=== PATIENT | male | born 1995 | race Caucasian/White ===

== ENCOUNTER 2016-09-15 13:41 | Inpatient (IN) | payer MEDICAID, OTHER, SELFPAY ==
[~2016-09-15] VITALS: Ht 180.3 cm; Wt 66.8 kg
[2016-09-15] VITALS (8 sets, daily range): BP systolic 124–136; BP diastolic 64–82
[~2016-09-15 13:41] MED LIST: DRIS50002 PO; INSUDET SC; INSUH10VL SC; LEVA750T PO; NAPR500T2 PO; PERCOCET PO
[2016-09-15 14:10] LABS: BASO % 0.2 % (0.0-1.0); EOS # 0.1 K/mm3 (0.0-0.50); EOS % 0.3 % (0.0-3.0); LARGE UNSTAINED CELL # 0.2 K/mm3 (0.0-0.4); LARGE UNSTAINED CELL % 0.8 % (0.0-4.0); LYMPH # 1.3 K/mm3 (1.5-6.5); LYMPH % 5.3 % (24.0-44.0); MEAN CORPUSCULAR HEMOGLOBIN 27.7 pg (27.0-33.0); MEAN CORPUSCULAR HGB CONC 32.1 g/dl (32.0-36.5); MEAN CORPUSCULAR VOLUME 86.2 fl (80.0-96.0); MONO # 0.7 K/mm3 (0.0-0.8); MONO % 2.7 % (0.0-5.0); NEUTROPHILS # 21.5 K/mm3 (1.8-7.7); NEUTROPHILS % 90.6 % (36.0-66.0); PLATELET COUNT, AUTOMATED 272 k/mm3 (150-450); RED CELL DISTRIBUTION WIDTH 14.1 % (11.5-14.5); WHITE BLOOD COUNT 23.7 K/mm3 (4.0-10.0)
[2016-09-15 14:21] LABS: VENOUS BASE EXCESS -15.4 (-2.0-2.0); VENOUS O2 SATURATION 92.4 % (60.0-80.0); VENOUS PARTIAL PRESSURE CO2 25.7 mmHg (38.0-50.0); VENOUS PARTIAL PRESSURE O2 74.5 mmHg (30.0-50.0); VENOUS STANDARD HCO3 12.9 MEQ/L; VENOUS TOTAL CO2 11.2 MEQ/L (24.0-28.0)
[2016-09-15 14:34] LABS: CALCIUM LEVEL 8.3 MG/DL (8.5-10.1); CREATININE FOR GFR 2.3 MG/DL (0.70-1.30); MAGNESIUM LEVEL 3.2 MG/DL (1.8-2.4); PHOSPHORUS LEVEL 6.9 MG/DL (2.5-4.9); POTASSIUM SERUM 3.4 MEQ/L (3.5-5.1)
[2016-09-15] MEDS ORDERED: METOCLOPRAMIDE INJ 10MG/2ML VIAL (J2765) As Ordered ONE (14:36)
[2016-09-15] MEDS ORDERED: KCL 20MEQ IN 0.9 NS 1000 ML BAG As Ordered ONE (14:54)
--- NOTE | 2016-09-15 14:57 | REP ---
Clinical: Acute cough . Comparison: 03/20/2016 . Findings: The mediastinum and cardiac silhouette are stable and within normal limits for portable technique. The lung galloway are clear without acute consolidation, effusion, or pneumothorax. Skeletal structures are intact. Impression: Normal portable chest x-ray Signed by Thomas Lua MD 09/15/2016 02:49 P
[2016-09-15] MEDS ORDERED: NOVOINJ3 SC (15:07)
[2016-09-15] MEDS ORDERED: TOUJ1.2I SC (15:07)
[2016-09-15] MEDS ORDERED: HumuLIN R (REGULAR) INSULIN (NovoLIN R) **100U/ML** PER UNIT As Ordered ONE (15:20)
[2016-09-15] MEDS ORDERED: INSULIN HUMAN REGULAR 100 UNITS in NS 99 ML IV SCH (15:30)
--- NOTE | 2016-09-15 15:55 | EDDOCDS ---
Nurse's Notes [facility] Name: Ray Noble Age: 21 yrs Sex: Male : 1995 Arrival Date: 09/15/2016 Time: 13:41 Bed 6 Private MD: Diagnosis: Type 1 diabetes mellitus with ketoacidosis without coma;Hypokalemia;Dehydration Presentation: 09/15 13:58 Presenting complaint: EMS states: that the pt has had flu like symptoms for the past 2 ms18 days and is lethargic. EMS states that they checked the blood glucose and their machine read "HIGH". Pt was given 600mL NS. 18 g L AC. Adult Sepsis Screening: Patient has new or worsening altered mentation (1 point). Patient's respiratory rate is less than 22. Systolic blood pressure is greater than 100. Patient has a qSOFA score of 0- Negative Sepsis Screen. Suicide/Homicide risk assessment- the patient denies having any suicidal and/or homicidal ideations and does not present with any other emotional, behavioral or mental health complaints. 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 Transition of care: patient was not received from another setting of care. 13:58 Acuity: CARLY Level 3 ms18 13:58 Method Of Arrival: Ambulance ms18 Triage Assessment: 14:29 General: Appears in no apparent distress, ill, emaciated, Behavior is cooperative, ms18 drowsy, flat. HIV screening NA for this visit Offered previously. Neurological: Level of Consciousness is awake, lethargic, listless, obeys commands, Moves all extremities. Gait is steady. Respiratory: Airway is patent Respiratory effort is even, unlabored. GI: Abdomen is flat, non- distended Pt is actively vomiting. Derm: Skin is pink, warm & dry. 14:29 Pain: Pain currently is 5 out of 10 on a pain scale. ms18 Historical: - Allergies: PENICILLINS (Hives); Tramadol HCl (Vomit); Zofran; - Home Meds: 1. Insulin Levamir 36 units in am daily 2. Regular Insulin Sliding Scale before meals 7 units at 1600 - PMHx: Diabetes - IDDM: uncontrolled; Self Cath's; - PSHx: Appendectomy; L middle finger surgery; - The history from nurses notes was reviewed: but there are no nursing notes, or only partial notes available at the time of my charting. - Social history: Smoking status: Patient uses tobacco products, current every day smoker. No barriers to communication noted, The patient speaks fluent Korean. - : The pt / caregiver states he / she is not on anticoagulants. Home medication list is obtained from the patient. - Immunization history:: All immunizations up-to-date. - Exposure Risk Screening:: None identified. - Family history: Not pertinent. - Social history:: the patient is a non-smoker, the patient drinks alcohol. Screenin:32 Screening information is obtained from the patient. Fall risk: At risk due to apparent ms18 cognitive impairment. Assistance ADL's: requires no assistance with activities of daily living. Abuse/DV Screen: The patient / caregiver reports he/she is: not in a situation that causes fear, pain or injury. Nutritional screening: On diabetic diet. Advance Directives: Currently, there is no health care proxy. home support is adequate. Assessment: 14:32 General: Pt's left to go to work and left her cell number, . Her name walter is Roseanne. 14:45 General: Appears in no apparent distress, comfortable, emaciated, slender, Behavior is ms18 cooperative, flat, listless, quiet. Pain: Pain currently is 4 out of 10 on a pain scale. Neurological: Level of Consciousness is awake, lethargic, listless, obeys commands, Oriented to person, place, time. Respiratory: Airway is patent Respiratory effort is even, unlabored. GI: Abdomen is flat, non- distended Reports nausea, vomiting. Derm: Skin is pink, warm & dry. normal. 15:47 General: Appears in no apparent distress, comfortable, Behavior is cooperative, flat, ms18 listless. General: ICU called, report given to Ayala Houston. PT can go to his room 3209 in approx 10 mins. Neurological: Level of Consciousness is awake, lethargic, listless, obeys commands, Oriented to person, place, time, Speech pt states that his throat is dry and can't speak well at this time. Facial symmetry appears normal. Cardiovascular: Rhythm is sinus rhythm. Respiratory: Airway is patent Respiratory effort is even, unlabored, Respiratory pattern is regular, symmetrical. GI: Abdomen is flat, non- distended. Derm: Skin is pink, warm & dry. normal. Vital Signs: 13:53 BP 140 / 65; Pulse 125; Resp 20; Temp 96.4(O); Pulse Ox 96% on R/A; Weight 73.48 kg nb2 (R); Height 5 ft. 11 in. (180.34 cm) (R); Pain 9/10; 14:29 Weight 62.6 kg (M); ms18 14:38 Pulse 120 MON; Pulse Ox 98% ; ms18 14:39 BP 122 / 65 (auto/); Resp 18; ms18 15:24 BP 144 / 73 (auto/); ms18 15:24 Pulse 100 MON; Pulse Ox 98% ; ms18 15:39 BP 130 / 63 (auto/); ms18 15:48 Pulse 108 MON; Resp 18; Temp 97; Pulse Ox 98% on R/A; Pain 5/10; ms18 14:29 Body Mass Index 19.25 (62.60 kg, 180.34 cm) ms18 Vitals: 13:53 Log In Time N/A - ambulance arrival. nb2 ED Course: 13:42 Patient visited by Roxanne Underwood, Vice President Business & Corporate Development. deg 13:42 Sherrell August,RN is Primary Nurse. deg 13:42 Patient moved to Waiting deg 13:42 Patient moved to 6 deg 13:46 Karl Sue MD is Attending Physician. pc 13:53 Placed in gown. Bed in low position. Call light in reach. Side rails up X2. Cardiac nb2 monitor on. Pulse ox on. NIBP on. 13:54 Patient visited by Mame Ortez. nb2 13:55 Patient visited by Karl Sue MD. pc 13:58 Patient visited by Sherrell August,RN. ms18 14:03 Triage Initiated ms18 14:21 EKG done. (by ED staff). Reviewed by Karl Sue MD. nb2 14:22 -Influenza A&B Rapid Antigen - Nose Sent. ms18 14:25 Patient visited by Mame Ortez. nb2 14:32 The patient / caregiver is instructed regarding the plan of care and ED course. ms18 Property :Personal belongings accompany Pt. 14:32 Maintain field IV. Dressing intact. Good blood return noted. Site clean & dry. Gauge & ms18 site: 18g L AC. Blanchard cath inserted 16 Fr. Balloon inflated. To gravity drainage. Urine specimen collected. other Pt self caths and requested a blanchard catheter. Dr. Sue aware of this and stated that it was ok to insert the cath. 14:41 Patient visited by Sherrell August RN. ms18 14:49 Urine Culture Sent. ms18 14:49 Urinalysis Sent. ms18 14:58 Erica Jaimes precipitator supervisor. ys2 15:08 Inserted peripheral IV: 20gauge IV in right hand. dwg 15:09 Patient visited by Sherrell August RN. ms18 15:15 Erica Jaimes is Hospitalizing Provider. pc 15:41 Chest, 1 View Returned. EDMS 15:45 [facility] Payment Agreement was scanned into [employer] and attached to record. zo 15:47 Patient visited by Sherrell August RN. ms18 15:48 No procedures done that require assistance. ms18 Administered Medications: 14:23 CANCELLED (Other Intervention Used): Ondansetron 4 mg IVP once pc 14:24 Drug: NS 0.9% 1000 ml [sodium chloride 0.9 % intravenous solution] Route: IV; Rate: ms18 bolus; Site: left antecubital; 15:17 Follow up: IV Status: Completed infusion; IV Intake: 1000ml ms18 14:41 Drug: Metoclopramide 10 mg [metoclopramide 5 mg/mL injection solution] Route: IV; Rate: ms18 40 mg/hr; Infused Over: 15 mins; Site: left antecubital; 15:07 Follow up: IV Status: Completed infusion; IV Intake: 102ml ms18 15:16 Drug: NS 0.9 % with KCl 1000 ml [potassium chloride 20 mEq/L in 0.9 % sodium chloride ms18 intravenous] {Co-Signature: ld5 (Maddy Sepulveda RN).} Route: IV; Rate: 200 mL/hr; Site: left antecubital; 15:32 Drug: Insulin Regular Human 6 units [insulin regular human 100 unit/mL injection ms18 solution (0.06 mL)] {Co-Signature: mcp (Rupinder Do RN).} Route: IVP; Site: right hand; 15:33 Drug: Insulin Regular Human Infusion (0.1units/kg/hr) 6 units/hr [insulin regular human ms18 100 unit/mL injection solution] {Co-Signature: mcp (Rupinder Do RN).} Route: IV; Rate: calculated rate; Site: right hand; Intake: 14:46 IV: 600.00ml (NS); Total: 600.00ml. ms18 15:07 IV: 102.00ml; Total: 702.00ml. ms18 15:17 IV: 1000.00ml; Total: 1702.00ml. ms18 14:46 given by EMS ms18 Output: 14:46 Urine: 1200.00ml (Blanchard); Total: 1200.00ml. ms18 14:46 given by EMS ms18 Order Results: Lab Order: CBC with Diff; SPEC'M 09/15/16 14:01 Test: WHITE BLOOD COUNT; Value: 23.7; Range: 4.0-10.0; Abnormal: Above high normal; Units: K/mm3; Status: F Test: RED BLOOD COUNT; Value: 4.73; Range: 4.30-6.10; Units: M/mm3; Status: F Test: HEMOGLOBIN; Value: 13.1; Range: 14.0-18.0; Abnormal: Below low normal; Units: g/dl; Status: F Test: HEMATOCRIT; Value: 40.7; Range: 42.0-52.0; Abnormal: Below low normal; Units: %; Status: F Test: MEAN CORPUSCULAR VOLUME; Value: 86.2; Range: 80.0-96.0; Units: fl; Status: F Test: MEAN CORPUSCULAR HEMOGLOBIN; Value: 27.7; Range: 27.0-33.0; Units: pg; Status: F Test: MEAN CORPUSCULAR HGB CONC; Value: 32.1; Range: 32.0-36.5; Units: g/dl; Status: F Test: RED CELL DISTRIBUTION WIDTH; Value: 14.1; Range: 11.5-14.5; Units: %; Status: F Test: PLATELET COUNT, AUTOMATED; Value: 272; Range: 150-450; Units: k/mm3; Status: F Test: NEUTROPHILS %; Value: 90.6; Range: 36.0-66.0; Abnormal: Above high normal; Units: %; Status: F Test: LYMPH %; Value: 5.3; Range: 24.0-44.0; Abnormal: Below low normal; Units: %; Status: F Test: MONO %; Value: 2.7; Range: 0.0-5.0; Units: %; Status: F Test: EOS %; Value: 0.3; Range: 0.0-3.0; Units: %; Status: F Test: BASO %; Value: 0.2; Range: 0.0-1.0; Units: %; Status: F Test: LARGE UNSTAINED CELL %; Value: 0.8; Range: 0.0-4.0; Units: %; Status: F Test: NEUTROPHILS #; Value: 21.5; Range: 1.8-7.7; Abnormal: Above high normal; Units: K/mm3; Status: F Test: LYMPH #; Value: 1.3; Range: 1.5-6.5; Abnormal: Below low normal; Units: K/mm3; Status: F Test: MONO #; Value: 0.7; Range: 0.0-0.8; Units: K/mm3; Status: F Test: EOS #; Value: 0.1; Range: 0.0-0.50; Units: K/mm3; Status: F Test: BASO #; Value: 0.0; Range: 0.0-0.2; Units: K/mm3; Status: F Test: LARGE UNSTAINED CELL #; Value: 0.2; Range: 0.0-0.4; Units: K/mm3; Status: F Lab Order: MED Profile; SPEC'M 09/15/16 14:01 Test: GLUCOSE, FASTING; Value: 786; Range: 70-105; Abnormal: Above upper panic limits; Units: MG/DL; Status: F Test: BLOOD UREA NITROGEN; Value: 54; Range: 7-18; Abnormal: Above high normal; Units: MG/DL; Status: F Test: CREATININE FOR GFR; Value: 2.30; Range: 0.70-1.30; Abnormal: Above high normal; Units: MG/DL; Status: F Test: GLOMERULAR FILTRATION RATE; Value: 38.0; Range: >60; Abnormal: Below low normal; Status: F Test: SODIUM LEVEL; Value: 121; Range: 136-145; Abnormal: Below low normal; Units: MEQ/L; Status: F Test: POTASSIUM SERUM; Value: 3.4; Range: 3.5-5.1; Abnormal: Below low normal; Units: MEQ/L; Status: F Test: CHLORIDE LEVEL; Value: 74; Range: 98-107; Abnormal: Below low normal; Units: MEQ/L; Status: F Test: CARBON DIOXIDE LEVEL; Value: 12; Range: 21-32; Abnormal: Below low normal; Units: MEQ/L; Status: F Test: ANION GAP; Value: 35; Range: 8-16; Abnormal: Above high normal; Units: MEQ/L; Status: F Test: CALCIUM LEVEL; Value: 8.3; Range: 8.5-10.1; Abnormal: Below low normal; Units: MG/DL; Status: F Test Note: ; Units are mL/min/1.73 m2 Chronic Kidney Disease Staging per NKF: Stage I & II GFR >=60 Normal to Mildly Decreased Stage III GFR 30-59 Moderately Decreased Stage IV GFR 15-29 Severely Decreased Stage V GFR <15 Very Little GFR Left ESRD GFR <15 on RESEARCH AND DEVELOPMENT RESEARCHER Lab Order: Venous Blood Gas (large pea green tube on ice); SPEC'M 09/15/16 14:01 Test: VENOUS PH; Value: 7.226; Range: 7.330-7.430; Abnormal: Below low normal; Units: UNITS; Status: F Test: VENOUS PARTIAL PRESSURE CO2; Value: 25.7; Range: 38.0-50.0; Abnormal: Below low normal; Units: mmHg; Status: F Test: VENOUS PARTIAL PRESSURE O2; Value: 74.5; Range: 30.0-50.0; Abnormal: Above high normal; Units: mmHg; Status: F Test: VENOUS TOTAL CO2; Value: 11.2; Range: 24.0-28.0; Abnormal: Below low normal; Units: MEQ/L; Status: F Test: VENOUS HCO3; Value: 10.4; Range: 23.0-27.0; Abnormal: Below low normal; Units: MEQ/L; Status: F Test: VENOUS BASE EXCESS; Value: -15.4; Range: -2.0-2.0; Abnormal: Below low normal; Status: F Test: VENOUS STANDARD HCO3; Value: 12.9; Units: MEQ/L; Status: F Test: VENOUS O2 SATURATION; Value: 92.4; Range: 60.0-80.0; Abnormal: Above high normal; Units: %; Status: F Lab Order: Phosphorous Level; [facility] 14:01 Test: PHOSPHORUS LEVEL; Value: 6.9; Range: 2.5-4.9; Abnormal: Above high normal; Units: MG/DL; Status: F Lab Order: Magnesium Level; [facility] 09/15/16 14:01 Test: MAGNESIUM LEVEL; Value: 3.2; Range: 1.8-2.4; Abnormal: Above high normal; Units: MG/DL; Status: F Lab Order: -Influenza A&B Rapid Antigen - Nose; 09/15/16 14:19 Test: INFLUENZA A RAPID SCR by ICA; Value: INFLUENZA A RESULTS NEGATIVE; Status: F Test: INFLUENZA A RAPID SCR by ICA; Value: Comments:; Status: F Test: INFLUENZA B RAPID SCR by ICA; Value: INFLUENZA B RESULTS NEGATIVE; Status: F Test Note: ; The Influenza test is a direct rapid immunoassay for the qualitative detection of Influenza viral antigen. Cell culture (Viral Culture) testing should be considered to confirm NEGATIVE results and to assist in detecting other viruses that can provide similar clinical symptoms. Please contact the lab within 24 hours ([phone]) if confirmatory testing is desired. Lab Order: Lactic Acid ([place] tube on ice); 09/15/16 14:01 Test: LACTIC ACID SEPSIS PROTOCOL; Value: 2.2; Range: 0.4-2.0; Abnormal: Above upper panic limits; Units: MMOL/L; Status: F Lab Order: A1C; [facility] 09/15/16 14:01 Test: HEMOGLOBIN A1c; Value: 13.3; Range: 4.5-6.2; Abnormal: Above high normal; Units: %; Status: F Test: ESTIMATED AVERAGE GLUCOSE; Value: 335; Range: 60-110; Abnormal: Above high normal; Units: MG/DL; Status: F Lab Order: Urinalysis; [facility] 09/15/16 14:45 Test: APPEARANCE, URINE; Value: CLEAR; Range: CLEAR; Status: F Test: COLOR, URINE; Value: STRAW; Range: YELLOW; Status: F Test: PH,URINE; Value: 5.0; Range: 5.0-9.0; Units: UNITS; Status: F Test: SPECIFIC GRAVITY URINE AUTO; Value: 1.016; Range: 1.002-1.035; Status: F Test: PROTEIN, URINE AUTO; Value: NEGATIVE; Range: NEGATIVE; Units: mg/dL; Status: F Test: GLUCOSE, URINE (UA) AUTO; Value: 3+; Range: NEGATIVE; Abnormal: Above high normal; Units: mg/dL; Status: F Test: KETONE, URINE AUTO; Value: 2+; Range: NEGATIVE; Abnormal: Above high normal; Units: mg/dL; Status: F Test: UROBILINOGEN, URINE AUTO; Value: 0.2; Range: 0.0-2.0; Units: mg/dL; Status: F Test: BILIRUBIN, URINE AUTO; Value: NEGATIVE; Range: NEGATIVE; Status: F Test: NITRITE, URINE AUTO; Value: NEGATIVE; Range: NEGATIVE; Status: F Test: LEUKOCYTE ESTERASE, URINE AUTO; Value: NEGATIVE; Range: NEGATIVE; Status: F Test: BLOOD, URINE BLOOD; Value: 1+; Range: NEGATIVE; Abnormal: Above high normal; Status: F Test: WBC, URINE AUTO; Value: 0; Range: 0-3; Units: /HPF; Status: F Test: RBC, URINE AUTO; Value: 3; Range: 0-3; Units: /HPF; Status: F Test: BACTERIA, URINE AUTO; Value: 1+; Range: NEGATIVE; Abnormal: Above high normal; Status: F Test: SQUAMOUS EPITHELIAL CELL UR AU; Value: 0; Range: 0-6; Units: /HPF; Status: F Test: MUCUS, URINE; Value: SMALL; Range: NEGATIVE; Status: F Test: HYALINE CAST, URINE AUTO; Value: 0; Range: 0-1; Units: /LPF; Status: F Radiology Order: Chest, 1 View Test: Chest, 1 View REASON FOR EXAMINATION: Cough; Clinical: Acute cough .; ; Comparison: 03/20/2016 .; ; Findings:; The mediastinum and cardiac silhouette are stable and within normal limits for; portable technique. The lung galloway are clear without acute consolidation,; effusion, or pneumothorax. Skeletal structures are intact.; ; Impression:; Normal portable chest x-ray; ; ; Signed by; Thomas Lua MD 09/15/2016 02:49 P; Outcome: 15:15 Decision to Hospitalize by Provider. pc 15:48 Discharge Assessment: Patient awake, alert and oriented x 3. No cognitive and/or ms18 functional deficits noted. Patient verbalized understanding of disposition instructions. patient administered narcotics - no. The following High Risk Discharge criteria are identified: None. Admitted to ICU accompanied by nurse, accompanied by tech, via stretcher, on monitor, with chart. Condition: stable. No special radiology studies were completed. Property :Personal belongings accompany Pt. 15:54 Patient left the ED. ms18 Signatures: Dispatcher [employer] EDMS Karl Sue MD MD pc Murray, Denise, Vice President Business & Corporate Development Unit deg Checo Moreno, RN RN Camille Reich MalloryRN RN ms18 Erica Jaimes2 Mame Ortez2 Maddy Sepulveda RN ld5 Rupinder Do RN [facility] MTDTorsten
--- NOTE | 2016-09-15 15:55 | EDDOCDS ---
Physician Documentation [facility] Name: Ray Noble Age: 21 yrs Sex: Male : 1995 Arrival Date: 09/15/2016 Time: 13:41 Bed 6 Private MD: Disposition: 09/15 14:54 Critical Care:. pc Disposition: 09/15/16 15:15 Hospitalization ordered by Erica Jaimes for Inpatient Admission. Preliminary diagnosis are Type 1 diabetes mellitus with ketoacidosis without coma, Hypokalemia, Dehydration. - Bed requested for M ICU. - Status is Inpatient Admission. ms18 - Condition is Stable. - Problem is new. - Symptoms have improved. HPI: 14:00 This 21 yrs old Male presents to ER with complaints of High Blood Sugar. pc 14:00 The history is obtained from the patient, the patient's family/friend. He has had a pc cough and cold for 7 days, worse in the past 2 days, now having nausea and vomiting. He has not taken any of his regular meds, including his insulin for 2 days, and has not checked his FSBS. It read high by EMS [employer]. The patient has experienced similar episodes in the past, a few times. The patient has been recently been admitted at [facility], was discharged from the hospital May 2016, after sepsis due to an E. Coli UTI, and he has not followed with any PCP since.. Historical: - Allergies: PENICILLINS (Hives); Tramadol HCl (Vomit); Zofran; - Home Meds: 1. Insulin Levamir 36 units in am daily 2. Regular Insulin Sliding Scale before meals 7 units at 1600 - PMHx: Diabetes - IDDM: uncontrolled; Self Cath's; - PSHx: Appendectomy; L middle finger surgery; - The history from nurses notes was reviewed: but there are no nursing notes, or only partial notes available at the time of my charting. - Social history: Smoking status: Patient uses tobacco products, current every day smoker. No barriers to communication noted, The patient speaks fluent [place]. - : The pt / caregiver states he / she is not on anticoagulants. Home medication list is obtained from the patient. - Immunization history:: All immunizations up-to-date. - Exposure Risk Screening:: None identified. - Family history: Not pertinent. - Social history:: the patient is a non-smoker, the patient drinks alcohol. ROS: 14:00 All systems are negative except as listed. pc Exam: 14:00 General Appearance: alert, the patient is in moderate distress, frail, cachectic . pc 14:00 EENT: normal eye inspection, ears, nose and throat normal, mucous membranes dry, overwhelming odor of ketones on breath . 14:00 Neck: The exam reveals no acute abnormalities. ROM is normal and painless. No nuchal rigidity is noted.. 14:00 Respiratory: Respirations/effort: tachypnea, Kussmaul respirations. 14:00 CVS: regular rhythm, normal S1 and S2, no murmurs, strong peripheral pulses, normal capillary refill, the patient is tachycardic, at 125 bpm. 14:00 Abdomen: soft, non-tender, no organomegaly, normal bowel sounds. 14:00 Back: normal inspection. 14:00 Skin: skin color is normal, warm, dry. 14:00 Extremities: The extremities have a grossly normal appearance. 14:00 Neuro: oriented x 3, cranial nerves normal as tested, no motor deficits, no sensory deficits. 14:00 Psych: normal mood. Vital Signs: 13:53 BP 140 / 65; Pulse 125; Resp 20; Temp 96.4(O); Pulse Ox 96% on R/A; Weight 73.48 kg / nb2 162 lbs (R); Height 5 ft. 11 in. (180.34 cm) (R); Pain 9/10; 14:29 Weight 62.6 kg / 138.01 lbs (M); ms18 14:38 Pulse 120 MON; Pulse Ox 98% ; ms18 14:39 BP 122 / 65 (auto/); Resp 18; ms18 15:24 BP 144 / 73 (auto/); ms18 15:24 Pulse 100 MON; Pulse Ox 98% ; ms18 15:39 BP 130 / 63 (auto/); ms18 15:48 Pulse 108 MON; Resp 18; Temp 97; Pulse Ox 98% on R/A; Pain 5/10; ms18 14:29 Body Mass Index 19.25 (62.60 kg, 180.34 cm) ms18 MDM: 13:58 IV Saline Lock ordered. pc 13:58 NS 0.9% 1000 ml IV at bolus once ordered. pc 13:58 Media Relations Associate/Pulse Ox/q 30 min VS ordered. pc 13:58 Weigh Pt on scale, in Kg (Do Not Use Reported Weight) ordered. pc 13:58 Obtain sample by nasopharyngeal swab ordered. pc 13:59 CBC with Diff Ordered. EDMS 13:59 MED Profile Ordered. EDMS 13:59 Venous Blood Gas (large pea green tube on ice) Ordered. EDMS 13:59 Phosphorous Level Ordered. EDMS 13:59 Magnesium Level Ordered. EDMS 13:59 -Influenza A&B Rapid Antigen - Nose Ordered. EDMS 14:00 Chest, 1 View Ordered. EDMS 14:00 BED REQUEST+ADM ordered. EDMS 14:00 ECG WITH READING ER PHYS+CARDIAG ordered. EDMS 14:00 Lactic Acid ([place] tube on ice) Ordered. EDMS 14:00 A1C Ordered. EDMS 14:00 Differential Diagnosis: URI r/o pneumonia/Influenza; Type 1 DM with DKA. Plan: labs, pc IVF, EKG, imaging. 14:23 Metoclopramide 10 mg IV at 40 mg/hr once over 15 mins ordered. pc 14:23 CBC with Diff Reviewed. pc 14:23 Test interpretation: EKG. pc 14:46 Kinney ordered. pc 14:46 Venous Blood Gas (large pea green tube on ice) Reviewed. pc 14:46 -Influenza A&B Rapid Antigen - Nose Reviewed. pc 14:46 MED Profile Reviewed. pc 14:46 Phosphorous Level Reviewed. pc 14:46 Magnesium Level Reviewed. pc 14:47 Urinalysis Ordered. EDMS 14:47 Urine Culture Ordered. EDMS 14:48 NS 0.9 % with KCl 20 mEq/L 1000 ml IV at 200 mL/hr continuous ordered. pc 14:49 Lactic Acid ([place]ampa tube on ice) Reviewed. pc 14:54 Insulin Regular Human Infusion (0.1units/kg/hr) 6 units/hr IV at calculated rate Per pc protocol ordered. 14:54 Accucheck hourly ordered. pc 14:54 Insulin Regular Human 6 units IVP once ordered. pc 14:54 Data reviewed: old medical records, vital signs, nurses notes, EKG(s), lab test pc results, all radiology studies and available results. Test interpretation: LAB - all labs as ordered have been reviewed, interpreted and considered in the overall management of the clinical presentation; Arterial blood gas pH: 7.22 X-RAY - interpreted by Radiologist and personally reviewed, 1 view chest no acute disease. The patient has been re-examined and re-evaluated. The patient's symptoms have mildly improved after treatment. Physician consultation: Dr. Erica Jaimes was contacted at 14:55, regarding admission, and will see patient in ED. Disposition: The historical points, examination findings, and any diagnostic results supporting the provided diagnosis, were discussed with the patient or legal guardian. The need for further work-up and/or treatment in the hospital was explained. 14:56 IV Saline Lock ordered. pc 15:14 A1C Reviewed. pc 15:14 Urinalysis Reviewed. pc 15:23 Admission / Observation Status ordered. EDMS 15:24 BASIC METABOLIC PROFILE Ordered. EDMS 15:24 BASIC METABOLIC PROFILE Ordered. EDMS 15:24 BASIC METABOLIC PROFILE Ordered. EDMS 15:24 BASIC METABOLIC PROFILE Ordered. EDMS 15:24 BASIC METABOLIC PROFILE Ordered. EDMS 15:24 CARDIAC MARKER PANEL Ordered. EDMS 15:25 CARDIAC MARKER PANEL Ordered. EDMS 15:25 SPUTUM CULTURE AND GRAM STAIN Ordered. EDMS 15:25 BLOOD CULTURES Ordered. EDMS 15:36 RESPIRATORY PANEL Ordered. EDMS 15:44 Financial registration complete. zo 15:45 [facility] Payment Agreement was scanned into [employer] and attached to record. zo EC:23 Rate is 116 beats/min. Rhythm is regular, Sinus tachycardia. QRS [place] is Normal. UT pc interval is normal. QRS interval is normal. QT interval is normal. No Q waves. T waves are Inverted in leads II, III, aVF, V4, V5, V6. No ST changes noted. Clinical impression: Sinus tachycardia and rate-related T wave changes. Administered Medications: 14:23 CANCELLED (Other Intervention Used): Ondansetron 4 mg IVP once pc 14:24 Drug: NS 0.9% 1000 ml [sodium chloride 0.9 % intravenous solution] Route: IV; Rate: ms18 bolus; Site: left antecubital; 15:17 Follow up: IV Status: Completed infusion; IV Intake: 1000ml ms18 14:41 Drug: Metoclopramide 10 mg [metoclopramide 5 mg/mL injection solution] Route: IV; Rate: ms18 40 mg/hr; Infused Over: 15 mins; Site: left antecubital; 15:07 Follow up: IV Status: Completed infusion; IV Intake: 102ml ms18 15:16 Drug: NS 0.9 % with KCl 1000 ml [potassium chloride 20 mEq/L in 0.9 % sodium chloride ms18 intravenous] {Co-Signature: ld5 (Maddy Sepulveda RN).} Route: IV; Rate: 200 mL/hr; Site: left antecubital; 15:32 Drug: Insulin Regular Human 6 units [insulin regular human 100 unit/mL injection ms18 solution (0.06 mL)] {Co-Signature: mcp (Rupinder Do RN).} Route: IVP; Site: right hand; 15:33 Drug: Insulin Regular Human Infusion (0.1units/kg/hr) 6 units/hr [insulin regular human ms18 100 unit/mL injection solution] {Co-Signature: brigette (Rupinder Do RN).} Route: IV; Rate: calculated rate; Site: right hand; Critical Care Time: 14:54 Critical care time: Bedside Care: 25 minutes, Consultation: 10 minutes, Family pc Intervention: 15 minutes. Total time: 50 minutes Signatures: Dispatcher [employer] Karl Quintero MD MD pc Murray, Denise, System Manager Unit deg Camille Ruiz Mallory, RN RN ms18 Maddy Sepulveda RN ld5 Rupinder Do RN, mcp The chart was reviewed and I authenticate all verbal orders and agree with the evaluation and treatment provided.Corrections: (The following items were deleted from the chart) 14:23 13:58 Ondansetron 4 mg IVP once ordered. pc pc 15:37 15:25 BLOOD CULTURES ordered. EDMS EDMS Attachments: 15:45 [facility] Payment Agreement zo MTDD
[2016-09-15 16:12] LABS: ANION GAP 31 MEQ/L (8-16); BLOOD UREA NITROGEN 51 MG/DL (7-18); CALCIUM LEVEL 7.7 MG/DL (8.5-10.1); CARBON DIOXIDE LEVEL 11 MEQ/L (21-32); CHLORIDE LEVEL 81 MEQ/L (98-107); CREATININE FOR GFR 2.03 MG/DL (0.70-1.30); GLOMERULAR FILTRATION RATE 43.9 (>60); POTASSIUM SERUM 3.2 MEQ/L (3.5-5.1); SODIUM LEVEL 123 MEQ/L (136-145)
[2016-09-15 16:18] LABS: GLUCOSE, FASTING 677 MG/DL (70-105)
--- NOTE | 2016-09-15 16:27 | HPE ---
DATE OF ADMISSION: 09/15/2016 HISTORY OF PRESENT ILLNESS: The patient is a 21-year-old male with a past medical history significant for type 1 diabetes, chronic urinary retention, requires frequent self-catheterization, who presented to [facility] on 09/15/2016 by ambulance for lethargy and hyperglycemia. The patient stated he started having cold-like symptoms since two days ago. He experienced frequent cough, nausea and vomiting for at least two days and he has not been using his insulin for the past two days due to the lethargy. Other associated symptoms include chills. The patient denies any diarrhea. The patient has a history of chronic urinary retention requiring frequent self-catheterization for the past two years. The patient has been followed by the urologist. However, the patient does not have any confirmatory diagnosis for his urinary retention. The patient does have a history of frequent urinary tract infection (UTI). When the patient arrived to the emergency room, the patient was found to have a glucose of 786 with anion gap of 35 and the hospitalist team was called for admission. ALLERGIES: 1. PENICILLIN (hives). 2. TRAMADOL (gastrointestinal upset). 3. ZOFRAN (hives). HOME MEDICATIONS: - Levemir 36 units subcutaneous every morning - regular insulin sliding scale before meals and at bedtime PAST MEDICAL HISTORY: 1. Type 1 diabetes. 2. Urinary retention requiring frequent catheterizations for the past two years. PAST SURGICAL HISTORY: 1. Appendectomy. 2. Left hand middle finger removal. SOCIAL HISTORY: Smoked half a pack to one pack daily for the last 6-8 years. Denies alcohol use. Denies any recreational drug use. REVIEW OF SYSTEMS: Positive chills. Denies any fevers. Denies any headache. Increased lethargy the last two days. HEENT: Denies any vision changes or auditory changes. CARDIOVASCULAR: No chest pain. No palpitations. RESPIRATORY: The patient complained about frequent cough for the past few days. No wheezes. Denies any recent sick contact. GASTROINTESTINAL: Frequent nausea and vomiting for the past two days. No abdominal pain. No diarrhea. NEUROLOGICAL: No numbness. No tingling. MUSCULOSKELETAL: No muscle pain or joint pain. OBJECTIVE: VITAL SIGNS: Blood pressure is 122/65, pulse is 20, temperature is 96.4, pulse oximetry is 98% on room air. Body weight is 62.6 kg. Body height is 180.3 cm. GENERAL: Lethargic, difficulty maintaining alertness and awakeness. However, able to answer questions and follow commands. The patient is alert and oriented times three. HEENT: Some swelling near the corner of the right mouth. He contributed that from the frequent vomiting. CARDIOVASCULAR: Tachycardic with a heart rate around 120. RESPIRATORY: Clear to auscultation bilaterally. ABDOMEN: Soft, nontender, nondistended. Bowel sounds present. No rebound. No guarding. MUSCULOSKELETAL: Multiple tattoos throughout the body. EXTREMITIES: No lower extremity edema. No sign of cyanosis. Missing left fingers. NEUROLOGICAL: Sensation to fine touch grossly intact. Muscle strength 5/5. LABORATORY DATA: WBC is 23.7, hemoglobin is 13.1, hematocrit is 40.7, platelet count is 272. Sodium is 121, potassium 3.4, chloride 74, carbon dioxide is 12, BUN 54, creatinine 2.3, GFR is 38, fasting glucose is 786, A1c is 13.3, lactic acid 2.2, calcium is 8.3, phosphorus 6.9, magnesium 3.2. ABG showed a pH of 7.226, pCO2 is 25.7, pO2 is 74.5, HCO3 is 10.4. UA shows 3+ glucose, 2+ ketones, negative leukocyte esterase, 1+ bacteria. Microbiology: Blood cultures pending. Urine culture is pending. IMAGING STUDIES: Chest x-ray showed normal portable chest x-ray. ASSESSMENT AND PLAN: 1. Diabetic ketoacidosis with an anion gap of 35. The patient will be admitted to the intensive care unit (ICU) under inpatient status. The patient will have aggressive IV resuscitation. The patient will also receive a potassium supplement. The patient will be started on an insulin drip. We will follow with a basic metabolic panel (BMP) every two hours. We will followup with the cultures and respiratory panel. The patient has a history of frequent urinary tract infection (UTI), currently also has upper respiratory symptoms. Previous urine cultures were reviewed, sensitive to fluoroquinolone. We will empirically start the patient on Levaquin. 2. Type 1 diabetes. On insulin drip now. 3. Intractable nausea and vomiting. Most likely secondary to diabetic ketoacidosis (DKA). The patient is allergic to Zofran. The patient will use as-needed Reglan. 4. Deep vein thrombosis (DVT) prophylaxis. The patient will be on heparin.
[2016-09-15] MEDS ORDERED: NS 1,000 ML IV SCH (17:00)
[2016-09-15] MEDS ORDERED: POTASSIUM CHLORIDE 10 MEQ SR TABLET PO ONE (17:15)
[2016-09-15 17:25] LABS: CALCIUM LEVEL 8.3 MG/DL (8.5-10.1); CREATININE FOR GFR 1.98 MG/DL (0.70-1.30); GLOMERULAR FILTRATION RATE 45.2 (>60); POTASSIUM SERUM 3.1 MEQ/L (3.5-5.1)
[2016-09-15] MEDS: KCL 10MEQ IN 100ML SWI (KRUN) 100 ML IV SCH ×4 (17:37→21:18)
[2016-09-15] MEDS: INSULIN IV RATE CHANGE DOCUMENTATION ML/HR XX SCH ×3 (18:16→22:09)
[2016-09-15] MEDS: KCL 40MEQ in NS 1000ML 1,000 ML IV SCH ×2 (19:09→23:47)
--- NOTE | 2016-09-15 19:48 | IPN ---
DATE: 09/15/2016 Patient was initially admitted to the ICU. Peripheral line was obtained for aggressive IV resuscitation. Patient also given potassium supplement thorough the IV fluid and additional potassium runs. Patient's laboratory is being monitored every two hours. With management, however patient potassium continued to drop, decreased from 3.4 to 3.1. Over the method for delivering potassium has been exhausted therefore my colleague Dr. Osborn and I went to the ICU room and discussed with the patient with regarding to central access. We explained the risks and benefits including decreasing the discomfort for multiple blood drawn and we will be able to obtain better access to deliver essential treatments, however patient continued to refuse the recommendations. Therefore the case is discussed with the night time hospitalist attending and will continue to monitor patients electrolytes and for now we will ensure patient gets sufficient potassium with the limited access we have. We may have to hold off the insulin drip intermittently based on patient's potassium level.
[2016-09-15 19:52] LABS: CALCIUM LEVEL 8.5 MG/DL (8.5-10.1); CREATININE FOR GFR 1.8 MG/DL (0.70-1.30); GLOMERULAR FILTRATION RATE 50.5 (>60); POTASSIUM SERUM 3.5 MEQ/L (3.5-5.1)
[2016-09-15] MEDS: HEPARIN SOD (PORCINE) 5000 UNITS/ML VIAL SC SCH (21:18)
[2016-09-15 21:37] LABS: AMPHETAMINES LEVEL URINE NEGATIVE (NEGATIVE); BENZODIAZEPINES URINE NEGATIVE (NEGATIVE); COCAINE METABOLITE URINE NEGATIVE (NEGATIVE); CONTROL LINE INT CTR LINE PRESENT; METHADONE URINE NEGATIVE (NEGATIVE); OPIATES URINE NEGATIVE (NEGATIVE); TRICYCLIC ANTIDEPRESS URINE NEGATIVE (NEGATIVE)
[2016-09-15 21:39] LABS: CALCIUM LEVEL 8.5 MG/DL (8.5-10.1); CREATININE FOR GFR 1.76 MG/DL (0.70-1.30); GLOMERULAR FILTRATION RATE 51.8 (>60); POTASSIUM SERUM 3.8 MEQ/L (3.5-5.1)
[2016-09-15] MEDS: LevoFLOXacin IV 750 MG in APPROPRIATE DILUENT 1 EA IV SCH (22:58)
[2016-09-15 23:46] LABS: ANION GAP 17 MEQ/L (8-16); BLOOD UREA NITROGEN 37 MG/DL (7-18); CALCIUM LEVEL 8.2 MG/DL (8.5-10.1); CARBON DIOXIDE LEVEL 20 MEQ/L (21-32); CHLORIDE LEVEL 98 MEQ/L (98-107); CREATININE FOR GFR 1.64 MG/DL (0.70-1.30); GLOMERULAR FILTRATION RATE 56.2 (>60); GLUCOSE, FASTING 295 MG/DL (70-105); POTASSIUM SERUM 4.1 MEQ/L (3.5-5.1); SODIUM LEVEL 135 MEQ/L (136-145)
[2016-09-16] VITALS: BP 132/74
[2016-09-16 01:33] LABS: ANION GAP 13 MEQ/L (8-16); BLOOD UREA NITROGEN 33 MG/DL (7-18); CALCIUM LEVEL 8.2 MG/DL (8.5-10.1); CARBON DIOXIDE LEVEL 20 MEQ/L (21-32); CHLORIDE LEVEL 103 MEQ/L (98-107); CREATININE FOR GFR 1.41 MG/DL (0.70-1.30); GLOMERULAR FILTRATION RATE > 60.0 (>60); GLUCOSE, FASTING 260 MG/DL (70-105); POTASSIUM SERUM 4.3 MEQ/L (3.5-5.1); SODIUM LEVEL 136 MEQ/L (136-145)
[2016-09-16 03:38] LABS: ANION GAP 15 MEQ/L (8-16); BLOOD UREA NITROGEN 33 MG/DL (7-18); CALCIUM LEVEL 8.3 MG/DL (8.5-10.1); CARBON DIOXIDE LEVEL 21 MEQ/L (21-32); CHLORIDE LEVEL 103 MEQ/L (98-107); CREATININE FOR GFR 1.37 MG/DL (0.70-1.30); GLOMERULAR FILTRATION RATE > 60.0 (>60); GLUCOSE, FASTING 285 MG/DL (70-105); POTASSIUM SERUM 4.3 MEQ/L (3.5-5.1); SODIUM LEVEL 139 MEQ/L (136-145)
[2016-09-16] MEDS: KCL 40MEQ in NS 1000ML 1,000 ML IV SCH (03:47)
[2016-09-16 04:00] VITALS: BP 132/80
[2016-09-16] MEDS ORDERED: INSULIN IV RATE CHANGE DOCUMENTATION ML/HR XX SCH (04:00)
[2016-09-16] MEDS ORDERED: LEVEMIR (INSULIN DETEMIR) 1 UNITS/0.01ML SC ONE (04:15)
[2016-09-16] MEDS ORDERED: GLUCOSE 4 GM CHEW TABLET PO PRN (04:45)
[2016-09-16] MEDS ORDERED: GLUCAGON FOR INJ 1 MG VIAL (J1610) SC PRN (04:45)
[2016-09-16] MEDS ORDERED: DEXTROSE 50% 50 ML SYRINGE IV PRN (04:45)
[2016-09-16 05:21] LABS: MEAN CORPUSCULAR HEMOGLOBIN 28.3 pg (27.0-33.0); MEAN CORPUSCULAR HGB CONC 34.8 g/dl (32.0-36.5); MEAN CORPUSCULAR VOLUME 81.4 fl (80.0-96.0); RED CELL DISTRIBUTION WIDTH 14.6 % (11.5-14.5); WHITE BLOOD COUNT 20.5 K/mm3 (4.0-10.0)
[2016-09-16] MEDS: HEPARIN SOD (PORCINE) 5000 UNITS/ML VIAL SC SCH ×3 (05:27→22:00)
[2016-09-16 05:43] LABS: ANION GAP 15 MEQ/L (8-16); BLOOD UREA NITROGEN 30 MG/DL (7-18); CALCIUM LEVEL 8.5 MG/DL (8.5-10.1); CARBON DIOXIDE LEVEL 20 MEQ/L (21-32); CHLORIDE LEVEL 105 MEQ/L (98-107); CREATININE FOR GFR 1.28 MG/DL (0.70-1.30); GLOMERULAR FILTRATION RATE > 60.0 (>60); GLUCOSE, FASTING 217 MG/DL (70-105); POTASSIUM SERUM 4.2 MEQ/L (3.5-5.1); SODIUM LEVEL 140 MEQ/L (136-145)
[2016-09-16] MEDS ORDERED: KCL 20MEQ in NS 1000ML 1,000 ML IV SCH (05:45)
[2016-09-16 05:48] LABS: ANION GAP 15 MEQ/L (8-16); BLOOD UREA NITROGEN 30 MG/DL (7-18); CALCIUM LEVEL 8.4 MG/DL (8.5-10.1); CARBON DIOXIDE LEVEL 20 MEQ/L (21-32); CHLORIDE LEVEL 105 MEQ/L (98-107); CREATININE FOR GFR 1.33 MG/DL (0.70-1.30); GLOMERULAR FILTRATION RATE > 60.0 (>60); GLUCOSE, FASTING 224 MG/DL (70-105); POTASSIUM SERUM 4.1 MEQ/L (3.5-5.1); SODIUM LEVEL 140 MEQ/L (136-145)
[2016-09-16] MEDS ORDERED: HumaLOG INSULIN (NovoLOG) PER UNIT SC SCH (06:00)
[2016-09-16] MEDS: HumaLOG INSULIN (NovoLOG) PER UNIT SC SCH ×4 (07:30→21:00)
[2016-09-16 08:35] VITALS: BP 138/90
[2016-09-16] MEDS: PANTOPRAZOLE 40MG TAB (PROTONIX) PO SCH (09:00)
[2016-09-16] MEDS ORDERED: PANTOPRAZOLE 40MG INJ (PROTONIX) (C9113) IV SCH (09:00)
[2016-09-16 10:17] LABS: ANION GAP 14 MEQ/L (8-16); BLOOD UREA NITROGEN 25 MG/DL (7-18); CALCIUM LEVEL 8.7 MG/DL (8.5-10.1); CARBON DIOXIDE LEVEL 22 MEQ/L (21-32); CHLORIDE LEVEL 105 MEQ/L (98-107); CREATININE FOR GFR 1.16 MG/DL (0.70-1.30); GLOMERULAR FILTRATION RATE > 60.0 (>60); GLUCOSE, FASTING 116 MG/DL (70-105); MAGNESIUM LEVEL 2.6 MG/DL (1.8-2.4); POTASSIUM SERUM 3.8 MEQ/L (3.5-5.1); SODIUM LEVEL 141 MEQ/L (136-145)
[2016-09-16 11:43] LABS: CONTROL LINE INT CTR LINE PRESENT; HIV SCRN NEGATIVE (NEGATIVE); HIV SCRN1 NEGATIVE (NEGATIVE)
[2016-09-16] MEDS ORDERED: GASTROGRAFIN SOLUTION 30ML PO ONE (12:00)
[2016-09-16] MEDS ORDERED: GASTROGRAFIN SOLUTION 30ML (Q9963) PO ONE (12:30)
[2016-09-16 14:00] VITALS: BP 108/65
[2016-09-16] MEDS: KCL 20MEQ IN D5/0.45NS 1000ML 1,000 ML IV SCH (14:00)
[2016-09-16 18:00] VITALS: BP 119/58
[2016-09-16] MEDS: LevoFLOXacin IV 750 MG in APPROPRIATE DILUENT 1 EA IV SCH (18:37)
--- NOTE | 2016-09-16 19:42 | ECGEPIP ---
Stationary ECG Study [facility] - ED Test Date: 2016-09-15 Pat Name: RYAN URIAS Department: Room: - Gender: M Healthcare Or Medical: stephanie : 1995 Requested By: Karl Quinteros Order Number: [id number] Reading MD: Martine Roca Measurements Intervals [place] Rate: 113 P: 76 WA: 134 QRS: 86 QRSD: 100 T: 259 QT: 342 QTc: 470 Interpretive Statements SINUS TACHYCARDIA MODERATE T-WAVE ABNORMALITY, CONSIDER ISCHEMIA NO PRIOR FOR COMPARISON Electronically Signed On 09-16-2016 19:42:22 EST by Martine Roca
[2016-09-16 21:00] VITALS: BP 112/60
[2016-09-16] MEDS ORDERED: MORPHINE 2 MG/ML 1ML SYRINGE IV ONE (21:00)
--- NOTE | 2016-09-16 21:21 | CR ---
DATE OF CONSULTATION: 09/16/2016 CONSULTATION REPORT FOR: Dr. Tara Osborn HISTORY OF PRESENT ILLNESS: 21-year-old male with a history of type 1 diabetes mellitus, chronic urinary retention, who was admitted to the medical floor to be stabilized for diabetic ketoacidosis. I went to see the patient. The patient is lying on the bed with his head forward. He stated in a very soft low voice that he feels very tired, that he does not feel like talking and that he has not been able to sleep. When I asked him if he has been diagnosed of any psychiatric disorder, the patient denies being diagnosed with anything else except attention deficit disorder. He preferred to talk to me at another time when he feels less fatigued. I called his and we met outside the room. His stated that he has been having these episodes intermittently in which he starts feeling nauseated and vomits. She says that he vomits quite frequently. Said that he has lost 25 pounds in the last three months, but also says that when he recovers from these episodes that he returns to his normal self with normal energy, eating and sleeping normally. She does not believe that he has a major depressive or anorexia nervosa. She said that she has never seen the patient provoking the vomit. She admits that they have been under a lot of stress because of financial problems. They have two children and they are very short on money and she just found a new job and he is trying to find one. The patient's reported that he returned from a job interview and his mood and appearance was completely normal but later on during the day he started feeling nauseated and vomiting and that is why this episode started. She said that he was too weak, that he was not taking his medications, insulin, or eating properly and that is the reason why he came to the hospital. I could not see any evidence of psychotic symptoms during the short interview and we decided to postpone it for later on when he feels like talking and ready for a psychiatric interview. PAST MEDICAL HISTORY: As above: 1. Type 1 diabetes mellitus. 2. Urinary retention requiring frequent catheterizations. 3. Status post appendectomy. 4. Left hand middle finger removal. 5. Diabetic ketoacidosis. PAST PSYCHIATRIC HISTORY: The patient has been diagnosed of attention deficit hyperactivity disorder (ADHD) as a child. His reports that he is better now than when he was younger. SOCIAL HISTORY: The patient is living with his and two children. As stated above, they are under significant financial stress. PSYCHIATRIC FAMILY HISTORY: Unable to obtain. SUBSTANCE ABUSE HISTORY: The patient was unable to provide information but it does not appear that the patient has a problem with drugs or alcohol, current or in the past. MENTAL STATUS EXAMINATION: The patient is dressed in hospital gown. The patient is reporting that he feels very weak, tired and is unable to follow a psychiatric evaluation at this point. His speech is slow, soft, and monotone. He has poor eye contact. He tries to answer but then he closes his eyes and appears disconnected but not uncooperative. The patient does not appear to have psychotic symptoms. Does not appear to have auditory or visual hallucinations or delusions or reacting to internal stimuli. The patient is denying suicidal or homicidal ideation. Insight and judgment appear to be fair. DIAGNOSIS: AXIS I: Attention deficit hyperactivity disorder (ADHD) by history. RECOMMENDATIONS: I will return to interview the patient later, but at this point, by his 's information, the patient does not appear to suffer from an affective disorder or major depression. The patient does not appear to be affected by anorexia nervosa since the says that the weight loss is because of the nausea and the vomiting but not to restrictions on the diet or purging. The stated that they have been under financial stress, but again, three days prior to admission, the patient was doing fine and does not appear that he has a conversion disorder. Again, I will re-evaluate the patient later.
--- NOTE | 2016-09-16 22:20 | REPUSA ---
CT of the abdomen and pelvis without contrast Clinical statement: vomiting. Technique: Multiple axial CT images were obtained from the base of the lungs to the floor of the pelv is utilizing 5 mm axial slices without administration of contrast. Coronal and sagittal reconstructio ns were also obtained. Comparison: 06/27/2016. Findings: Chest: The visualized lung bases demonstrates scattered small foci of ground glass. Abdomen: The kidneys are normal in size bilaterally. There is no evidence of hydronephrosis or nephro lithiasis. The liver, spleen, pancreas, gallbladder and adrenal glands are unremarkable. The aorta de monstrates normal caliber and contour. There is no abdominal lymphadenopathy or ascites. Pelvis: The bowel is unremarkable, with no obstructive or inflammatory changes. The patient is status post appendectomy. The urinary bladder is within normal limits. There is no pelvic lymphadenopathy o r ascites. The other pelvic structures appear unremarkable. Bones: There are no suspicious osseous abnormalities seen. Impression: 1. No obstructive or inflammatory bowel changes. 2. No evidence of hydronephrosis or nephrolithiasis. 3. Scattered foci of ground glass opacities within the lower lungs bilaterally. This is suspicious fo r an infectious or inflammatory pulmonary process. Follow-up is suggested as clinically indicated.
[2016-09-16] MEDS ORDERED: ACETAMINOPHEN TAB 650MG DOSE (2X325MG) PO PRN (22:45)
[2016-09-17] MEDS: CEPACOL LOZENGE MT PRN ×2 (01:20→09:05)
[2016-09-17] MEDS: PERCOCET 5MG/325MG TAB PO PRN ×4 (01:24→22:37)
[2016-09-17] MEDS: KCL 20MEQ IN D5/0.45NS 1000ML 1,000 ML IV SCH (01:25)
[2016-09-17 05:00] VITALS: BP 111/75
[2016-09-17] MEDS: HEPARIN SOD (PORCINE) 5000 UNITS/ML VIAL SC SCH ×3 (05:02→20:07)
[2016-09-17] MEDS: KCL 20MEQ in NS 1000ML 1,000 ML IV SCH ×2 (05:02→14:59)
[2016-09-17 06:06] LABS: MEAN CORPUSCULAR HEMOGLOBIN 27.7 pg (27.0-33.0); MEAN CORPUSCULAR HGB CONC 33.5 g/dl (32.0-36.5); MEAN CORPUSCULAR VOLUME 82.6 fl (80.0-96.0); RED CELL DISTRIBUTION WIDTH 14.5 % (11.5-14.5); WHITE BLOOD COUNT 13.8 K/mm3 (4.0-10.0)
[2016-09-17 06:08] LABS: ANION GAP 10 MEQ/L (8-16); BLOOD UREA NITROGEN 12 MG/DL (7-18); CALCIUM LEVEL 8.7 MG/DL (8.5-10.1); CARBON DIOXIDE LEVEL 24 MEQ/L (21-32); CHLORIDE LEVEL 101 MEQ/L (98-107); CREATININE FOR GFR 0.91 MG/DL (0.70-1.30); GLOMERULAR FILTRATION RATE > 60.0 (>60); GLUCOSE, FASTING 288 MG/DL (70-105); MAGNESIUM LEVEL 2.1 MG/DL (1.8-2.4); POTASSIUM SERUM 3.8 MEQ/L (3.5-5.1); SODIUM LEVEL 135 MEQ/L (136-145)
--- NOTE | 2016-09-17 08:32 | REP ---
Clinical: Acute renal insufficiency. Technique: Real time mejias scale ultrasound examination using curved array transducer. Findings: The bilateral kidneys are normal in contour, size, echogenicity, and reniform shape without hydronephrosis, nephrolithiasis, cystic or renal mass lesion. No perinephric fluid collections are identified. Right kidney measures 11.1 x 6.3 x 5.0 cm. Left kidney measures 12.9 x 5.7 x 7.6 cm. Bladder is collapsed. Impression: Normal renal ultrasound. Signed by Thomas Lua MD 09/17/2016 08:24 A
[2016-09-17] MEDS: PANTOPRAZOLE 40MG TAB (PROTONIX) PO SCH (08:42)
[2016-09-17] MEDS: HumaLOG INSULIN (NovoLOG) PER UNIT SC SCH ×4 (08:42→21:00)
[2016-09-17] MEDS: NYSTATIN 500,000 U/5 ML SUSP UDC SS SCH ×4 (08:42→20:07)
[2016-09-17] MEDS: LEVEMIR (INSULIN DETEMIR) 1 UNITS/0.01ML SC SCH (08:43)
[2016-09-17] MEDS ORDERED: LEVEMIR (INSULIN DETEMIR) 1 UNITS/0.01ML SC SCH (09:00)
[2016-09-17] MEDS: CHLORASEPTIC SPRAY MT PRN ×2 (09:05→22:38)
[2016-09-17] MEDS: METOCLOPRAMIDE INJ 10MG/2ML VIAL (J2765) IV PRN (09:06)
--- NOTE | 2016-09-17 11:04 | IPN ---
DATE: 09/16/2016 Patient is seen and examined. Patient was completely covered with three blankets with fan on, minimal verbal, refused to interact with physicians. Upon further questioning, patient said he is having sore throat, otherwise does not want to talk. Patient has been refusing medication, blood draws, and also refused CT scan or to drink oral contrast, and even when discussed about sending patient down for CT scan without oral contrast patient still refused. Patient stated that he was weak and does not want to go. Patient is aware that by refusing procedure he can delay diagnosis, worsening his condition, given patient has significant disease it could potentially cause mortality and . Unfortunately, patient is still not cooperative. Situation was related to patient's family. Patient's was at the bedside and patient's mother was also informed. VITAL SIGNS: Temperature 97.5, pulse 97, respirations 22, blood pressure 119/58, pulse oximetry 98% on room air. LABORATORY DATA: WBC 20.5, hemoglobin and hematocrit 12.1/34.7, platelets 224. Chemistry: Sodium 141, potassium 3.8, chloride 105, bicarbonate 22, BUN 25, creatinine 1.16, lactic acid 0.9. PHYSICAL EXAMINATION: Patient arousable, but sleeping, guarded, has blanket covering his face, not really participating in questioning, has hoarseness of the voice. HEENT: Some swelling near the corner of the right mouth. Atraumatic. CARDIAC: Regular rate and rhythm, normal S1, S2. RESPIRATORY: Bilaterally clear to auscultation. ABDOMINAL: Wasted, soft, nontender. Hypoactive bowel sounds. EXTREMITIES: No edema bilateral lower extremities. Tattoos noted. ASSESSMENT AND PLAN: This is a 21-year-old male patient with underlying medical history of attention deficit hyperactivity disorder (ADHD), depression, behavior disorder, history of psychiatric institutionalization, type 2 diabetes, chronic urinary retention, possible diabetic nephropathy, admitted with diabetic ketoacidosis (DKA) and over 2 months of progressively worsening symptoms with intermittent nausea and vomiting, poor oral intake, sore throat and coughing. 1. Diabetic ketoacidosis (DKA). Patient currently bridged to basal bolus insulin. Encouraged diet, but patient is not eating much, therefore patient started on dextrose 5% (D5) 20 mEq potassium chloride (KCl) half normal saline. Followup finger sticks every 2 hours, basic metabolic panel, acetones, magnesium. Supplement electrolytes. Encourage oral intake. Followup of underlying etiology. Cardiac enzymes have been negative. Possible infectious etiology given leukocytosis. Patient empirically started on Levaquin. Cultures were sent. Respiratory panel negative. Possible also noncompliance given patient has A1c of 13. 2. Nausea and vomiting, possibly secondary to diabetic ketoacidosis (DKA). Possible alternative explanation gastroparesis. Patient refused CT scan. Will housing counselor the patient and discuss with patient and family. Will also try to get a gastric emptying study to assess for gastroparesis. Zofran. Intravenous (IV) fluids. Encourage oral intake. 3. Sore throat. Streptococcus culture negative. Continue antibiotics. Chloraseptic spray. 4. Poor compliance complicating care. Counseling provided. 5. Underlying history of attention deficit hyperactivity disorder (ADHD), depression, behavior disorder. Consulted psychiatry, Dr. Heller. Discussed with patient's mother who is concerned about the patient given the patient had 25 pound weight loss. Patient's mother concerned of anorexia with persistent vomiting and weight loss of 25 pounds over the course of 3 months. Patient and family services (PFS) consulted to investigate given patient's stated that ever since they moved to their new house other family members have also been sick. Patient's does not think patient is depressed even though patient was guarded, covered with blankets, had flat affect, not interactive, and refusing all care. Will followup with psychiatry for further recommendation. 6. Deep venous thrombosis (DVT) prophylaxis. Heparin subcutaneous. 7. Gastrointestinal (GI) prophylaxis. Protonix. 8. Hypoglycemia. Dextrose 5% (D5) potassium chloride (KCl) 20 mEq half normal saline. Followup finger sticks every 2 hours. Insulin dosage has been adjusted. Encourage oral intake. DISPOSITION: The management of patient's diabetes has been complicated by possible underlying eating disorder and psychiatric condition. Will attempt to correct patient's metabolic derangement as much as possible, but unfortunately patient is not cooperating with diagnosis and is not agreeable to diagnostic tests. The risk of not participating with diagnostic tests and delaying diagnosis has been explained to patient and family, which includes early mortality.
[2016-09-17 14:00] VITALS: BP 127/74
--- NOTE | 2016-09-17 16:55 | EDDOCDS ---
Physician Documentation [facility] Name: Ray Noble Age: 21 yrs Sex: Male : 1995 Arrival Date: 09/15/2016 Time: 13:41 Bed 6 Private MD: Disposition: 09/15 14:54 Critical Care:. pc Disposition: 09/15/16 15:15 Hospitalization ordered by Erica Jaimes for Inpatient Admission. Preliminary diagnosis are Type 1 diabetes mellitus with ketoacidosis without coma, Hypokalemia, Dehydration. - Bed requested for M ICU. - Status is Inpatient Admission. ms18 - Condition is Stable. - Problem is new. - Symptoms have improved. HPI: 14:00 This 21 yrs old Male presents to ER with complaints of High Blood Sugar. pc 14:00 The history is obtained from the patient, the patient's family/friend. He has had a pc cough and cold for 7 days, worse in the past 2 days, now having nausea and vomiting. He has not taken any of his regular meds, including his insulin for 2 days, and has not checked his FSBS. 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 The patient has experienced similar episodes in the past, a few times. The patient has been recently been admitted at [facility], was discharged from the hospital May 2016, after sepsis due to an E. Coli UTI, and he has not followed with any PCP since.. Historical: - Allergies: PENICILLINS (Hives); Tramadol HCl (Vomit); Zofran; - Home Meds: 1. Insulin Levamir 36 units in am daily 2. Regular Insulin Sliding Scale before meals 7 units at 1600 - PMHx: Diabetes - IDDM: uncontrolled; Self Cath's; - PSHx: Appendectomy; L middle finger surgery; - The history from nurses notes was reviewed: but there are no nursing notes, or only partial notes available at the time of my charting. - Social history: Smoking status: Patient uses tobacco products, current every day smoker. No barriers to communication noted, The patient speaks fluent [place]. - : The pt / caregiver states he / she is not on anticoagulants. Home medication list is obtained from the patient. - Immunization history:: All immunizations up-to-date. - Exposure Risk Screening:: None identified. - Family history: Not pertinent. - Social history:: the patient is a non-smoker, the patient drinks alcohol. ROS: 14:00 All systems are negative except as listed. pc Exam: 14:00 General Appearance: alert, the patient is in moderate distress, frail, cachectic . pc 14:00 EENT: normal eye inspection, ears, nose and throat normal, mucous membranes dry, overwhelming odor of ketones on breath . 14:00 Neck: The exam reveals no acute abnormalities. ROM is normal and painless. No nuchal rigidity is noted.. 14:00 Respiratory: Respirations/effort: tachypnea, Kussmaul respirations. 14:00 CVS: regular rhythm, normal S1 and S2, no murmurs, strong peripheral pulses, normal capillary refill, the patient is tachycardic, at 125 bpm. 14:00 Abdomen: soft, non-tender, no organomegaly, normal bowel sounds. 14:00 Back: normal inspection. 14:00 Skin: skin color is normal, warm, dry. 14:00 Extremities: The extremities have a grossly normal appearance. 14:00 Neuro: oriented x 3, cranial nerves normal as tested, no motor deficits, no sensory deficits. 14:00 Psych: normal mood. Vital Signs: 13:53 BP 140 / 65; Pulse 125; Resp 20; Temp 96.4(O); Pulse Ox 96% on R/A; Weight 73.48 kg / nb2 162 lbs (R); Height 5 ft. 11 in. (180.34 cm) (R); Pain 9/10; 14:29 Weight 62.6 kg / 138.01 lbs (M); ms18 14:38 Pulse 120 MON; Pulse Ox 98% ; ms18 14:39 BP 122 / 65 (auto/); Resp 18; ms18 15:24 BP 144 / 73 (auto/); ms18 15:24 Pulse 100 MON; Pulse Ox 98% ; ms18 15:39 BP 130 / 63 (auto/); ms18 15:48 Pulse 108 MON; Resp 18; Temp 97; Pulse Ox 98% on R/A; Pain 5/10; ms18 14:29 Body Mass Index 19.25 (62.60 kg, 180.34 cm) ms18 MDM: 13:58 IV Saline Lock ordered. pc 13:58 NS 0.9% 1000 ml IV at bolus once ordered. pc 13:58 Book Shelver/Pulse Ox/q 30 min VS ordered. pc 13:58 Weigh Pt on scale, in Kg (Do Not Use Reported Weight) ordered. pc 13:58 Obtain sample by nasopharyngeal swab ordered. pc 13:59 CBC with Diff Ordered. EDMS 13:59 MED Profile Ordered. EDMS 13:59 Venous Blood Gas (large pea green tube on ice) Ordered. EDMS 13:59 Phosphorous Level Ordered. EDMS 13:59 Magnesium Level Ordered. EDMS 13:59 -Influenza A&B Rapid Antigen - Nose Ordered. EDMS 14:00 Chest, 1 View Ordered. EDMS 14:00 BED REQUEST+ADM ordered. EDMS 14:00 ECG WITH READING ER PHYS+CARDIAG ordered. EDMS 14:00 Lactic Acid (Campa tube on ice) Ordered. EDMS 14:00 A1C Ordered. EDMS 14:00 Differential Diagnosis: URI r/o pneumonia/Influenza; Type 1 DM with DKA. Plan: labs, pc IVF, EKG, imaging. 14:23 Metoclopramide 10 mg IV at 40 mg/hr once over 15 mins ordered. pc 14:23 CBC with Diff Reviewed. pc 14:23 Test interpretation: EKG. pc 14:46 Kinney ordered. pc 14:46 Venous Blood Gas (large pea green tube on ice) Reviewed. pc 14:46 -Influenza A&B Rapid Antigen - Nose Reviewed. pc 14:46 MED Profile Reviewed. pc 14:46 Phosphorous Level Reviewed. pc 14:46 Magnesium Level Reviewed. pc 14:47 Urinalysis Ordered. EDMS 14:47 Urine Culture Ordered. EDMS 14:48 NS 0.9 % with KCl 20 mEq/L 1000 ml IV at 200 mL/hr continuous ordered. pc 14:49 Lactic Acid (Campa tube on ice) Reviewed. pc 14:54 Insulin Regular Human Infusion (0.1units/kg/hr) 6 units/hr IV at calculated rate Per pc protocol ordered. 14:54 Accucheck hourly ordered. pc 14:54 Insulin Regular Human 6 units IVP once ordered. pc 14:54 Data reviewed: old medical records, vital signs, nurses notes, EKG(s), lab test pc results, all radiology studies and available results. Test interpretation: LAB - all labs as ordered have been reviewed, interpreted and considered in the overall management of the clinical presentation; Arterial blood gas pH: 7.22 X-RAY - interpreted by Radiologist and personally reviewed, 1 view chest no acute disease. The patient has been re-examined and re-evaluated. The patient's symptoms have mildly improved after treatment. Physician consultation: Dr. Erica Jaimes was contacted at 14:55, regarding admission, and will see patient in ED. Disposition: The historical points, examination findings, and any diagnostic results supporting the provided diagnosis, were discussed with the patient or legal guardian. The need for further work-up and/or treatment in the hospital was explained. 14:56 IV Saline Lock ordered. pc 15:14 A1C Reviewed. pc 15:14 Urinalysis Reviewed. pc 15:23 Admission / Observation Status ordered. EDMS 15:24 BASIC METABOLIC PROFILE Ordered. EDMS 15:24 BASIC METABOLIC PROFILE Ordered. EDMS 15:24 BASIC METABOLIC PROFILE Ordered. EDMS 15:24 BASIC METABOLIC PROFILE Ordered. EDMS 15:24 BASIC METABOLIC PROFILE Ordered. EDMS 15:24 CARDIAC MARKER PANEL Ordered. EDMS 15:25 CARDIAC MARKER PANEL Ordered. EDMS 15:25 SPUTUM CULTURE AND GRAM STAIN Ordered. EDMS 15:25 BLOOD CULTURES Ordered. EDMS 15:36 RESPIRATORY PANEL Ordered. EDMS 15:44 Financial registration complete. zo 15:45 [facility] [place] was scanned into [employer] and attached to record. zo 02 09:28 ECG/EKG was scanned into [employer] and attached to record. EC 14:23 Rate is 116 beats/min. Rhythm is regular, Sinus tachycardia. QRS [place] is Normal. [place] pc interval is normal. QRS interval is normal. QT interval is normal. No Q waves. T waves are Inverted in leads II, III, aVF, V4, V5, V6. No ST changes noted. Clinical impression: Sinus tachycardia and rate-related T wave changes. Administered Medications: 14:23 CANCELLED (Other Intervention Used): Ondansetron 4 mg IVP once pc 14:24 Drug: NS 0.9% 1000 ml [sodium chloride 0.9 % intravenous solution] Route: IV; Rate: ms18 bolus; Site: left antecubital; 15:17 Follow up: IV Status: Completed infusion; IV Intake: 1000ml ms18 14:41 Drug: Metoclopramide 10 mg [metoclopramide 5 mg/mL injection solution] Route: IV; Rate: ms18 40 mg/hr; Infused Over: 15 mins; Site: left antecubital; 15:07 Follow up: IV Status: Completed infusion; IV Intake: 102ml ms18 15:16 Drug: NS 0.9 % with KCl 1000 ml [potassium chloride 20 mEq/L in 0.9 % sodium chloride ms18 intravenous] {Co-Signature: ld5 (Maddy Sepulveda RN).} Route: IV; Rate: 200 mL/hr; Site: left antecubital; 15:32 Drug: Insulin Regular Human 6 units [insulin regular human 100 unit/mL injection ms18 solution (0.06 mL)] {Co-Signature: mcp (Rupinder Do RN).} Route: IVP; Site: right hand; 15:33 Drug: Insulin Regular Human Infusion (0.1units/kg/hr) 6 units/hr [insulin regular human ms18 100 unit/mL injection solution] {Co-Signature: brigette (Rupinder Do RN).} Route: IV; Rate: calculated rate; Site: right hand; Critical Care Time: 14:54 Critical care time: Bedside Care: 25 minutes, Consultation: 10 minutes, Family pc Intervention: 15 minutes. Total time: 50 minutes Signatures: Dispatcher [employer] EDKarl Dunn MD MD pc Murray, Denise, Sales Representative Groceries Unit deg Rachel Rivas, Reg Reg Camille Hayden Mallory, RN RN ms18 Maddy Sepulveda RN [id number] Rupinder Do RN, mcp The chart was reviewed and I authenticate all verbal orders and agree with the evaluation and treatment provided.Corrections: (The following items were deleted from the chart) 14:23 13:58 Ondansetron 4 mg IVP once ordered. pc pc 15:37 15:25 BLOOD CULTURES ordered. EDMS EDMS Attachments: 15:45 [facility] Payment Agreement zo 09/16 09:28 ECG/EKG gb Chart Complete MTDD
--- NOTE | 2016-09-17 16:55 | EDDOCDS ---
Physician Documentation [facility] Name: Ray Noble Age: 21 yrs Sex: Male : 1995 Arrival Date: 09/15/2016 Time: 13:41 Bed 6 Private MD: Disposition: 09/15 14:54 Critical Care:. pc Disposition: 09/15/16 15:15 Hospitalization ordered by Erica Jaimes for Inpatient Admission. Preliminary diagnosis are Type 1 diabetes mellitus with ketoacidosis without coma, Hypokalemia, Dehydration. - Bed requested for M ICU. - Status is Inpatient Admission. ms18 - Condition is Stable. - Problem is new. - Symptoms have improved. HPI: 14:00 This 21 yrs old Male presents to ER with complaints of High Blood Sugar. pc 14:00 The history is obtained from the patient, the patient's family/friend. He has had a pc cough and cold for 7 days, worse in the past 2 days, now having nausea and vomiting. He has not taken any of his regular meds, including his insulin for 2 days, and has not checked his FSBS. It read high by EMS N[employer] P[employer] RANGER. The patient has experienced similar episodes in the past, a few times. The patient has been recently been admitted at [facility], was discharged from the hospital May 2016, after sepsis due to an E. Coli UTI, and he has not followed with any PCP since.. Historical: - Allergies: PENICILLINS (Hives); Tramadol HCl (Vomit); Zofran; - Home Meds: 1. Insulin Levamir 36 units in am daily 2. Regular Insulin Sliding Scale before meals 7 units at 1600 - PMHx: Diabetes - IDDM: uncontrolled; Self Cath's; - PSHx: Appendectomy; L middle finger surgery; - The history from nurses notes was reviewed: but there are no nursing notes, or only partial notes available at the time of my charting. - Social history: Smoking status: Patient uses tobacco products, current every day smoker. No barriers to communication noted, The patient speaks fluent [place]. - : The pt / caregiver states he / she is not on anticoagulants. Home medication list is obtained from the patient. - Immunization history:: All immunizations up-to-date. - Exposure Risk Screening:: None identified. - Family history: Not pertinent. - Social history:: the patient is a non-smoker, the patient drinks alcohol. ROS: 14:00 All systems are negative except as listed. pc Exam: 14:00 General Appearance: alert, the patient is in moderate distress, frail, cachectic . pc 14:00 EENT: normal eye inspection, ears, nose and throat normal, mucous membranes dry, overwhelming odor of ketones on breath . 14:00 Neck: The exam reveals no acute abnormalities. ROM is normal and painless. No nuchal rigidity is noted.. 14:00 Respiratory: Respirations/effort: tachypnea, Kussmaul respirations. 14:00 CVS: regular rhythm, normal S1 and S2, no murmurs, strong peripheral pulses, normal capillary refill, the patient is tachycardic, at 125 bpm. 14:00 Abdomen: soft, non-tender, no organomegaly, normal bowel sounds. 14:00 Back: normal inspection. 14:00 Skin: skin color is normal, warm, dry. 14:00 Extremities: The extremities have a grossly normal appearance. 14:00 Neuro: oriented x 3, cranial nerves normal as tested, no motor deficits, no sensory deficits. 14:00 Psych: normal mood. Vital Signs: 13:53 BP 140 / 65; Pulse 125; Resp 20; Temp 96.4(O); Pulse Ox 96% on R/A; Weight 73.48 kg / nb2 162 lbs (R); Height 5 ft. 11 in. (180.34 cm) (R); Pain 9/10; 14:29 Weight 62.6 kg / 138.01 lbs (M); ms18 14:38 Pulse 120 MON; Pulse Ox 98% ; ms18 14:39 BP 122 / 65 (auto/); Resp 18; ms18 15:24 BP 144 / 73 (auto/); ms18 15:24 Pulse 100 MON; Pulse Ox 98% ; ms18 15:39 BP 130 / 63 (auto/); ms18 15:48 Pulse 108 MON; Resp 18; Temp 97; Pulse Ox 98% on R/A; Pain 5/10; ms18 14:29 Body Mass Index 19.25 (62.60 kg, 180.34 cm) ms18 MDM: 13:58 IV Saline Lock ordered. pc 13:58 NS 0.9% 1000 ml IV at bolus once ordered. pc 13:58 Shop Cooper/Pulse Ox/q 30 min VS ordered. pc 13:58 Weigh Pt on scale, in Kg (Do Not Use Reported Weight) ordered. pc 13:58 Obtain sample by nasopharyngeal swab ordered. pc 13:59 CBC with Diff Ordered. EDMS 13:59 MED Profile Ordered. EDMS 13:59 Venous Blood Gas (large pea green tube on ice) Ordered. EDMS 13:59 Phosphorous Level Ordered. EDMS 13:59 Magnesium Level Ordered. EDMS 13:59 -Influenza A&B Rapid Antigen - Nose Ordered. EDMS 14:00 Chest, 1 View Ordered. EDMS 14:00 BED REQUEST+ADM ordered. EDMS 14:00 ECG WITH READING ER PHYS+CARDIAG ordered. EDMS 14:00 Lactic Acid (Campa tube on ice) Ordered. EDMS 14:00 A1C Ordered. EDMS 14:00 Differential Diagnosis: URI r/o pneumonia/Influenza; Type 1 DM with DKA. Plan: labs, pc IVF, EKG, imaging. 14:23 Metoclopramide 10 mg IV at 40 mg/hr once over 15 mins ordered. pc 14:23 CBC with Diff Reviewed. pc 14:23 Test interpretation: EKG. pc 14:46 Kinney ordered. pc 14:46 Venous Blood Gas (large pea green tube on ice) Reviewed. pc 14:46 -Influenza A&B Rapid Antigen - Nose Reviewed. pc 14:46 MED Profile Reviewed. pc 14:46 Phosphorous Level Reviewed. pc 14:46 Magnesium Level Reviewed. pc 14:47 Urinalysis Ordered. EDMS 14:47 Urine Culture Ordered. EDMS 14:48 NS 0.9 % with KCl 20 mEq/L 1000 ml IV at 200 mL/hr continuous ordered. pc 14:49 Lactic Acid (Campa tube on ice) Reviewed. pc 14:54 Insulin Regular Human Infusion (0.1units/kg/hr) 6 units/hr IV at calculated rate Per pc protocol ordered. 14:54 Accucheck hourly ordered. pc 14:54 Insulin Regular Human 6 units IVP once ordered. pc 14:54 Data reviewed: old medical records, vital signs, nurses notes, EKG(s), lab test pc results, all radiology studies and available results. Test interpretation: LAB - all labs as ordered have been reviewed, interpreted and considered in the overall management of the clinical presentation; Arterial blood gas pH: 7.22 X-RAY - interpreted by Radiologist and personally reviewed, 1 view chest no acute disease. The patient has been re-examined and re-evaluated. The patient's symptoms have mildly improved after treatment. Physician consultation: Dr. Erica Jaimes was contacted at 14:55, regarding admission, and will see patient in ED. Disposition: The historical points, examination findings, and any diagnostic results supporting the provided diagnosis, were discussed with the patient or legal guardian. The need for further work-up and/or treatment in the hospital was explained. 14:56 IV Saline Lock ordered. pc 15:14 A1C Reviewed. pc 15:14 Urinalysis Reviewed. pc 15:23 Admission / Observation Status ordered. EDMS 15:24 BASIC METABOLIC PROFILE Ordered. EDMS 15:24 BASIC METABOLIC PROFILE Ordered. EDMS 15:24 BASIC METABOLIC PROFILE Ordered. EDMS 15:24 BASIC METABOLIC PROFILE Ordered. EDMS 15:24 BASIC METABOLIC PROFILE Ordered. EDMS 15:24 CARDIAC MARKER PANEL Ordered. EDMS 15:25 CARDIAC MARKER PANEL Ordered. EDMS 15:25 SPUTUM CULTURE AND GRAM STAIN Ordered. EDMS 15:25 BLOOD CULTURES Ordered. EDMS 15:36 RESPIRATORY PANEL Ordered. EDMS 15:44 Financial registration complete. zo 15:45 [facility] [place] Agreement was scanned into [employer] and attached to record. zo 02 09:28 ECG/EKG was scanned into [employer] and attached to record. EC 14:23 Rate is 116 beats/min. Rhythm is regular, Sinus tachycardia. QRS [place] is Normal. [place] pc interval is normal. QRS interval is normal. QT interval is normal. No Q waves. T waves are Inverted in leads II, III, aVF, V4, V5, V6. No ST changes noted. Clinical impression: Sinus tachycardia and rate-related T wave changes. Administered Medications: 14:23 CANCELLED (Other Intervention Used): Ondansetron 4 mg IVP once pc 14:24 Drug: NS 0.9% 1000 ml [sodium chloride 0.9 % intravenous solution] Route: IV; Rate: ms18 bolus; Site: left antecubital; 15:17 Follow up: IV Status: Completed infusion; IV Intake: 1000ml ms18 14:41 Drug: Metoclopramide 10 mg [metoclopramide 5 mg/mL injection solution] Route: IV; Rate: ms18 40 mg/hr; Infused Over: 15 mins; Site: left antecubital; 15:07 Follow up: IV Status: Completed infusion; IV Intake: 102ml ms18 15:16 Drug: NS 0.9 % with KCl 1000 ml [potassium chloride 20 mEq/L in 0.9 % sodium chloride ms18 intravenous] {Co-Signature: ld5 (Maddy Sepulveda RN).} Route: IV; Rate: 200 mL/hr; Site: left antecubital; 15:32 Drug: Insulin Regular Human 6 units [insulin regular human 100 unit/mL injection ms18 solution (0.06 mL)] {Co-Signature: mcp (Rupinder Do RN).} Route: IVP; Site: right hand; 15:33 Drug: Insulin Regular Human Infusion (0.1units/kg/hr) 6 units/hr [insulin regular human ms18 100 unit/mL injection solution] {Co-Signature: brigette (Rupinder Do RN).} Route: IV; Rate: calculated rate; Site: right hand; Critical Care Time: 14:54 Critical care time: Bedside Care: 25 minutes, Consultation: 10 minutes, Family pc Intervention: 15 minutes. Total time: 50 minutes Signatures: Dispatcher [employer] EDKarl Dunn MD MD pc Murray, Denise, Import Coordination And Production Head Unit deg Rachel Rivas, Reg Reg Camille Hayden Mallory, RN RN ms18 Maddy Sepulveda RN [id number] Rupinder Do RN, mcp The chart was reviewed and I authenticate all verbal orders and agree with the evaluation and treatment provided.Corrections: (The following items were deleted from the chart) 14:23 13:58 Ondansetron 4 mg IVP once ordered. pc pc 15:37 15:25 BLOOD CULTURES ordered. EDMS EDMS Attachments: 15:45 [facility] Payment Agreement zo 09/16 09:28 ECG/EKG gb Chart Complete MTDD
--- NOTE | 2016-09-17 16:55 | EDDOCDS ---
Nurse's Notes [facility] Name: Ray Noble Age: 21 yrs Sex: Male : 1995 Arrival Date: 09/15/2016 Time: 13:41 Bed 6 Private MD: Diagnosis: Type 1 diabetes mellitus with ketoacidosis without coma;Hypokalemia;Dehydration Presentation: 09/15 13:58 Presenting complaint: EMS states: that the pt has had flu like symptoms for the past 2 ms18 days and is lethargic. EMS states that they checked the blood glucose and their machine read "HIGH". Pt was given 600mL NS. 18 g L AC. Adult Sepsis Screening: Patient has new or worsening altered mentation (1 point). Patient's respiratory rate is less than 22. Systolic blood pressure is greater than 100. Patient has a qSOFA score of 0- Negative Sepsis Screen. Suicide/Homicide risk assessment- the patient denies having any suicidal and/or homicidal ideations and does not present with any other emotional, behavioral or mental health complaints. 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 Transition of care: patient was not received from another setting of care. 13:58 Acuity: CARLY Level 3 ms18 13:58 Method Of Arrival: Ambulance ms18 Triage Assessment: 14:29 General: Appears in no apparent distress, ill, emaciated, Behavior is cooperative, ms18 drowsy, flat. HIV screening NA for this visit Offered previously. Neurological: Level of Consciousness is awake, lethargic, listless, obeys commands, Moves all extremities. Gait is steady. Respiratory: Airway is patent Respiratory effort is even, unlabored. GI: Abdomen is flat, non- distended Pt is actively vomiting. Derm: Skin is pink, warm & dry. 14:29 Pain: Pain currently is 5 out of 10 on a pain scale. ms18 Historical: - Allergies: PENICILLINS (Hives); Tramadol HCl (Vomit); Zofran; - Home Meds: 1. Insulin Levamir 36 units in am daily 2. Regular Insulin Sliding Scale before meals 7 units at 1600 - PMHx: Diabetes - IDDM: uncontrolled; Self Cath's; - PSHx: Appendectomy; L middle finger surgery; - The history from nurses notes was reviewed: but there are no nursing notes, or only partial notes available at the time of my charting. - Social history: Smoking status: Patient uses tobacco products, current every day smoker. No barriers to communication noted, The patient speaks fluent Frisian. - : The pt / caregiver states he / she is not on anticoagulants. Home medication list is obtained from the patient. - Immunization history:: All immunizations up-to-date. - Exposure Risk Screening:: None identified. - Family history: Not pertinent. - Social history:: the patient is a non-smoker, the patient drinks alcohol. Screenin:32 Screening information is obtained from the patient. Fall risk: At risk due to apparent ms18 cognitive impairment. Assistance ADL's: requires no assistance with activities of daily living. Abuse/DV Screen: The patient / caregiver reports he/she is: not in a situation that causes fear, pain or injury. Nutritional screening: On diabetic diet. Advance Directives: Currently, there is no health care proxy. home support is adequate. Assessment: 14:32 General: Pt's left to go to work and left her cell number, . Her name walter is Roseanne. 14:45 General: Appears in no apparent distress, comfortable, emaciated, slender, Behavior is ms18 cooperative, flat, listless, quiet. Pain: Pain currently is 4 out of 10 on a pain scale. Neurological: Level of Consciousness is awake, lethargic, listless, obeys commands, Oriented to person, place, time. Respiratory: Airway is patent Respiratory effort is even, unlabored. GI: Abdomen is flat, non- distended Reports nausea, vomiting. Derm: Skin is pink, warm & dry. normal. 15:47 General: Appears in no apparent distress, comfortable, Behavior is cooperative, flat, ms18 listless. General: ICU called, report given to Ayala Houston. PT can go to his room 3209 in approx 10 mins. Neurological: Level of Consciousness is awake, lethargic, listless, obeys commands, Oriented to person, place, time, Speech pt states that his throat is dry and can't speak well at this time. Facial symmetry appears normal. Cardiovascular: Rhythm is sinus rhythm. Respiratory: Airway is patent Respiratory effort is even, unlabored, Respiratory pattern is regular, symmetrical. GI: Abdomen is flat, non- distended. Derm: Skin is pink, warm & dry. normal. Vital Signs: 13:53 BP 140 / 65; Pulse 125; Resp 20; Temp 96.4(O); Pulse Ox 96% on R/A; Weight 73.48 kg nb2 (R); Height 5 ft. 11 in. (180.34 cm) (R); Pain 9/10; 14:29 Weight 62.6 kg (M); ms18 14:38 Pulse 120 MON; Pulse Ox 98% ; ms18 14:39 BP 122 / 65 (auto/); Resp 18; ms18 15:24 BP 144 / 73 (auto/); ms18 15:24 Pulse 100 MON; Pulse Ox 98% ; ms18 15:39 BP 130 / 63 (auto/); ms18 15:48 Pulse 108 MON; Resp 18; Temp 97; Pulse Ox 98% on R/A; Pain 5/10; ms18 14:29 Body Mass Index 19.25 (62.60 kg, 180.34 cm) ms18 Vitals: 13:53 Log In Time N/A - ambulance arrival. nb2 ED Course: 13:42 Patient visited by Roxanne Underwood, Rn Pediatric. deg 13:42 Sherrell August,RN is Primary Nurse. deg 13:42 Patient moved to Waiting deg 13:42 Patient moved to 6 deg 13:46 Karl Sue MD is Attending Physician. pc 13:53 Placed in gown. Bed in low position. Call light in reach. Side rails up X2. Cardiac nb2 monitor on. Pulse ox on. NIBP on. 13:54 Patient visited by Mame Ortez. nb2 13:55 Patient visited by Karl Sue MD. pc 13:58 Patient visited by Sherrell August,RN. ms18 14:03 Triage Initiated ms18 14:21 EKG done. (by ED staff). Reviewed by Karl Sue MD. nb2 14:22 -Influenza A&B Rapid Antigen - Nose Sent. ms18 14:25 Patient visited by Mame Ortez. nb2 14:32 The patient / caregiver is instructed regarding the plan of care and ED course. ms18 Property :Personal belongings accompany Pt. 14:32 Maintain field IV. Dressing intact. Good blood return noted. Site clean & dry. Gauge & ms18 site: 18g L AC. Blanchard cath inserted 16 Fr. Balloon inflated. To gravity drainage. Urine specimen collected. other Pt self caths and requested a blanchard catheter. Dr. Sue aware of this and stated that it was ok to insert the cath. 14:41 Patient visited by Sherrell August RN. ms18 14:49 Urine Culture Sent. ms18 14:49 Urinalysis Sent. ms18 14:58 Erica Jaimes disability hearing officer. ys2 15:08 Inserted peripheral IV: 20gauge IV in right hand. dwg 15:09 Patient visited by Sherrell August RN. ms18 15:15 Erica Jaimes is Hospitalizing Provider. pc 15:41 Chest, 1 View Returned. EDMS 15:45 [facility] Payment Agreement was scanned into [employer] and attached to record. zo 15:47 Patient visited by Sherrell August RN. ms18 15:48 No procedures done that require assistance. ms18 02 09:28 ECG/EKG was scanned into [employer] and attached to record. gb Administered Medications: 09/15 14:23 CANCELLED (Other Intervention Used): Ondansetron 4 mg IVP once pc 14:24 Drug: NS 0.9% 1000 ml [sodium chloride 0.9 % intravenous solution] Route: IV; Rate: ms18 bolus; Site: left antecubital; 15:17 Follow up: IV Status: Completed infusion; IV Intake: 1000ml ms18 14:41 Drug: Metoclopramide 10 mg [metoclopramide 5 mg/mL injection solution] Route: IV; Rate: ms18 40 mg/hr; Infused Over: 15 mins; Site: left antecubital; 15:07 Follow up: IV Status: Completed infusion; IV Intake: 102ml ms18 15:16 Drug: NS 0.9 % with KCl 1000 ml [potassium chloride 20 mEq/L in 0.9 % sodium chloride ms18 intravenous] {Co-Signature: ld5 (Maddy Sepulveda RN).} Route: IV; Rate: 200 mL/hr; Site: left antecubital; 15:32 Drug: Insulin Regular Human 6 units [insulin regular human 100 unit/mL injection ms18 solution (0.06 mL)] {Co-Signature: mcp (Rupinder Do RN).} Route: IVP; Site: right hand; 15:33 Drug: Insulin Regular Human Infusion (0.1units/kg/hr) 6 units/hr [insulin regular human ms18 100 unit/mL injection solution] {Co-Signature: mcp (Rupinder Do RN).} Route: IV; Rate: calculated rate; Site: right hand; Intake: 14:46 IV: 600.00ml (NS); Total: 600.00ml. ms18 15:07 IV: 102.00ml; Total: 702.00ml. ms18 15:17 IV: 1000.00ml; Total: 1702.00ml. ms18 14:46 given by EMS ms18 Output: 14:46 Urine: 1200.00ml (Blanchard); Total: 1200.00ml. ms18 14:46 given by EMS ms18 Order Results: Lab Order: CBC with Diff; SPEC'M 09/15/16 14:01 Test: WHITE BLOOD COUNT; Value: 23.7; Range: 4.0-10.0; Abnormal: Above high normal; Units: K/mm3; Status: F Test: RED BLOOD COUNT; Value: 4.73; Range: 4.30-6.10; Units: M/mm3; Status: F Test: HEMOGLOBIN; Value: 13.1; Range: 14.0-18.0; Abnormal: Below low normal; Units: g/dl; Status: F Test: HEMATOCRIT; Value: 40.7; Range: 42.0-52.0; Abnormal: Below low normal; Units: %; Status: F Test: MEAN CORPUSCULAR VOLUME; Value: 86.2; Range: 80.0-96.0; Units: fl; Status: F Test: MEAN CORPUSCULAR HEMOGLOBIN; Value: 27.7; Range: 27.0-33.0; Units: pg; Status: F Test: MEAN CORPUSCULAR HGB CONC; Value: 32.1; Range: 32.0-36.5; Units: g/dl; Status: F Test: RED CELL DISTRIBUTION WIDTH; Value: 14.1; Range: 11.5-14.5; Units: %; Status: F Test: PLATELET COUNT, AUTOMATED; Value: 272; Range: 150-450; Units: k/mm3; Status: F Test: NEUTROPHILS %; Value: 90.6; Range: 36.0-66.0; Abnormal: Above high normal; Units: %; Status: F Test: LYMPH %; Value: 5.3; Range: 24.0-44.0; Abnormal: Below low normal; Units: %; Status: F Test: MONO %; Value: 2.7; Range: 0.0-5.0; Units: %; Status: F Test: EOS %; Value: 0.3; Range: 0.0-3.0; Units: %; Status: F Test: BASO %; Value: 0.2; Range: 0.0-1.0; Units: %; Status: F Test: LARGE UNSTAINED CELL %; Value: 0.8; Range: 0.0-4.0; Units: %; Status: F Test: NEUTROPHILS #; Value: 21.5; Range: 1.8-7.7; Abnormal: Above high normal; Units: K/mm3; Status: F Test: LYMPH #; Value: 1.3; Range: 1.5-6.5; Abnormal: Below low normal; Units: K/mm3; Status: F Test: MONO #; Value: 0.7; Range: 0.0-0.8; Units: K/mm3; Status: F Test: EOS #; Value: 0.1; Range: 0.0-0.50; Units: K/mm3; Status: F Test: BASO #; Value: 0.0; Range: 0.0-0.2; Units: K/mm3; Status: F Test: LARGE UNSTAINED CELL #; Value: 0.2; Range: 0.0-0.4; Units: K/mm3; Status: F Lab Order: MED Profile; SPEC'M 09/15/16 14:01 Test: GLUCOSE, FASTING; Value: 786; Range: 70-105; Abnormal: Above upper panic limits; Units: MG/DL; Status: F Test: BLOOD UREA NITROGEN; Value: 54; Range: 7-18; Abnormal: Above high normal; Units: MG/DL; Status: F Test: CREATININE FOR GFR; Value: 2.30; Range: 0.70-1.30; Abnormal: Above high normal; Units: MG/DL; Status: F Test: GLOMERULAR FILTRATION RATE; Value: 38.0; Range: >60; Abnormal: Below low normal; Status: F Test: SODIUM LEVEL; Value: 121; Range: 136-145; Abnormal: Below low normal; Units: MEQ/L; Status: F Test: POTASSIUM SERUM; Value: 3.4; Range: 3.5-5.1; Abnormal: Below low normal; Units: MEQ/L; Status: F Test: CHLORIDE LEVEL; Value: 74; Range: 98-107; Abnormal: Below low normal; Units: MEQ/L; Status: F Test: CARBON DIOXIDE LEVEL; Value: 12; Range: 21-32; Abnormal: Below low normal; Units: MEQ/L; Status: F Test: ANION GAP; Value: 35; Range: 8-16; Abnormal: Above high normal; Units: MEQ/L; Status: F Test: CALCIUM LEVEL; Value: 8.3; Range: 8.5-10.1; Abnormal: Below low normal; Units: MG/DL; Status: F Test Note: ; Units are mL/min/1.73 m2 Chronic Kidney Disease Staging per NKF: Stage I & II GFR >=60 Normal to Mildly Decreased Stage III GFR 30-59 Moderately Decreased Stage IV GFR 15-29 Severely Decreased Stage V GFR <15 Very Little GFR Left ESRD GFR <15 on SPECIAL EDUCATION INCLUSION TEACHER Lab Order: Venous Blood Gas (large pea green tube on ice); SPEC'M 09/15/16 14:01 Test: VENOUS PH; Value: 7.226; Range: 7.330-7.430; Abnormal: Below low normal; Units: UNITS; Status: F Test: VENOUS PARTIAL PRESSURE CO2; Value: 25.7; Range: 38.0-50.0; Abnormal: Below low normal; Units: mmHg; Status: F Test: VENOUS PARTIAL PRESSURE O2; Value: 74.5; Range: 30.0-50.0; Abnormal: Above high normal; Units: mmHg; Status: F Test: VENOUS TOTAL CO2; Value: 11.2; Range: 24.0-28.0; Abnormal: Below low normal; Units: MEQ/L; Status: F Test: VENOUS HCO3; Value: 10.4; Range: 23.0-27.0; Abnormal: Below low normal; Units: MEQ/L; Status: F Test: VENOUS BASE EXCESS; Value: -15.4; Range: -2.0-2.0; Abnormal: Below low normal; Status: F Test: VENOUS STANDARD HCO3; Value: 12.9; Units: MEQ/L; Status: F Test: VENOUS O2 SATURATION; Value: 92.4; Range: 60.0-80.0; Abnormal: Above high normal; Units: %; Status: F Lab Order: Phosphorous Level; [facility] 14:01 Test: PHOSPHORUS LEVEL; Value: 6.9; Range: 2.5-4.9; Abnormal: Above high normal; Units: MG/DL; Status: F Lab Order: Magnesium Level; 09/15/16 14:01 Test: MAGNESIUM LEVEL; Value: 3.2; Range: 1.8-2.4; Abnormal: Above high normal; Units: MG/DL; Status: F Lab Order: -Influenza A&B Rapid Antigen - Nose; 09/15/16 14:19 Test: INFLUENZA A RAPID SCR by ICA; Value: INFLUENZA A RESULTS NEGATIVE; Status: F Test: INFLUENZA A RAPID SCR by ICA; Value: Comments:; Status: F Test: INFLUENZA B RAPID SCR by ICA; Value: INFLUENZA B RESULTS NEGATIVE; Status: F Test Note: ; The Influenza test is a direct rapid immunoassay for the qualitative detection of Influenza viral antigen. Cell culture (Viral Culture) testing should be considered to confirm NEGATIVE results and to assist in detecting other viruses that can provide similar clinical symptoms. Please contact the lab within 24 hours ([phone]) if confirmatory testing is desired. Lab Order: Lactic Acid (Campa tube on ice); 09/15/16 14:01 Test: LACTIC ACID SEPSIS PROTOCOL; Value: 2.2; Range: 0.4-2.0; Abnormal: Above upper panic limits; Units: MMOL/L; Status: F Lab Order: A1C; [facility] 09/15/16 14:01 Test: HEMOGLOBIN A1c; Value: 13.3; Range: 4.5-6.2; Abnormal: Above high normal; Units: %; Status: F Test: ESTIMATED AVERAGE GLUCOSE; Value: 335; Range: 60-110; Abnormal: Above high normal; Units: MG/DL; Status: F Lab Order: Urinalysis; [facility] 09/15/16 14:45 Test: APPEARANCE, URINE; Value: CLEAR; Range: CLEAR; Status: F Test: COLOR, URINE; Value: STRAW; Range: YELLOW; Status: F Test: PH,URINE; Value: 5.0; Range: 5.0-9.0; Units: UNITS; Status: F Test: SPECIFIC GRAVITY URINE AUTO; Value: 1.016; Range: 1.002-1.035; Status: F Test: PROTEIN, URINE AUTO; Value: NEGATIVE; Range: NEGATIVE; Units: mg/dL; Status: F Test: GLUCOSE, URINE (UA) AUTO; Value: 3+; Range: NEGATIVE; Abnormal: Above high normal; Units: mg/dL; Status: F Test: KETONE, URINE AUTO; Value: 2+; Range: NEGATIVE; Abnormal: Above high normal; Units: mg/dL; Status: F Test: UROBILINOGEN, URINE AUTO; Value: 0.2; Range: 0.0-2.0; Units: mg/dL; Status: F Test: BILIRUBIN, URINE AUTO; Value: NEGATIVE; Range: NEGATIVE; Status: F Test: NITRITE, URINE AUTO; Value: NEGATIVE; Range: NEGATIVE; Status: F Test: LEUKOCYTE ESTERASE, URINE AUTO; Value: NEGATIVE; Range: NEGATIVE; Status: F Test: BLOOD, URINE BLOOD; Value: 1+; Range: NEGATIVE; Abnormal: Above high normal; Status: F Test: WBC, URINE AUTO; Value: 0; Range: 0-3; Units: /HPF; Status: F Test: RBC, URINE AUTO; Value: 3; Range: 0-3; Units: /HPF; Status: F Test: BACTERIA, URINE AUTO; Value: 1+; Range: NEGATIVE; Abnormal: Above high normal; Status: F Test: SQUAMOUS EPITHELIAL CELL UR AU; Value: 0; Range: 0-6; Units: /HPF; Status: F Test: MUCUS, URINE; Value: SMALL; Range: NEGATIVE; Status: F Test: HYALINE CAST, URINE AUTO; Value: 0; Range: 0-1; Units: /LPF; Status: F Radiology Order: Chest, 1 View Test: Chest, 1 View REASON FOR EXAMINATION: Cough; Clinical: Acute cough .; ; Comparison: 03/20/2016 .; ; Findings:; The mediastinum and cardiac silhouette are stable and within normal limits for; portable technique. The lung galloway are clear without acute consolidation,; effusion, or pneumothorax. Skeletal structures are intact.; ; Impression:; Normal portable chest x-ray; ; ; Signed by; Thomas Lua MD 09/15/2016 02:49 P; Outcome: 15:15 Decision to Hospitalize by Provider. pc 15:48 Discharge Assessment: Patient awake, alert and oriented x 3. No cognitive and/or ms18 functional deficits noted. Patient verbalized understanding of disposition instructions. patient administered narcotics - no. The following High Risk Discharge criteria are identified: None. Admitted to ICU accompanied by nurse, accompanied by tech, via stretcher, on monitor, with chart. Condition: stable. No special radiology studies were completed. Property :Personal belongings accompany Pt. 15:54 Patient left the ED. ms18 Signatures: Dispatcher [employer] EDMS Karl Sue MD MD pc Roxanne Underwood, Rn Pediatric Unit deg Checo Moreno, RN RN Rachel Bianchi, Camille Crum Mallory, RN RN ms18 Erica Jaimes ys2 Mame Ortez2 Maddy Sepulveda RN ld5 Rupinder Do RN [facility] Chart Complete [facility]ITALTor[facility]
[2016-09-17] MEDS: LevoFLOXacin IV 750 MG in APPROPRIATE DILUENT 1 EA IV SCH (17:46)
[2016-09-17] MEDS: NORCO, ANEXSIA 5/325MG TABLET (HYDROcodone/ACETAMINOPHEN) PO PRN (20:03)
[2016-09-17 22:00] VITALS: BP 127/73
[2016-09-18] MEDS: KCL 20MEQ in NS 1000ML 1,000 ML IV SCH (00:42)
[2016-09-18] MEDS: NORCO, ANEXSIA 5/325MG TABLET (HYDROcodone/ACETAMINOPHEN) PO PRN ×4 (02:35→20:50)
[2016-09-18] MEDS: HEPARIN SOD (PORCINE) 5000 UNITS/ML VIAL SC SCH ×3 (05:04→21:04)
[2016-09-18 06:00] VITALS: BP 134/85
[2016-09-18 06:01] LABS: MEAN CORPUSCULAR HEMOGLOBIN 27.7 pg (27.0-33.0); MEAN CORPUSCULAR HGB CONC 33.5 g/dl (32.0-36.5); MEAN CORPUSCULAR VOLUME 82.6 fl (80.0-96.0); RED CELL DISTRIBUTION WIDTH 14.3 % (11.5-14.5); WHITE BLOOD COUNT 11.4 K/mm3 (4.0-10.0)
[2016-09-18 06:19] LABS: ANION GAP 6 MEQ/L (8-16); BLOOD UREA NITROGEN 9 MG/DL (7-18); CALCIUM LEVEL 8.7 MG/DL (8.5-10.1); CARBON DIOXIDE LEVEL 29 MEQ/L (21-32); CHLORIDE LEVEL 104 MEQ/L (98-107); CREATININE FOR GFR 0.72 MG/DL (0.70-1.30); GLOMERULAR FILTRATION RATE > 60.0 (>60); GLUCOSE, FASTING 183 MG/DL (70-105); MAGNESIUM LEVEL 1.9 MG/DL (1.8-2.4); POTASSIUM SERUM 3.8 MEQ/L (3.5-5.1); SODIUM LEVEL 139 MEQ/L (136-145)
[2016-09-18] MEDS: PERCOCET 5MG/325MG TAB PO PRN ×3 (06:50→18:47)
[2016-09-18] MEDS: HumaLOG INSULIN (NovoLOG) PER UNIT SC SCH ×4 (08:42→20:50)
[2016-09-18] MEDS: NYSTATIN 500,000 U/5 ML SUSP UDC SS SCH ×4 (08:42→20:49)
[2016-09-18] MEDS: LEVEMIR (INSULIN DETEMIR) 1 UNITS/0.01ML SC SCH (08:43)
[2016-09-18] MEDS: PANTOPRAZOLE 40MG TAB (PROTONIX) PO SCH (08:43)
[2016-09-18] MEDS: AZITHROMYCIN 250 MG TAB PO SCH (11:46)
[2016-09-18] MEDS: CHLORASEPTIC SPRAY MT PRN (12:51)
[2016-09-18 14:00] VITALS: BP 118/64
[2016-09-18] MEDS: ANALGESIC BALM CRM 120 GM TOP SCH ×2 (16:40→20:50)
[2016-09-18] MEDS: METOCLOPRAMIDE INJ 10MG/2ML VIAL (J2765) IV PRN (16:40)
[2016-09-18] MEDS: MULTIVITAMINS/MINERALS THERAP 1 TAB PO SCH (17:51)
[2016-09-18] MEDS: FOLIC ACID 1 MG TAB PO SCH (17:52)
[2016-09-18] MEDS: THIAMINE 100 MG TAB PO SCH (17:52)
[2016-09-18] MEDS: VANCOMYCIN ORAL SOL 250MG/5ML ORAL SYRINGE PO SCH ×2 (18:49→23:38)
[2016-09-18] MEDS: LACTOBACILLUS ACIDOPHILUS CAP (BACID) PO SCH (20:50)
[2016-09-18 22:00] VITALS: BP 115/61
[2016-09-19] MEDS: PERCOCET 5MG/325MG TAB PO PRN ×4 (01:28→20:41)
[2016-09-19] MEDS: NORCO, ANEXSIA 5/325MG TABLET (HYDROcodone/ACETAMINOPHEN) PO PRN ×4 (05:17→23:44)
[2016-09-19] MEDS: VANCOMYCIN ORAL SOL 250MG/5ML ORAL SYRINGE PO SCH ×2 (05:17→11:49)
[2016-09-19] MEDS: HEPARIN SOD (PORCINE) 5000 UNITS/ML VIAL SC SCH ×3 (05:24→21:16)
[2016-09-19 06:00] VITALS: BP 98/57
--- NOTE | 2016-09-19 06:04 | IPN ---
DATE OF VISIT: 09/18/2016 The patient is seen and examined, reported feeling much better, tolerating a bit oral, now reported resolution of sore throat but continues to have diarrhea and back pain. Denies any chest pain, pressure or discomfort. Denies any fever or chills. VITAL SIGNS: Temperature 96.5, pulse 85, respirations 18, blood pressure 118/64, pulse oximetry 1005 on room air. LABORATORY DATA: WBC 11.4, hemoglobin 10.9, hematocrit 32.6, platelets 187. Chemistries: Sodium 139, potassium 3.8, chloride 014, bicarbonate 29, BUN 9, creatinine 0.72. Group C Streptococcus positive and Clostridium (C.) difficile positive. PHYSICAL EXAMINATION: GENERAL: The patient is a bit more comfortable, arousable, answering questions appropriately, pleasant. HEENT: Some swelling near the corner of the patient's mouth, atraumatic. HEART: Regular rate and rhythm, normal S1, S2. RESPIRATORY: Bilaterally clear to auscultation. ABDOMEN: Wasted, soft, nontender, hypoactive bowel sounds. EXTREMITIES: No edema bilateral lower extremities. Tattoo noted. ASSESSMENT AND PLAN: This is a 21-year-old male patient with underlying medical history of attention deficit hyperactivity disorder (ADHD), depression, behavioral disorder, history of psychiatric institutionalization, type 1 diabetes, insulin dependent, chronic urinary retention requiring self catheterization, possible diabetic nephropathy, admitted for diabetic ketoacidosis over two months with progressive worsening symptoms, persistent nausea, vomiting and diarrhea post oral intake, sore throat and coughing. PROBLEMS: 1. Diabetic ketoacidosis (DKA). The patient currently bridged to basal bolus insulin, encourage diet. The patient is currently tolerating diet. Ketotic state has resolved based on the ketone level, likely exacerbating factor Streptococcus infection, possible impetigo and Clostridium difficile colitis. Continue treatment as below. Followup A1c, encourage oral intake. Poor compliance and social issue with insurance. Patient and family services (PFS) was consulted. The patient requested help with disability, will need outpatient followup with endocrinology at [facility] for referral to set up insulin pump. The patient already has the supply. Continue treatment with Azithromycin and vancomycin, Cepacol Lozenges. 2. Hypoglycemia in the setting that the patient is not eating much, likely due to Clostridium (C.)difficile colitis. Initially on dextrose (D5) 20 mEq of potassium chloride (KCl) and half normal saline. Currently off fluids. Encourage oral intake, continue to monitor. 3. Nausea, vomiting, diarrhea. Possibly secondary to diabetic ketoacidosis (DKA) versus C difficile colitis versus gastroparesis. CT scan of the abdomen appreciated. Will followup gastric emptying studies. Vancomycin, initially given intravenous (IV) fluids. Encourage oral intake. 4. Sore throat and possible impetigo, Streptococcus. Final culture has been positive. Antibiotics. The patient on Chloraseptic spray, antibiotics switch to Azithromycin given PENICILLIN ALLERGY. 5. Poor compliance complicating care. Possible also associated social issue given the patient has lost insurance for a couple of months. The patient will need set up for primary care provider in endocrinology, followup at [facility], counseling provided. 6. Underlying attention deficit hyperactivity disorder (ADHD), possible depression, behavior disorder. Psychiatry consulted, psychiatric optimization. The patient's condition has much improved. Will treat underlying condition of Clostridium difficile and Streptococcus infection first. Will possibly need outpatient psychiatric followup. Parent and family services (PFS) consulted to work on social issues. 7. Deep venous thrombosis (DVT) prophylaxis. Heparin subcutaneous/ 8. Protein calorie malnutrition secondary to Clostridium difficile infection. In fact, poorly controlled diabetes, poor oral intake, underlying psychiatric issue. Encourage orals, continue to monitor. 9. Gastrointestinal (GI) prophylaxis. Protonix. DISPOSITION PLANNING: Will need set-up for outpatient endocrinology, private care physician, treatment for Clostridium difficile, treatment for impetigo Streptococcus infection, psychiatric final recommendation, as well as pain management consultation. The patient has back pain after a fall with history of bulging disc. Followup MRIs, pain management consulted. Social work for possible disability assistance.
[2016-09-19 06:26] LABS: ANION GAP 7 MEQ/L (8-16); BLOOD UREA NITROGEN 7 MG/DL (7-18); CALCIUM LEVEL 8.3 MG/DL (8.5-10.1); CARBON DIOXIDE LEVEL 30 MEQ/L (21-32); CHLORIDE LEVEL 101 MEQ/L (98-107); CREATININE FOR GFR 0.81 MG/DL (0.70-1.30); GLOMERULAR FILTRATION RATE > 60.0 (>60); GLUCOSE, FASTING 260 MG/DL (70-105); MAGNESIUM LEVEL 1.9 MG/DL (1.8-2.4); POTASSIUM SERUM 4.4 MEQ/L (3.5-5.1); SODIUM LEVEL 138 MEQ/L (136-145)
[2016-09-19 06:28] LABS: MEAN CORPUSCULAR HEMOGLOBIN 27.8 pg (27.0-33.0); MEAN CORPUSCULAR HGB CONC 32.9 g/dl (32.0-36.5); MEAN CORPUSCULAR VOLUME 84.5 fl (80.0-96.0); RED CELL DISTRIBUTION WIDTH 14.3 % (11.5-14.5); WHITE BLOOD COUNT 10.3 K/mm3 (4.0-10.0)
[2016-09-19] MEDS: NYSTATIN 500,000 U/5 ML SUSP UDC SS SCH ×4 (08:31→20:40)
[2016-09-19] MEDS: AZITHROMYCIN 250 MG TAB PO SCH (08:32)
[2016-09-19] MEDS: LACTOBACILLUS ACIDOPHILUS CAP (BACID) PO SCH ×3 (08:32→20:40)
[2016-09-19] MEDS: FOLIC ACID 1 MG TAB PO SCH (08:32)
[2016-09-19] MEDS: MULTIVITAMINS/MINERALS THERAP 1 TAB PO SCH (08:32)
[2016-09-19] MEDS: LEVEMIR (INSULIN DETEMIR) 1 UNITS/0.01ML SC SCH (08:33)
[2016-09-19] MEDS: PANTOPRAZOLE 40MG TAB (PROTONIX) PO SCH (08:33)
[2016-09-19] MEDS: THIAMINE 100 MG TAB PO SCH (08:33)
[2016-09-19] MEDS: ANALGESIC BALM CRM 120 GM TOP SCH ×3 (08:34→21:00)
[2016-09-19] MEDS: HumaLOG INSULIN (NovoLOG) PER UNIT SC SCH ×4 (08:35→21:00)
--- NOTE | 2016-09-19 09:51 | REP ---
MRI THORACIC SPINE WITHOUT CONTRAST:HISTORY: Fall. The examination is limited secondary to motion. There is no disc bulge or herniation. The spinal canal and neural foramina are patent. The spinal cord is normal in signal intensity. There is no intradural extramedullary lesion. Normal signal intensity is present in the thoracic vertebral bodies. There are old compression fractures of the T5 and 7 vertebral bodies with minimal height loss. IMPRESSION: 1. There is no disc bulge or herniation. 2. Old T5 and 7 compression fractures with minimal height loss. Signed by Kishore Warner MD 09/19/2016 10:05 A
--- NOTE | 2016-09-19 11:28 | REP ---
MR LUMBAR SPINE WITHOUT CONTRAST: HISTORY: Fall. COMPARISON: 01/22/2016. Decreased signal intensity on T2-weighted images is present in the L2-3 through L5-S1 intervertebral discs. The discs are decreased in height. These findings are consistent with disc degeneration. There is no disc bulge or herniation at the L1-2 level. The L1 nerves exit the neural foramina without compression. A diffuse disc bulge asymmetric to the right is present at the L2-3 level. There is minimal compression of the thecal sac. The L2 nerves exit the neural foramina without compression. A diffuse disc bulge is present at the L3-4 level. There is minimal compression of the thecal sac. There is hypertrophy of the ligamenta flava. The L3 nerves exit the neural foramina without compression. A diffuse disc bulge is present at the L4-5 level. The previously noted small disc protrusion is not seen. There is minimal compression of the thecal sac. There is hypertrophy of the ligamenta flava. The L4 nerves exit the neural foramina without compression. A diffuse disc bulge and small central disc protrusion are present at the L5-S1 level. There is no thecal sac compression. The L5 nerves exit the neural foramina without compression. The conus medullaris is normal in appearance terminating at the level of the T12-L1 intervertebral disc. Schmorl's nodes are present throughout the lumbar spine. Increased signal intensity on T2 weighted images is present in the endplates of the L4 and 5 vertebral bodies. This represents degenerative change. IMPRESSION: 1. Diffuse disc bulges at the L2-3 through L4-5 levels with minimal thecal sac compression. The previously noted disc protrusion at the L4-5 level is not seen. 2. Diffuse disc bulge and small central disc protrusion at the L5-S1 level without thecal sac or nerve compression. Fractures cannot be excluded. Signed by Kishore Warner MD 09/19/2016 11:31 A
--- NOTE | 2016-09-19 11:37 | IPN ---
DATE: 09/17/2016 Patient is seen and examined. Patient continues to be covered with blanket, reported sore throat, but seems to be better. Denies any chest pain, pressure, or discomfort. Continues to be nauseous. Stated that he is vomiting a little bit only, but still not eating or drinking, but tolerated a little bit of applesauce and yogurt as per nursing staff. But, when patient was seen, patient was covered in a blanket from head to toe and asked the physician not to lift up the blanket and expose him, still very guarded and not cooperative, has been trying to refuse many medical interventions and testing. VITAL SIGNS: Temperature 98.4, pulse 82, respirations 17, blood pressure 127/74, pulse oximetry 98% on room air. LABORATORY DATA: WBC 13.8, hemoglobin and hematocrit 11.4/33.8, platelets 200. Sodium 135, potassium 3.8, chloride 101, bicarbonate 24, BUN 12, creatinine 0.91. PHYSICAL EXAMINATION: Patient arousable, but sleeping, guarded, has blanket covering his face, not really participating in questioning, has hoarseness of voice. HEENT: Some swelling near the right corner of patient's mouth, atraumatic. CARDIAC: Regular rate and rhythm, normal S1, S2. PULMONARY: Bilaterally clear to auscultation. ABDOMEN: Soft, wasted, normoactive bowel sounds. EXTREMITIES: No edema bilateral lower extremities. Tattoos noted. ASSESSMENT AND PLAN: This is a 21-year-old male patient with underlying medical history of attention deficit hyperactivity disorder (ADHD), depression, behavior disorder, history of psychiatric institutionalization, type 2 diabetes, chronic urinary retention, possible diabetic nephropathy, admitted with diabetic ketoacidosis. As per family, over the last 2 months patient's condition has been progressively worsening with intermittent nausea and vomiting, poor oral intake, sore throat, and coughing. 1. Diabetic ketoacidosis (DKA). Patient currently bridged to basal bolus insulin. Encouraged diet, but patient still is not eating much. Initially started on dextrose 5% (D5) 20 mEq of potassium chloride (KCl) in half normal saline. Currently switched to 20 mEq in half normal saline intravenous (IV) fluids. Followup finger sticks, basic metabolic panel, ketones, magnesium. Supplement electrolytes. Encourage oral intake. Followup underlying etiology. Cardiac enzymes have been negative. Possible infectious etiology given leukocytosis on admission. Empirically started on Levaquin. Cultures have been sent. Respiratory panel negative. Possible poor compliance as alternative explanation. A1c has been 13. Also alternative explanation is possibly exacerbated by underlying psychiatric condition. 2. Nausea and vomiting, possibly secondary to diabetic ketoacidosis (DKA) versus gastroparesis. CT scan appreciated. Discussed with patient's family and will pursue gastric emptying study to assess for gastroparesis. Zofran and Reglan. Encourage oral intake. 3. Sore throat. Streptococcus negative. Continue antibiotics. Chloraseptic lozenges. Continue to monitor. Hoarseness seems to be much improved. If patient continues to not tolerate much oral, will consider further workup in the form of otolaryngology (ENT) evaluation. 4. Poor compliance complicating care. Counseling provided. 5. Underlying history of attention deficit hyperactivity disorder (ADHD), depression, behavior disorder. Consulted psychiatry, Dr. Heller. Discussed with patient's mother who was concerned about patient with a 25 pound weight loss over the past 3 months. Concern of anorexia, persistent vomiting, weight loss over 3 months and patient and family services (PFS) has been consulted to investigate home safety situation given stated that since they moved into the new house both the and the kids and the patient have been getting sick with pneumonia, respiratory disease. Followup psychiatry recommendations. Patient remains very guarded. 6. Hypoglycemia. Dextrose 5% (D5) potassium chloride (KCl) 20 mEq was initially given. Currently finger sticks have been improved. Followup finger sticks. Insulin dose has been adjusted. Hypoglycemia as per protocol. 7. Gastrointestinal (GI) prophylaxis. Protonix. 8. Deep venous thrombosis (DVT) prophylaxis. Heparin subcutaneous. DISPOSITION: Management of patient's diabetes has been complicated by underlying questionable eating disorder and psychiatric condition. Will attempt to correct patient's metabolic derangement as much as possible. Unfortunately, patient is not cooperating with care, intermittently refusing medications, orals, laboratory testing and diagnostic testing, which is delaying care. Patient with multiple underlying psychiatric conditions and diabetic ketoacidosis (DKA), poor compliance. Poor overall prognosis. Encourage compliance and case discussed with family.
[2016-09-19] MEDS ORDERED: AZIT250T3 PO (13:41)
[2016-09-19] MEDS ORDERED: TOUJ1.2I SC (13:41)
[2016-09-19] MEDS ORDERED: VITMTA PO (13:41)
[2016-09-19] MEDS ORDERED: THIA100TA PO (13:41)
[2016-09-19] MEDS ORDERED: NOVOINJ3 SC (13:41)
[2016-09-19] MEDS ORDERED: DIFI200T PO ×2 (13:41→13:46)
[2016-09-19] MEDS ORDERED: FOLI1TAB2 PO (13:41)
[2016-09-19] MEDS ORDERED: [UNRECOGNIZED DRUG - CODE] XX (13:46)
[2016-09-19] MEDS ORDERED: BACITAB3 PO (13:46)
[2016-09-19 14:00] VITALS: BP 102/60
[2016-09-19] MEDS: FIDAXOMICIN 200 MG TAB (DIFICID) PO SCH ×2 (14:41→20:40)
--- NOTE | 2016-09-19 17:48 | CR ---
DATE OF CONSULTATION: 09/19/2016 REFERRING PROVIDER: Dr. Osborn. CHIEF COMPLAINT: 1. Thoracic back pain. 2. Low back pain. HISTORY OF PRESENT ILLNESS: Ray is a 21-year-old gentleman admitted four days ago due to lethargy and hyperglycemia. History of chronic low back and thoracic back pain. Pain began initially approximately five years ago. He fell over 10 feet and slipped on ice upon landing. He did not seek medical treatment. States approximately two months ago, he was lifting heavy box of frozen hamburgers and twisted which aggravated his back pain. This past week due to his weakness he slipped and fell on his back in his tub. MRI imaging of both thoracic and lumbar sacral spine done this admission showing old compression fracture at T5 and T7. Lumbosacral MRI showing diffuse disk bulges L2-3 through L4-5 with a small central disk protrusion at L5-S1 level. Rating pain level as a 5/10 visual analogue scale (VAS). Worst area of pain is mid to lower thoracic. Does report improvement in his pain with use of hydrocodone, heat and Donnell-Haynes. Reporting episode of sharp left scapular pain intermittently. Pain is aggravated with changing positions from reclined to standing. ALLERGIES: 1. PENICILLIN 2. TRAMADOL 3. ZOFRAN PAST MEDICAL HISTORY: 1. Type 1 diabetes diagnosed age 15. 2. Urinary retention requiring frequent catheterization for the past two years. PAST SURGICAL HISTORY: 1. Appendectomy. 2. Left hand middle finger amputation. SOCIAL HISTORY: The patient lives with his and three children. States he lost his job two months ago due to his sickness. History of smoking half a pack to one pack daily for eight years. Denies alcohol use. Denies recreational drug use. REVIEW OF SYSTEMS: GASTROINTESTINAL (GI) - reporting diarrhea. Denies abdominal pain. GENITOURINARY () - reporting normal urination. The patient self-catheterizes during hospital stay. NEUROLOGIC: - reports mild tingling in his feet. Denies overall neuropathy. MUSCULOSKELETAL: - denies generalized joint pain or swelling. CARDIAC: Denies chest pains or shortness of breath. RESPIRATORY: Reports recent upper respiratory infection with cough and fever. Recent sore throat with the treatment for strep throat. ENDOCRINE - poorly controlled insulin dependent diabetes mellitus type 1. Denies thyroid issues. PHYSICAL EXAMINATION: GENERAL: Awake, alert, pleasant. VITAL SIGNS: 96.8, 99 18, blood pressure 102/60, Oxygen saturation 99% on room air. CARDIAC: S1, S2. Normal rate and rhythm. RESPIRATORY: Lung sounds clear. Respirations nonlabored. INSPECTION OF SPINE: Tenderness noted over the mid to lower thoracic spine and paraspinal region. Tenderness over the lumbosacral (LS) axis and lumbar paraspinals. The patient is able to move easily in bed and to a sitting and standing position. NEUROMUSCULAR: Muscle strength over the lower extremities is 5/5. Reporting normal sensation to light touch upper and lower extremities. No swelling noted in extremities. Range of motion of the spine is full with slight increase in pain with flexion greater than 45 degrees or extension greater than 30. DIAGNOSTIC STUDIES: MRI of the thoracic spine 09/19/2016: Reviewed. MRI of lumbar spine without contrast 09/27/2016: Reviewed. ASSESSMENT: 1. Thoracic back pain. 2. Chronic/old compression fracture thoracic spine. 3. Lumbar disk protrusion. PLAN: Discussed treatment options available at the pain center to include epidural steroid injections, etc. The patient would have to be referred from his primary care provider after discharge. We discussed medications. At this point, he seems to do well with small amounts of hydrocodone, heat and Donnell-Haynes. He has plans on being compliant with medical providers upon discharge and is looking forward to feeling better. He has goals of getting his lower back into condition and we discussed this briefly. Thank you for allowing us to participate in the care of your patient. If you have any questions or concerns, please do not hesitate to contact me. Sincerely, CHRIS
[2016-09-19] MEDS ORDERED: REGL5TAB2 PO (21:31)
[2016-09-19 22:00] VITALS: BP 105/59
--- NOTE | 2016-09-19 23:18 | DSES ---
DATE OF ADMISSION: 09/15/2016 DATE OF DISCHARGE: unknown - patient has threatened to sign out against medical advice but has been encouraged to stay. PRIMARY CARE PROVIDER: None. Arrangements are made to set up a primary care provider with the patient. Director Marketing [employer] referral made to [facility]. Psychiatrist, Dr. Heller, has been consulted. FINAL DIAGNOSES: Diabetic ketoacidosis (DKA). Nausea, vomiting possibly secondary to diabetic ketoacidosis versus gastroparesis. Sore throat with Streptococcus infection and possible impetigo. Poor compliance complicating care. Clostridium difficile colitis. Underlying history of attention-deficit hyperactivity disorder Behavior disorder. Hypoglycemic. Back pain with history of falling. HISTORY OF THE PRESENT ILLNESS: This is a 21-year-old male patient with underlying medical history of type 1 diabetes, chronic urinary retention requiring frequent self-catheterizations, chronic diarrhea, presented to [facility] on 09/15/2016 by ambulance with lethargy and hyperglycemia. The patient stated that he started having cold-like symptoms 2 days ago but as per family, the patient has been sick for the past 2-3 months. He has experienced frequent nausea, vomiting for the last 2 days and the patient has also reported chronic diarrhea for about 3 years later on during the hospital course. Has not been using his insulin for the past 2 days due to lethargy. But later the patient stated that he has lost insurance, so has not been taking it. Associated symptoms include chills. The patient denied any diarrhea. He has a history of chronic urinary retention requiring frequent catheterization for the past 2 years. The patient has been followed by Urology. However, the patient does not have any confirmatory diagnosis for his urinary retention. The patient does have a history of frequent urinary tract infection (UTI). The patient arrived at the emergency room and found to have a glucose of 786 with an anion gap of 35, subsequently the patient was admitted. HOSPITAL COURSE: The patient was admitted to the intensive care unit (ICU) on insulin drip. Supplementation of potassium and magnesium has been provided as well as an insulin drip and intravenous (IV) fluids. Electrolyte, fluids adjusted. The patient was later bridged to basal bolus insulin, but fluid has been continued, transfer out of ICU. Diet has been encouraged. Antibiotic has been started. The patient was initially on Levaquin. As mentioned, CT scan of the abdomen was done to rule out any intraabdominal pathology. Eventually, the patient disclosed that he has been having chronic diarrhea. Gastrointestinal (GI ) panel and stool study has been sent. The patient was diagnosed with Clostridium difficile (C diff). Throat culture came back with Streptococcus Group C. The patient's antibiotics were switched to azithromycin, given penicillin allergies, and as well, the patient was initially started on vancomycin but later found out that the patient has previous treatment with vancomycin that has not really improved. The patient has very little insight and does not feel that his diarrhea is the problem, even though his diarrhea is obviously making him dehydrated and have poor oral intake. Clostridium difficile as per patient was treated wioth vanco, but as per patient had failed vanco with continued diarrhea, was later switched to Dificid. Patient and family services (PFS) consulted for prior authorization for Dificid. Furthermore, the patient reported that his back has been hurting. He has chronic degenerative disc disease and also recent fall. Subsequently, pain management was consulted. Pain regimen was provided. The patient currently reported improvement of sore throat, nausea, vomiting with resolution of the nausea and vomiting. Hospital course was complicated by the patient refusing a lot of treatment, which includes gastric emptying studies. The case was discussed with family. Concerns for possible patient's underlying psychiatric condition, including ADHD and depression and behavior disorder, might impact the patient's ability to be compliant to insulin regimen. Psychiatry has been consulted. Discussed with the patient's . The patient's stated that when he was healthy, he had been okay. The case was also discussed with the patient's mother who was concerned about anorexia. Will need further followup as an outpatient. Arrangements are made for the patient to get a primary care provider since the patient was fired by his primary care provider for poor compliance and arrangements are made for the patient to followup with [facility] for possible setting up of insulin pump. The patient's hospital course was complicated with hypoglycemia, but given the patient has not been eating for awhile, but later after frequent fingersticks were done as well as IV fluids with D5. At one point, FS was done every 2 hours but later back to before food and nightly. The patient currently is off fluids, tolerating oral but concerns for C diff causing dehydration, subsequently worsening diabetic control has not been resolved. Will monitor the patient on Dificid. If the patient's diarrhea has resolved, will consider discharging the patient. If not, will consider further treatment with stool transplant and gastroenterology consultation. The patient does not want to continue to be an inpatient, has threatened to sign out against medical advice. The patient does not have insight and does not believe his diarrhea has been causing him any distress, even though the patient had a 25-pound weight loss. Will encourage further compliance as patient to remain in the hospital to complete care. If the patient signs out against medical advice, will arrange to have followup appointment as well as outpatient medication will be sent. Pain management has also been consulted. VITAL SIGNS: Temperature 96.8, pulse 99, respirations 18, blood pressure 102/60, pulse oximetry 99% on room air. LABORATORY: WBC 10.3. Hemoglobin and hematocrit 11.9 over 36.3, platelets 126. Chemistry: Sodium 138, potassium 4.4, chloride 101, bicarbonate 30, BUN 7, creatinine 0.81. PHYSICAL EXAMINATION: GENERAL: The patient is arousable, in no acute distress, guarded, always covers his head to toes with blankets with fans around him. Hoarseness has much improved. HEENT: Mild swelling around the right corner of the patient's mouth, likely impetigo. CARDIAC: Regular rate and rhythm. Normal S1, S2. PULMONARY: Bilaterally clear. ABDOMEN: Soft, wasted, normal bowel sounds. EXTREMITIES: No edema bilateral lower extremities. ASSESSMENT AND PLAN: This is a 21-year-old male patient with underlying medical history of attention-deficit hyperactivity disorder, depression, behavior disorder, history of psychiatric institutionalization, type 2 diabetes, chronic urinary retention with intermittent catheterization, possible diabetic neuropathy, admitted with diabetic ketoacidosis (DKA). As per family, over the last 2-3 months, the patient's condition has progressively worsened with intermittent nausea and vomiting, poor oral intake, sore throat and coughing. Problems: 1. Diabetic ketoacidosis. Patient currently bridged to basal bolus insulin. Encourage oral intake of fluids. Followup fingersticks, followup electrolytes. Likely etiology underlying infection given the patient has Strep throat and also Clostridium difficile colitis. A1c is 13. Possibly also poor compliance. Patient and family services (PFS) has been consulted to make sure the patient has insurance. Outpatient followup with [facility] as well as primary care provider. New primary care provider has been set up with the patient as well. 2. Nausea, vomiting and diarrhea. Nausea and vomiting has been resolved. Likely secondary to DKA. Patient refused gastric emptying studies. CT scan has been appreciated but initially also refused CT scan. Zofran and Reglan. Encourage oral intake. 3. Clostridium difficile colitis. As per patient, likely failed vancomycin prior. Currently on Dificid. PFS consulted for prior authorization of Dificid. If the patient fails to improve on Dificid, will consider stool transplantation. 4. Sore throat. Likely Streptococcus. Continue antibiotics. Switch to azithromycin. Cepacol lozenges. Likely also impetigo due to Strep. Poor compliance, complicating care. 5. Underlying attention-deficit hyperactivity disorder, behavior disorder, depression. Consulted by Dr. Heller, psychiatrist. Also, possible anorexia. The patient's mental status and outlook has improved, but still has very poor compliance and very poor insight. Patient and family services has been consulted to further investigate the reasons of poor compliance. 6. Hypoglycemia. During the hospital course, the patient was hypoglycemic, currently resolved. D5 KCl 20 mEq with half normal saline has at one point been given. Fingerstick has been followed, currently much improved. Patient tolerating oral. 7. Gastrointestinal (GI) prophylaxis. Protonix. 8. Deep vein thrombosis (DVT) prophylaxis. Heparin subcu. 9. Fall with compression fractures. Likely secondary to generalized weakness. Will get physical therapy and pain management to see the patient. MRI appreciated. DISPOSITION PLANNING: Pending clinical improvement. Poor overall prognosis given poor compliance in the setting of underlying behavioral psychiatric disorder. Will arrange for followup with [facility] as well as primary care provider. DISCHARGE MEDICATIONS: - azithromycin 500 mg by mouth daily for 4 more days - Dificid 200 mg by mouth twice a day for 14 days - folic acid 1 mg by mouth daily - Bacid one tablet by mouth three times a day - Reglan 5 mg by mouth before food and nightly - multivitamin one tablet by mouth daily - thiamine 100 mg by mouth daily - Tujeo 30 units subcu daily - insulin Novolog FlexPen via scale before food subcu - vitamin D 50,000 by mouth every week DISCHARGE INSTRUCTIONS: Followup with primary care provider and [facility] and followup with primary care provider for referral to pain management. MTDD
[2016-09-20] MEDS: PERCOCET 5MG/325MG TAB PO PRN ×2 (02:46→09:44)
[2016-09-20] MEDS: HEPARIN SOD (PORCINE) 5000 UNITS/ML VIAL SC SCH (05:01)
[2016-09-20] MEDS: NORCO, ANEXSIA 5/325MG TABLET (HYDROcodone/ACETAMINOPHEN) PO PRN ×2 (05:44→12:14)
[2016-09-20 05:59] LABS: MEAN CORPUSCULAR HEMOGLOBIN 27.9 pg (27.0-33.0); MEAN CORPUSCULAR VOLUME 84.6 fl (80.0-96.0); RED CELL DISTRIBUTION WIDTH 14.2 % (11.5-14.5); WHITE BLOOD COUNT 10.6 K/mm3 (4.0-10.0)
[2016-09-20 06:00] VITALS: BP 125/75
[2016-09-20 06:23] LABS: ANION GAP 8 MEQ/L (8-16); BLOOD UREA NITROGEN 6 MG/DL (7-18); CALCIUM LEVEL 8.7 MG/DL (8.5-10.1); CARBON DIOXIDE LEVEL 28 MEQ/L (21-32); CHLORIDE LEVEL 102 MEQ/L (98-107); CREATININE FOR GFR 0.84 MG/DL (0.70-1.30); GLOMERULAR FILTRATION RATE > 60.0 (>60); GLUCOSE, FASTING 183 MG/DL (70-105); MAGNESIUM LEVEL 1.7 MG/DL (1.8-2.4); POTASSIUM SERUM 4.2 MEQ/L (3.5-5.1); SODIUM LEVEL 138 MEQ/L (136-145)
[2016-09-20] MEDS: ANALGESIC BALM CRM 120 GM TOP SCH (09:00)
[2016-09-20] MEDS: HumaLOG INSULIN (NovoLOG) PER UNIT SC SCH ×2 (09:43→12:15)
[2016-09-20] MEDS: LEVEMIR (INSULIN DETEMIR) 1 UNITS/0.01ML SC SCH (09:43)
[2016-09-20] MEDS: FIDAXOMICIN 200 MG TAB (DIFICID) PO SCH (09:44)
[2016-09-20] MEDS: NYSTATIN 500,000 U/5 ML SUSP UDC SS SCH ×2 (09:44→12:15)
[2016-09-20] MEDS: LACTOBACILLUS ACIDOPHILUS CAP (BACID) PO SCH (09:44)
[2016-09-20] MEDS: AZITHROMYCIN 250 MG TAB PO SCH (09:44)
[2016-09-20] MEDS: FOLIC ACID 1 MG TAB PO SCH (09:44)
[2016-09-20] MEDS: PANTOPRAZOLE 40MG TAB (PROTONIX) PO SCH (09:44)
[2016-09-20] MEDS: THIAMINE 100 MG TAB PO SCH (09:44)
[2016-09-20] MEDS: MULTIVITAMINS/MINERALS THERAP 1 TAB PO SCH (09:44)
[2016-09-20] MEDS ORDERED: NORCOTAB PO (09:56)
--- NOTE | 2016-09-20 10:05 | DSES ---
DATE OF ADMISSION: 09/15/2016 DATE OF DISCHARGE: 09/20/2016 Please see discharge summary dictated 09/19/2016. The patient remained in the hospital for an additional evening after Dr. Osborn's convincing. At this time his diarrhea has essentially resolved, he is not having nausea or vomiting, he is tolerating a diet well. He is being discharged today with the only change being that the patient will be provided [place] 5/325 #12 tablets. It is recommended he follows up with an outpatient referral for pain management as well as infectious disease. He has been advised to return to the emergency room (ER) if his symptoms worsen. Otherwise no changes to previous discharge summary dictated.
--- NOTE | 2016-09-20 21:22 | IPN ---
DATE OF VISIT: 09/19/2016 21-year-old male with history of type 1 diabetes mellitus, chronic urinary retention admitted to the medical floor for stabilization of diabetic ketoacidosis. The patient was seen by me on September 16, 2016. At that time the patient was very weak and unable to provide full information. Today, the patient feels significantly better. The patient is able to interact and go through the interview and mental status examination. The patient stated that he has never had any psychiatric problems other than his diagnosis of attention deficit hyperactivity disorder (ADHD) when he was a child. He said that during that time he had significant problems with his emotions, irritability, impulsivity and anger. The patient says that today he still has some anger problems but he is not in any psychiatric treatment. One of the concerns was the fact that he may suffer from anorexia nervosa since he was vomiting very frequently. After talking to the patient today, the patient denies that he has been provoking vomit, he denies any calorie count or diet restrictions, he denies any intake of laxatives. He says that he gets very sick and nauseated and he wants to gain weight but he has not been able to do so. The patient denies any symptoms of depression, or anxiety, denies any mood swings. The patient admits that he gets angry and he is at times emotional and hypersensitive to some interpersonal relationships, but he is at this moment stable. The patient is open to a referral to psychiatry as an outpatient even though he says that it is hard to talk about his own problems and does not know if he will be able to do so. MENTAL STATUS EXAMINATION: The patient is dressed in hospital clothes. The patient is common and cooperative. He has good eye contact. Mood is euthymic. Affect is congruent with mood. There is no evidence of delusions or hallucinations. Short and jail memory are intact. The patient is fully oriented. Associations are intact. Thinking is logical. Thought content is appropriate. The patient is denying suicidal or homicidal ideation. Insight and judgment is fair. ASSESSMENT: 1. Attention deficit hyperactivity disorder (ADHD) by history. 2. Oppositional defiance disorder, by history. RECOMMENDATIONS: 1. The patient has agreed to a psychiatric appointment and followup upon discharge from the medical unit. 2. The patient does not meet criteria for involuntary hospitalizations. The patient is denying suicidal or homicidal ideation. 3. The patient does not suffer from anorexia nervosa.
[2016-09-23 00:07] LABS: CHLORIDE FECAL 25 mmol/L (.); OSMOLARITY STOOL 341 mOsmol/kg (Not Estab.); POTASSIUM FECAL 38 mmol/L (.); SODIUM FECAL 68 mmol/L (.)
== END 2016-09-20 12:50 | disposition home or self-care (01) | DRG 420 ==
LOC: M ED 13:41 → M ED INP 15:10 → M ICU 16:02 → M MSPAV 09-16 08:30
PROVIDERS: ADMIT Internal Medicine; ATTEND Hospitalist
DX: E10.10 Type 1 diabetes mellitus with ketoacidosis without coma (principal); S22.058A Other fracture of T5-T6 vertebra, initial encounter for closed fracture; S22.068A Other fracture of T7-T8 thoracic vertebra, initial encounter for closed fracture; E46 Unspecified protein-calorie malnutrition; A04.7 Enterocolitis due to Clostridium difficile; E10.43 Type 1 diabetes mellitus with diabetic autonomic (poly)neuropathy; E10.649 Type 1 diabetes mellitus with hypoglycemia without coma; R33.9 Retention of urine, unspecified; L01.09 Other impetigo; J02.0 Streptococcal pharyngitis; B95.4 Other streptococcus as the cause of diseases classified elsewhere; R29.6 Repeated falls; F98.8 Other specified behavioral and emotional disorders with onset usually occurring in childhood and adolescence; M51.27 Other intervertebral disc displacement, lumbosacral region; M51.26 Other intervertebral disc displacement, lumbar region; F17.210 Nicotine dependence, cigarettes, uncomplicated; F91.9 Conduct disorder, unspecified; Z91.19 Patient's noncompliance with other medical treatment and regimen; Z79.4 Long term (current) use of insulin; Z87.440 Personal history of urinary (tract) infections; Z79.899 Other long term (current) drug therapy; Z88.0 Allergy status to penicillin; Z88.8 Allergy status to other drugs, medicaments and biological substances; Z89.022 Acquired absence of left finger(s); W18.2XXA Fall in (into) shower or empty bathtub, initial encounter; Y92.012 Bathroom of single-family (private) house as the place of occurrence of the external cause; Y93.E1 Activity, personal bathing and showering; Y99.9 Unspecified external cause status

== ENCOUNTER 2016-11-09 20:58 | Inpatient (IN) | payer MEDICAID, OTHER, SELFPAY ==
[~2016-11-09] VITALS: Ht 180.3 cm; Wt 71.0 kg
[~2016-11-09 20:58] MED LIST changes: +AZIT250T3 PO; +BACITAB3 PO; +DIFI200T PO; +FOLI1TAB2 PO; +NORCOTAB PO; +NOVOINJ3 SC; +REGL5TAB2 PO; +THIA100TA PO; +TOUJ1.2I SC; +VITMTA PO; +[UNRECOGNIZED DRUG - CODE] XX
[2016-11-09] MEDS ORDERED: MORPHINE 4 MG/ML 1ML SYRINGE IV ONE ×2 (21:30→22:15)
[2016-11-09] MEDS ORDERED: ONDANSETRON 4MG/2ML VIAL (J2405) IV ONE (21:30)
[2016-11-09] MEDS ORDERED: NS 1,000 ML IV ONE (21:30)
[2016-11-09 21:46] LABS: BASO % 0.3 % (0.0-1.0); EOS # 0.2 K/mm3 (0.0-0.50); EOS % 1.3 % (0.0-3.0); LARGE UNSTAINED CELL # 0.1 K/mm3 (0.0-0.4); LARGE UNSTAINED CELL % 0.5 % (0.0-4.0); LYMPH # 1.4 K/mm3 (1.5-6.5); LYMPH % 8.3 % (24.0-44.0); MEAN CORPUSCULAR HEMOGLOBIN 27.9 pg (27.0-33.0); MEAN CORPUSCULAR HGB CONC 33.2 g/dl (32.0-36.5); MONO # 0.3 K/mm3 (0.0-0.8); NEUTROPHILS # 14.1 K/mm3 (1.8-7.7); NEUTROPHILS % 87.5 % (36.0-66.0); PLATELET COUNT, AUTOMATED 310 k/mm3 (150-450); WHITE BLOOD COUNT 16.1 K/mm3 (4.0-10.0)
[2016-11-09] MEDS ORDERED: GASTROGRAFIN SOLUTION 30ML (Q9963) PO ONE (22:00)
[2016-11-09 22:10] LABS: ALBUMIN/GLOBULIN RATIO 0.87 (1.00-1.93); ALKALINE PHOSPHATASE 157 U/L (45-117); ALT/SGPT 19 U/L (12-78); ANION GAP 14 MEQ/L (8-16); AST/SGOT 11 U/L (15-37); BILIRUBIN,DIRECT < 0.1 MG/DL (0.0-0.2); BILIRUBIN,TOTAL 0.3 MG/DL (0.2-1.0); BLOOD UREA NITROGEN 20 MG/DL (7-18); CALCIUM LEVEL 9.5 MG/DL (8.5-10.1); CARBON DIOXIDE LEVEL 20 MEQ/L (21-32); CHLORIDE LEVEL 103 MEQ/L (98-107); CREATININE FOR GFR 1.52 MG/DL (0.70-1.30); GLOMERULAR FILTRATION RATE > 60.0 (>60); GLUCOSE, FASTING 312 MG/DL (70-105); POTASSIUM SERUM 4.5 MEQ/L (3.5-5.1); SODIUM LEVEL 137 MEQ/L (136-145); TOTAL PROTEIN 8.6 GM/DL (6.4-8.2)
[2016-11-09] MEDS ORDERED: HumuLIN R (REGULAR) INSULIN (NovoLIN R) **100U/ML** PER UNIT IV ONE (22:30)
[2016-11-09] MEDS ORDERED: PROMETHAZINE INJ 25 MG/ML VIAL (J2550) IV ONE (22:45)
[2016-11-09] MEDS ORDERED: CIPROFLOXACIN 400 MG in APPROPRIATE DILUENT 1 EA IV ONE (23:15)
[2016-11-09] MEDS ORDERED: ISOVUE-370 76% 100ML VIAL (Q9967) As Ordered ONE (23:19)
--- NOTE | 2016-11-10 00:40 | REPUSA ---
CLINICAL HISTORY: Abdominal pain. TECHNIQUE: Multiple axial, sagittal and coronal CT images were obtained through the abdomen and pelvi s after administration of oral and intravenous contrast material. COMMENTS: Comparison to the prior exam on 09/16/2016. Diffuse thickening of the proximal small bowel is in the jejunum. Multifocal thickening of the colon at the level of the ascending and sigmoid colon. The liver is mildly enlarged with decreased attenuation without mass or defect. There is no intra or extrahepatic biliary ductal dilatation. The spleen is normal. The gallbladder is within normal limits . The pancreas is of normal contour and attenuation characteristics. There is no evidence of adrenal mass. Both kidneys demonstrate prompt and equal nephrograms. The kidneys are normal in size, shape and conf iguration. There is no evidence of renal or ureteral mass. No renal or ureteral calculi are identifie d. There is no hydroureter or hydronephrosis. Prior appendectomy. No evidence for small or large bowel obstruction. There is no evidence of abdomin al ascites or lymphadenopathy. There is no evidence of intrinsic or extrinsic bladder mass. There is no pelvic ascites or lymphadeno jem. There is thickening of the wall of the bladder. Images of the lung bases show no evidence of pleural or parenchymal mass. There are no pleural effusi ons. Unchanged 1.5 cm bone island of the left femoral head. The bony structures are free of lytic or blastic lesions. IMPRESSION: Enteritis. Multifocal colitis. Findings were not present on the prior exam. No perforation or pneumatosis coli. Abscess formation or ascites. Thickened bladder. Under distention versus cystitis. Resolution of bilateral basilar pulmonary ground glass densities. Thank you for your kind referral of this patient.
[2016-11-10] MEDS ORDERED: MORPHINE 4 MG/ML 1ML SYRINGE IV ONE (01:30)
[2016-11-10] MEDS ORDERED: ACETAMINOPHEN TAB 650MG DOSE (2X325MG) PO PRN (02:00)
[2016-11-10] MEDS ORDERED: INSUH10VL SC (02:04)
[2016-11-10] MEDS ORDERED: VITMTA PO (02:04)
[2016-11-10] MEDS ORDERED: HumuLIN R (REGULAR) INSULIN (NovoLIN R) **100U/ML** PER UNIT SC STA (02:09)
[2016-11-10] MEDS ORDERED: TOUJ1.2I SC ×2 (02:14→14:54)
[2016-11-10] MEDS ORDERED: FOLI1TAB2 PO (02:14)
[2016-11-10] MEDS ORDERED: VITA50003 PO (02:14)
[2016-11-10] MEDS ORDERED: GLUCOSE 4 GM CHEW TABLET PO PRN (02:15)
[2016-11-10] MEDS ORDERED: DEXTROSE 50% 50 ML SYRINGE IV PRN (02:15)
[2016-11-10] MEDS ORDERED: GLUCAGON FOR INJ 1 MG VIAL (J1610) SC PRN (02:15)
[2016-11-10] MEDS ORDERED: BACITAB3 PO (02:16)
[2016-11-10] MEDS: NS 1,000 ML IV SCH ×5 (02:31→20:22)
[2016-11-10 03:30] VITALS: BP 130/79
--- NOTE | 2016-11-10 03:35 | HPE ---
DATE OF ADMISSION: 11/10/2016 PRIMARY CARE PROVIDER: Dr. Miller. CHIEF COMPLAINT: Nausea, abdominal pain. HISTORY OF PRESENT ILLNESS: Mr. Noble is a 21-year-old male with history of type 1 diabetes, Clostridium (C) difficile colitis, noncompliance, [facility] with complaint of nausea, vomiting, abdominal pain. Episodes started approximately 2-3 days ago. At the time of evaluation, he is not very talkative, unwilling to answer questions. Therefore, history is somewhat limited. States that in the last few days has had worsening nausea, vomiting, averaging approximately 10 episodes an hour, mostly clear contents. The last time he vomited was earlier today in the ED. Associated with abdominal pain that is located diffusely in his abdomen described as sharp. Has not taken any medications for his symptoms. Reports on and off diarrhea, but refused to answer how frequent and refused to describe the content of his stool. Did state that since his C. difficile colitis in August his bowel movements have been less frequent. No chest pain, shortness of breath, palpitations, fever. Does endorse chills. The patient admits that he has not been taking his Levemir. He is unable to offer how long he stopped taking his long-acting insulin. States that he was transitioned to Toujeo from Levemir, but insurance does not authorize for new medication so has not been taking any of his long-acting. Was also referred to [facility], but has not followed through with this. In the ED, was given 1 liter bolus, morphine 4 mg times three, five units of regular insulin and ciprofloxacin. PAST MEDICAL HISTORY: 1. Uncontrolled type 1 diabetes. Most recent hemoglobin A1c August was 13.3. 2. Neurogenic bladder secondary to uncontrolled diabetes with chronic urinary retention requiring self-catheterization for the last 2 years. 3. Noncompliance. 4. Anxiety. 5. Depression. 6. Tobacco use. 7. Vitamin D deficiency. 8. Erectile dysfunction. 9. Chronic low back pain. 10. Chronic urinary tract infections. PAST SURGICAL HISTORY: 1. Appendectomy. 2. Left middle finger tip removal. ALLERGIES: PENICILLIN, hives; TRAMADOL, gastrointestinal (GI) upset. MEDICATIONS: - Toujeo is supposed to be 30 units daily and has not taken it as mentioned - insulin sliding scale - vitamin D 50,000 units weekly - folic acid 1 mg by mouth daily, his last dose was approximately a week ago - Bacid one tablet by mouth daily, however, he has not taken any of his medication this last week - multivitamin FAMILY HISTORY: Father alive with diabetes. Mother alive with diabetes. One sister with diabetes. SOCIAL HISTORY: He is a current smoker. Smokes up to 6-10 a day. The rest of social history the patient refuses to answer further. There is report from previous documentation of denying alcohol or drug use. REVIEW OF SYSTEMS: Again, is limited due to patient's refusal. The rest as above in history of present illness (HPI). PHYSICAL EXAMINATION: VITAL SIGNS: Blood pressure 120/52, heart rate 73, temperature 97.6, respiration rate 20, pulse oximetry 97% on room air. Total of intake this admission is 1250. Weight is 72.5 kg. GENERAL: Patient is lying in bed, comfortable, no acute distress. He is alert, awake, oriented times three, at times cooperative. at bedside. He is thin appearing. HEENT: Normocephalic, atraumatic. NECK: Supple. Trachea midline. CHEST: Symmetric chest rise. No accessory muscle use. Breath sounds were clear to auscultation bilaterally. HEART: Regular rate and rhythm, S1, S2 present. ABDOMEN: Thin. Bowel sounds present. Refuses to be palpated on his abdominal exam. BACK: No costovertebral angle (CVA) tenderness. SKIN: He had multiple tattoos about his body. EXTREMITIES: No pedal edema. Patient refuses to have his feet touched to evaluate for pedal pulses. NEUROLOGIC: No focal deficits appreciated. PSYCHIATRIC: He is non-cooperative, easily irritated. LABORATORY DATA: WBC 16.1, hemoglobin 14.1, hematocrit 42.5, platelets 310. Sodium 137, potassium 4.5, chloride 103, carbon dioxide 20, BUN 20, creatinine 1.52. This is increased compared to his baseline. His baseline renal function is normal. Fasting glucose is 312. Random glucose 340. Calcium is 9.5. Liver profile showed alkaline phosphatase 157. This is slightly increased compared to June. Total protein 8.6, albumin 4, lipase 96. Urinalysis showed 3+ glucose, 2+ leukocyte esterase, WBC 108. Urine culture is pending. CT abdomen and pelvis reports enteritis, focal colitis, no perforation or pneumatosis coli abscess or ascites. Thickened wall bladder. No hydroureter or hydronephrosis. No evidence of small or large bowel obstruction. IMPRESSION AND PLAN: Mr. Noble is a 21-year-old male with past medical history of uncontrolled type 1 diabetes, noncompliance, who presented to the emergency department (ED) tonight with episodes of nausea, vomiting, abdominal pain. 1. Nausea, abdominal pain. Likely secondary to underlying colitis and/or early diabetic ketoacidosis (DKA). The patient will be admitted for close monitoring. We have started him on fluid hydration. For now, he will be on clear liquid diet. Will monitor his fingersticks in the next few hours frequently and based on his levels, fluid hydration can be adjusted. Start him on insulin sliding scale and Levemir at 15 units. The patient reportedly has not been taking his long-acting insulin at home for unknown amount of time. He normally takes 30 units. Will recheck his hemoglobin A1c. His last one was 13.3. We have also started him on antibiotic. He did receive a one-time dose of ciprofloxacin in the ED. For now, the patient will be on Flagyl by mouth and Levaquin. He has a history of Clostridium (C) difficile colitis in the past. A gastrointestinal (GI) panel will be sent again at this time. Have started him back on Bacid due to history of C. difficile colitis. 2. Type 1 diabetes, uncontrolled with hyperglycemia. Will be started on aggressive fluid resuscitation as mentioned above. Continue Levemir at 15 units and insulin sliding scale. We have requested assistance from patient and family services (PFS) due to patient's history of noncompliance. 3. Leukocytosis. Likely secondary to underlying infection and/or stress reaction. He has a history of urinary tract infection in the past as well. Urine culture is currently pending. He is on antibiotics as mentioned. 4. Nephrogenic bladder. Secondary to uncontrolled diabetes. The patient self-catheterized in the last 2 years. It is possible that he might have chronic bacteruria secondary to his urinary retention and chronic bladder manipulations. 5. Noncompliance. Unfortunately, will continue to complicate medical management. 6. Depression/anxiety. Appears that the patient is not on any medication to control his symptoms. 7. History of oppositional defiant disorder. It is unclear whether he follows with a psychiatrist; however, he was referred to behavioral center in the past. He was referred to Dr. Heller. 8. Tobacco abuse. Have started him on nicotine patch. 9. Deep venous thrombosis (DVT) prophylaxis. Sequential compression devices (SCDs), thromboembolism deterrent stockings (TEDS) and Lovenox. DISPOSITION: Due to the patient's condition, we expect his stay to be greater than two midnights. My preceptor for this patient encounter was Dr. Tara Osborn. The preceptor was physically present in the building during the encounter and was fully available as needed. All aspects of the patient interview, examination, medical decision making process, and medical care plan development were reviewed and approved by the preceptor. The preceptor is aware and concurs with the plan as stated in the body of this note and will attest to such by his/her co-signature. I have both independently examined this patient as well as reviewed the H&P. I have discussed in detail with the resident the findings and plan of treatment as documented in the residents note. I will continue to follow the patient and offer further guidance to the patients care as necessary during this hospital stay. Tara PEREZ
[2016-11-10] MEDS ORDERED: oxyCODONE 5MG TAB PO ONE (03:45)
[2016-11-10] MEDS: ONDANSETRON 4MG/2ML VIAL (J2405) IV PRN ×3 (03:51→14:58)
[2016-11-10] MEDS: LevoFLOXacin 500 MG TABLET PO SCH (05:33)
[2016-11-10] MEDS: metroNIDAZOLE (FLAGYL) 500 MG TAB PO SCH ×3 (05:34→22:51)
[2016-11-10 06:00] VITALS: BP 113/53
[2016-11-10 06:18] LABS: MEAN CORPUSCULAR HEMOGLOBIN 28.6 pg (27.0-33.0); MEAN CORPUSCULAR HGB CONC 33.8 g/dl (32.0-36.5); MEAN CORPUSCULAR VOLUME 84.7 fl (80.0-96.0); RED CELL DISTRIBUTION WIDTH 13.8 % (11.5-14.5); WHITE BLOOD COUNT 17.6 K/mm3 (4.0-10.0)
[2016-11-10 06:31] LABS: ANION GAP 11 MEQ/L (8-16); BLOOD UREA NITROGEN 20 MG/DL (7-18); CALCIUM LEVEL 8.7 MG/DL (8.5-10.1); CARBON DIOXIDE LEVEL 23 MEQ/L (21-32); CHLORIDE LEVEL 101 MEQ/L (98-107); CREATININE FOR GFR 1.28 MG/DL (0.70-1.30); GLOMERULAR FILTRATION RATE > 60.0 (>60); GLUCOSE, FASTING 260 MG/DL (70-105); MAGNESIUM LEVEL 1.9 MG/DL (1.8-2.4); POTASSIUM SERUM 4.6 MEQ/L (3.5-5.1); SODIUM LEVEL 135 MEQ/L (136-145)
[2016-11-10] MEDS: NICOTINE 14 MG/24 HR TRANSDERMAL TD SCH (08:40)
[2016-11-10] MEDS: MULTIVITAMINS/MINERALS THERAP 1 TAB PO SCH ×2 (08:40→20:22)
[2016-11-10] MEDS: ENOXAPARIN 40 MG/0.4 ML SYRINGE (J1650) SC SCH (08:40)
[2016-11-10] MEDS: LACTOBACILLUS ACIDOPHILUS CAP (BACID) PO SCH ×2 (08:41→20:22)
[2016-11-10] MEDS: HumaLOG INSULIN (NovoLOG) PER UNIT SC SCH ×4 (08:42→21:00)
[2016-11-10] MEDS ORDERED: LEVEMIR (INSULIN DETEMIR) 1 UNITS/0.01ML SC SCH (09:00)
--- NOTE | 2016-11-10 11:19 | IPN ---
DATE: 11/10/2016 21-year-old gentleman admitted last evening for elevated blood sugars, wide anion gap and has been unable to afford his Toujeo for long-acting insulin at home with known history of type 1 diabetes. He also presented with abdominal pain, nausea, vomiting, diarrhea and was started on Flagyl and Levaquin for gastroenteritis. He is resting comfortably at bedside. He is requesting that we try to advance his diet today. He denies chest pain, shortness breath, nausea or vomiting. OBJECTIVE: Temperature is 98.5, pulse 86, respiratory rate 18, blood pressure (BP) 113/53, SpO2 is 99% on room air. General: The patient appears to be in no acute distress, is alert, oriented. HEENT: Unremarkable. Lungs: Clear to auscultation. Heart: Regular rate and rhythm. Abdomen: Soft. Extremities: No edema, no calf tenderness. LABORATORIES: White count 17.6, hemoglobin 12.6 and platelets are 245,000. Sodium 135, potassium 4.6, chloride 101, bicarbonate 23, anion gap 11, BUN is 20, creatinine is 1.28, glucose 260, hemoglobin A1c 11.1, calcium 8.7, magnesium 0.9. ASSESSMENT AND PLAN: 1. Abdominal pain with nausea, vomiting, likely secondary to gastroenteritis. He does not demonstrate any signs or symptoms currently of diabetic ketoacidosis (DKA). He does appear to be progressing nicely. We will go ahead and try to advance his diet. Continue with fingersticks before food and nightly and will need to try to see if he needs further patient assistance with Toujeo since he states he is having trouble with affording his long-acting insulin. 2. Poorly compliant type 1 diabete. As outlined above, we will continue fingersticks before food and nightly, sliding scale coverage, Levemir for now. Patient and family services (PFS) has been consulted. 3. Neurogenic bladder secondary to diabetes, which has been uncontrolled. He does do self catheterization. 4. Anxiety and depression, stable. 5. Tobacco use. Encourage smoking cessation, counseling has been provided. 6. Vitamin D deficiency. Continue supplementation. 7. History of erectile dysfunction. Can followup with his primary care provider. 8. Chronic low back pain. Followup outpatient. 9. Deep venous thrombosis (DVT) prophylaxis. Thromboembolic deterrents (TEDs) and sequentials. Encourage to ambulate. DISPOSITION: We will follow the patient, today, advance his diet. Continue to follow his fingersticks and try to get him assistance for the Toujeo. Anticipate home discharge tomorrow.
[2016-11-10 14:00] VITALS: BP_SYST 120; BP_SYST 99; BP_DIAS 51; BP_DIAS 68
[2016-11-10] MEDS: PERCOCET 5MG/325MG TAB PO PRN ×3 (15:02→23:30)
[2016-11-10 20:10] VITALS: BP 118/65
[2016-11-11] MEDS: ONDANSETRON 4MG/2ML VIAL (J2405) IV PRN ×2 (03:38→11:38)
[2016-11-11] MEDS: NS 1,000 ML IV SCH ×5 (03:39→23:00)
[2016-11-11] MEDS: PERCOCET 5MG/325MG TAB PO PRN ×4 (03:39→20:22)
[2016-11-11 05:05] VITALS: BP 163/74
[2016-11-11] MEDS: metroNIDAZOLE (FLAGYL) 500 MG TAB PO SCH ×3 (06:40→20:22)
[2016-11-11] MEDS: LevoFLOXacin 500 MG TABLET PO SCH (06:40)
[2016-11-11] MEDS ORDERED: PERCOCET 5MG/325MG TAB PO PRN (07:30)
[2016-11-11] MEDS: METOCLOPRAMIDE INJ 10MG/2ML VIAL (J2765) IV PRN ×3 (07:41→23:49)
[2016-11-11] MEDS: HumaLOG INSULIN (NovoLOG) PER UNIT SC SCH ×4 (08:04→20:23)
[2016-11-11] MEDS: ENOXAPARIN 40 MG/0.4 ML SYRINGE (J1650) SC SCH (08:44)
[2016-11-11] MEDS: MULTIVITAMINS/MINERALS THERAP 1 TAB PO SCH ×2 (08:45→20:22)
[2016-11-11] MEDS: LACTOBACILLUS ACIDOPHILUS CAP (BACID) PO SCH ×2 (08:45→20:23)
[2016-11-11] MEDS: LEVEMIR (INSULIN DETEMIR) 1 UNITS/0.01ML SC SCH (08:46)
[2016-11-11] MEDS: NICOTINE 14 MG/24 HR TRANSDERMAL TD SCH (08:46)
[2016-11-11] MEDS: MORPHINE 2 MG/ML 1ML SYRINGE IV PRN ×2 (11:39→18:15)
--- NOTE | 2016-11-11 12:23 | IPN ---
DATE: 11/11/2016 21-year-old gentleman seen at bedside at night. No issues. Does currently have abdominal pain, nausea, vomiting and severe cramping. OBJECTIVE Temperature is 98.7, pulse 75, respiratory rate 18, blood pressure 163/74, SPO2 is 99% on room air. GENERAL: The patient appears to be in no acute distress. He is alert and oriented, pleasant but nauseated. HEENT: Unremarkable. LUNGS: Clear. HEART: Regular rate and rhythm. ABDOMEN: Soft. EXTREMITIES: No edema. LABORATORY DATA No laboratories have been drawn on him yet today due to his feeling ill and discomfort. We will try to get those later this morning. ASSESSMENT AND PLAN: 1. Abdominal pain with nausea, vomiting, likely secondary to gastroenteritis. He does not demonstrate any diabetic ketoacidosis symptoms at this point. However, my concern is that he may be having some issues from withdrawal. He normally uses [place] at home. We will go ahead and give him some morphine for pain and Percocet for pain as well. I would like check laboratories, including a lipase. 2. Poorly compliant diabetes. Toujeo has been sent in. We did discuss with patient and family services (PFS) to make sure that this is covered. For now, we will continue with fingersticks with sliding scale coverage and Levemir for long-lasting insulin while in the hospital. 3. Neurogenic bladder secondary to diabetes. He is proficient with self-catheterization. 4. Anxiety and depression with underlying psychiatric issues. No suicidal ideation or audiovisual hallucinations. 4. Tobacco use. Encourage smoking cessation. Counseling has been provided. 5. Vitamin D deficiency. Continue supplementation. 6. Erectile dysfunction. Can follow with his primary care provider. 7. Chronic low back pain. Followup outpatient. 9. Deep vein thrombosis (DVT) prophylaxis. SHARDA and sequential. Encouraged to ambulate. DISPOSITION: Once he is tolerating a diet and his abdominal pain is better controlled, we will anticipate home discharge.
[2016-11-11 14:00] VITALS: BP 129/64
--- NOTE | 2016-11-11 16:11 | REP ---
ABDOMINAL SERIES: Supine and erect views of the abdomen and pelvis demonstrate no free air and no compelling evidence for small bowel obstruction. No dilated small bowel loops are seen and there are no air fluid levels on the upright view. No abnormal calcifications are seen. An accompanying view of the chest demonstrates no acute infiltrate. There are bone islands in the left femoral neck and right superior sacrum. IMPRESSION: Unremarkable abdominal series. Signed by Checo Campa MD 11/11/2016 04:56 P
[2016-11-11 22:00] VITALS: BP 135/84
[2016-11-12] MEDS: PERCOCET 5MG/325MG TAB PO PRN ×2 (02:32→08:24)
[2016-11-12 05:50] LABS: MEAN CORPUSCULAR HEMOGLOBIN 27.5 pg (27.0-33.0); MEAN CORPUSCULAR HGB CONC 31.5 g/dl (32.0-36.5); MEAN CORPUSCULAR VOLUME 87.2 fl (80.0-96.0); RED CELL DISTRIBUTION WIDTH 13.9 % (11.5-14.5); WHITE BLOOD COUNT 9.9 K/mm3 (4.0-10.0)
[2016-11-12] MEDS: LevoFLOXacin 500 MG TABLET PO SCH (05:52)
[2016-11-12] MEDS: metroNIDAZOLE (FLAGYL) 500 MG TAB PO SCH (05:53)
[2016-11-12] MEDS: NS 1,000 ML IV SCH ×2 (05:53→09:00)
[2016-11-12 05:59] LABS: ANION GAP 7 MEQ/L (8-16); BLOOD UREA NITROGEN 6 MG/DL (7-18); CALCIUM LEVEL 7.9 MG/DL (8.5-10.1); CARBON DIOXIDE LEVEL 24 MEQ/L (21-32); CHLORIDE LEVEL 109 MEQ/L (98-107); CREATININE FOR GFR 0.91 MG/DL (0.70-1.30); GLOMERULAR FILTRATION RATE > 60.0 (>60); GLUCOSE, FASTING 257 MG/DL (70-105); MAGNESIUM LEVEL 1.8 MG/DL (1.8-2.4); SODIUM LEVEL 140 MEQ/L (136-145)
[2016-11-12 06:00] VITALS: BP 124/74
[2016-11-12] MEDS: ENOXAPARIN 40 MG/0.4 ML SYRINGE (J1650) SC SCH (08:22)
[2016-11-12] MEDS: HumaLOG INSULIN (NovoLOG) PER UNIT SC SCH (08:22)
[2016-11-12] MEDS: NICOTINE 14 MG/24 HR TRANSDERMAL TD SCH (08:22)
[2016-11-12] MEDS: MULTIVITAMINS/MINERALS THERAP 1 TAB PO SCH (08:23)
[2016-11-12] MEDS: LACTOBACILLUS ACIDOPHILUS CAP (BACID) PO SCH (08:23)
[2016-11-12] MEDS: LEVEMIR (INSULIN DETEMIR) 1 UNITS/0.01ML SC SCH (08:25)
[2016-11-12] MEDS ORDERED: [UNRECOGNIZED DRUG - SUPPLY] (09:07)
[2016-11-12] MEDS ORDERED: F (09:07)
[2016-11-12] MEDS ORDERED: FLAG500T PO (09:09)
[2016-11-12] MEDS ORDERED: REGL10TA6 PO (09:09)
[2016-11-12] MEDS ORDERED: LEVA500T PO (09:09)
[2016-11-12] MEDS: METOCLOPRAMIDE INJ 10MG/2ML VIAL (J2765) IV PRN (09:30)
[2016-11-12] MEDS ORDERED: NICO14PA TD (10:02)
--- NOTE | 2016-11-12 10:19 | DSES ---
DATE OF ADMISSION: 11/10/2016 DATE OF DISCHARGE: 11/12/2016 PRIMARY CARE PROVIDER: Dr. Miller CONSULTATIONS: None. PROCEDURES: None. COMPLICATIONS: None. ADMISSION/DISCHARGE DIAGNOSES: 1. Abdominal pain, nausea, vomiting, gastroenteritis with colitis noted on CT scan, symptoms controlled. 2. Poorly compliant diabetes. 3. Neurogenic bladder secondary to diabetes. 4. Anxiety and depression with underlying psychiatric issues. 5. Tobacco use. Encouraged smoking cessation counseling provided. 6. Vitamin D deficiency. 7. Erectile dysfunction. 8. Chronic low back pain. BRIEF HOSPITAL COURSE: Mr. Noble is a 21-year-old gentleman who is familiar to the hospitalist service, who presented to the emergency department on 11/10/2016 with acute abdominal pain, nausea, vomiting, and elevated blood sugars with poorly controlled diabetes. On CT scan, he was noted to have some mild colitis and he does have some bacteruria which is asymptomatic with Staphylococcus epidermitis. At any rate, he was admitted for further supportive measures, IV antibiotics, antiemetics, and gradually improved. He was able to tolerate oral intake on the day of discharge and was felt to be back to his baseline. There was an issue with his Toujeo not being filled previously. We did resubmit the prescription to make sure it was covered and on the day of discharge, he did feel to be appropriate with close followup with his primary care provider. PHYSICAL EXAMINATION: Temperature 98.8, pulse 77, respiratory rate is 16, blood pressure 124/74, SPO2 is 97% on room air. GENERAL: The patient appears to be in no acute distress. He is alert, pleasant. HEENT: Unremarkable. LUNGS: Clear. HEART: Regular rate and rhythm. ABDOMEN: Soft. EXTREMITIES: No edema. No calf tenderness. LABORATORY DATA: White count 9.9, hemoglobin 10.9, platelets are 222,000. Sodium 140, potassium 4.0, chloride 109, bicarbonate 24, anion gap 7, BUN 6, creatinine 0.91, glucose 257, calcium 7.9, magnesium 1.8. DISCHARGE CONDITION: Good. DISPOSITION: Discharge to home. DISCHARGE MEDICATIONS: - Levaquin 500 mg daily for seven more days - Flagyl 500 mg every eight hours for seven more days - Reglan 10 mg every six hours - Nicoderm patch 14 mg patch daily - vitamin D 50,000 units weekly - folic acid once daily - NovoLog as directed for sliding scale coverage before meals and at bedtime - Toujeo SoloStar 30 units daily - multivitamin once daily - Bacid one tablet daily DISCHARGE INSTRUCTIONS: 1. Discharge to home. 2. Followup with his primary care provider in a week. 3. Activity as tolerated. 4. Consistent-carbohydrate diet. 5. He is instructed to seek medical attention should symptoms should worsen or progress. He voices understanding. Discharge took approximately 35 minutes.
== END 2016-11-12 10:19 | disposition home or self-care (01) | DRG 249 ==
LOC: EDBD 20:58 → M ED 21:43 → M ED INP 11-10 02:04 → M MSPAV 11-10 03:21
PROVIDERS: ADMIT Hospitalist; ATTEND Hospitalist
DX: K52.9 Noninfective gastroenteritis and colitis, unspecified (principal); E10.65 Type 1 diabetes mellitus with hyperglycemia; N31.9 Neuromuscular dysfunction of bladder, unspecified; E55.9 Vitamin D deficiency, unspecified; F41.9 Anxiety disorder, unspecified; F32.9 Major depressive disorder, single episode, unspecified; M54.5 Low back pain; R33.8 Other retention of urine; N52.9 Male erectile dysfunction, unspecified; Z79.4 Long term (current) use of insulin; Z79.899 Other long term (current) drug therapy; Z91.14 Patient's other noncompliance with medication regimen; Z87.440 Personal history of urinary (tract) infections; Z89.022 Acquired absence of left finger(s); Z88.0 Allergy status to penicillin; Z88.5 Allergy status to narcotic agent; Z83.3 Family history of diabetes mellitus; Z79.891 Long term (current) use of opiate analgesic; Z91.19 Patient's noncompliance with other medical treatment and regimen

== ENCOUNTER 2016-12-06 23:12 | Emergency (ER) | payer MEDICAID, OTHER ==
[~2016-12-06] VITALS: Ht 180.3 cm; Wt 68.0 kg
[~2016-12-06 23:12] MED LIST changes: +F; +FLAG500T PO; +LEVA500T PO; +NICO14PA TD; +REGL10TA6 PO; +VITA50003 PO; +[UNRECOGNIZED DRUG - SUPPLY]
[2016-12-06 23:27] VITALS: BP 114/77
[2016-12-06] MEDS ORDERED: KETOROLAC 60 MG/2 ML VIAL (J1885) IM ONE (23:45)
[2016-12-07] MEDS ORDERED: CLEO300C2 PO (00:08)
[2016-12-07] MEDS ORDERED: CLINDAMYCIN 150 MG CAP PO ONE (00:15)
[2016-12-07] MEDS ORDERED: IBUPROFEN 600 MG TAB PO ONE (00:15)
--- NOTE | 2016-12-07 01:29 | REP ---
Clinical: Trauma. Pain centered at the third digit. Technique: AP, lateral, bilateral oblique views left foot . Findings: The osseous structures and joint spaces are intact and normal. There is no evidence for acute fracture or dislocation. Surrounding soft tissues are unremarkable. No subcutaneous emphysema or radiodense foreign body. Impression: No acute fracture or dislocation. Signed by Thomas Lua MD 12/07/2016 01:19 A
== END 2016-12-07 00:36 | disposition home or self-care (01) ==
LOC: M ED 23:13
DX: L03.032 Cellulitis of left toe (principal); E10.628 Type 1 diabetes mellitus with other skin complications; F41.9 Anxiety disorder, unspecified; F32.9 Major depressive disorder, single episode, unspecified; Z88.0 Allergy status to penicillin; Z88.5 Allergy status to narcotic agent; F17.200 Nicotine dependence, unspecified, uncomplicated; Z79.899 Other long term (current) drug therapy
CPT/HCPCS: 73630; 96372; 99281; J1885

== ENCOUNTER 2017-01-03 18:13 | Inpatient (IN) | payer OTHER ==
[~2017-01-03] VITALS: Ht 180.3 cm; Wt 69.9 kg
[~2017-01-03 18:13] MED LIST changes: +CLEO300C2 PO
[2017-01-03 19:20] LABS: BASO % 0.3 % (0.0-1.0); EOS # 0.2 K/mm3 (0.0-0.50); EOS % 1.1 % (0.0-3.0); LARGE UNSTAINED CELL # 0.2 K/mm3 (0.0-0.4); LYMPH # 2.2 K/mm3 (1.5-6.5); LYMPH % 12.9 % (24.0-44.0); MEAN CORPUSCULAR HGB CONC 34.1 g/dl (32.0-36.5); MEAN CORPUSCULAR VOLUME 82.3 fl (80.0-96.0); MONO # 0.7 K/mm3 (0.0-0.8); MONO % 4.1 % (0.0-5.0); NEUTROPHILS # 12.8 K/mm3 (1.8-7.7); NEUTROPHILS % 80.6 % (36.0-66.0); PLATELET COUNT, AUTOMATED 355 k/mm3 (150-450); RED CELL DISTRIBUTION WIDTH 12.9 % (11.5-14.5); WHITE BLOOD COUNT 15.9 K/mm3 (4.0-10.0)
[2017-01-03] MEDS ORDERED: NS 1,000 ML IV ONE (19:30)
[2017-01-03] MEDS ORDERED: ONDANSETRON 4MG/2ML VIAL (J2405) IV ONE ×2 (19:30→20:30)
[2017-01-03] MEDS ORDERED: MORPHINE 4 MG/ML 1ML SYRINGE IV ONE ×3 (19:30→23:45)
[2017-01-03 19:42] LABS: ALBUMIN 3.7 GM/DL (3.2-5.2); ALBUMIN/GLOBULIN RATIO 0.86 (1.00-1.93); ALKALINE PHOSPHATASE 135 U/L (45-117); ALT/SGPT 26 U/L (12-78); ANION GAP 10 MEQ/L (8-16); AST/SGOT 11 U/L (15-37); BILIRUBIN,DIRECT < 0.1 MG/DL (0.0-0.2); BILIRUBIN,TOTAL 0.4 MG/DL (0.2-1.0); BLOOD UREA NITROGEN 27 MG/DL (7-18); CALCIUM LEVEL 8.9 MG/DL (8.5-10.1); CARBON DIOXIDE LEVEL 29 MEQ/L (21-32); CHLORIDE LEVEL 96 MEQ/L (98-107); GLOMERULAR FILTRATION RATE > 60.0 (>60); GLUCOSE, FASTING 241 MG/DL (70-105); POTASSIUM SERUM 3.4 MEQ/L (3.5-5.1); SODIUM LEVEL 135 MEQ/L (136-145)
[2017-01-03] MEDS ORDERED: POTASSIUM CHLORIDE 10 MEQ SR TABLET PO ONE (20:15)
[2017-01-03] MEDS ORDERED: GASTROGRAFIN SOLUTION 30ML PO ONE (20:35)
[2017-01-03] MEDS ORDERED: GASTROGRAFIN SOLUTION 30ML (Q9963) PO ONE (21:05)
[2017-01-03] MEDS ORDERED: ISOVUE-370 76% 100ML VIAL (Q9967) As Ordered ONE (22:39)
--- NOTE | 2017-01-03 23:20 | REPUSA ---
CT of the abdomen and pelvis with contrast Clinical statement: Pain. Technique: Multiple axial CT images were obtained from the base of the lungs through the floor of the pelvis utilizing 5 mm axial slices after administration of nonionic intravenous contrast. Coronal an d sagittal reconstructions were also obtained. Comparison: 11/09/2016. Findings: Chest: The visualized lung bases are clear. Abdomen: The spleen, pancreas, kidneys, gallbladder, and adrenal glands are unremarkable. There is di ffuse low attenuation throughout the liver. The aorta is within normal limits. There is no evidence o f abdominal lymphadenopathy or ascites. Pelvis: The bowel is unremarkable, with no obstructive or inflammatory changes. The urinary bladder i s within normal limits. The other pelvic structures appear grossly intact. There is no evidence of pe lvic lymphadenopathy or ascites. Bones: There are no suspicious osseous abnormalities seen. There is a benign sclerotic bone island in the proximal left femur. Impression: 1. No acute findings to explain the patient's pain. 2. The inflammatory bowel changes seen on the prior study have resolved.
[2017-01-03] MEDS ORDERED: PROMETHAZINE INJ 25 MG/ML VIAL (J2550) As Ordered ONE (23:34)
[2017-01-03] MEDS ORDERED: TOUJ1.2I SC (23:43)
[2017-01-03] MEDS ORDERED: PROMETHAZINE INJ 25 MG/ML VIAL (J2550) IV ONE (23:45)
[2017-01-03] MEDS ORDERED: NS 1,000 ML IV SCH (23:46)
--- NOTE | 2017-01-04 01:22 | REP ---
Clinical: Chest pain . Comparison: 11/11/2016 . Technique: AP and lateral. Findings: The mediastinum and cardiac silhouette are normal. The lung galloway are clear and without acute consolidation, effusion, or pneumothorax. The skeletal structures are intact and normal. Impression: 1. No acute cardiopulmonary process. Signed by Thomas Lua MD 01/04/2017 01:14 A
[2017-01-04] MEDS ORDERED: ACETAMINOPHEN TAB 650MG DOSE (2X325MG) PO PRN (02:15)
[2017-01-04 03:08] VITALS: BP 134/92
[2017-01-04] MEDS: ONDANSETRON 4MG/2ML VIAL (J2405) IV PRN ×3 (03:20→21:29)
[2017-01-04] MEDS: MORPHINE 2 MG/ML 1ML SYRINGE IV PRN ×5 (03:21→23:39)
[2017-01-04] MEDS ORDERED: GLUCAGON FOR INJ 1 MG VIAL (J1610) SC PRN (04:30)
[2017-01-04] MEDS ORDERED: DEXTROSE 50% 50 ML SYRINGE IV PRN (04:30)
[2017-01-04] MEDS ORDERED: GLUCOSE 4 GM CHEW TABLET PO PRN (04:30)
[2017-01-04] MEDS: METOCLOPRAMIDE INJ 10MG/2ML VIAL (J2765) IV PRN ×3 (04:46→23:39)
[2017-01-04 06:00] VITALS: BP 142/84
[2017-01-04] MEDS: HEPARIN SOD (PORCINE) 5000 UNITS/ML VIAL SC SCH ×3 (06:24→21:35)
--- NOTE | 2017-01-04 06:32 | HPEPDOC ---
General Date of Admission Jan 04, 2017 at 02:10 Primary Care Physician: TAJ MARIE DO Attending Physician: SARAH TEJADA MD Chief Complaint The patient is a 21-year-old male admitted with a reason for visit of Abdominal Pain, Acute Kidney Injury. Source: Patient Exam Limitations: No limitations Timing/Duration: Day(s), Getting worse Severity: Moderate Associated Symptoms: Malaise, Nausea, Vomiting History of Present Illness 21-year-old male with no past medical history and history of appendectomy in the past, presented with nausea, vomiting, abdominal pain. 4. Prostate is. Patient to has a bilious vomiting associated with then by 10 intensity of abdominal pain associated with loss of appetite. Patient also had urinary lesions and poor postural years for unknown reasons and he used to self catheterize himself. Denies any fever, constipation, diarrhea, blood in the stool. Home Medications Scheduled (Toujeo Solostar) 300 Unit/Ml Inj, 30 UNIT SC DAILY, (Reported) Ergocalciferol (Vitamin D) 50,000 Unit Cap, 50,000 UNIT PO 1XWK, (Reported) TAKES ON TUESDAYS Insulin Aspart (Novolog) 100 U/Ml Inj, 1 DOSE SC AC, (Reported) PER SLIDING SCALE Allergies Coded Allergies: Penicillins (Verified Allergy, Intermediate, HIVES, 01/03/17) Tramadol (Verified Adverse Reaction, Mild, VOMITS, 01/03/17) Past Medical History Medical History No past medical history Surgical History Appendectomy Family History Significant Family History: Diabetes Social History * Smoker: current smoker, less than 1 pack/day Alcohol: Denies Recent Travel/Sick Contacts: Reports: Recent travel, Recent sick contacts Psychosocial History: No pertinent psych hx Review of Symptoms Constitutional: Denies: Chills, Fever, Night Sweats Eyes: Denies: Pain, Vision change ENT: Denies: Head Aches, Ear Pain, Dysphagia Skin: Denies: Rash, Lesions, Breakdown Pulmonary: Denies: Dyspnea, Cough Cardiovascular: Denies: Chest Pain, Palpitations, Orthopnea, Paroxysmal Noc. Dyspnea, Lt Headedness Gastrointestinal: Reports: Nausea, Vomiting, Abdominal Pain, Denies: Diarrhea Genitourinary: Reports: Retention, Denies: Dysuria, Frequency, Incontinence Hematologic: Denies: Bruising, Bleeding Excessively Musculoskeletal: Denies: Neck Pain, Back Pain, Joint Pain, Muscle Pain, Spasms Neurological: Denies: Weakness, Numbness, Change in speech, Confusion Psych: Reports: Mood Normal, Denies: Depression, Memory Issues Physical Examination General Exam: Positive: Alert, No Acute Distress Eye Exam: Positive: PERRLA, Conjunctiva & lids normal, EOMI, Negative: Sclera icteric ENT Exam: Positive: Atraumatic, Mucous membr. moist/pink, Pharynx Normal Neck Exam: Positive: Supple, Negative: JVD, thyromegaly Chest Exam: Positive: Clear to auscultation, Normal air movement Heart Exam: Positive: Rate Normal, Regular Rhythm, Normal S1, Normal S2, Negative: Murmurs, Rubs Telemetry: Positive: No significant arrhythmia Abdomen Exam: Positive: Normal bowel sounds, Soft, Tenderness, Negative: Hepatospenomegaly Extremity Exam: Positive: Normal pulses, Negative: Clubbing, Cyanosis, Edema Skin Exam: Positive: Nl turgor and temperature, Negative: Breakdown, Lesion Neuro Exam: Positive: Normal Gait, Normal Speech, Cranial Nerves 3-12 NL, Reflexes 2+ Psych Exam: Positive: Mental status NL, Mood NL, Oriented x 3 Vital Signs Vital Signs Date Time Temp Pulse Resp B/P (MAP) Pulse Ox O2 Delivery O2 Flow Rate FiO2 01/04/17 03:31 16 Room Air 01/04/17 03:08 98.0 100 134/92 (106) 100 Laboratory Data Labs 24H Laboratory Tests 2 01/03/17 19:03: White Blood Count 15.9H, Red Blood Count 5.01, Hemoglobin 14.0, Hematocrit 41.2L , Mean Corpuscular Volume 82.3, Mean Corpuscular Hemoglobin 28.0, Mean Corpuscular Hemoglobin Concent 34.1, Red Cell Distribution Width 12.9, Platelet Count 355, Neutrophils (%) (Auto) 80.6H, Lymphocytes (%) (Auto) 12.9L, Monocytes (%) (Auto) 4.1, Eosinophils (%) (Auto) 1.1, Basophils (%) (Auto) 0.3, Neutrophils # (Auto) 12.8H, Lymphocytes # (Auto) 2.2, Monocytes # (Auto) 0.7, Eosinophils # (Auto) 0.2, Basophils # (Auto) 0.0, Large Unclassified Cells % 1.0 , Large Unclassified Cells # 0.2, Anion Gap 10, Glomerular Filtration Rate > 60.0, Calcium Level 8.9, Aspartate Amino Transf (AST/SGOT) 11L, Alanine Aminotransferase (ALT/SGPT) 26, Alkaline Phosphatase 135H, Total Bilirubin 0.4, Direct Bilirubin < 0.1, Troponin I < 0.02, Total Protein 8.0, Albumin 3.7, Albumin/Globulin Ratio 0.86L, Lipase 112 01/03/17 21:11: Urine Appearance HAZY, Urine Color YELLOW, Urine pH 5.0, Urine Specific [place] 1.026, Urine Protein 1+H, Urine Glucose (UA) 1+H, Urine Ketones 1+H, Urine Urobilinogen 0.2, Urine Bilirubin NEGATIVE, Urine Leukocyte Esterase TRACEH, Urine Blood NEGATIVE, Urine Nitrite NEGATIVE, Urine WBC (Auto) 8H, Urine RBC ( Auto) 3, Urine Hyaline Casts (Auto) 13, Urine Bacteria (Auto) 1+H, Urine Squamous Epithelial Cells 0, Urine Mucus (Auto) SMALL, Urine Sperm (Auto) SMALLH 01/04/17 03:25: Bedside Glucose (Misc Panel) 224H 01/04/17 05:33: Troponin I < 0.02 CBC/BMP Laboratory Tests 01/03/17 19:03 Red Blood Count 5.01, Mean Corpuscular Volume 82.3, Mean Corpuscular Hemoglobin 28.0, Mean Corpuscular Hemoglobin Concent 34.1, Red Cell Distribution Width 12.9 , Neutrophils (%) (Auto) 80.6 H, Lymphocytes (%) (Auto) 12.9 L, Monocytes (%) ( Auto) 4.1, Eosinophils (%) (Auto) 1.1, Basophils (%) (Auto) 0.3, Neutrophils # ( Auto) 12.8 H, Lymphocytes # (Auto) 2.2, Monocytes # (Auto) 0.7, Eosinophils # ( Auto) 0.2, Basophils # (Auto) 0.0 Microbiology Microbiology 01/03/17 Urine Culture, Received Pending Assessment/Plan 21-year-old male, no past medical history and history of appendectomy, history of urinary retention presented with abdominal pain for past 3 days. Also found to have acute kidney injury with creatinine of 1.5 Problems (1) Abdominal pain Status: Acute Problem Text: CT of the abdomen did not show any acute pathology. Continue with the hydration with IV normal saline lipase was normal. LFT was normal. There was no kidney stone (2) Acute kidney injury Status: Acute Problem Text: Creatinine was 1.5. Continue with IV normal saline. Follow-up creatinine. Patient also had urinated and sent, and he self catheterizes himself for past 2 years. He will need a follow-up with the urologist Plan / VTE VTE Prophylaxis Ordered?: Yes Plan IVF: Initiate Diet: Continue Current Activity: Continue Current Therapy: PT Diagnostics: Repeat Labs in AM Anticipated Discharge: Home MARY JO DOE MD Jan 04, 2017 06:32
--- NOTE | 2017-01-04 07:29 | ECGEPIP ---
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
[2017-01-04] MEDS: SENOKOT S TAB PO SCH ×3 (08:01→21:31)
[2017-01-04] MEDS: HumaLOG INSULIN (NovoLOG) PER UNIT SC SCH ×3 (08:08→17:43)
[2017-01-04] MEDS: NICOTINE 14 MG/24 HR TRANSDERMAL TD SCH (08:09)
--- NOTE | 2017-01-04 11:53 | IPNPDOC ---
Subjective Date Seen The patient was seen on 01/04/17. Subjective Chief Complaint/HPI The patient is a 21-year-old male admitted with a reason for visit of Abdominal Pain, Acute Kidney Injury. Events since last encounter Patient reports still having nausea and vomiting. Patient is lying in bed with face covered during exam. Still has a good flow vomit on the bedside next to him. Reports not having great night's sleep. Constitutional: Denies: Chills, Fever Eyes: Denies: Pain, Vision change ENT: Denies: Head Aches Skin: Denies: Lesions Pulmonary: Denies: Dyspnea, Cough Cardiovascular: Denies: Chest Pain, Palpitations Gastrointestinal: Reports: Nausea, Vomiting Genitourinary: Denies: Dysuria, Frequency Musculoskeletal: Denies: Back Pain Neurological: Denies: Weakness, Numbness Psych: Reports: Mood Normal Objective Physical Examination General Exam: Positive: Alert, No Acute Distress Eye Exam: Positive: PERRLA, Conjunctiva & lids normal, EOMI, Negative: Sclera icteric ENT Exam: Positive: Atraumatic, Mucous membr. moist/pink Neck Exam: Positive: Supple, Negative: JVD, thyromegaly Chest Exam: Positive: Clear to auscultation, Normal air movement Heart Exam: Positive: Rate Normal, Regular Rhythm, Normal S1, Normal S2, Negative: Murmurs, Rubs Abdomen Exam: Positive: Normal bowel sounds, Soft, Tenderness, Negative: Hepatospenomegaly Extremity Exam: Positive: Normal pulses, Negative: Edema Skin Exam: Positive: Nl turgor and temperature, Negative: Breakdown, Lesion Neuro Exam: Positive: Normal Speech Psych Exam: Positive: Mental status NL, Mood NL Assessment /Plan Assessment Gastroenteritis Patient most likely has a viral gastroenteritis. Patient is currently on a clear liquid diet. She reports having some nausea and vomiting still. Encourage patient to continue with clear liquid diets and Reglan for nausea management. Ordered today's labs for later this morning. Monitor patient at this time. CT abdomen 01/03/2017 revealed. No acute findings to explain the patient's pain and the inflammatory bowel changes seen on the prior study have resolved. Possible Gastroparesis Patient has a history of diabetes since 15 years old. Has never had a gastric emptying test prior. Diabetes Patient is a type 2 diabetic. Takes insulin daily. Starting patient on home long acting insulin today. Monitor patient's blood sugar and monitor clinically. Patient is on a sliding scale as well. Changing patient's IV fluid to D5W. Problems (1) Acute kidney injury Status: Resolved Problem Text: Creatinine was 1.5. Continue with IV normal saline. Labs were reordered for today. Will follow-up later. Plan/VTE VTE Prophylaxis Ordered?: Yes (heparin subcutaneous) Plan IVF: Initiate Diet: Continue Current Activity: Continue Current Therapy: PT Diagnostics: Repeat Labs in AM Anticipated Discharge: Home VS, I&O, 24H, On License Of [facility] Vital Signs/I&O Vital Signs Date Time Temp Pulse Resp B/P (MAP) Pulse Ox O2 Delivery O2 Flow Rate FiO2 01/04/17 06:00 98.3 98 18 142/84 (103) 100 Room Air I&O- Last 24 Hours up to 6 AM 01/04/17 06:00 Intake Total 1226 ml Output Total 0 ml Balance 1226 ml Laboratory Data 24H LABS Laboratory Tests 2 01/03/17 19:03: White Blood Count 15.9H, Red Blood Count 5.01, Hemoglobin 14.0, Hematocrit 41.2L , Mean Corpuscular Volume 82.3, Mean Corpuscular Hemoglobin 28.0, Mean Corpuscular Hemoglobin Concent 34.1, Red Cell Distribution Width 12.9, Platelet Count 355, Neutrophils (%) (Auto) 80.6H, Lymphocytes (%) (Auto) 12.9L, Monocytes (%) (Auto) 4.1, Eosinophils (%) (Auto) 1.1, Basophils (%) (Auto) 0.3, Neutrophils # (Auto) 12.8H, Lymphocytes # (Auto) 2.2, Monocytes # (Auto) 0.7, Eosinophils # (Auto) 0.2, Basophils # (Auto) 0.0, Large Unclassified Cells % 1.0 , Large Unclassified Cells # 0.2, Anion Gap 10, Glomerular Filtration Rate > 60.0, Calcium Level 8.9, Aspartate Amino Transf (AST/SGOT) 11L, Alanine Aminotransferase (ALT/SGPT) 26, Alkaline Phosphatase 135H, Total Bilirubin 0.4, Direct Bilirubin < 0.1, Troponin I < 0.02, Total Protein 8.0, Albumin 3.7, Albumin/Globulin Ratio 0.86L, Lipase 112 01/03/17 21:11: Urine Appearance HAZY, Urine Color YELLOW, Urine pH 5.0, Urine Specific [place] 1.026, Urine Protein 1+H, Urine Glucose (UA) 1+H, Urine Ketones 1+H, Urine Urobilinogen 0.2, Urine Bilirubin NEGATIVE, Urine Leukocyte Esterase TRACEH, Urine Blood NEGATIVE, Urine Nitrite NEGATIVE, Urine WBC (Auto) 8H, Urine RBC ( Auto) 3, Urine Hyaline Casts (Auto) 13, Urine Bacteria (Auto) 1+H, Urine Squamous Epithelial Cells 0, Urine Mucus (Auto) SMALL, Urine Sperm (Auto) SMALLH 01/04/17 03:25: Bedside Glucose (Misc Panel) 224H 01/04/17 05:33: Troponin I < 0.02 CBC/BMP Laboratory Tests 01/03/17 19:03 Red Blood Count 5.01, Mean Corpuscular Volume 82.3, Mean Corpuscular Hemoglobin 28.0, Mean Corpuscular Hemoglobin Concent 34.1, Red Cell Distribution Width 12.9 , Neutrophils (%) (Auto) 80.6 H, Lymphocytes (%) (Auto) 12.9 L, Monocytes (%) ( Auto) 4.1, Eosinophils (%) (Auto) 1.1, Basophils (%) (Auto) 0.3, Neutrophils # ( Auto) 12.8 H, Lymphocytes # (Auto) 2.2, Monocytes # (Auto) 0.7, Eosinophils # ( Auto) 0.2, Basophils # (Auto) 0.0 Microbiology Microbiology 01/03/17 Urine Culture, Received Pending GME ATTESTATION GME ATTESTATION My preceptor for this patient encounter was Dr. Palmer and he was physically present in the building during the encounter and was fully available. As needed , all aspects of the patient interview, examination, medical decision making process, and medical care plan development were reviewed and approved by the preceptor. Preceptor is aware and concurs with the plan as stated in the body of this note and will attest to such by his/her co-signature. DEEJAY SOSA DO Jan 04, 2017 11:53
[2017-01-04] MEDS: D5W/0.9% SODIUM CHLORIDE 1,000 ML IV SCH ×2 (12:11→21:33)
[2017-01-04] MEDS: LEVEMIR (INSULIN DETEMIR) 1 UNITS/0.01ML SC SCH (12:13)
[2017-01-04 12:24] LABS: BASO % 0.3 % (0.0-1.0); EOS # 0.1 K/mm3 (0.0-0.50); EOS % 0.4 % (0.0-3.0); LARGE UNSTAINED CELL # 0.2 K/mm3 (0.0-0.4); LARGE UNSTAINED CELL % 1.2 % (0.0-4.0); LYMPH # 2.4 K/mm3 (1.5-6.5); MEAN CORPUSCULAR HEMOGLOBIN 28.3 pg (27.0-33.0); MEAN CORPUSCULAR HGB CONC 34.3 g/dl (32.0-36.5); MEAN CORPUSCULAR VOLUME 82.4 fl (80.0-96.0); MONO # 0.9 K/mm3 (0.0-0.8); MONO % 4.9 % (0.0-5.0); NEUTROPHILS # 14.9 K/mm3 (1.8-7.7); NEUTROPHILS % 81.3 % (36.0-66.0); PLATELET COUNT, AUTOMATED 366 k/mm3 (150-450); RED CELL DISTRIBUTION WIDTH 12.8 % (11.5-14.5); WHITE BLOOD COUNT 18.3 K/mm3 (4.0-10.0)
[2017-01-04 12:58] LABS: ALBUMIN 3.6 GM/DL (3.2-5.2); ALBUMIN/GLOBULIN RATIO 0.92 (1.00-1.93); ALKALINE PHOSPHATASE 126 U/L (45-117); ALT/SGPT 21 U/L (12-78); ANION GAP 12 MEQ/L (8-16); AST/SGOT 14 U/L (15-37); BILIRUBIN,TOTAL 0.5 MG/DL (0.2-1.0); BLOOD UREA NITROGEN 26 MG/DL (7-18); CALCIUM LEVEL 9.4 MG/DL (8.5-10.1); CARBON DIOXIDE LEVEL 26 MEQ/L (21-32); CHLORIDE LEVEL 98 MEQ/L (98-107); CREATININE FOR GFR 1.28 MG/DL (0.70-1.30); GLOMERULAR FILTRATION RATE > 60.0 (>60); GLUCOSE, FASTING 251 MG/DL (70-105); POTASSIUM SERUM 3.6 MEQ/L (3.5-5.1); SODIUM LEVEL 136 MEQ/L (136-145); TOTAL PROTEIN 7.5 GM/DL (6.4-8.2)
[2017-01-04 14:00] VITALS: BP 128/69
[2017-01-04] MEDS ORDERED: HumaLOG INSULIN (NovoLOG) PER UNIT SC SCH (21:00)
--- NOTE | 2017-01-04 21:18 | ECGEPIP ---
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
[2017-01-04 22:00] VITALS: BP 118/70
[2017-01-05] MEDS: ONDANSETRON 4MG/2ML VIAL (J2405) IV PRN (01:41)
[2017-01-05] MEDS: MORPHINE 2 MG/ML 1ML SYRINGE IV PRN ×2 (01:41→06:42)
[2017-01-05] MEDS: HEPARIN SOD (PORCINE) 5000 UNITS/ML VIAL SC SCH (05:52)
[2017-01-05 06:00] VITALS: BP 114/57
[2017-01-05] MEDS: D5W/0.9% SODIUM CHLORIDE 1,000 ML IV SCH (06:41)
[2017-01-05] MEDS: METOCLOPRAMIDE INJ 10MG/2ML VIAL (J2765) IV PRN (06:41)
[2017-01-05 07:01] LABS: MEAN CORPUSCULAR HEMOGLOBIN 28.5 pg (27.0-33.0); MEAN CORPUSCULAR HGB CONC 34.7 g/dl (32.0-36.5); MEAN CORPUSCULAR VOLUME 82.3 fl (80.0-96.0); RED CELL DISTRIBUTION WIDTH 12.6 % (11.5-14.5); WHITE BLOOD COUNT 11.7 K/mm3 (4.0-10.0)
[2017-01-05 07:13] LABS: ALBUMIN 2.8 GM/DL (3.2-5.2); ALBUMIN/GLOBULIN RATIO 0.76 (1.00-1.93); ALKALINE PHOSPHATASE 98 U/L (45-117); ALT/SGPT 17 U/L (12-78); ANION GAP 7 MEQ/L (8-16); AST/SGOT 11 U/L (15-37); BILIRUBIN,TOTAL 0.3 MG/DL (0.2-1.0); BLOOD UREA NITROGEN 15 MG/DL (7-18); CARBON DIOXIDE LEVEL 28 MEQ/L (21-32); CHLORIDE LEVEL 104 MEQ/L (98-107); CREATININE FOR GFR 0.86 MG/DL (0.70-1.30); GLOMERULAR FILTRATION RATE > 60.0 (>60); GLUCOSE, FASTING 143 MG/DL (70-105); POTASSIUM SERUM 3.1 MEQ/L (3.5-5.1); SODIUM LEVEL 139 MEQ/L (136-145); TOTAL PROTEIN 6.5 GM/DL (6.4-8.2)
[2017-01-05] MEDS: SENOKOT S TAB PO SCH (07:43)
[2017-01-05] MEDS: NICOTINE 14 MG/24 HR TRANSDERMAL TD SCH (07:44)
[2017-01-05] MEDS: HumaLOG INSULIN (NovoLOG) PER UNIT SC SCH ×2 (08:27→12:00)
[2017-01-05] MEDS: LEVEMIR (INSULIN DETEMIR) 1 UNITS/0.01ML SC SCH (08:28)
[2017-01-05 08:39] LABS: MAGNESIUM LEVEL 1.9 MG/DL (1.8-2.4)
[2017-01-05] MEDS ORDERED: CYCLOBENZAPRINE 5MG TABLET PO PRN (10:00)
[2017-01-05] MEDS ORDERED: PERCOCET 5MG/325MG TAB PO PRN (10:00)
[2017-01-05] MEDS ORDERED: POTASSIUM CHLORIDE 10 MEQ SR TABLET PO ONE (10:15)
--- NOTE | 2017-01-05 11:11 | IPNPDOC ---
Subjective Date Seen The patient was seen on 01/05/17. Subjective Chief Complaint/HPI The patient is a 21-year-old male admitted with a reason for visit of Abdominal Pain, Acute Kidney Injury. Events since last encounter Patient reports that no vomiting since yesterday. Still having some nausea. She reports having burning after drinking liquids. His burning in the center of his chest. Patient reports still having some abdominal pain. Pain is similar to yesterday. He has been ambulating. General: Reports: Normal Appetite Constitutional: Denies: Chills, Fever Eyes: Denies: Pain, Vision change ENT: Denies: Head Aches Skin: Denies: Rash, Lesions Pulmonary: Denies: Dyspnea, Cough Cardiovascular: Denies: Chest Pain, Palpitations, Lt Headedness Gastrointestinal: Reports: Nausea, Abdominal Pain (mostly epigastric), Other Symptoms (no vomiting since yesterday. Patient has some burning, reflux symptoms.), Denies: Vomiting Genitourinary: Denies: Dysuria, Frequency Hematologic: Denies: Bruising, Bleeding Excessively Musculoskeletal: Reports: Muscle Pain (Pain over lower sides bilaterally) Neurological: Denies: Weakness, Numbness Psych: Reports: Mood Normal Objective Physical Examination General Exam: Positive: Alert, No Acute Distress Eye Exam: Positive: PERRLA, Conjunctiva & lids normal, EOMI, Negative: Sclera icteric ENT Exam: Positive: Atraumatic, Mucous membr. moist/pink Neck Exam: Positive: Supple, Negative: JVD, thyromegaly Chest Exam: Positive: Clear to auscultation, Normal air movement Heart Exam: Positive: Rate Normal, Regular Rhythm, Normal S1, Normal S2, Negative: Murmurs, Rubs Abdomen Exam: Positive: Soft, Tenderness (diffuse), Other (diminished bowel sounds ), Negative: Hepatospenomegaly Extremity Exam: Positive: Normal pulses, Negative: Edema Skin Exam: Positive: Nl turgor and temperature, Negative: Breakdown, Lesion Neuro Exam: Positive: Normal Speech Psych Exam: Positive: Mental status NL, Mood NL Other physical findings Patient has pain to palpation over lower thoracic ribs bilaterally and paraspinal muscles. Assessment /Plan Assessment Gastroenteritis Patient most likely has a viral gastroenteritis. Advance diet. He reports having some nausea and abdominal pain. No vomiting since yesterday. Encourage consistent carb diet. Scheduled Reglan, Carafate with meals and before bed. Stop morphine. Start Percocet and Flexeril for abdominal pain and muscle aches. Monitor patient at this time. CT abdomen 01/03/2017 revealed. No acute findings to explain the patient's pain. 2. The inflammatory bowel changes seen on the prior study have resolved Possible Gastroparesis Patient has a history of diabetes since 15 years old. Has never had a gastric emptying test prior. Ordering A1C, last one was October 2016. Diabetes Patient is a diabetic. Continuing patient's insulin. Monitor patient's blood sugar and monitor clinically. Patient is on a sliding scale as well. Starting patient on consistent carbohydrate diet. If patient can tolerate diet, will stop D5W. Hypokalemia patient's K was low on labs Magnesium level normal one time dose of potassium chloride 40 meq recheck in morning Problems (1) Acute kidney injury Status: Resolved Problem Text: Creatine has decreased, within normal limits. Acute injury resolved. Plan/VTE VTE Prophylaxis Ordered?: Yes (heparin subcutaneous) Plan IVF: Initiate Diet: Continue Current Activity: Continue Current Therapy: PT Diagnostics: Repeat Labs in AM Anticipated Discharge: Home VS, I&O, 24H, [facility] Vital Signs/I&O Vital Signs Date Time Temp Pulse Resp B/P (MAP) Pulse Ox O2 Delivery O2 Flow Rate FiO2 01/05/17 06:52 16 Room Air 01/05/17 06:00 97.3 81 114/57 (76) 98 I&O- Last 24 Hours up to 6 AM 01/05/17 06:00 Intake Total 3966 ml Output Total 252 ml Balance 3714 ml Laboratory Data 24H LABS Laboratory Tests 2 01/04/17 11:33: Bedside Glucose (Misc Panel) 226H 01/04/17 11:53: White Blood Count 18.3H, Red Blood Count 4.90, Hemoglobin 13.9L, Hematocrit 40.4L, Mean Corpuscular Volume 82.4, Mean Corpuscular Hemoglobin 28.3, Mean Corpuscular Hemoglobin Concent 34.3, Red Cell Distribution Width 12.8, Platelet Count 366, Neutrophils (%) (Auto) 81.3H, Lymphocytes (%) (Auto) 12.0L, Monocytes (%) (Auto) 4.9, Eosinophils (%) (Auto) 0.4, Basophils (%) (Auto) 0.3, Neutrophils # (Auto) 14.9H, Lymphocytes # (Auto) 2.4, Monocytes # (Auto) 0.9H, Eosinophils # (Auto) 0.1, Basophils # (Auto) 0.0, Large Unclassified Cells % 1.2 , Large Unclassified Cells # 0.2, Anion Gap 12, Glomerular Filtration Rate > 60.0, Blood Urea Nitrogen 26H, Creatinine 1.28, Sodium Level 136, Potassium Level 3.6, Chloride Level 98, Carbon Dioxide Level 26, Calcium Level 9.4, Aspartate Amino Transf (AST/SGOT) 14L, Alanine Aminotransferase (ALT/SGPT) 21, Alkaline Phosphatase 126H, Total Bilirubin 0.5, Total Protein 7.5, Albumin 3.6, Albumin/Globulin Ratio 0.92L 01/04/17 17:02: Bedside Glucose (Misc Panel) 217H 01/05/17 06:37: Anion Gap 7L, Glomerular Filtration Rate > 60.0, Blood Urea Nitrogen 15, Creatinine 0.86, Sodium Level 139, Potassium Level 3.1L, Chloride Level 104, Carbon Dioxide Level 28, Calcium Level 8.0L, Aspartate Amino Transf (AST/SGOT) 11L, Alanine Aminotransferase (ALT/SGPT) 17, Alkaline Phosphatase 98, Total Bilirubin 0.3, Total Protein 6.5, Albumin 2.8#L, Albumin/Globulin Ratio 0.76L, Magnesium Level 1.9 CBC/BMP Laboratory Tests 01/04/17 11:53 Red Blood Count 4.90, Mean Corpuscular Volume 82.4, Mean Corpuscular Hemoglobin 28.3, Mean Corpuscular Hemoglobin Concent 34.3, Red Cell Distribution Width 12.8 , Neutrophils (%) (Auto) 81.3 H, Lymphocytes (%) (Auto) 12.0 L, Monocytes (%) ( Auto) 4.9, Eosinophils (%) (Auto) 0.4, Basophils (%) (Auto) 0.3, Neutrophils # ( Auto) 14.9 H, Lymphocytes # (Auto) 2.4, Monocytes # (Auto) 0.9 H, Eosinophils # (Auto) 0.1, Basophils # (Auto) 0.0, Calcium Level 9.4, Aspartate Amino Transf ( AST/SGOT) 14 L, Alanine Aminotransferase (ALT/SGPT) 21, Alkaline Phosphatase 126 H, Total Bilirubin 0.5, Total Protein 7.5, Albumin 3.6 6/8/17 06:37 Red Blood Count 4.01 L, Mean Corpuscular Volume 82.3, Mean Corpuscular Hemoglobin 28.5, Mean Corpuscular Hemoglobin Concent 34.7, Red Cell Distribution Width 12.6, Calcium Level 8.0 L, Aspartate Amino Transf (AST/SGOT) 11 L, Alanine Aminotransferase (ALT/SGPT) 17, Alkaline Phosphatase 98, Total Bilirubin 0.3, Total Protein 6.5, Albumin 2.8 #L Microbiology Microbiology 01/03/17 Urine Culture, Received Pending GME ATTESTATION GME ATTESTATION My preceptor for this patient encounter was Dr. Palmer and he was physically present in the building during the encounter and was fully available. As needed , all aspects of the patient interview, examination, medical decision making process, and medical care plan development were reviewed and approved by the preceptor. Preceptor is aware and concurs with the plan as stated in the body of this note and will attest to such by his/her co-signature. DEEJAY SOSA DO Jan 05, 2017 11:00
[2017-01-05] MEDS ORDERED: SUCRALFATE 1 GM TAB PO SCH ×2 (12:00→21:00)
[2017-01-05] MEDS ORDERED: METOCLOPRAMIDE 10 MG TAB PO SCH ×2 (12:00→21:00)
[2017-01-05] MEDS ORDERED: REGL10TA6 PO (13:46)
[2017-01-05] MEDS ORDERED: OXYC1TAB23 PO (13:46)
[2017-01-05] MEDS ORDERED: CARA1TAB2 PO (13:46)
--- NOTE | 2017-01-05 15:42 | DS.PDOC ---
Discharge Summary General Date of Admission Jan 04, 2017 at 02:10 Date of Discharge January 05, 2017 Primary Care Physician: TAJ MARIE DO Attending Physician: SARAH PALMER MD Discharge Summary PROCEDURES PERFORMED DURING STAY: None. ADMITTING DIAGNOSES: 1. Abdominal pain. 2. Acute kidney injury. DISCHARGE DIAGNOSES: 1. Gastroenteritis. 2. Diabetes. 3. Resolved acute kidney injury. COMPLICATIONS/CHIEF COMPLAINT: Abdominal Pain, Acute Kidney Injury. HISTORY OF PRESENT ILLNESS: Patient is a 21-year-old male with past medical history significant for type 2 diabetes, anxiety, depression, nicotine addiction , urinary retention presents to the ER with nausea vomiting abdominal pain. Patient reported that he was having loss of appetite. He described the pain in the ER as 10 out of 10. Patient was unable to keep anything down. Patient denied any fever, constipation, diarrhea, melena, and hematochezia. HOSPITAL COURSE: Patient was admitted to the hospital service with abdominal pain and acute kidney injury. While in the hospital patient had received IV fluids and acute kidney injury injury resolved. 4 abdominal pain patient received several doses of Reglan, Zofran and Carafate. This helped patient nausea and abdominal pain. Patient's vomiting resolved. Patient was also given morphine as needed for pain. Prior to discharge patient was started on a consistent carbohydrate diet. Patient tolerated this very well. Started patient on Percocet as needed for pain. This decreased patient's abdominal pain to almost nonexistent. Patient still has some nausea. Patient does have a history of diabetes. Patient was put on insulin sliding scale while in the hospital. Hemoglobin A1c was also checked patient's A1c is 11.4. Patient will need to follow this up in outpatient setting. DISCHARGE MEDICATIONS: Please see below. ALLERGIES: Please see below. PHYSICAL EXAMINATION ON DISCHARGE: VITAL SIGNS: Please see below. GENERAL: Alert and orientated. Comfortable and cooperative. No acute distress. HEENT: No signs of injury. No rhinorrhea. NECK: No enlarged lymph nodes or masses. CARDIOVASCULAR EXAMINATION: Normal S1 and S2. No clicks rubs gallops or murmurs. RESPIRATORY EXAMINATION: Clear to auscultation bilaterally. No wheezing or rhonchi. ABDOMINAL EXAMINATION: Bowel sounds heard auscultation. No tenderness to palpation. EXTREMITIES: No lower extremity swelling. SKIN: No new rashes or lesions. NEUROLOGICAL EXAMINATION: Patient able to ambulate. Move all extremities equally. PSYCHIATRIC EXAMINATION: No anxiety or depression. LABORATORY DATA: Please see below. IMAGING: Ct abdomen and pelvis 01/05/2017 showed no acute findings to explain the patient's pain. 2. The inflammatory bowel changes seen on the prior study have resolved. Chest radiograph 01/05/2017 showed no acute cardiopulmonary process. PROGNOSIS: Stable. ACTIVITY: As tolerated. DIET: Consistent Carbohydrate DISCHARGE PLAN: Home on home medications and newly prescribed medications for nausea and abdominal pain. Patient will need to follow-up with primary care doctor Dr. Marie. At time of discharge patient's acute kidney injury had resolved. DISPOSITION: 01 Home, Self-Care. DISCHARGE INSTRUCTIONS: 1. Follow up with PCP Dr. Marie at office 01/05/2017 2. Take Reglan and Carafate as prescribed for nausea and abdominal pain. Sent to pharmacy. 3. Take Percocet as needed for abdominal pain. Sent to pharmacy. DISCHARGE CONDITION: Stable TIME SPENT ON DISCHARGE: Greater than 30 minutes. Vital Signs/I&Os Vital Signs Date Time Temp Pulse Resp B/P (MAP) Pulse Ox O2 Delivery O2 Flow Rate FiO2 01/05/17 12:04 18 01/05/17 09:00 Room Air 01/05/17 06:00 97.3 81 114/57 (76) 98 I&O- Last 24 Hours up to 6 AM 01/05/17 06:00 Intake Total 3966 ml Output Total 252 ml Balance 3714 ml Laboratory Data Labs 24H Laboratory Tests 2 01/04/17 17:02: Bedside Glucose (Misc Panel) 217H 01/05/17 06:37: Anion Gap 7L, Glomerular Filtration Rate > 60.0, Estimated Mean Plasma Glucose 278H, Hemoglobin A1c 11.3H, Blood Urea Nitrogen 15, Creatinine 0.86, Sodium Level 139, Potassium Level 3.1L, Chloride Level 104, Carbon Dioxide Level 28, Calcium Level 8.0L, Aspartate Amino Transf (AST/SGOT) 11L, Alanine Aminotransferase (ALT/SGPT) 17, Alkaline Phosphatase 98, Total Bilirubin 0.3, Total Protein 6.5, Albumin 2.8#L, Magnesium Level 1.9, Albumin/Globulin Ratio 0.76L 01/05/17 11:58: Bedside Glucose (Misc Panel) 113H CBC/BMP Laboratory Tests 01/05/17 06:37 Red Blood Count 4.01 L, Mean Corpuscular Volume 82.3, Mean Corpuscular Hemoglobin 28.5, Mean Corpuscular Hemoglobin Concent 34.7, Red Cell Distribution Width 12.6, Calcium Level 8.0 L, Aspartate Amino Transf (AST/SGOT) 11 L, Alanine Aminotransferase (ALT/SGPT) 17, Alkaline Phosphatase 98, Total Bilirubin 0.3, Total Protein 6.5, Albumin 2.8 #L FSBS Laboratory Tests Test 01/04/17 17:02 01/05/17 11:58 Range/Units Bedside Glucose (Misc Panel) 217 113 70-105 MG/DL Microbiology Microbiology 01/03/17 Urine Culture, Received Pending Discharge Medications Scheduled (Toujeo Solostar) 300 Unit/Ml Inj, 30 UNIT SC DAILY, (Reported) Ergocalciferol (Vitamin D) 50,000 Unit Cap, 50,000 UNIT PO 1XWK, (Reported) TAKES ON TUESDAYS Insulin Aspart (Novolog) 100 U/Ml Inj, 1 DOSE SC AC, (Reported) PER SLIDING SCALE Sucralfate (Carafate) 1 Gm Tab, 1 GM PO ACHS 4 times per day take on an empty stomach Scheduled PRN Metoclopramide HCl (Reglan) 10 Mg Tab, 10 MG PO Q6H PRN for NAUSEA Oxycodone/Acetaminophen (Oxycodone/Acetaminophen 5-325 mg) 1 Tab Tab, 1 TAB PO Q6HP PRN for pain Allergies Coded Allergies: Penicillins (Verified Allergy, Intermediate, HIVES, 01/03/17) Tramadol (Verified Adverse Reaction, Mild, VOMITS, 01/03/17) GME ATTESTATION GME ATTESTATION My preceptor for this patient encounter was Dr. Palmer and he was physically present in the building during the encounter and was fully available. As needed , all aspects of the patient interview, examination, medical decision making process, and medical care plan development were reviewed and approved by the preceptor. Preceptor is aware and concurs with the plan as stated in the body of this note and will attest to such by his/her co-signature. DEEJAY SOSA DO Jan 05, 2017 15:14
== END 2017-01-05 14:39 | disposition home or self-care (01) | DRG 249 ==
LOC: M ED 19:04 → M ED INP 01-04 02:10 → M MSPAV 01-04 03:08
PROVIDERS: ADMIT Internal Medicine; ATTEND Internal Medicine
DX: K52.9 Noninfective gastroenteritis and colitis, unspecified (principal); N17.9 Acute kidney failure, unspecified; E11.9 Type 2 diabetes mellitus without complications; E87.6 Hypokalemia; F17.210 Nicotine dependence, cigarettes, uncomplicated; Z79.899 Other long term (current) drug therapy; Z88.0 Allergy status to penicillin; Z88.5 Allergy status to narcotic agent; Z79.4 Long term (current) use of insulin; Z83.3 Family history of diabetes mellitus

== ENCOUNTER 2017-01-26 17:12 | Inpatient (IN) | payer OTHER ==
[~2017-01-26] VITALS: Ht 180.3 cm; Wt 71.1 kg
[~2017-01-26 17:12] MED LIST changes: +AZIT-12 PO; -AZIT250T3 PO; +BACITAB PO; -BACITAB3 PO; +CARA1TAB6 PO; -FOLI1TAB2 PO; +FOLI1TAB4 PO; +LEVA1TAB2 PO; -LEVA500T PO; -LEVA750T PO; +LEVA750T7 PO; -NAPR500T2 PO; +NAPR500T3 PO; +OXYC1TAB23 PO; +VITA1CAP40 PO; -VITA50003 PO
[2017-01-26] MEDS ORDERED: NS 1,000 ML IV ONE (17:30)
[2017-01-26] MEDS ORDERED: ONDANSETRON 4MG/2ML VIAL (J2405) IV ONE (17:30)
[2017-01-26 17:38] LABS: VENOUS BASE EXCESS -1.1 (-2.0-2.0); VENOUS O2 SATURATION 83.2 % (60.0-80.0); VENOUS PARTIAL PRESSURE CO2 35.8 mmHg (38.0-50.0); VENOUS PARTIAL PRESSURE O2 46.7 mmHg (30.0-50.0); VENOUS STANDARD HCO3 23.2 MEQ/L; VENOUS TOTAL CO2 23.9 MEQ/L (24.0-28.0)
[2017-01-26 17:45] LABS: BASO # 0.2 K/mm3 (0.0-0.2); BASO % 0.9 % (0.0-1.0); EOS # 0.1 K/mm3 (0.0-0.50); EOS % 0.8 % (0.0-3.0); LARGE UNSTAINED CELL # 0.2 K/mm3 (0.0-0.4); LARGE UNSTAINED CELL % 1.2 % (0.0-4.0); LYMPH # 1.9 K/mm3 (1.5-6.5); LYMPH % 11.2 % (24.0-44.0); MEAN CORPUSCULAR HGB CONC 33.6 g/dl (32.0-36.5); MEAN CORPUSCULAR VOLUME 86.3 fl (80.0-96.0); MONO # 0.7 K/mm3 (0.0-0.8); MONO % 4.1 % (0.0-5.0); NEUTROPHILS # 13.7 K/mm3 (1.8-7.7); NEUTROPHILS % 81.9 % (36.0-66.0); PLATELET COUNT, AUTOMATED 314 k/mm3 (150-450); RED CELL DISTRIBUTION WIDTH 12.9 % (11.5-14.5); WHITE BLOOD COUNT 16.8 K/mm3 (4.0-10.0)
[2017-01-26 18:02] LABS: CALCIUM LEVEL 9.3 MG/DL (8.5-10.1); CREATININE FOR GFR 1.73 MG/DL (0.70-1.30); GLOMERULAR FILTRATION RATE 52.8 (>60); POTASSIUM SERUM 3.9 MEQ/L (3.5-5.1)
[2017-01-26] MEDS ORDERED: INSULIN HUMAN REGULAR 100 UNITS in NS 99 ML IV SCH ×3 (18:34→21:30)
[2017-01-26] MEDS ORDERED: HumuLIN R (REGULAR) INSULIN (NovoLIN R) **100U/ML** PER UNIT IV ONE (18:45)
[2017-01-26] MEDS ORDERED: INSULIN IV RATE CHANGE DOCUMENTATION ML/HR XX SCH (18:45)
[2017-01-26] MEDS ORDERED: ONDANSETRON 4MG/2ML VIAL (J2405) IV PRN (19:15)
[2017-01-26] MEDS: KCL 40MEQ in NS 1000ML 1,000 ML IV SCH (19:39)
[2017-01-26] MEDS: METOCLOPRAMIDE INJ 10MG/2ML VIAL (J2765) IV PRN (19:45)
[2017-01-26] MEDS: INSULIN IV RATE CHANGE DOCUMENTATION ML/HR XX SCH ×4 (21:36→23:59)
[2017-01-26] MEDS: MORPHINE 2 MG/ML 1ML SYRINGE IV PRN (21:41)
[2017-01-26 22:17] VITALS: BP 145/65
[2017-01-26 22:27] LABS: VENOUS BASE EXCESS 0.8 (-2.0-2.0); VENOUS O2 SATURATION 72.9 % (60.0-80.0); VENOUS PARTIAL PRESSURE CO2 34.9 mmHg (38.0-50.0); VENOUS PARTIAL PRESSURE O2 37.8 mmHg (30.0-50.0); VENOUS STANDARD HCO3 24.6 MEQ/L; VENOUS TOTAL CO2 25.2 MEQ/L (24.0-28.0)
[2017-01-26 23:13] LABS: CALCIUM LEVEL 9.4 MG/DL (8.5-10.1); CREATININE FOR GFR 1.57 MG/DL (0.70-1.30); GLOMERULAR FILTRATION RATE 59.1 (>60); MAGNESIUM LEVEL 2.6 MG/DL (1.8-2.4); POTASSIUM SERUM 3.9 MEQ/L (3.5-5.1)
[2017-01-26 23:41] LABS: METHADONE URINE NEGATIVE (NEGATIVE)
[2017-01-27] VITALS: BP 131/79
[2017-01-27] MEDS: KCL 40MEQ in NS 1000ML 1,000 ML IV SCH (00:25)
[2017-01-27] MEDS: INSULIN IV RATE CHANGE DOCUMENTATION ML/HR XX SCH ×3 (01:21→07:04)
[2017-01-27] MEDS: KCL 20MEQ IN D5/0.45NS 1000ML 1,000 ML IV SCH ×2 (01:51→10:24)
[2017-01-27 02:00] VITALS: BP 133/85
[2017-01-27 02:18] LABS: ANION GAP 9 MEQ/L (8-16); BLOOD UREA NITROGEN 20 MG/DL (7-18); CALCIUM LEVEL 8.5 MG/DL (8.5-10.1); CARBON DIOXIDE LEVEL 29 MEQ/L (21-32); CHLORIDE LEVEL 99 MEQ/L (98-107); CREATININE FOR GFR 1.13 MG/DL (0.70-1.30); GLOMERULAR FILTRATION RATE > 60.0 (>60); GLUCOSE, FASTING 183 MG/DL (70-105); POTASSIUM SERUM 4.2 MEQ/L (3.5-5.1); SODIUM LEVEL 137 MEQ/L (136-145)
--- NOTE | 2017-01-27 02:22 | HPE ---
DATE OF ADMISSION: 01/26/2017 PRIMARY CARE PROVIDER: TEAGAN Camara. CHIEF COMPLAINT: Vomiting. HISTORY OF PRESENT ILLNESS: Patient is a 21-year-old male with history of insulin-dependent diabetes type 1, has been noncompliant with his insulin in the past, presenting with 2-day history of nausea, vomiting, and diarrhea. He said he ran out of his insulin 2 days ago, which was when his symptoms started. Since then, he has not been able to eat or drink any fluids. Reports body aches, epigastric pain from retching and a mild headache. He denies any fever, chills, shortness of breath, chest pain, palpitations. REVIEW OF SYSTEMS: 10-point systems assessed are negative except listed above in history of present illness (HPI). PAST MEDICAL HISTORY: 1. Type 2 diabetes. 2. Vitamin D deficiency. PAST SURGICAL HISTORY: Status post appendectomy. FAMILY HISTORY: Diabetes. SOCIAL HISTORY: Patient is a current smoker, a pack a day. Denies alcohol abuse or any illicit drug use. ALLERGIES TO MEDICATIONS: PENICILLIN and TRAMADOL. LIST OF MEDICATIONS: - Toujeo SoloStar insulin 30 units once a day - vitamin D 250,000 units once a week PHYSICAL EXAMINATION: VITAL SIGNS: Blood pressure 131/84, pulse 102, respiratory rate 18, oxygen saturation 99% in room air, temperature 97.4 degrees Fahrenheit. GENERAL: He is alert, oriented to person, place and time. Appears uncomfortable and restless. HEENT: Pupils are equal, round and reactive to light. Extraocular muscles are intact. Anicteric sclerae. Mucous membranes moist. Nasal septum midline. Neck is supple, nontender with no palpable adenopathy. CARDIOVASCULAR SYSTEM: S1, S2 present with regular rate. No murmur, rub or gallop. RESPIRATORY SYSTEM: Lungs are clear to auscultation bilaterally. GASTROINTESTINAL: Abdomen is soft, nondistended. There is mild epigastric tenderness to palpation. Mild guarding, but no rebound. RECTAL: Exam deferred. MUSCULOSKELETAL SYSTEM: No edema, cyanosis or calf tenderness. Patient has a right heel blister. SKIN: Warm, dry, acyanotic without rash. Patient has a tattoo covering both arms. NEUROLOGIC: Nonfocal findings. LABORATORIES: Hematology: White blood cell counts 17, hemoglobin 15, hematocrit 44, platelets 314. Blood gas pH 7.4, pCO2 35.8, pO2 46.7, this is a VBG. Chemistry: Sodium 127, potassium 3.9, chloride 85, bicarbonate 22, BUN 21, creatinine 1.73, fasting glucose 573, repeated 276, hemoglobin A1c is 11.3, calcium 9.3. Lipase 94, amylase 89, magnesium 2.6. Toxicology report is positive for opiate and cannabis. Urinalysis is positive glucose and ketones. IMPRESSION: Includes: 1. Diabetic ketoacidosis (DKA) secondary to noncompliance. 2. Intractable vomiting. 3. Dehydration. 4. Acute kidney injury. PLAN: Patient is admitted to the intensive care unit (ICU) with continued insulin drip protocol. Continue fluids, saline at 200 mL/h. Monitor fingersticks every 1 hour. Continue to check electrolytes every 4 hours. When the blood sugar fingerstick is less than 200, please change fluids to D5 normal saline at the same rate, 200 mL/h. Resume long-acting insulin. In this case will use Levemir 30 units twice a day. Will cover also with sliding-scale insulin. Use Reglan/metoclopramide for nausea and vomiting. Patient can resume feeding once the vomiting resolves.
[2017-01-27 04:00] VITALS: BP 138/81
[2017-01-27] MEDS: MORPHINE 2 MG/ML 1ML SYRINGE IV PRN (04:16)
[2017-01-27] MEDS: METOCLOPRAMIDE INJ 10MG/2ML VIAL (J2765) IV PRN (04:16)
[2017-01-27 05:51] LABS: BASO % 0.2 % (0.0-1.0); EOS % 0.2 % (0.0-3.0); LARGE UNSTAINED CELL # 0.2 K/mm3 (0.0-0.4); LARGE UNSTAINED CELL % 1.1 % (0.0-4.0); LYMPH % 10.2 % (24.0-44.0); MEAN CORPUSCULAR HEMOGLOBIN 28.6 pg (27.0-33.0); MEAN CORPUSCULAR HGB CONC 34.7 g/dl (32.0-36.5); MEAN CORPUSCULAR VOLUME 82.4 fl (80.0-96.0); MONO # 0.9 K/mm3 (0.0-0.8); NEUTROPHILS # 14.9 K/mm3 (1.8-7.7); NEUTROPHILS % 83.3 % (36.0-66.0); PLATELET COUNT, AUTOMATED 262 k/mm3 (150-450); RED CELL DISTRIBUTION WIDTH 13.1 % (11.5-14.5); WHITE BLOOD COUNT 17.9 K/mm3 (4.0-10.0)
[2017-01-27 06:56] LABS: ALBUMIN 3.1 GM/DL (3.2-5.2); ALBUMIN/GLOBULIN RATIO 0.72 (1.00-1.93); ALKALINE PHOSPHATASE 131 U/L (45-117); ALT/SGPT 17 U/L (12-78); ANION GAP 9 MEQ/L (8-16); AST/SGOT 9 U/L (15-37); BILIRUBIN,TOTAL 0.3 MG/DL (0.2-1.0); BLOOD UREA NITROGEN 17 MG/DL (7-18); CALCIUM LEVEL 8.7 MG/DL (8.5-10.1); CARBON DIOXIDE LEVEL 29 MEQ/L (21-32); CHLORIDE LEVEL 101 MEQ/L (98-107); GLOMERULAR FILTRATION RATE > 60.0 (>60); GLUCOSE, FASTING 219 MG/DL (70-105); SODIUM LEVEL 139 MEQ/L (136-145); TOTAL PROTEIN 7.4 GM/DL (6.4-8.2)
[2017-01-27] MEDS ORDERED: LEVEMIR (INSULIN DETEMIR) 1 UNITS/0.01ML SC ONE (07:15)
[2017-01-27 08:00] VITALS: BP 120/67
[2017-01-27] MEDS ORDERED: GLUCAGON FOR INJ 1 MG VIAL (J1610) SC PRN (08:15)
[2017-01-27] MEDS ORDERED: GLUCOSE 4 GM CHEW TABLET PO PRN (08:15)
[2017-01-27] MEDS ORDERED: DEXTROSE 50% 50 ML SYRINGE IV PRN (08:15)
[2017-01-27] MEDS ORDERED: LEVEMIR (INSULIN DETEMIR) 1 UNITS/0.01ML SC SCH (09:00)
[2017-01-27] MEDS ORDERED: GASTROGRAFIN SOLUTION 30ML PO ONE (12:15)
[2017-01-27] MEDS ORDERED: GASTROGRAFIN SOLUTION 30ML (Q9963) PO ONE (12:45)
[2017-01-27 12:47] LABS: ANION GAP 7 MEQ/L (8-16); BLOOD UREA NITROGEN 14 MG/DL (7-18); CALCIUM LEVEL 8.5 MG/DL (8.5-10.1); CARBON DIOXIDE LEVEL 29 MEQ/L (21-32); CHLORIDE LEVEL 101 MEQ/L (98-107); CREATININE FOR GFR 0.87 MG/DL (0.70-1.30); GLOMERULAR FILTRATION RATE > 60.0 (>60); GLUCOSE, FASTING 208 MG/DL (70-105); POTASSIUM SERUM 3.7 MEQ/L (3.5-5.1); SODIUM LEVEL 137 MEQ/L (136-145)
[2017-01-27] MEDS: HumaLOG INSULIN (NovoLOG) PER UNIT SC SCH ×2 (13:06→17:44)
--- NOTE | 2017-01-27 13:54 | ECGEPIP ---
Stationary ECG Study [facility] Test Date: 2017-01-27 Pat Name: RYAN URIAS Department: Room: [place] [address] Gender: M Hogs[place] Hooper: JOSE : 1995 Requested By: MENDEZ PACK Order Number: [id number] Reading MD: Shagufta Andre Measurements Intervals [place] Rate: 87 P: 76 CT: 129 QRS: 84 QRSD: 100 T: 89 QT: 358 QTc: 433 Interpretive Statements SINUS RHYTHM NONSPECIFIC T-WAVE ABNORMALITY SIMILAR 01/04/17 Electronically Signed On 01-27-2017 13:54:47 EDT by Shagufta Andre
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
[2017-01-27 16:20] VITALS: BP 124/70
[2017-01-27] MEDS ORDERED: VANCOMYCIN HCL 1,000 MG, VIAL MATE ADAPTER 1 EACH in D5W 250 ML IV SCH (18:00)
--- NOTE | 2017-01-27 18:13 | PHACANCOPD ---
PHARMACY VANCOMYCIN DOSING Pt Demographics Demographics Patient Age:21 , Weight:71.100 , Gender: male Adjusted Body Weight Date: 01/27/17, Adjusted Body Weight: Kg Events Past 24 Hours Events Past 24 Hours: NO: Dialysis, Diuretic Therapy, Change in CrCl, Fever, Elevation in WBC, Pending Diagnostics, Pending Procedures, Other Vancomycin Vancomycin indication: cellulitis Vancomycin Target Ranges: 10-20 mcg/ml Vancomycin Load Y/N: No Load Dose Date Time Vancomycin Load Dose: Date: Time: Vancomycin Dose Date: 01/27/17. Current Vancomycin Dose: [1g IV q8h @18] Intermittent Dosing?: No Labs Labs Item Value Date Time White Blood Count 16.8 K/mm3 H 01/26/17 1730 White Blood Count 17.9 K/mm3 H 01/27/17 0446 Creatinine 1.13 MG/DL 01/27/17 0148 Creatinine 1.20 MG/DL 01/27/17 0446 Creatinine 0.87 MG/DL 01/27/17 1213 Micro Microbiology 01/27/17 Gram Stain, Received Pending 01/27/17 Wound Culture, Received Pending Creatinine Clearance Date:01/27/17. Creatinine Clearance: [>100ml/min]. Assessment and Plan Maintaining Current Dose?: Yes Reason for dose change: No Dose Change Pharmacist Note Pharmacist Note Date: 01/27/17. Pharmacist note: pt has been started on vancomycin for head cellulitis. No apparent Hx of MRSA. Wound cultures are pending. He has not been on vancomycin at our facility in the past. I have started him on Vancomycin 1g IV q8h. I will follow up and order a trough as necessary. Luis August Pharm.D. Jan 27, 2017 18:13
--- NOTE | 2017-01-27 19:27 | REP ---
Clinical: Trauma . Comparison: None . Findings: The ventricles, sulci, and cisterns are normal in position and appearance. Campa-white differentiation is maintained. No acute intracranial hemorrhage, mass/mass effect, pathology or trauma/injury. No evidence for acute infarction. No extra-axial fluid collection. Calvarium is intact. Paranasal sinuses and mastoid air cells are clear. Impression: Normal noncontrast head CT. No evidence for acute intracranial pathology or trauma/injury. Signed by Thomas Lua MD 01/27/2017 07:18 P
[2017-01-27 20:05] VITALS: BP 121/75
[2017-01-27] MEDS ORDERED: HumaLOG INSULIN (NovoLOG) PER UNIT SC SCH (21:00)
[2017-01-28] MEDS ORDERED: LEVEMIR (INSULIN DETEMIR) 1 UNITS/0.01ML SC SCH (09:00)
== END 2017-01-27 21:26 | disposition left against medical advice (07) | DRG 420 ==
LOC: M ED 17:12 → EDBD 17:12 → EDSEX 17:12 → M ED INP 19:10 → M ICU 22:01 → M MSPAV 01-27 16:20
PROVIDERS: ADMIT Hospitalist; ATTEND Internal Medicine
DX: E10.10 Type 1 diabetes mellitus with ketoacidosis without coma (principal); N17.0 Acute kidney failure with tubular necrosis; E55.9 Vitamin D deficiency, unspecified; Z91.14 Patient's other noncompliance with medication regimen; E86.0 Dehydration; R23.4 Changes in skin texture; F17.210 Nicotine dependence, cigarettes, uncomplicated; Z88.0 Allergy status to penicillin; Z88.5 Allergy status to narcotic agent; Z79.4 Long term (current) use of insulin; Z79.899 Other long term (current) drug therapy

== ENCOUNTER 2017-03-26 15:29 | Emergency (ER) | payer OTHER ==
[~2017-03-26] VITALS: Ht 180.3 cm; Wt 75.7 kg
[2017-03-26] MEDS ORDERED: TYLE500T78 PO (15:44)
[2017-03-26] MEDS ORDERED: PERC5TAB12 PO (17:00)
[2017-03-26] MEDS ORDERED: IBUP-1022 PO (17:00)
[2017-03-26 17:09] VITALS: BP 120/58
== END 2017-03-26 17:11 | disposition home or self-care (01) ==
LOC: M ED 15:29
DX: K02.9 Dental caries, unspecified (principal); S02.5XXA Fracture of tooth (traumatic), initial encounter for closed fracture; X58.XXXA Exposure to other specified factors, initial encounter; Y92.89 Other specified places as the place of occurrence of the external cause; Y93.89 Activity, other specified; Y99.8 Other external cause status; E10.9 Type 1 diabetes mellitus without complications; Z79.4 Long term (current) use of insulin; Z79.899 Other long term (current) drug therapy; Z88.5 Allergy status to narcotic agent; Z88.0 Allergy status to penicillin

== ENCOUNTER → 2017-04-17 | Outpatient (REF) | payer OTHER ==
[~2017-04-17] MED LIST changes: +IBUP-1022 PO; +PERC5TAB12 PO; +TYLE500T78 PO
[2017-04-17 14:17] LABS: MEAN CORPUSCULAR HEMOGLOBIN 26.9 pg (27.0-33.0); MEAN CORPUSCULAR HGB CONC 32.8 g/dl (32.0-36.5); MEAN CORPUSCULAR VOLUME 82.1 fl (80.0-96.0); RED CELL DISTRIBUTION WIDTH 12.4 % (11.5-14.5); WHITE BLOOD COUNT 10.7 K/mm3 (4.0-10.0)
[2017-04-17 14:26] LABS: ALBUMIN 2.8 GM/DL (3.2-5.2); ALBUMIN/GLOBULIN RATIO 0.61 (1.00-1.93); ALKALINE PHOSPHATASE 107 U/L (45-117); ALT/SGPT 15 U/L (12-78); ANION GAP 5 MEQ/L (8-16); AST/SGOT 10 U/L (15-37); BILIRUBIN,TOTAL 0.2 MG/DL (0.2-1.0); BLOOD UREA NITROGEN 13 MG/DL (7-18); CARBON DIOXIDE LEVEL 28 MEQ/L (21-32); CHLORIDE LEVEL 106 MEQ/L (98-107); GLOMERULAR FILTRATION RATE > 60.0 (>60); GLUCOSE, FASTING 172 MG/DL (70-105); POTASSIUM SERUM 4.6 MEQ/L (3.5-5.1); SODIUM LEVEL 139 MEQ/L (136-145); TOTAL PROTEIN 7.4 GM/DL (6.4-8.2)
== END ==
LOC: M LAB REF 13:59
PROVIDERS: ATTEND Internal Medicine
DX: M86.9 Osteomyelitis, unspecified (principal)

== ENCOUNTER → 2017-04-24 | Outpatient (REF) | payer OTHER ==
[2017-04-24 18:52] LABS: MEAN CORPUSCULAR HEMOGLOBIN 26.1 pg (27.0-33.0); MEAN CORPUSCULAR HGB CONC 31.8 g/dl (32.0-36.5); MEAN CORPUSCULAR VOLUME 82.1 fl (80.0-96.0); RED CELL DISTRIBUTION WIDTH 13.4 % (11.5-14.5); WHITE BLOOD COUNT 12.4 10^3/uL (4.0-10.0)
[2017-04-24 21:57] LABS: ALBUMIN 2.8 GM/DL (3.2-5.2); ALBUMIN/GLOBULIN RATIO 0.64 (1.00-1.93); ALKALINE PHOSPHATASE 133 U/L (45-117); ALT/SGPT 40 U/L (12-78); ANION GAP 11 MEQ/L (8-16); AST/SGOT 35 U/L (15-37); BILIRUBIN,TOTAL 0.2 MG/DL (0.2-1.0); BLOOD UREA NITROGEN 15 MG/DL (7-18); CALCIUM LEVEL 8.3 MG/DL (8.5-10.1); CARBON DIOXIDE LEVEL 19 MEQ/L (21-32); CHLORIDE LEVEL 107 MEQ/L (98-107); CREATININE FOR GFR 1.06 MG/DL (0.70-1.30); GLOMERULAR FILTRATION RATE > 60.0 (>60); GLUCOSE, FASTING 295 MG/DL (70-105); SODIUM LEVEL 137 MEQ/L (136-145); TOTAL PROTEIN 7.2 GM/DL (6.4-8.2)
[2017-04-24 22:08] LABS: POTASSIUM SERUM 4.9 MEQ/L (3.5-5.1)
== END ==
LOC: M LAB REF 16:36
PROVIDERS: ATTEND Internal Medicine
DX: M86.9 Osteomyelitis, unspecified (principal)

== ENCOUNTER → 2017-05-01 | Outpatient (REF) | payer OTHER ==
[2017-05-01 12:28] LABS: MEAN CORPUSCULAR HEMOGLOBIN 26.7 pg (27.0-33.0); MEAN CORPUSCULAR HGB CONC 32.2 g/dl (32.0-36.5); MEAN CORPUSCULAR VOLUME 82.8 fl (80.0-96.0); RED CELL DISTRIBUTION WIDTH 14.3 % (11.5-14.5); WHITE BLOOD COUNT 13.7 10^3/uL (4.0-10.0)
[2017-05-01 13:14] LABS: ALBUMIN/GLOBULIN RATIO 0.71 (1.00-1.93); ALKALINE PHOSPHATASE 174 U/L (45-117); ALT/SGPT 59 U/L (12-78); ANION GAP 7 MEQ/L (8-16); AST/SGOT 44 U/L (15-37); BILIRUBIN,TOTAL 0.2 MG/DL (0.2-1.0); BLOOD UREA NITROGEN 12 MG/DL (7-18); CALCIUM LEVEL 8.7 MG/DL (8.5-10.1); CARBON DIOXIDE LEVEL 25 MEQ/L (21-32); CHLORIDE LEVEL 110 MEQ/L (98-107); CREATININE FOR GFR 0.98 MG/DL (0.70-1.30); GLOMERULAR FILTRATION RATE > 60.0 (>60); GLUCOSE, FASTING 95 MG/DL (70-105); POTASSIUM SERUM 4.4 MEQ/L (3.5-5.1); SODIUM LEVEL 142 MEQ/L (136-145); TOTAL PROTEIN 7.2 GM/DL (6.4-8.2)
== END ==
LOC: M LAB REF 11:49
PROVIDERS: ATTEND Internal Medicine
DX: M86.9 Osteomyelitis, unspecified (principal)

== ENCOUNTER → 2017-05-08 | Outpatient (REF) | payer OTHER ==
[2017-05-08 20:26] LABS: MEAN CORPUSCULAR HEMOGLOBIN 26.4 pg (27.0-33.0); MEAN CORPUSCULAR HGB CONC 32.1 g/dl (32.0-36.5); MEAN CORPUSCULAR VOLUME 82.5 fl (80.0-96.0); RED CELL DISTRIBUTION WIDTH 14.3 % (11.5-14.5); WHITE BLOOD COUNT 9.5 10^3/uL (4.0-10.0)
[2017-05-08 20:47] LABS: ALBUMIN 2.9 GM/DL (3.2-5.2); ALBUMIN/GLOBULIN RATIO 0.73 (1.00-1.93); ALKALINE PHOSPHATASE 169 U/L (45-117); ALT/SGPT 48 U/L (12-78); ANION GAP 8 MEQ/L (8-16); AST/SGOT 26 U/L (15-37); BILIRUBIN,TOTAL 0.3 MG/DL (0.2-1.0); BLOOD UREA NITROGEN 11 MG/DL (7-18); CALCIUM LEVEL 8.4 MG/DL (8.5-10.1); CARBON DIOXIDE LEVEL 25 MEQ/L (21-32); CHLORIDE LEVEL 108 MEQ/L (98-107); CREATININE FOR GFR 1.01 MG/DL (0.70-1.30); GLOMERULAR FILTRATION RATE > 60.0 (>60); GLUCOSE, FASTING 366 MG/DL (70-105); POTASSIUM SERUM 4.5 MEQ/L (3.5-5.1); SODIUM LEVEL 141 MEQ/L (136-145); TOTAL PROTEIN 6.9 GM/DL (6.4-8.2)
== END ==
LOC: M LAB REF 13:48
PROVIDERS: ATTEND Internal Medicine
DX: M86.9 Osteomyelitis, unspecified (principal)

== ENCOUNTER → 2017-05-15 | Outpatient (REF) | payer OTHER ==
[2017-05-15 17:41] LABS: MEAN CORPUSCULAR HEMOGLOBIN 26.2 pg (27.0-33.0); MEAN CORPUSCULAR HGB CONC 31.7 g/dl (32.0-36.5); MEAN CORPUSCULAR VOLUME 82.6 fl (80.0-96.0); RED CELL DISTRIBUTION WIDTH 14.5 % (11.5-14.5); WHITE BLOOD COUNT 11.3 10^3/uL (4.0-10.0)
[2017-05-15 18:14] LABS: ALKALINE PHOSPHATASE 221 U/L (45-117); ALT/SGPT 82 U/L (12-78); ANION GAP 11 MEQ/L (8-16); AST/SGOT 45 U/L (15-37); BILIRUBIN,TOTAL 0.2 MG/DL (0.2-1.0); BLOOD UREA NITROGEN 12 MG/DL (7-18); CALCIUM LEVEL 8.1 MG/DL (8.5-10.1); CARBON DIOXIDE LEVEL 22 MEQ/L (21-32); CHLORIDE LEVEL 110 MEQ/L (98-107); CREATININE FOR GFR 1.42 MG/DL (0.70-1.30); GLOMERULAR FILTRATION RATE > 60.0 (>60); POTASSIUM SERUM 4.2 MEQ/L (3.5-5.1); SODIUM LEVEL 143 MEQ/L (136-145); TOTAL PROTEIN 6.8 GM/DL (6.4-8.2)
[2017-05-15 18:23] LABS: ALBUMIN/GLOBULIN RATIO 0.79 (1.00-1.93)
[2017-05-15 19:21] LABS: GLUCOSE, FASTING 417 MG/DL (70-105)
== END ==
LOC: M LAB REF 15:50
PROVIDERS: ATTEND Internal Medicine
DX: M86.9 Osteomyelitis, unspecified (principal)

== ENCOUNTER 2017-06-27 13:44 | Emergency (ER) | payer OTHER ==
[~2017-06-27] VITALS: Ht 180.3 cm; Wt 77.3 kg
[2017-06-27 13:44] VITALS: BP 137/79
[2017-06-27] MEDS ORDERED: TOUJ1.2I SC (13:56)
[2017-06-27] MEDS ORDERED: NORC1TAB4 PO (17:01)
[2017-06-27] MEDS ORDERED: CLIN150C14 PO (17:01)
== END 2017-06-27 17:18 | disposition home or self-care (01) ==
LOC: M ED 13:44
DX: K02.9 Dental caries, unspecified (principal); S02.5XXA Fracture of tooth (traumatic), initial encounter for closed fracture; Z72.0 Tobacco use; X58.XXXA Exposure to other specified factors, initial encounter; Y92.89 Other specified places as the place of occurrence of the external cause; Y93.89 Activity, other specified; Y99.9 Unspecified external cause status

== ENCOUNTER → 2017-09-01 | Outpatient (REF) | payer OTHER | LOC: M SFHCPLAZ 14:05 | DX: M86.179 Other acute osteomyelitis, unspecified ankle and foot (principal) ==

== ENCOUNTER 2017-10-25 14:30 | Emergency (ER) | payer OTHER ==
[2017-10-25] MEDS: NS 2,250 ML in APPROPRIATE DILUENT 1 EA IV (15:45)
[2017-10-25] MEDS: ONDANSETRON 4MG/2ML VIAL (J2405) IV (16:07)
[2017-10-25] MEDS: MORPHINE 4 MG/ML 1ML VIAL (J2270) IV ×2 (16:09→18:11)
[2017-10-25 16:14] LABS: BASO # 0.1 10^3/uL (0.0-0.2); BASO % 0.5 % (0.0-1.0); EOS # 0.2 10^3/uL (0.0-0.50); EOS % 1.5 % (0.0-3.0); HEMATOCRIT 39.7 % (42.0-52.0); IMMATURE GRANULOCYTE % 0.4 % (0-3.0); LYMPH # 2.3 10^3/uL (1.5-6.5); LYMPH % 21.4 % (24.0-44.0); MEAN CORPUSCULAR HEMOGLOBIN 25.3 pg (27.0-33.0); MEAN CORPUSCULAR HGB CONC 32.7 g/dl (32.0-36.5); MEAN CORPUSCULAR VOLUME 77.2 fl (80.0-96.0); MONO # 0.7 10^3/uL (0.0-0.8); MONO % 6.3 % (0.0-5.0); NEUTROPHILS # 7.4 10^3/uL (1.8-7.7); NEUTROPHILS % 69.9 % (36.0-66.0); PLATELET COUNT, AUTOMATED 312 10^3/uL (150-450); RED BLOOD COUNT 5.14 10^6/uL (4.30-6.10); RED CELL DISTRIBUTION WIDTH 13.9 % (11.5-14.5); WHITE BLOOD COUNT 10.5 10^3/uL (4.0-10.0)
[2017-10-25 16:18] LABS: KETONE, URINE AUTO RFX 1+ mg/dL (NEGATIVE); LEUKOCYTE ESTERASE UR AUTO RFX NEGATIVE (NEGATIVE); MUCUS, URINE RFX SMALL (NEGATIVE); NITRITE, URINE AUTO RFX NEGATIVE (NEGATIVE); RBC, URINE AUTO RFX 2 /HPF (0-3); SPECIFIC GRAVITY UR AUTO RFX 1.022 (1.002-1.035); SQUAM EPITHELIAL CELL UR AURFX 0 /HPF (0-6); WBC, URINE AUTO RFX 0 /HPF (0-3)
[2017-10-25 16:26] LABS: INR 1.04; PROTHROMBIN TIME 13.7 SECONDS (12.4-14.5)
[2017-10-25 16:27] LABS: PARTIAL THROMBOPLASTIN TIME 28.6 SECONDS (26.8-37.9)
[2017-10-25 16:35] LABS: ESTIMATED AVERAGE GLUCOSE 272 MG/DL (60-110); HEMOGLOBIN A1c 11.1 %
[2017-10-25 16:36] LABS: OSMOLALITY SERUM 291 MOSM/KG (275-295)
[2017-10-25 16:40] LABS: ACETONE/KETONE 21.38 MG/DL (<2.81); ALBUMIN 3.6 GM/DL (3.2-5.2); ALBUMIN/GLOBULIN RATIO 0.78 (1.00-1.93); ALKALINE PHOSPHATASE 142 U/L (45-117); ALT/SGPT 18 U/L (12-78); AMYLASE 77 U/L (25-115); ANION GAP 8 MEQ/L (8-16); AST/SGOT 14 U/L (7-37); BILIRUBIN,DIRECT 0.2 MG/DL (0.0-0.2); BILIRUBIN,TOTAL 0.7 MG/DL (0.2-1.0); BLOOD UREA NITROGEN 28 MG/DL (7-18); CARBON DIOXIDE LEVEL 30 MEQ/L (21-32); CHLORIDE LEVEL 91 MEQ/L (98-107); CREATININE FOR GFR 1.42 MG/DL (0.70-1.30); GLOMERULAR FILTRATION RATE > 60.0 (>60); GLUCOSE, FASTING 274 MG/DL (70-100); LIPASE 152 U/L (73-393); MAGNESIUM LEVEL 2.3 MG/DL (1.8-2.4); PHOSPHORUS LEVEL 3.5 MG/DL (2.5-4.9); SODIUM LEVEL 129 MEQ/L (136-145); TOTAL PROTEIN 8.2 GM/DL (6.4-8.2)
[2017-10-25 16:41] LABS: LACTIC ACID SEPSIS PROTOCOL 1.3 MMOL/L (0.4-2.0)
[2017-10-25 18:19] LABS: ABG BASE EXCESS 1.5 (-2.0-2.0); ABG HCO3 25.7 MEQ/L (22.0-26.0); ABG O2 SATURATION 96.9 % (95.0-99.0); ABG PARTIAL PRESSURE CO2 39.4 mmHg (35.0-45.0); ABG PARTIAL PRESSURE O2 90.1 mmHg (75.0-100.0); ABG STANDARD HCO3 25.8 MEQ/L (22.0-26.0); ABG pH (ARTERIAL) 7.433 UNITS (7.350-7.450)
[2017-10-26 10:47] LABS: BEDSIDE GLUCOSE 268 MG/DL (70-105)
== END 2017-10-25 18:58 | disposition home or self-care (01) ==
LOC: M ED 14:30
DX: E86.0 Dehydration (principal); R11.2 Nausea with vomiting, unspecified; R19.7 Diarrhea, unspecified; E10.9 Type 1 diabetes mellitus without complications; K21.9 Gastro-esophageal reflux disease without esophagitis; R51 Headache; K58.9 Irritable bowel syndrome, unspecified; M54.5 Low back pain; K52.9 Noninfective gastroenteritis and colitis, unspecified; F41.9 Anxiety disorder, unspecified; F32.9 Major depressive disorder, single episode, unspecified; F91.3 Oppositional defiant disorder; K85.90 Acute pancreatitis without necrosis or infection, unspecified; Z87.448 Personal history of other diseases of urinary system; F17.200 Nicotine dependence, unspecified, uncomplicated; Z79.4 Long term (current) use of insulin; Z79.899 Other long term (current) drug therapy; Z88.0 Allergy status to penicillin; Z88.5 Allergy status to narcotic agent
CPT/HCPCS: J2270

== ENCOUNTER 2017-10-27 19:40 | Emergency (ER) | payer OTHER ==
[2017-10-27] MEDS: MORPHINE 2 MG/ML 1ML SYRINGE (J2270) IV (20:38)
[2017-10-27] MEDS: NS 1,000 ML IV (20:38)
[2017-10-27] MEDS: ONDANSETRON 4MG/2ML VIAL (J2405) IV (20:38)
[2017-10-27 20:44] LABS: BASO # 0.1 10^3/uL (0.0-0.2); BASO % 0.4 % (0.0-1.0); EOS # 0.2 10^3/uL (0.0-0.50); EOS % 1.5 % (0.0-3.0); IMMATURE GRANULOCYTE % 0.5 % (0-3.0); LYMPH # 2.8 10^3/uL (1.5-6.5); LYMPH % 18.6 % (24.0-44.0); MEAN CORPUSCULAR HEMOGLOBIN 25.1 pg (27.0-33.0); MEAN CORPUSCULAR HGB CONC 33.3 g/dl (32.0-36.5); MEAN CORPUSCULAR VOLUME 75.3 fl (80.0-96.0); MONO # 0.7 10^3/uL (0.0-0.8); MONO % 4.6 % (0.0-5.0); NEUTROPHILS % 74.4 % (36.0-66.0); PLATELET COUNT, AUTOMATED 346 10^3/uL (150-450); RED BLOOD COUNT 4.78 10^6/uL (4.30-6.10); VENOUS BASE EXCESS 1.3 (-2.0-2.0); VENOUS HCO3 21.9 MEQ/L (23.0-27.0); VENOUS O2 SATURATION 91.6 % (60.0-80.0); VENOUS PARTIAL PRESSURE CO2 24.5 mmHg (38.0-50.0); VENOUS PARTIAL PRESSURE O2 52.9 mmHg (30.0-50.0); VENOUS STANDARD HCO3 25.5 MEQ/L; VENOUS TOTAL CO2 22.7 MEQ/L (24.0-28.0); WHITE BLOOD COUNT 14.8 10^3/uL (4.0-10.0)
[2017-10-27 21:09] LABS: ANION GAP 9 MEQ/L (8-16); BLOOD UREA NITROGEN 10 MG/DL (7-18); CARBON DIOXIDE LEVEL 24 MEQ/L (21-32); CHLORIDE LEVEL 103 MEQ/L (98-107); GLOMERULAR FILTRATION RATE > 60.0 (>60); GLUCOSE, FASTING 291 MG/DL (70-100); POTASSIUM SERUM 3.8 MEQ/L (3.5-5.1); SODIUM LEVEL 136 MEQ/L (136-145)
[2017-10-27] MEDS: fentaNYL 100 MCG/2 ML INJECTION (J3010) IV (21:20)
[2017-10-27] MEDS: METOCLOPRAMIDE INJ 10MG/2ML VIAL (J2765) IV (21:20)
[2017-10-27 22:47] LABS: BEDSIDE GLUCOSE 325 MG/DL (70-105)
[2017-10-27] MEDS: HumuLIN R (REGULAR) INSULIN (NovoLIN R) **100U/ML** PER UNIT SC (22:47)
[2017-10-27] MEDS: OXYCODONE/APAP 5MG/325MG(BULK FOR ED) 1 TABLET PO (23:56)
== END 2017-10-28 00:05 | disposition home or self-care (01) ==
LOC: M ED 10-28 00:05
DX: R10.9 Unspecified abdominal pain (principal); E10.65 Type 1 diabetes mellitus with hyperglycemia; R11.2 Nausea with vomiting, unspecified; K58.9 Irritable bowel syndrome, unspecified; F90.9 Attention-deficit hyperactivity disorder, unspecified type; M54.9 Dorsalgia, unspecified; G89.29 Other chronic pain; G62.9 Polyneuropathy, unspecified; Z86.19 Personal history of other infectious and parasitic diseases; F17.200 Nicotine dependence, unspecified, uncomplicated; Z88.0 Allergy status to penicillin; Z88.5 Allergy status to narcotic agent
CPT/HCPCS: J2405

== ENCOUNTER 2017-12-15 17:02 | Emergency (ER) | payer OTHER ==
[2017-12-15 17:27] LABS: VENOUS BASE EXCESS 1.2 (-2.0-2.0); VENOUS HCO3 25.2 MEQ/L (23.0-27.0); VENOUS O2 SATURATION 91.9 % (60.0-80.0); VENOUS PARTIAL PRESSURE O2 59.7 mmHg (30.0-50.0); VENOUS STANDARD HCO3 25.4 MEQ/L; VENOUS TOTAL CO2 26.4 MEQ/L (24.0-28.0)
[2017-12-15 17:31] LABS: BASO % 0.2 % (0.0-1.0); EOS % 0.2 % (0.0-3.0); HEMATOCRIT 36.4 % (42.0-52.0); HEMOGLOBIN 11.9 g/dl (13.5-17.5); IMMATURE GRANULOCYTE % 0.6 % (0-3.0); LYMPH # 2.3 10^3/uL (1.5-6.5); LYMPH % 13.6 % (24.0-44.0); MEAN CORPUSCULAR HEMOGLOBIN 25.3 pg (27.0-33.0); MEAN CORPUSCULAR HGB CONC 32.7 g/dl (32.0-36.5); MEAN CORPUSCULAR VOLUME 77.4 fl (80.0-96.0); MONO # 0.9 10^3/uL (0.0-0.8); MONO % 5.3 % (0.0-5.0); NEUTROPHILS # 13.5 10^3/uL (1.8-7.7); NEUTROPHILS % 80.1 % (36.0-66.0); PLATELET COUNT, AUTOMATED 330 10^3/uL (150-450); RED CELL DISTRIBUTION WIDTH 14.3 % (11.5-14.5); WHITE BLOOD COUNT 16.9 10^3/uL (4.0-10.0)
[2017-12-15 17:48] LABS: OSMOLALITY SERUM 303 MOSM/KG (275-295)
[2017-12-15 17:51] LABS: ESTIMATED AVERAGE GLUCOSE 309 MG/DL (60-110); HEMOGLOBIN A1c 12.4 %
[2017-12-15 17:57] LABS: ACETONE/KETONE 34.07 MG/DL (<2.81); ALBUMIN 3.2 GM/DL (3.2-5.2); ALBUMIN/GLOBULIN RATIO 0.63 (1.00-1.93); ALKALINE PHOSPHATASE 135 U/L (45-117); ALT/SGPT 18 U/L (12-78); ANION GAP 12 MEQ/L (8-16); AST/SGOT 14 U/L (7-37); BILIRUBIN,DIRECT 0.1 MG/DL (0.0-0.2); BILIRUBIN,TOTAL 0.4 MG/DL (0.2-1.0); BLOOD UREA NITROGEN 33 MG/DL (7-18); CALCIUM LEVEL 8.6 MG/DL (8.5-10.1); CARBON DIOXIDE LEVEL 28 MEQ/L (21-32); CHLORIDE LEVEL 94 MEQ/L (98-107); CREATININE FOR GFR 1.44 MG/DL (0.70-1.30); GLOMERULAR FILTRATION RATE > 60.0 (>60); GLUCOSE, FASTING 369 MG/DL (70-100); LIPASE 77 U/L (73-393); MAGNESIUM LEVEL 2.1 MG/DL (1.8-2.4); PHOSPHORUS LEVEL 4.1 MG/DL (2.5-4.9); POTASSIUM SERUM 4.2 MEQ/L (3.5-5.1); SODIUM LEVEL 134 MEQ/L (136-145); TOTAL PROTEIN 8.3 GM/DL (6.4-8.2)
[2017-12-15] MEDS: NS 1,000 ML IV ×2 (18:21→19:33)
[2017-12-15] MEDS: METOCLOPRAMIDE INJ 10MG/2ML VIAL (J2765) IV (18:21)
[2017-12-15] MEDS: KETOROLAC 30 MG/ML VIAL (J1885) IV (18:22)
[2017-12-15] MEDS: HumuLIN R (REGULAR) INSULIN (NovoLIN R) **100U/ML** PER UNIT IV (19:08)
[2017-12-16 07:40] LABS: BEDSIDE GLUCOSE 375 MG/DL (70-105)
[2017-12-16 07:40] LABS: BEDSIDE GLUCOSE 288 MG/DL (70-105)
== END 2017-12-15 21:13 | disposition home or self-care (01) ==
LOC: M ED 17:02
DX: E11.65 Type 2 diabetes mellitus with hyperglycemia (principal); Z91.14 Patient's other noncompliance with medication regimen; Z79.4 Long term (current) use of insulin; Z88.0 Allergy status to penicillin; Z88.5 Allergy status to narcotic agent
CPT/HCPCS: J1885

== ENCOUNTER 2018-01-15 21:22 | Emergency (ER) | payer OTHER ==
[2018-01-15] MEDS: NS 500 ML IV (20:00)
[2018-01-15 20:13] LABS: HEMATOCRIT 40.3 % (42.0-52.0); HEMOGLOBIN 13.6 g/dl (13.5-17.5); MEAN CORPUSCULAR HEMOGLOBIN 25.6 pg (27.0-33.0); MEAN CORPUSCULAR HGB CONC 33.7 g/dl (32.0-36.5); MEAN CORPUSCULAR VOLUME 75.8 fl (80.0-96.0); PLATELET COUNT, AUTOMATED 431 10^3/uL (150-450); RED BLOOD COUNT 5.32 10^6/uL (4.30-6.10); RED CELL DISTRIBUTION WIDTH 14.5 % (11.5-14.5); WHITE BLOOD COUNT 18.2 10^3/uL (4.0-10.0)
[2018-01-15 20:31] LABS: ANION GAP 10 MEQ/L (8-16); BLOOD UREA NITROGEN 17 MG/DL (7-18); CALCIUM LEVEL 9.4 MG/DL (8.5-10.1); CARBON DIOXIDE LEVEL 27 MEQ/L (21-32); CHLORIDE LEVEL 105 MEQ/L (98-107); CREATININE FOR GFR 1.35 MG/DL (0.70-1.30); GLOMERULAR FILTRATION RATE > 60.0 (>60); GLUCOSE, FASTING 162 MG/DL (70-100); POTASSIUM SERUM 3.6 MEQ/L (3.5-5.1); SODIUM LEVEL 142 MEQ/L (136-145)
[2018-01-15 21:59] LABS: ALBUMIN 3.8 GM/DL (3.2-5.2); ALBUMIN/GLOBULIN RATIO 0.81 (1.00-1.93); ALKALINE PHOSPHATASE 175 U/L (45-117); ALT/SGPT 24 U/L (12-78); AST/SGOT 10 U/L (7-37); BILIRUBIN,DIRECT 0.1 MG/DL (0.0-0.2); BILIRUBIN,TOTAL 0.4 MG/DL (0.2-1.0); LIPASE 130 U/L (73-393); TOTAL PROTEIN 8.5 GM/DL (6.4-8.2)
[2018-01-15] MEDS: METOCLOPRAMIDE INJ 10MG/2ML VIAL (J2765) IV (22:01)
[2018-01-15] MEDS: NS 1,000 ML IV ×2 (22:01→22:30)
[2018-01-16] MEDS ORDERED: ISOVUE-370 76% 100ML VIAL (Q9967) As Ordered (01:36)
[2018-01-16 02:21] LABS: APPEARANCE, URINE CLEAR (CLEAR); BACTERIA, URINE AUTO NEGATIVE (NEGATIVE); BILIRUBIN, URINE AUTO NEGATIVE (NEGATIVE); BLOOD, URINE BLOOD 1+ (NEGATIVE); COLOR, URINE YELLOW (YELLOW); GLUCOSE, URINE (UA) AUTO 3+ mg/dL (NEGATIVE); KETONE, URINE AUTO 1+ mg/dL (NEGATIVE); LEUKOCYTE ESTERASE, URINE AUTO NEGATIVE (NEGATIVE); NITRITE, URINE AUTO NEGATIVE (NEGATIVE); PROTEIN, URINE AUTO NEGATIVE (NEGATIVE); RBC, URINE AUTO 3 /HPF (0-3); SPECIFIC GRAVITY URINE AUTO 1.024 (1.002-1.035); SQUAMOUS EPITHELIAL CELL UR AU 0 /HPF (0-6); UROBILINOGEN, URINE AUTO 0.2 mg/dL (0.0-2.0); WBC, URINE AUTO 1 /HPF (0-3)
[2018-01-16] MEDS: MORPHINE 2 MG/ML 1ML SYRINGE (J2270) IV (03:07)
[2018-01-17 08:41] LABS: BEDSIDE GLUCOSE 117 MG/DL (70-105)
== END 2018-01-16 04:25 | disposition home or self-care (01) ==
LOC: M ED 01-16 04:25
DX: E10.10 Type 1 diabetes mellitus with ketoacidosis without coma (principal); K52.9 Noninfective gastroenteritis and colitis, unspecified; K58.9 Irritable bowel syndrome, unspecified; Z88.0 Allergy status to penicillin; Z88.5 Allergy status to narcotic agent; Z79.4 Long term (current) use of insulin
CPT/HCPCS: Q9967

== ENCOUNTER 2018-02-03 01:03 | Inpatient (IN) | payer OTHER ==
[2018-02-03 01:48] LABS: BASO % 0.3 % (0.0-1.0); EOS # 0.1 10^3/uL (0.0-0.50); EOS % 0.6 % (0.0-3.0); HEMATOCRIT 42.2 % (42.0-52.0); HEMOGLOBIN 14.4 g/dl (13.5-17.5); IMMATURE GRANULOCYTE % 0.8 % (0-3.0); LYMPH # 2.6 10^3/uL (1.5-6.5); LYMPH % 17.2 % (24.0-44.0); MEAN CORPUSCULAR HEMOGLOBIN 25.8 pg (27.0-33.0); MEAN CORPUSCULAR HGB CONC 34.1 g/dl (32.0-36.5); MEAN CORPUSCULAR VOLUME 75.5 fl (80.0-96.0); MONO % 6.4 % (0.0-5.0); NEUTROPHILS # 11.3 10^3/uL (1.8-7.7); NEUTROPHILS % 74.7 % (36.0-66.0); PLATELET COUNT, AUTOMATED 399 10^3/uL (150-450); RED BLOOD COUNT 5.59 10^6/uL (4.30-6.10); RED CELL DISTRIBUTION WIDTH 13.9 % (11.5-14.5)
[2018-02-03 01:49] LABS: VENOUS BASE EXCESS -2.5 (-2.0-2.0); VENOUS HCO3 21.6 MEQ/L (23.0-27.0); VENOUS O2 SATURATION 71.2 % (60.0-80.0); VENOUS PARTIAL PRESSURE CO2 35.2 mmHg (38.0-50.0); VENOUS PARTIAL PRESSURE O2 38.2 mmHg (30.0-50.0); VENOUS PH 7.405 UNITS (7.330-7.430); VENOUS STANDARD HCO3 21.8 MEQ/L; VENOUS TOTAL CO2 22.6 MEQ/L (24.0-28.0)
[2018-02-03 02:08] LABS: OSMOLALITY SERUM 311 MOSM/KG (275-295)
[2018-02-03 02:15] LABS: LACTIC ACID SEPSIS PROTOCOL 1.6 MMOL/L (0.4-2.0)
[2018-02-03 02:15] LABS: ALBUMIN 3.7 GM/DL (3.2-5.2); ALBUMIN/GLOBULIN RATIO 0.65 (1.00-1.93); ALKALINE PHOSPHATASE 168 U/L (45-117); ALT/SGPT 15 U/L (12-78); ANION GAP 16 MEQ/L (8-16); AST/SGOT 9 U/L (7-37); BILIRUBIN,DIRECT 0.2 MG/DL (0.0-0.2); BILIRUBIN,TOTAL 0.5 MG/DL (0.2-1.0); BLOOD UREA NITROGEN 47 MG/DL (7-18); CALCIUM LEVEL 9.5 MG/DL (8.5-10.1); CARBON DIOXIDE LEVEL 25 MEQ/L (21-32); CHLORIDE LEVEL 84 MEQ/L (98-107); CREATININE FOR GFR 2.08 MG/DL (0.70-1.30); GLOMERULAR FILTRATION RATE 42.3 (>60); GLUCOSE, FASTING 393 MG/DL (70-100); LIPASE 825 U/L (73-393); POTASSIUM SERUM 4.8 MEQ/L (3.5-5.1); SODIUM LEVEL 125 MEQ/L (136-145); TOTAL PROTEIN 9.4 GM/DL (6.4-8.2)
[2018-02-03] MEDS: ONDANSETRON 4MG/2ML VIAL (J2405) IV ×4 (02:19→19:43)
[2018-02-03] MEDS: NS 1,000 ML IV ×2 (02:20→05:21)
[2018-02-03] MEDS: MORPHINE 4 MG/ML 1ML VIAL/SYRINGE (J2270) IV ×8 (02:20→19:42)
[2018-02-03 02:24] LABS: ACETONE/KETONE > 46.00 MG/DL (<2.81)
[2018-02-03 02:41] LABS: KETONE, URINE AUTO RFX 1+ mg/dL (NEGATIVE); LEUKOCYTE ESTERASE UR AUTO RFX NEGATIVE (NEGATIVE); NITRITE, URINE AUTO RFX NEGATIVE (NEGATIVE); RBC, URINE AUTO RFX 1 /HPF (0-3); SPECIFIC GRAVITY UR AUTO RFX 1.016 (1.002-1.035); SQUAM EPITHELIAL CELL UR AURFX 0 /HPF (0-6); WBC, URINE AUTO RFX 1 /HPF (0-3)
[2018-02-03 02:57] LABS: AMPHETAMINES LEVEL URINE NEGATIVE (NEGATIVE); BARBITURATES URINE NEGATIVE (NEGATIVE); BENZODIAZEPINES URINE NEGATIVE (NEGATIVE); CANNABINOIDS URINE POSITIVE (NEGATIVE); COCAINE METABOLITE URINE NEGATIVE (NEGATIVE); METHADONE URINE NEGATIVE (NEGATIVE); OPIATES URINE NEGATIVE (NEGATIVE); PHENCYCLIDINE URINE NEGATIVE (NEGATIVE)
[2018-02-03] MEDS ORDERED: NS 1,000 ML IV (06:27)
[2018-02-03] MEDS: KCL 20MEQ in NS 1000ML 1,000 ML IV ×2 (07:35→07:55)
[2018-02-03 07:54] LABS: BEDSIDE GLUCOSE 380 MG/DL (70-105)
[2018-02-03] MEDS: INSULIN HUMAN REGULAR 100 UNITS in NS 99 ML IV (07:55)
[2018-02-03 08:03] LABS: BASO # 0.1 10^3/uL (0.0-0.2); BASO % 0.4 % (0.0-1.0); EOS # 0.1 10^3/uL (0.0-0.50); EOS % 0.4 % (0.0-3.0); HEMATOCRIT 33.7 % (42.0-52.0); LYMPH # 2.5 10^3/uL (1.5-6.5); LYMPH % 15.5 % (24.0-44.0); MEAN CORPUSCULAR HEMOGLOBIN 25.9 pg (27.0-33.0); MEAN CORPUSCULAR HGB CONC 34.4 g/dl (32.0-36.5); MEAN CORPUSCULAR VOLUME 75.2 fl (80.0-96.0); MONO # 0.9 10^3/uL (0.0-0.8); MONO % 5.7 % (0.0-5.0); NEUTROPHILS # 12.4 10^3/uL (1.8-7.7); PLATELET COUNT, AUTOMATED 325 10^3/uL (150-450); RED BLOOD COUNT 4.48 10^6/uL (4.30-6.10); WHITE BLOOD COUNT 16.1 10^3/uL (4.0-10.0)
[2018-02-03 08:15] LABS: ESTIMATED AVERAGE GLUCOSE 318 MG/DL (60-110); HEMOGLOBIN A1c 12.7 %
[2018-02-03 08:21] LABS: HEMOGLOBIN 11.6 g/dl (13.5-17.5)
[2018-02-03 08:36] LABS: ALBUMIN 3.1 GM/DL (3.2-5.2); ALBUMIN/GLOBULIN RATIO 0.78 (1.00-1.93); ALKALINE PHOSPHATASE 136 U/L (45-117); ALT/SGPT 12 U/L (12-78); ANION GAP 17 MEQ/L (8-16); AST/SGOT 8 U/L (7-37); BILIRUBIN,TOTAL 0.5 MG/DL (0.2-1.0); BLOOD UREA NITROGEN 42 MG/DL (7-18); CALCIUM LEVEL 8.2 MG/DL (8.5-10.1); CARBON DIOXIDE LEVEL 20 MEQ/L (21-32); CHLORIDE LEVEL 91 MEQ/L (98-107); CK-MB VALUE MASS < 1.0 NG/ML (<3.6); CPK CREATINE PHOSPHOKINASE 37 U/L (39-308); CREATININE FOR GFR 1.55 MG/DL (0.70-1.30); FREE THYROXINE INDEX 5.4 % (1.4-3.8); GLOMERULAR FILTRATION RATE 59.4 (>60); GLUCOSE, FASTING 370 MG/DL (70-100); MAGNESIUM LEVEL 2.5 MG/DL (1.8-2.4); PHOSPHORUS LEVEL 3.5 MG/DL (2.5-4.9); POTASSIUM SERUM 4.8 MEQ/L (3.5-5.1); SODIUM LEVEL 128 MEQ/L (136-145); T UPTAKE 40 % (33-40); THYROXINE (T4) 13.6 UG/DL (4.5-12.0); TOTAL PROTEIN 7.1 GM/DL (6.4-8.2); TROPONIN I < 0.02 NG/ML (< 0.10)
[2018-02-03] MEDS: HEPARIN SOD (PORCINE) 5000 UNITS/ML VIAL SC ×3 (08:37→21:04)
[2018-02-03 09:00] LABS: ACETONE/KETONE > 46.00 MG/DL (<2.81)
[2018-02-03] MEDS: INSULIN IV RATE CHANGE DOCUMENTATION ML/HR XX ×4 (09:01→20:13)
[2018-02-03 09:02] LABS: BEDSIDE GLUCOSE 339 MG/DL (70-105)
[2018-02-03 09:19] LABS: ANION GAP 21 MEQ/L (8-16); BLOOD UREA NITROGEN 42 MG/DL (7-18); CALCIUM LEVEL 8.1 MG/DL (8.5-10.1); CARBON DIOXIDE LEVEL 17 MEQ/L (21-32); CHLORIDE LEVEL 93 MEQ/L (98-107); CREATININE FOR GFR 1.55 MG/DL (0.70-1.30); GLOMERULAR FILTRATION RATE 59.4 (>60); GLUCOSE, FASTING 347 MG/DL (70-100); MAGNESIUM LEVEL 2.5 MG/DL (1.8-2.4); POTASSIUM SERUM 4.3 MEQ/L (3.5-5.1); SODIUM LEVEL 131 MEQ/L (136-145)
[2018-02-03 09:19] LABS: PHOSPHORUS LEVEL 3.3 MG/DL (2.5-4.9)
[2018-02-03 09:23] LABS: ACETONE/KETONE > 46.00 MG/DL (<2.81)
[2018-02-03 09:59] LABS: BEDSIDE GLUCOSE 306 MG/DL (70-105)
[2018-02-03 10:53] LABS: LIPASE 348 U/L (73-393)
[2018-02-03 11:06] LABS: BEDSIDE GLUCOSE 237 MG/DL (70-105)
[2018-02-03] MEDS ORDERED: GLUCOSE 4 GM CHEW TABLET PO (12:00)
[2018-02-03] MEDS: HumaLOG INSULIN (NovoLOG) PER UNIT SC ×5 (12:00→21:00)
[2018-02-03] MEDS ORDERED: DEXTROSE 50% 50 ML SYRINGE IV (12:00)
[2018-02-03] MEDS ORDERED: GLUCAGON FOR INJ 1 MG VIAL (J1610) SC (12:00)
[2018-02-03 12:09] LABS: BEDSIDE GLUCOSE 217 MG/DL (70-105)
[2018-02-03] MEDS: KCL 20MEQ IN D5/0.45NS 1000ML 1,000 ML IV ×2 (12:48→18:40)
[2018-02-03 13:14] LABS: BEDSIDE GLUCOSE 209 MG/DL (70-105)
[2018-02-03 14:21] LABS: BEDSIDE GLUCOSE 194 MG/DL (70-105)
[2018-02-03 15:10] LABS: BEDSIDE GLUCOSE 162 MG/DL (70-105)
[2018-02-03 15:55] LABS: MAGNESIUM LEVEL 2.3 MG/DL (1.8-2.4)
[2018-02-03 15:55] LABS: PHOSPHORUS LEVEL 2.8 MG/DL (2.5-4.9)
[2018-02-03 16:00] LABS: ACETONE/KETONE 17.43 MG/DL (<2.81)
[2018-02-03 16:02] LABS: BLOOD UREA NITROGEN 32 MG/DL (7-18); CALCIUM LEVEL 8.4 MG/DL (8.5-10.1); CHLORIDE LEVEL 99 MEQ/L (98-107); CK-MB VALUE MASS < 1.0 NG/ML (<3.6); CPK CREATINE PHOSPHOKINASE 41 U/L (39-308); CREATININE FOR GFR 1.25 MG/DL (0.70-1.30); GLUCOSE, FASTING 169 MG/DL (70-100); MB/CK RELATIVE INDEX 2.43 (< OR =4); POTASSIUM SERUM 4.1 MEQ/L (3.5-5.1); SODIUM LEVEL 134 MEQ/L (136-145); TROPONIN I < 0.02 NG/ML (< 0.10)
[2018-02-03 16:20] LABS: BEDSIDE GLUCOSE 166 MG/DL (70-105)
[2018-02-03 17:08] LABS: C REACTIVE PROTEIN QUANTITATIV 1.64 MG/DL (0.00-0.30)
[2018-02-03 17:13] LABS: BEDSIDE GLUCOSE 180 MG/DL (70-105)
[2018-02-03] MEDS: METOCLOPRAMIDE INJ 10MG/2ML VIAL (J2765) IV (18:11)
[2018-02-03 18:12] LABS: BEDSIDE GLUCOSE 205 MG/DL (70-105)
[2018-02-03 20:05] LABS: ANION GAP 10 MEQ/L (8-16); BLOOD UREA NITROGEN 29 MG/DL (7-18); CALCIUM LEVEL 8.3 MG/DL (8.5-10.1); CARBON DIOXIDE LEVEL 25 MEQ/L (21-32); CHLORIDE LEVEL 99 MEQ/L (98-107); CREATININE FOR GFR 1.29 MG/DL (0.70-1.30); GLOMERULAR FILTRATION RATE > 60.0 (>60); GLUCOSE, FASTING 214 MG/DL (70-100); POTASSIUM SERUM 4.1 MEQ/L (3.5-5.1); SODIUM LEVEL 134 MEQ/L (136-145)
[2018-02-03 20:07] LABS: PHOSPHORUS LEVEL 2.3 MG/DL (2.5-4.9)
[2018-02-03 20:07] LABS: ACETONE/KETONE 10.35 MG/DL (<2.81); MAGNESIUM LEVEL 2.2 MG/DL (1.8-2.4)
[2018-02-03 20:12] LABS: BEDSIDE GLUCOSE 202 MG/DL (70-105)
[2018-02-03 20:59] LABS: ERYTHROCYTE SEDIMENTATION RATE 33 mm/hr (0-15)
[2018-02-03] MEDS: LEVEMIR (INSULIN DETEMIR) 1 UNITS/0.01ML SC (21:04)
[2018-02-03 21:39] LABS: ANION GAP 10 MEQ/L (8-16); CARBON DIOXIDE LEVEL 25 MEQ/L (21-32)
[2018-02-03 22:06] LABS: BEDSIDE GLUCOSE 240 MG/DL (70-105)
[2018-02-03] MEDS: NORCO, ANEXSIA 5/325MG TABLET (HYDROcodone/ACETAMINOPHEN) PO (22:31)
[2018-02-03] MEDS ORDERED: ISOVUE-370 76% 100ML VIAL (Q9967) As Ordered (22:34)
[2018-02-03] MEDS: KCL 20MEQ IN 0.45NS 1000ML 1,000 ML IV (23:00)
[2018-02-03 23:53] LABS: BEDSIDE GLUCOSE 258 MG/DL (70-105)
[2018-02-04] LABS: ANION GAP 8 MEQ/L (8-16); BLOOD UREA NITROGEN 27 MG/DL (7-18); CALCIUM LEVEL 8.2 MG/DL (8.5-10.1); CARBON DIOXIDE LEVEL 27 MEQ/L (21-32); CHLORIDE LEVEL 99 MEQ/L (98-107); CREATININE FOR GFR 1.35 MG/DL (0.70-1.30); GLOMERULAR FILTRATION RATE > 60.0 (>60); GLUCOSE, FASTING 234 MG/DL (70-100); SODIUM LEVEL 134 MEQ/L (136-145)
[2018-02-04 00:02] LABS: PHOSPHORUS LEVEL 2.3 MG/DL (2.5-4.9)
[2018-02-04 00:02] LABS: ACETONE/KETONE 5.97 MG/DL (<2.81); MAGNESIUM LEVEL 2.2 MG/DL (1.8-2.4)
[2018-02-04] MEDS: NORCO, ANEXSIA 5/325MG TABLET (HYDROcodone/ACETAMINOPHEN) PO ×2 (02:24→06:23)
[2018-02-04 02:25] LABS: BEDSIDE GLUCOSE 225 MG/DL (70-105)
[2018-02-04 03:51] LABS: ACETONE/KETONE 2.21 MG/DL (<2.81); ALBUMIN 2.5 GM/DL (3.2-5.2); ALBUMIN/GLOBULIN RATIO 0.69 (1.00-1.93); ALKALINE PHOSPHATASE 106 U/L (45-117); ALT/SGPT 10 U/L (12-78); ANION GAP 7 MEQ/L (8-16); AST/SGOT 8 U/L (7-37); BILIRUBIN,TOTAL 0.2 MG/DL (0.2-1.0); BLOOD UREA NITROGEN 24 MG/DL (7-18); CARBON DIOXIDE LEVEL 26 MEQ/L (21-32); CHLORIDE LEVEL 102 MEQ/L (98-107); GLOMERULAR FILTRATION RATE > 60.0 (>60); GLUCOSE, FASTING 217 MG/DL (70-100); MAGNESIUM LEVEL 2.1 MG/DL (1.8-2.4); PHOSPHORUS LEVEL 2.2 MG/DL (2.5-4.9); SODIUM LEVEL 135 MEQ/L (136-145); TOTAL PROTEIN 6.1 GM/DL (6.4-8.2)
[2018-02-04] MEDS: KCL 20MEQ IN 0.45NS 1000ML 1,000 ML IV ×2 (05:40→06:22)
[2018-02-04] MEDS: HEPARIN SOD (PORCINE) 5000 UNITS/ML VIAL SC (06:22)
[2018-02-04 06:23] LABS: BEDSIDE GLUCOSE 150 MG/DL (70-105)
[2018-02-04 07:29] LABS: BEDSIDE GLUCOSE 129 MG/DL (70-105)
[2018-02-04] MEDS: HumaLOG INSULIN (NovoLOG) PER UNIT SC (07:34)
[2018-02-04] MEDS: METOCLOPRAMIDE INJ 10MG/2ML VIAL (J2765) IV (07:54)
[2018-02-04 07:56] LABS: ANION GAP 6 MEQ/L (8-16); BLOOD UREA NITROGEN 21 MG/DL (7-18); CALCIUM LEVEL 8.1 MG/DL (8.5-10.1); CARBON DIOXIDE LEVEL 27 MEQ/L (21-32); CHLORIDE LEVEL 105 MEQ/L (98-107); CREATININE FOR GFR 1.04 MG/DL (0.70-1.30); GLOMERULAR FILTRATION RATE > 60.0 (>60); GLUCOSE, FASTING 112 MG/DL (70-100); SODIUM LEVEL 138 MEQ/L (136-145)
[2018-02-04 07:58] LABS: ACETONE/KETONE 3.88 MG/DL (<2.81)
[2018-02-04 07:58] LABS: PHOSPHORUS LEVEL 1.9 MG/DL (2.5-4.9)
[2018-02-05 11:26] LABS: HIV 1&2 SCREEN CENTAUR NEGATIVE (NEGATIVE)
== END 2018-02-04 10:15 | disposition left against medical advice (07) | DRG 420 ==
LOC: M ED 01:03 → M ED INP 06:27 → M ICU 09:26
DX: E10.10 Type 1 diabetes mellitus with ketoacidosis without coma (principal); N17.9 Acute kidney failure, unspecified; E10.621 Type 1 diabetes mellitus with foot ulcer; E87.8 Other disorders of electrolyte and fluid balance, not elsewhere classified; L97.519 Non-pressure chronic ulcer of other part of right foot with unspecified severity; L97.529 Non-pressure chronic ulcer of other part of left foot with unspecified severity; E78.5 Hyperlipidemia, unspecified; E87.1 Hypo-osmolality and hyponatremia; F41.9 Anxiety disorder, unspecified; R82.4 Acetonuria; F32.9 Major depressive disorder, single episode, unspecified; E86.0 Dehydration; Z91.14 Patient's other noncompliance with medication regimen; Z79.4 Long term (current) use of insulin; Z88.0 Allergy status to penicillin; Z88.5 Allergy status to narcotic agent

== ENCOUNTER 2018-05-08 20:44 | Emergency (ER) | payer OTHER | END 2018-05-08 23:25 | disposition left against medical advice (07) | LOC: M ED 20:44 | DX: Z53.21 Procedure and treatment not carried out due to patient leaving prior to being seen by health care provider (principal) ==

== ENCOUNTER 2018-05-12 05:01 | Emergency (ER) | payer OTHER | END 2018-05-12 06:00 | disposition left against medical advice (07) | LOC: M ED 05:01 | DX: Z53.21 Procedure and treatment not carried out due to patient leaving prior to being seen by health care provider (principal) ==

== ENCOUNTER 2018-06-20 17:24 | Observation (INO) | payer OTHER ==
[2018-06-20 18:25] LABS: BASO # 0.1 10^3/uL (0.0-0.2); BASO % 0.5 % (0.0-1.0); EOS # 0.1 10^3/uL (0.0-0.50); EOS % 0.6 % (0.0-3.0); HEMATOCRIT 36.2 % (42.0-52.0); IMMATURE GRANULOCYTE % 0.6 % (0-3.0); LYMPH # 2.7 10^3/uL (1.5-6.5); LYMPH % 19.2 % (24.0-44.0); MEAN CORPUSCULAR HEMOGLOBIN 26.1 pg (27.0-33.0); MEAN CORPUSCULAR HGB CONC 33.1 g/dl (32.0-36.5); MEAN CORPUSCULAR VOLUME 78.9 fl (80.0-96.0); MONO # 0.9 10^3/uL (0.0-0.8); MONO % 6.4 % (0.0-5.0); NEUTROPHILS # 10.3 10^3/uL (1.8-7.7); NEUTROPHILS % 72.7 % (36.0-66.0); PLATELET COUNT, AUTOMATED 711 10^3/uL (150-450); RED BLOOD COUNT 4.59 10^6/uL (4.30-6.10); RED CELL DISTRIBUTION WIDTH 12.9 % (11.5-14.5); WHITE BLOOD COUNT 14.1 10^3/uL (4.0-10.0)
[2018-06-20 18:34] LABS: VENOUS BASE EXCESS 5.2 (-2.0-2.0); VENOUS O2 SATURATION 92.2 % (60.0-80.0); VENOUS PARTIAL PRESSURE CO2 44.9 mmHg (38.0-50.0); VENOUS PARTIAL PRESSURE O2 61.6 mmHg (30.0-50.0); VENOUS PH 7.443 UNITS (7.330-7.430); VENOUS TOTAL CO2 31.4 MEQ/L (24.0-28.0)
[2018-06-20 18:47] LABS: ALBUMIN 3.1 GM/DL (3.2-5.2); ALBUMIN/GLOBULIN RATIO 0.58 (1.00-1.93); ALKALINE PHOSPHATASE 128 U/L (45-117); ALT/SGPT 16 U/L (12-78); ANION GAP 15 MEQ/L (8-16); AST/SGOT 9 U/L (7-37); BILIRUBIN,DIRECT < 0.1 MG/DL (0.0-0.2); BILIRUBIN,TOTAL 0.4 MG/DL (0.2-1.0); BLOOD UREA NITROGEN 30 MG/DL (7-18); CALCIUM LEVEL 9.1 MG/DL (8.5-10.1); CARBON DIOXIDE LEVEL 29 MEQ/L (21-32); CHLORIDE LEVEL 84 MEQ/L (98-107); CREATININE FOR GFR 1.66 MG/DL (0.70-1.30); GLOMERULAR FILTRATION RATE 54.5 (>60); GLUCOSE, FASTING 365 MG/DL (70-100); LIPASE 111 U/L (73-393); POTASSIUM SERUM 4.1 MEQ/L (3.5-5.1); SODIUM LEVEL 128 MEQ/L (136-145); TOTAL PROTEIN 8.4 GM/DL (6.4-8.2)
[2018-06-20] MEDS: NS 1,000 ML IV ×2 (19:13→20:41)
[2018-06-20] MEDS: MORPHINE 4 MG/ML 1ML VIAL/SYRINGE (J2270) IV ×2 (20:52→22:24)
[2018-06-20] MEDS: ONDANSETRON 4MG/2ML VIAL (J2405) IV ×2 (21:21→22:19)
[2018-06-20] MEDS: PERCOCET 5MG/325MG TAB PO ×2 (21:47→21:59)
[2018-06-21] MEDS: MORPHINE 4 MG/ML 1ML VIAL/SYRINGE (J2270) IV ×5 (00:16→11:05)
[2018-06-21] MEDS: NS 1,000 ML IV ×4 (00:16→08:59)
[2018-06-21] MEDS ORDERED: BISACODYL 5 MG TAB PO (00:30)
[2018-06-21] MEDS ORDERED: METOCLOPRAMIDE INJ 10MG/2ML VIAL (J2765) IV (00:30)
[2018-06-21] MEDS ORDERED: GLUCOSE 4 GM CHEW TABLET PO (00:30)
[2018-06-21] MEDS ORDERED: ACETAMINOPHEN TAB 650MG DOSE (2X325MG) PO (00:30)
[2018-06-21] MEDS ORDERED: GLUCAGON FOR INJ 1 MG VIAL (J1610) SC (00:30)
[2018-06-21] MEDS ORDERED: BISACODYL 10 MG SUPP PR (00:30)
[2018-06-21] MEDS ORDERED: DEXTROSE 50% 50 ML SYRINGE IV (00:30)
[2018-06-21] MEDS ORDERED: ONDANSETRON 4MG/2ML VIAL (J2405) IV (00:30)
[2018-06-21] MEDS ORDERED: GI COCKTAIL 50ML BTL(HYOSCYAMINE/MAALOX/LIDOCAINE VISCOUS)(1:3:1) PO (00:45)
[2018-06-21 01:32] LABS: BEDSIDE GLUCOSE 365 MG/DL (70-105)
[2018-06-21] MEDS: HumaLOG INSULIN (NovoLOG) PER UNIT SC ×3 (01:42→11:14)
[2018-06-21] MEDS ORDERED: HEPARIN SOD (PORCINE) 5000 UNITS/ML VIAL SC (06:00)
[2018-06-21 08:27] LABS: BEDSIDE GLUCOSE 374 MG/DL (70-105)
[2018-06-21 08:38] LABS: AMPHETAMINES LEVEL URINE NEGATIVE (NEGATIVE); BARBITURATES URINE NEGATIVE (NEGATIVE); BENZODIAZEPINES URINE NEGATIVE (NEGATIVE); CANNABINOIDS URINE POSITIVE (NEGATIVE); COCAINE METABOLITE URINE NEGATIVE (NEGATIVE); METHADONE URINE NEGATIVE (NEGATIVE); OPIATES URINE POSITIVE (NEGATIVE); PHENCYCLIDINE URINE NEGATIVE (NEGATIVE)
[2018-06-21] MEDS: ONDANSETRON 4MG/2ML VIAL (J2405) IV (08:58)
[2018-06-21] MEDS ORDERED: PANTOPRAZOLE 40MG TAB (PROTONIX) PO (09:00)
[2018-06-21] MEDS: CHLORHEXIDINE ORAL RINSE 0.12%/15ML 120ML BOTTLE SSP (09:00)
[2018-06-21 09:06] LABS: OSMOLALITY URINE 337 MOSM/KG (500-800)
[2018-06-21 09:20] LABS: CHLORIDE,RANDOM URINE < 10 MEQ/L; CREATININE,RANDOM URINE 41.7 MG/DL; POTASSIUM RANDOM URINE 6.1 MEQ/L; SODIUM,RANDOM URINE 29 MEQ/L; TOTAL PROTEIN,RANDOM URINE 11.7 MG/DL (0.0-12.0)
[2018-06-21 09:38] LABS: MEAN CORPUSCULAR HEMOGLOBIN 26.3 pg (27.0-33.0); MEAN CORPUSCULAR HGB CONC 32.8 g/dl (32.0-36.5); MEAN CORPUSCULAR VOLUME 80.3 fl (80.0-96.0); RED BLOOD COUNT 3.61 10^6/uL (4.30-6.10); RED CELL DISTRIBUTION WIDTH 12.9 % (11.5-14.5); WHITE BLOOD COUNT 13.9 10^3/uL (4.0-10.0)
[2018-06-21 09:44] LABS: HEMOGLOBIN 9.5 g/dl (13.5-17.5); PLATELET COUNT, AUTOMATED 493 10^3/uL (150-450)
[2018-06-21 09:56] LABS: ANION GAP 12 MEQ/L (8-16); BLOOD UREA NITROGEN 20 MG/DL (7-18); CALCIUM LEVEL 8.1 MG/DL (8.5-10.1); CARBON DIOXIDE LEVEL 26 MEQ/L (21-32); CHLORIDE LEVEL 93 MEQ/L (98-107); CREATININE FOR GFR 1.14 MG/DL (0.70-1.30); GLOMERULAR FILTRATION RATE > 60.0 (>60); GLUCOSE, FASTING 322 MG/DL (70-100); POTASSIUM SERUM 3.3 MEQ/L (3.5-5.1); SODIUM LEVEL 131 MEQ/L (136-145)
[2018-06-21 10:05] LABS: ETHYL ALCOHOL (ETHANOL) < 0.003 % (0.000-0.010)
[2018-06-21] MEDS: METOCLOPRAMIDE INJ 10MG/2ML VIAL (J2765) IV (11:05)
[2018-06-21] MEDS: KCL 20MEQ in NS 1000ML 1,000 ML IV (11:06)
[2018-06-21] MEDS: POTASSIUM CHLORIDE 10 MEQ SR TABLET PO (11:06)
[2018-06-21 11:17] LABS: BEDSIDE GLUCOSE 232 MG/DL (70-105)
[2018-06-21 13:12] LABS: ESTIMATED AVERAGE GLUCOSE 246 MG/DL (60-110); HEMOGLOBIN A1c 10.2 %
[2018-06-21 21:00] LABS: KETONE, URINE AUTO RFX 1+ mg/dL (NEGATIVE); LEUKOCYTE ESTERASE UR AUTO RFX NEGATIVE (NEGATIVE); MUCUS, URINE RFX SMALL (NEGATIVE); NITRITE, URINE AUTO RFX NEGATIVE (NEGATIVE); RBC, URINE AUTO RFX 3 /HPF (0-3); SPECIFIC GRAVITY UR AUTO RFX 1.009 (1.002-1.035); SQUAM EPITHELIAL CELL UR AURFX 0 /HPF (0-6); WBC, URINE AUTO RFX 0 /HPF (0-3)
[2018-06-21] MEDS ORDERED: LEVEMIR (INSULIN DETEMIR) 1 UNITS/0.01ML SC (21:00)
== END 2018-06-21 17:05 | disposition home or self-care (01) ==
LOC: M ED INP 17:25 → M PED 06-21 03:03 → M ICU 06-21 09:47 → M ED 17:24
DX: N17.9 Acute kidney failure, unspecified (principal); E87.1 Hypo-osmolality and hyponatremia; E10.69 Type 1 diabetes mellitus with other specified complication; K52.9 Noninfective gastroenteritis and colitis, unspecified; D63.8 Anemia in other chronic diseases classified elsewhere; Z79.4 Long term (current) use of insulin; Z79.899 Other long term (current) drug therapy; D72.829 Elevated white blood cell count, unspecified; F12.10 Cannabis abuse, uncomplicated
CPT/HCPCS: J2270

== ENCOUNTER → 2018-06-29 | Outpatient (REF) | payer OTHER | LOC: M SFHCPLAZ 16:59 | DX: E10.621 Type 1 diabetes mellitus with foot ulcer (principal) | CPT/HCPCS: 87186 ==

== ENCOUNTER 2018-07-05 16:30 | Inpatient (IN) | payer OTHER ==
[2018-07-05] MEDS: VANCOMYCIN HCL 1,000 MG, VIAL MATE ADAPTER 1 EACH in D5W 250 ML IV ×2 (00:30)
[2018-07-05 16:42] LABS: BEDSIDE GLUCOSE 182 MG/DL (70-105)
[2018-07-05] MEDS: LORazepam 2 MG/ML VIAL (J2060) IM (16:45)
[2018-07-05] MEDS ORDERED: LORazepam 2 MG/ML VIAL (J2060) As Ordered (16:45)
[2018-07-05] MEDS: NS 1,000 ML IV ×3 (16:55→22:15)
[2018-07-05 17:20] LABS: HEMATOCRIT 30.5 % (42.0-52.0); HEMOGLOBIN 9.6 g/dl (13.5-17.5); MEAN CORPUSCULAR HEMOGLOBIN 26.5 pg (27.0-33.0); MEAN CORPUSCULAR HGB CONC 31.5 g/dl (32.0-36.5); MEAN CORPUSCULAR VOLUME 84.3 fl (80.0-96.0); PLATELET COUNT, AUTOMATED 579 10^3/uL (150-450); RED BLOOD COUNT 3.62 10^6/uL (4.30-6.10); RED CELL DISTRIBUTION WIDTH 14.2 % (11.5-14.5)
[2018-07-05 17:22] LABS: WHITE BLOOD COUNT 30.7 10^3/uL (4.0-10.0)
[2018-07-05 17:23] LABS: ADD MANUAL DIFFER YES; DIFF SLIDE NUMBER 289; POS COUNT POS FLAG; POSITIVE DIFF POS FLAG
[2018-07-05] MEDS: LORazepam 2 MG/ML VIAL (J2060) IV ×3 (17:39→23:00)
[2018-07-05] MEDS: HALOPERIDOL 5 MG/ML VIAL (J1630) IM ×2 (17:40→18:13)
[2018-07-05] MEDS ORDERED: NITROGLYCERIN 0.4 MG SUBL TABLET SL (17:45)
[2018-07-05 17:48] LABS: ATYPICAL LYMPH 1 % (0-5); BANDS 3 % (< 11); EOSINOPHILS 1 % (0-5); LYMPHOCYTES 7 % (16-52); METAMYELOCYTES 1 % (0-0); MONOCYTES 5 % (0-8); NEUTROPHILS 82 % (35-75)
[2018-07-05 17:50] LABS: PLATELET ESTIMATE INCREASED (NORMAL); POLYCHROMASIA 1+
[2018-07-05 17:52] LABS: BEDSIDE GLUCOSE 160 MG/DL (70-105)
[2018-07-05 18:19] LABS: ACETAMINOPHEN LEVEL 3.7 UG/ML (10.0-30.0); ALBUMIN 2.3 GM/DL (3.2-5.2); ALBUMIN/GLOBULIN RATIO 0.47 (1.00-1.93); ALKALINE PHOSPHATASE 132 U/L (45-117); ALT/SGPT 30 U/L (12-78); ANION GAP 12 MEQ/L (8-16); AST/SGOT 24 U/L (7-37); BILIRUBIN,DIRECT < 0.1 MG/DL (0.0-0.2); BILIRUBIN,TOTAL 0.1 MG/DL (0.2-1.0); BLOOD UREA NITROGEN 13 MG/DL (7-18); CALCIUM LEVEL 8.3 MG/DL (8.5-10.1); CARBON DIOXIDE LEVEL 21 MEQ/L (21-32); CHLORIDE LEVEL 111 MEQ/L (98-107); ETHYL ALCOHOL (ETHANOL) 0.003 % (0.000-0.010); GLOMERULAR FILTRATION RATE > 60.0 (>60); GLUCOSE, FASTING 162 MG/DL (70-100); POTASSIUM SERUM 4.8 MEQ/L (3.5-5.1); SALICYLATE LEVEL < 1.7 MG/DL (5.0-30.0); SODIUM LEVEL 144 MEQ/L (136-145); TOTAL PROTEIN 7.2 GM/DL (6.4-8.2)
[2018-07-05] MEDS: KETAMINE HCL 200 MG/20 ML VIAL IV (18:30)
[2018-07-05 18:35] LABS: KETONE, URINE AUTO RFX NEGATIVE (NEGATIVE); LEUKOCYTE ESTERASE UR AUTO RFX NEGATIVE (NEGATIVE); NITRITE, URINE AUTO RFX NEGATIVE (NEGATIVE); RBC, URINE AUTO RFX 4 /HPF (0-3); SPECIFIC GRAVITY UR AUTO RFX 1.018 (1.002-1.035); SQUAM EPITHELIAL CELL UR AURFX 0 /HPF (0-6); WBC, URINE AUTO RFX 1 /HPF (0-3)
[2018-07-05 19:03] LABS: BEDSIDE GLUCOSE 184 MG/DL (70-105)
[2018-07-05] MEDS ORDERED: MEROPENEM INJ 2 GM in NS 100 ML IV (19:15)
[2018-07-05] MEDS ORDERED: PROPOFOL 1,000 MG/100 ML VIAL As Ordered (19:20)
[2018-07-05] MEDS ORDERED: PROPOFOL 200 MG/20 ML VIAL As Ordered (19:21)
[2018-07-05 19:24] LABS: AMPHETAMINES LEVEL URINE NEGATIVE (NEGATIVE); BARBITURATES URINE NEGATIVE (NEGATIVE); BENZODIAZEPINES URINE NEGATIVE (NEGATIVE); CANNABINOIDS URINE POSITIVE (NEGATIVE); COCAINE METABOLITE URINE NEGATIVE (NEGATIVE); METHADONE URINE NEGATIVE (NEGATIVE); OPIATES URINE NEGATIVE (NEGATIVE); PHENCYCLIDINE URINE NEGATIVE (NEGATIVE)
[2018-07-05] MEDS: MEROPENEM INJ 1 GM in APPROPRIATE DILUENT 1 EA IV ×2 (19:30→20:00)
[2018-07-05 20:10] LABS: CSF RBC < 2 10^3/uL (<2)
[2018-07-05 20:11] LABS: CSF TUBE# GLU TUBE 2; CSF TUBE# TP TUBE 2; GLUCOSE CSF 79 MG/DL (40-75); TOTAL PROTEIN,CSF 25 MG/DL (15-45)
[2018-07-05 20:12] LABS: CSF RBC 2 10^3/uL (<2); CSF WBC 12 /uL (0-10)
[2018-07-05 20:13] LABS: APPEARANCE, CSF CLEAR (CLEAR); COLOR, CSF COLORLESS (COLORLESS); CSF DIFF IF INDICATED? NO (NO); CSF TUBE# CELL CNT TUBE 4; CSF WBC 2 /uL (0-10)
[2018-07-05 20:14] LABS: APPEARANCE, CSF HAZY (CLEAR); COLOR, CSF PINK (COLORLESS); CSF DIFF IF INDICATED? YES (NO); CSF TUBE# CELL CNT TUBE 3
[2018-07-05 20:15] LABS: BEDSIDE GLUCOSE 151 MG/DL (70-105)
[2018-07-05] MEDS: ACYCLOVIR 1,000 MG in D5W 250 ML IV (21:00)
[2018-07-05] MEDS: HumaLOG INSULIN (NovoLOG) PER UNIT SC (21:00)
[2018-07-05] MEDS ORDERED: GLUCAGON FOR INJ 1 MG VIAL (J1610) SC (22:15)
[2018-07-05] MEDS ORDERED: GLUCOSE 4 GM CHEW TABLET PO (22:15)
[2018-07-05] MEDS ORDERED: ACETAMINOPHEN TAB 650MG DOSE (2X325MG) PO (22:15)
[2018-07-05] MEDS ORDERED: ONDANSETRON 4MG/2ML VIAL (J2405) IV (22:30)
[2018-07-05] MEDS: diphenhydrAMINE INJ 50MG/ML VIAL (J1200) IV (23:00)
[2018-07-05] MEDS: HALOPERIDOL 5 MG/ML VIAL (J1630) IV (23:00)
[2018-07-05 23:08] LABS: BEDSIDE GLUCOSE 173 MG/DL (70-105)
[2018-07-06 00:28] LABS: ERYTHROCYTE SEDIMENTATION RATE 83 mm/hr (0-15)
[2018-07-06] MEDS: VANCOMYCIN HCL 1,000 MG, VIAL MATE ADAPTER 1 EACH in D5W 250 ML IV ×4 (00:30→18:35)
[2018-07-06 01:02] LABS: LACTIC ACID SEPSIS PROTOCOL 1.4 MMOL/L (0.4-2.0)
[2018-07-06] MEDS: D10W/0.45% SODIUM CHLORIDE 1,000 ML IV ×2 (02:00→12:01)
[2018-07-06 02:39] LABS: BEDSIDE GLUCOSE 172 MG/DL (70-105)
[2018-07-06] MEDS: MEROPENEM INJ 500 MG in APPROPRIATE DILUENT 1 EA IV ×3 (04:00→19:58)
[2018-07-06] MEDS: LORazepam 2 MG/ML VIAL (J2060) IV (05:01)
[2018-07-06] MEDS: diphenhydrAMINE INJ 50MG/ML VIAL (J1200) IV ×2 (05:01→10:09)
[2018-07-06] MEDS: HALOPERIDOL 5 MG/ML VIAL (J1630) IV (05:01)
[2018-07-06 05:12] LABS: HEMATOCRIT 22.8 % (42.0-52.0); MEAN CORPUSCULAR HEMOGLOBIN 26.2 pg (27.0-33.0); MEAN CORPUSCULAR HGB CONC 31.6 g/dl (32.0-36.5); MEAN CORPUSCULAR VOLUME 82.9 fl (80.0-96.0); RED BLOOD COUNT 2.75 10^6/uL (4.30-6.10); RED CELL DISTRIBUTION WIDTH 14.4 % (11.5-14.5)
[2018-07-06 05:28] LABS: ANION GAP 4 MEQ/L (8-16); BLOOD UREA NITROGEN 9 MG/DL (7-18); C REACTIVE PROTEIN QUANTITATIV 5.22 MG/DL (0.00-0.30); CALCIUM LEVEL 7.5 MG/DL (8.5-10.1); CARBON DIOXIDE LEVEL 26 MEQ/L (21-32); CHLORIDE LEVEL 111 MEQ/L (98-107); CREATININE FOR GFR 0.82 MG/DL (0.70-1.30); FERRITIN 93 NG/ML (26-388); GLOMERULAR FILTRATION RATE > 60.0 (>60); GLUCOSE, FASTING 119 MG/DL (70-100); IRON (FE) 11 UG/DL (65-175); PERCENT SATURATION 6.4 % (19.7-50.0); SODIUM LEVEL 141 MEQ/L (136-145); TOTAL IRON BINDING CAPACITY 173 UG/DL (250-450)
[2018-07-06 05:31] LABS: HEMOGLOBIN 7.2 g/dl (13.5-17.5)
[2018-07-06 05:32] LABS: PLATELET COUNT, AUTOMATED 366 10^3/uL (150-450)
[2018-07-06] MEDS: HEPARIN SOD (PORCINE) 5000 UNITS/ML VIAL SC ×3 (06:00→22:00)
[2018-07-06] MEDS: HumaLOG INSULIN (NovoLOG) PER UNIT SC ×4 (07:30→21:00)
[2018-07-06 07:58] LABS: BEDSIDE GLUCOSE 29 MG/DL (70-105)
[2018-07-06] MEDS: DEXTROSE 50% 50 ML SYRINGE IV ×6 (07:59→15:27)
[2018-07-06] MEDS: D5W/0.9% SODIUM CHLORIDE 1,000 ML IV (08:31)
[2018-07-06 09:21] LABS: BEDSIDE GLUCOSE 74 MG/DL (70-105)
[2018-07-06] MEDS: LORazepam 2 MG/ML VIAL (J2060) IM (09:45)
[2018-07-06] MEDS: HALOPERIDOL 5 MG/ML VIAL (J1630) IM (09:45)
[2018-07-06 10:36] LABS: BEDSIDE GLUCOSE 58 MG/DL (70-105)
[2018-07-06 11:25] LABS: BEDSIDE GLUCOSE 128 MG/DL (70-105)
[2018-07-06 12:35] LABS: IMMEDIATE SPIN CROSSMATCH 1 2
[2018-07-06 12:45] LABS: BEDSIDE GLUCOSE 75 MG/DL (70-105)
[2018-07-06 13:25] LABS: BEDSIDE GLUCOSE 61 MG/DL (70-105)
[2018-07-06 13:59] LABS: BEDSIDE GLUCOSE 123 MG/DL (70-105)
[2018-07-06 15:23] LABS: BEDSIDE GLUCOSE 63 MG/DL (70-105)
[2018-07-06 16:37] LABS: BEDSIDE GLUCOSE 107 MG/DL (70-105)
[2018-07-06 17:34] LABS: VANCOMYCIN LEVEL TROUGH 20.4 UG/ML (10.0-20.0)
[2018-07-06 18:09] LABS: HEMATOCRIT 27.8 % (42.0-52.0); HEMOGLOBIN 9.1 g/dl (13.5-17.5)
[2018-07-06 18:14] LABS: BEDSIDE GLUCOSE 83 MG/DL (70-105)
[2018-07-06 19:53] LABS: BEDSIDE GLUCOSE 127 MG/DL (70-105)
[2018-07-06 20:36] LABS: ESTIMATED AVERAGE GLUCOSE 252 MG/DL (60-110); HEMOGLOBIN A1c 10.4 %
[2018-07-06 21:47] LABS: BEDSIDE GLUCOSE 133 MG/DL (70-105)
[2018-07-06 23:38] LABS: BEDSIDE GLUCOSE 109 MG/DL (70-105)
[2018-07-07] MEDS: VANCOMYCIN HCL 1,000 MG, VIAL MATE ADAPTER 1 EACH in D5W 250 ML IV ×2 (02:00→10:00)
[2018-07-07 02:16] LABS: BEDSIDE GLUCOSE 202 MG/DL (70-105)
[2018-07-07] MEDS: MEROPENEM INJ 500 MG in APPROPRIATE DILUENT 1 EA IV (04:00)
[2018-07-07 04:31] LABS: BEDSIDE GLUCOSE 255 MG/DL (70-105)
[2018-07-07 05:18] LABS: HEMATOCRIT 27.6 % (42.0-52.0); HEMOGLOBIN 8.9 g/dl (13.5-17.5); MEAN CORPUSCULAR HEMOGLOBIN 26.7 pg (27.0-33.0); MEAN CORPUSCULAR HGB CONC 32.2 g/dl (32.0-36.5); MEAN CORPUSCULAR VOLUME 82.9 fl (80.0-96.0); PLATELET COUNT, AUTOMATED 359 10^3/uL (150-450); RED BLOOD COUNT 3.33 10^6/uL (4.30-6.10); RED CELL DISTRIBUTION WIDTH 14.4 % (11.5-14.5); WHITE BLOOD COUNT 10.9 10^3/uL (4.0-10.0)
[2018-07-07 05:46] LABS: ANION GAP 8 MEQ/L (8-16); BLOOD UREA NITROGEN 3 MG/DL (7-18); CALCIUM LEVEL 7.3 MG/DL (8.5-10.1); CARBON DIOXIDE LEVEL 27 MEQ/L (21-32); CHLORIDE LEVEL 105 MEQ/L (98-107); CREATININE FOR GFR 0.95 MG/DL (0.70-1.30); GLOMERULAR FILTRATION RATE > 60.0 (>60); GLUCOSE, FASTING 233 MG/DL (70-100); POTASSIUM SERUM 4.2 MEQ/L (3.5-5.1); SODIUM LEVEL 140 MEQ/L (136-145)
[2018-07-07] MEDS: HEPARIN SOD (PORCINE) 5000 UNITS/ML VIAL SC (05:51)
[2018-07-07 08:06] LABS: TRANSFERRIN 140 mg/dL (200-370)
[2018-07-07 08:35] LABS: BEDSIDE GLUCOSE 238 MG/DL (70-105)
[2018-07-07] MEDS: HumaLOG INSULIN (NovoLOG) PER UNIT SC ×2 (08:39→12:00)
[2018-07-07 08:51] LABS: C REACTIVE PROTEIN QUANTITATIV 5.28 MG/DL (0.00-0.30)
[2018-07-07] MEDS ORDERED: ISOVUE-370 76% 100ML VIAL (Q9967) As Ordered (09:30)
[2018-07-07 10:05] LABS: BEDSIDE GLUCOSE 20 MG/DL (70-105)
[2018-07-07] MEDS: DEXTROSE 50% 50 ML SYRINGE IV (10:22)
[2018-07-07 10:32] LABS: BEDSIDE GLUCOSE 11 MG/DL (70-105)
[2018-07-07 11:05] LABS: BEDSIDE GLUCOSE 141 MG/DL (70-105)
[2018-07-07] MEDS ORDERED: HumaLOG INSULIN (NovoLOG) PER UNIT SC ×3 (17:30→21:00)
== END 2018-07-07 12:55 | disposition left against medical advice (07) | DRG 344 ==
LOC: M ICU 07-06 00:06 → M ED 16:30 → M ED INP 22:15
PROVIDERS: Internal Medicine Nephrology; Specialist
PROC: 30233N1 Transfusion of Nonautologous Red Blood Cells into Peripheral Vein, Percutaneous Approach (ICD-10-PCS; principal; 2018-07-06)
DX: E10.649 Type 1 diabetes mellitus with hypoglycemia without coma (principal); G93.41 Metabolic encephalopathy; E10.43 Type 1 diabetes mellitus with diabetic autonomic (poly)neuropathy; D69.6 Thrombocytopenia, unspecified; K31.84 Gastroparesis; M86.671 Other chronic osteomyelitis, right ankle and foot; E44.0 Moderate protein-calorie malnutrition; L97.319 Non-pressure chronic ulcer of right ankle with unspecified severity; E10.69 Type 1 diabetes mellitus with other specified complication; N52.9 Male erectile dysfunction, unspecified; K58.9 Irritable bowel syndrome, unspecified; D63.8 Anemia in other chronic diseases classified elsewhere; Z88.0 Allergy status to penicillin; Z88.5 Allergy status to narcotic agent; Z79.4 Long term (current) use of insulin; Z79.899 Other long term (current) drug therapy; F90.9 Attention-deficit hyperactivity disorder, unspecified type; F91.3 Oppositional defiant disorder; F60.81 Narcissistic personality disorder; F60.2 Antisocial personality disorder; F81.9 Developmental disorder of scholastic skills, unspecified; Z91.19 Patient's noncompliance with other medical treatment and regimen; Z91.11 Patient's noncompliance with dietary regimen; Z91.14 Patient's other noncompliance with medication regimen

== ENCOUNTER 2019-04-02 06:51 | Emergency (ER) | payer OTHER ==
[~2019-04-02] VITALS: Ht 180.3 cm; Wt 81.8 kg
[~2019-04-02 06:51] MED LIST changes: +ADVO0.5M2 SC; +ADVO31MI2 XX; +CLIN150C14 PO; +CLINDAMYCIN; +DOXY100C37; +DOXY100T PO; -DRIS50002 PO; +DRIS50003 PO; +FOLI1TAB11 PO; -FOLI1TAB4 PO; +HYDR-3713; +HYDR-3715 PO; +IBUP1TAB7 PO; +NAPR-885 PO; -NAPR500T3 PO; +NORC1TAB7 PO; -NORCOTAB PO; +OMEP40CA2 PO; +PATIENT COMMENTS; +PERI12LIQ SSP; -VITA1CAP40 PO; +VITA50005 PO; +ZOFR4TAB14 PO; +ZOFR4TAB14 SL; +[UNRECOGNIZED DRUG - CODE] XX; -[UNRECOGNIZED DRUG - CODE] XX
[2019-04-02] MEDS ORDERED: KETOROLAC 60 MG/2 ML VIAL (J1885) IM ONE (09:15)
[2019-04-02] MEDS ORDERED: KETO10TAB PO (10:21)
[2019-04-02] MEDS ORDERED: NORC1TAB7 PO (10:21)
[2019-04-02] MEDS ORDERED: CLEO300C2 PO (10:21)
[2019-04-02 10:37] VITALS: BP 138/82
== END 2019-04-02 10:42 | disposition home or self-care (01) ==
LOC: M ED 06:51
DX: K05.329 Chronic periodontitis, generalized, unspecified severity (principal); K02.9 Dental caries, unspecified; S02.5XXA Fracture of tooth (traumatic), initial encounter for closed fracture; X58.XXXA Exposure to other specified factors, initial encounter; Y92.89 Other specified places as the place of occurrence of the external cause; Y93.89 Activity, other specified; Y99.8 Other external cause status; F17.200 Nicotine dependence, unspecified, uncomplicated; Z88.0 Allergy status to penicillin; Z88.5 Allergy status to narcotic agent; Z79.899 Other long term (current) drug therapy; Z79.4 Long term (current) use of insulin
CPT/HCPCS: 96372; 99283; J1885

== ENCOUNTER 2019-07-08 11:46 | Inpatient (IN) | payer OTHER ==
[~2019-07-08] VITALS: Ht 180.3 cm; Wt 70.5 kg
[2019-07-08] VITALS (11 sets, daily range): BP systolic 89–112; BP diastolic 49–67
[~2019-07-08 11:46] MED LIST changes: +KETO10TAB PO; -OMEP40CA2 PO; +OMEP40CA97 PO; +PANTOPRAZOLE 40MG INJ (PROTONIX) (C9113) IV SCH
[2019-07-08 12:20] LABS: BASO # 0.1 10^3/uL (0.0-0.2); BASO % 0.3 % (0.0-1.0); EOS # 0.1 10^3/uL (0.0-0.5); EOS % 0.7 % (0.0-3.0); HEMATOCRIT 40.6 % (42.0-52.0); HEMOGLOBIN 13.8 g/dl (13.5-17.5); LYMPH # 1.2 10^3/uL (1.5-5.0); LYMPH % 8.3 % (24.0-44.0); MEAN CORPUSCULAR HEMOGLOBIN 27.4 pg (27.0-33.0); MEAN CORPUSCULAR VOLUME 80.6 fl (80.0-96.0); MONO # 1.1 10^3/uL (0.0-0.8); MONO % 7.3 % (0.0-5.0); NEUTROPHILS # 12.3 10^3/uL (1.5-8.5); NEUTROPHILS % 82.9 % (36.0-66.0); PLATELET COUNT, AUTOMATED 303 10^3/uL (150-450); RED BLOOD COUNT 5.04 10^6/uL (4.30-6.10); WHITE BLOOD COUNT 14.9 10^3/uL (4.0-10.0)
[2019-07-08 12:29] LABS: VENOUS BASE EXCESS 11.6 (-2.0-2.0); VENOUS HCO3 35.2 MEQ/L (23.0-27.0); VENOUS O2 SATURATION 83.5 % (60.0-80.0); VENOUS PARTIAL PRESSURE CO2 41.5 mmHg (38.0-50.0); VENOUS PARTIAL PRESSURE O2 44.3 mmHg (30.0-50.0); VENOUS PH 7.546 UNITS (7.330-7.430); VENOUS TOTAL CO2 36.4 MEQ/L (24.0-28.0)
[2019-07-08] MEDS ORDERED: BASA100I SC (12:30)
[2019-07-08] MEDS ORDERED: ADME100I2 SC (12:30)
[2019-07-08 12:42] LABS: HEMOGLOBIN A1c 10.3 %
[2019-07-08 12:50] LABS: ACETONE/KETONE 42.2 MG/DL (<2.81); ALBUMIN 2.6 GM/DL (3.2-5.2); BILIRUBIN,DIRECT 0.1 MG/DL (0.0-0.2); BILIRUBIN,TOTAL 0.8 MG/DL (0.2-1.0); CALCIUM LEVEL 8.9 MG/DL (8.5-10.1); CREATININE FOR GFR 2.42 MG/DL (0.70-1.30); TOTAL PROTEIN 6.9 GM/DL (6.4-8.2)
[2019-07-08] MEDS ORDERED: NS 1,000 ML IV ONE ×3 (13:00→17:00)
[2019-07-08] MEDS ORDERED: KETOROLAC 30 MG/ML VIAL (J1885) IV ONE (13:00)
--- NOTE | 2019-07-08 13:57 | REP ---
CHEST, TWO VIEWS: Two views of the chest are performed. Mild streaky bibasilar infiltrates are present. The heart is normal in size and the mediastinal silhouette is unremarkable. The visualized osseous structures are intact. IMPRESSION: Mild streaky bibasilar infiltrates. Electronically Signed by Checo Campa MD 07/08/2019 03:55 P
[2019-07-08] MEDS ORDERED: HumuLIN R (REGULAR) INSULIN (NovoLIN R) **100U/ML** PER UNIT IV ONE (14:00)
[2019-07-08] MEDS ORDERED: LevoFLOXacin IV 750 MG in IV 1 EA IV ONE (14:00)
[2019-07-08] MEDS ORDERED: LIDOCAINE 2% 5ML JELLY UROJET TOP ONE (14:00)
--- NOTE | 2019-07-08 14:01 | REP ---
CT ABDOMEN AND PELVIS WITHOUT IV OR ORAL CONTRAST: HISTORY: Generalized abdomen pain. Vomiting. Comparison CT study June 20, 2018. FINDINGS: There are subtle infiltrates in the right lower lobe, right middle lobe, and lingular segment of the left upper lobe at the left lung base consistent with bilateral lower pneumonia. These are new findings. The lingula and right lower lobe are most involved. No pleural effusion is seen. The liver and the spleen are normal in size homogeneous in texture. No abnormality is noted in the gallbladder or pancreas. No adrenal lesion is seen. There is moderate to marked bilateral hydronephrosis and hydroureter. There is marked distension of the urinary bladder. The bladder dome is filled to a level above the level of the umbilicus. This is consistent with bladder outlet obstruction. No abnormality is noted in the perineum prostate or seminal vesicles. The appendix is surgically absent. Small and large bowel loops are unremarkable. IMPRESSION: Findings consistent with bladder outlet obstruction. Markedly dilated urinary bladder. Moderate to marked bilateral hydronephrosis and hydroureter. There is a tiny intrarenal calculus in the upper pole of the right kidney. No other urinary tract calculus seen. Status post appendectomy. Bilateral pneumonia in the lung bases. Electronically Signed by Abel Mike MD 07/08/2019 05:59 P
[2019-07-08] MEDS ORDERED: INSULIN HUMAN REGULAR 100 UNITS in NS 99 ML IV SCH (14:07)
[2019-07-08] MEDS ORDERED: INSULIN IV RATE CHANGE DOCUMENTATION ML/HR XX SCH (14:15)
[2019-07-08] MEDS ORDERED: HEPARIN SOD (PORCINE) 5000 UNITS/ML VIAL SC SCH (15:00)
[2019-07-08] MEDS ORDERED: ONDANSETRON 4MG/2ML VIAL (J2405) IV PRN (15:00)
[2019-07-08] MEDS ORDERED: KCL 20MEQ in NS 1000ML 1,000 ML IV SCH (15:00)
[2019-07-08] MEDS ORDERED: MOM 30ML SUSPENSION UDC PO PRN (15:00)
[2019-07-08] MEDS ORDERED: METOCLOPRAMIDE INJ 10MG/2ML VIAL (J2765) IV PRN (15:00)
[2019-07-08] MEDS ORDERED: ACETAMINOPHEN TAB 650MG DOSE (2X325MG) PO PRN (15:00)
[2019-07-08] MEDS ORDERED: AMPICILLIN SOD/SULBACTAM SOD 3 GM in D5W MINI-BAG PLUS 100 ML IV SCH (16:00)
[2019-07-08] MEDS: INSULIN HUMAN REGULAR 100 UNITS in NS 99 ML IV SCH (16:31)
[2019-07-08 16:55] LABS: ACETONE/KETONE 18.07 MG/DL (<2.81); CALCIUM LEVEL 8.6 MG/DL (8.5-10.1); CREATININE FOR GFR 2.57 MG/DL (0.70-1.30); GLOMERULAR FILTRATION RATE 32.6 (>60); PHOSPHORUS LEVEL 2.8 MG/DL (2.5-4.9); POTASSIUM SERUM 3.2 MEQ/L (3.5-5.1)
[2019-07-08] MEDS: INSULIN IV RATE CHANGE DOCUMENTATION ML/HR XX SCH ×3 (17:20→18:12)
[2019-07-08] MEDS: KCL 10MEQ/100ML SWI (KRUN) 10 MEQ in IV 1 EA IV SCH ×2 (17:28→18:39)
[2019-07-08] MEDS ORDERED: PROCHLORPERAZINE 10 MG/2 ML VIAL (J0780) IV PRN (18:15)
--- NOTE | 2019-07-08 18:16 | HPEPDOC ---
General Date of Admission Jul 08, 2019 at 14:51 Date of Service: Jul 08, 2019 Chief Complaint The patient is a 24-year-old male admitted with a reason for visit of Acute Kidney Injury,Uncontrolled Type 1 Diabetes M. Source: Patient, Family, RN/MD, Old records History of Present Illness 24 year old male with PMH of Type 1 diabetes with h/o DKAs, neuropathy, chronic left foot ulcer, right below knee amputation, anxiety, depression, Erectile dysfunction, urinary retention with self catheterization, tobacco use, low back pain, vit D efficiency , IBS with chronic diarrhea has been sick at home for 1 week. He started with nausea , vomiting and abdominal pain a week ago and continued to vomit till about 2 days ago when the vomiting stopped and he has been able to keep some food down. His sugars had been reading high for the past week. he continued to take his glargine insulin 24 units but did not take his lispro as he was not eating. As per family he was very somnolent and sleeping all day long. He refused to come to the hospital. 2 days ago he started improving a little was more awake , vomiting had stopped and he was able to keep some food down however he now started a sore throat and has been having pain during swallowing and difficulty eating. He was also having some intermittent fevers and chills at home. He denied any cough or phlegm. He has been having diarrhea which he says is chronic due to his IBS. He says he has not been urinating much at home. In the ED he was found to have Hyperosmolar hyperglycemia, hyponatremia, dehydration , PASHA, Exudative tonsillitis. CT abdomen showed hugely enlarged bladder with bilateral hydroureter and bilateral hydronephrosis suggestive of bladder neck obstruction. He had a blanchard placed in the ED and about a liter of urine came out. Home Medications Scheduled Insulin Glargine,Hum.rec.anlog (Basaglar Kwikpen U-100) 100 Unit/1 Ml Insuln.pen, 30 UNIT SC DAILY, (Reported) Insulin Lispro (Admelog Solostar) 100 Unit/1 Ml Insuln.pen, 1 DOSE SC AC, (Reported) PER SLIDING SCALE Omeprazole (Omeprazole) 40 Mg Cap, 40 MG PO DAILY, (Reported) Allergies Coded Allergies: Penicillins (Verified Allergy, Intermediate, HIVES, 04/02/19) tramadol (Verified Adverse Reaction, Intermediate, VOMITING, 07/08/19) Past Medical History Medical History Type 1 diabetes with h/o DKAs, with neuropathy, chronic left foot ulcer, right below knee amputation, anxiety, depression, Erectile dysfunction, urinary retention with self catheterization, tobacco use, low back pain, vit D efficiency Surgical History APPENDECTOMY, FINGERTIP REMOVED LEFT HAND MIDDLE FINGER, right below knee amputation due to gangrene in 2018 Family History FATHER: ALIVE, DIAGNOSED WITH DIABETES MOTHER: ALIVE, DIABETES SIBLINGS: 1 SISTER DM 3 BROTHER(S) , 4 SISTER(S) . 2DAUGHTER(S) - HEALTHY. Social History * Smoker: current smoker Alcohol: Denies Drugs: denies A-FIB/CHADSVASC A-FIB History Current/History of A-Fib/PAF?: No Review of Systems Constitutional: Reports: Chills, Fever, Weakness, Lethargy Eyes: Denies: Pain, Vision change ENT: Reports: Dysphagia, Sore Throat Skin: Denies: Rash, Lesions, Breakdown Pulmonary: Denies: Dyspnea, Cough Cardiovascular: Denies: Chest Pain, Palpitations, Orthopnea, Paroxysmal Noc. Dyspnea, Lt Headedness Gastrointestinal: Reports: Nausea, Vomiting, Abdominal Pain, Diarrhea Genitourinary: Reports: Retention Hematologic: Denies: Bruising, Bleeding Excessively Musculoskeletal: Reports: Back Pain Neurological: Reports: Weakness, Confusion Physical Examination General Exam: Positive: Alert, Cooperative, No Acute Distress Eye Exam: Positive: PERRLA, Conjunctiva & lids normal, EOMI; Negative: Sclera icteric Neck Exam: Positive: Supple; Negative: JVD, thyromegaly Chest Exam: Positive: Normal air movement, Other (few bilateral basal crackles. ) Heart Exam: Positive: Tachycardic, Regular Rhythm, Normal S1, Normal S2, Other; Negative: Gallops, Murmurs, Rubs Telemetry: Positive: Sinus, Tachycardia Abdomen Exam: Positive: Normal bowel sounds, Soft, Tenderness (diffuse in all the quadrants without any guarding or rigidity or rebound. ) Extremity Exam: Positive: Normal pulses, Other (right below knee amputation); Negative: Clubbing, Cyanosis, Edema Skin Exam: Positive: Nl turgor and temperature; Negative: Breakdown, Lesion Neuro Exam: Positive: Normal Speech, Strength at 5/5 X4 ext, Normal Tone Vital Signs Vital Signs Date Time Temp Pulse Resp B/P (MAP) Pulse Ox O2 Delivery O2 Flow Rate FiO2 07/08/19 14:31 113 18 98 Room Air 07/08/19 14:30 142/88 (106) 07/08/19 11:50 99.1 Laboratory Data Labs 24H Laboratory Tests 2 07/08/19 12:01: Immature Granulocyte % (Auto) 0.5, Neutrophils (%) (Auto) 82.9H, Lymphocytes (%) (Auto) 8.3L, Monocytes (%) (Auto) 7.3H, Eosinophils (%) (Auto) 0.7, Basophils (%) (Auto) 0.3, Neutrophils # (Auto) 12.3H, Lymphocytes # (Auto) 1.2L, Monocytes # (Auto) 1.1H, Eosinophils # (Auto) 0.1, Basophils # (Auto) 0.1, Nucleated Red Blood Cells % (auto) 0.0, Anion Gap 20H, Glomerular Filtration Rate 35.0L, Estimated Mean Plasma Glucose 249H, Hemoglobin A1c 10.3, Osmolality 320H, Calcium Level 8.9, Phosphorus Level 4.0, Magnesium Level 3.0H, Total Bilirubin 0.8, Direct Bilirubin 0.1, Aspartate Amino Transf (AST/SGOT) 20, Alanine Aminotransferase (ALT/SGPT) 20, Alkaline Phosphatase 156H, Total Protein 6.9, Albumin 2.6L, Albumin/Globulin Ratio 0.60L, Lipase 531H, B-Hydroxybutyrate 42.20H 07/08/19 12:17: Blood Gas Bicarbonate Standard 35.0, Venous Blood pH 7.546H, Venous Blood Partial Pressure CO2 41.5, Venous Blood Partial Pressure O2 44.3, Venous Blood Total Carbon Dioxide 36.4H, Venous Blood HCO3 35.2H, Venous Blood Oxygen Saturation 83.5H, Venous Blood Base Excess 11.6H 07/08/19 12:22: Bedside Glucose (Misc Panel) > 600*H 07/08/19 13:48: Bedside Glucose (Misc Panel) 411H 07/08/19 14:27: Urine Color STRAW, Urine Appearance CLEAR, Urine pH 5.0, Urine Specific [place] 1.009, Urine Protein NEGATIVE, Urine Glucose (UA) 3+H, Urine Ketones TRACEH, Urine Blood 2+H, Urine Nitrite NEGATIVE, Urine Bilirubin NEGATIVE, Urine Urobilinogen 0.2, Urine Leukocyte Esterase NEGATIVE, Urine WBC (Auto) 1, Urine RBC (Auto) 3, Urine Hyaline Casts (Auto) 0, Urine Bacteria (Auto) 1+H, Urine Squamous Epithelial Cells 0, Urine Mucus (Auto) SMALL, Urine Sperm (Auto) 07/08/19 14:51: Bedside Glucose (Misc Panel) 411H CBC/BMP Laboratory Tests 07/08/19 12:01 Microbiology Microbiology 07/08/19 Group A Streptococcus Screen (JADE), Received Pending Assessment/Plan 24 year old male with PMH of Type 1 diabetes with h/o DKAs, neuropathy, chronic left foot ulcer, right below knee amputation, anxiety, depression, Erectile dysfunction, urinary retention with self catheterization, tobacco use, low back pain, vit D efficiency , IBS with chronic diarrhea has been sick at home for 1 week. He started with nausea , vomiting and abdominal pain a week ago and continued to vomit till about 2 days ago when the vomiting stopped and he has been able to keep some food down. His sugars had been reading high for the past week. he continued to take his glargine insulin 24 units but did not take his lispro as he was not eating. As per family he was very somnolent and sleeping all day long. He refused to come to the hospital. 2 days ago he started improving a little was more awake , vomiting had stopped and he was able to keep some food down however he now started a sore throat and has been having pain during swallowing and difficulty eating. He was also having some intermittent fevers and chills at home. He denied any cough or phlegm. He has been having diarrhea which he says is chronic due to his IBS. He says he has not been urinating much at home. In the ED he was found to have Hyperosmolar hyperglycemia, hyponatremia, dehydration , PASHA, Exudative tonsillitis, bilateral pneumonia. CT abdomen showed hugely enlarged bladder with bilateral hydroureter and bilateral hydronephrosis suggestive of bladder neck obstruction. It also showed infiltrates in the right lower lobe, right middle lobe and left upper lobe He had a blanchard placed in the ED and about a liter of urine came out. Hyperosmolar hyperglycemic state will give 2 more liters of bolus NS then maintenance NS till sugars are below 200 then will change IVF to Dex/ NS insulin infusion according to protocol clear liquid diet Gisell and pantoprazole. FS every hour, Basic every 4 hours. Hyponatreamia even aftr correcting for hyperglycemia his sodium is about 128. this is due to dehydration . will continue NS Increased beta hydroxybutyrate is probably due to starvation. PASHA this I think is due to a combination of obstructive uropathy and dehydration Has h/o neurogenic bladder used to self catheterize. Says it got better and his bladder got stronger and before he became sick 1 week ago he was urinating fine. blanchard has been placed. will repeat imaging in 3 days to see if there is resolution of the hydronephrosis or not. Continue IVF. High anion gap is due to renal failure. High anion gap metabolic acidosis with metabolic alkalosis this is due to dehydration and renal failure. Exudative tonsillitis will start on unasyn penicillin allergy discussed with patient and he is willing to try it. Bilateral Pneumonia this could be community acquired vs aspiration pneumonia patient was very somnolent almost obtunded for about 4 to 5 days. will continue Unasyn and add levofloxacin. cultures sent. Chronic back and leg pain he is not on any narcotics at home checked with I stop will place on ultracet Plan / VTE VTE Prophylaxis Ordered?: Yes HELENA KELLY MD Jul 08, 2019 16:18
[2019-07-08] MEDS: KCL 20MEQ IN D5/NS 1000ML 1,000 ML IV SCH (18:39)
[2019-07-08 20:07] LABS: VENOUS BASE EXCESS 14.1 (-2.0-2.0); VENOUS HCO3 36.4 MEQ/L (23.0-27.0); VENOUS O2 SATURATION 99.2 % (60.0-80.0); VENOUS PARTIAL PRESSURE CO2 36.9 mmHg (38.0-50.0); VENOUS PARTIAL PRESSURE O2 190.6 mmHg (30.0-50.0); VENOUS PH 7.612 UNITS (7.330-7.430); VENOUS TOTAL CO2 37.5 MEQ/L (24.0-28.0)
[2019-07-08] MEDS: AMPICILLIN SOD/SULBACTAM SOD 3 GM in D5W MINI-BAG PLUS 100 ML IV SCH (20:07)
[2019-07-08] MEDS: ONDANSETRON 4MG/2ML VIAL (J2405) IV SCH (20:08)
[2019-07-08] MEDS: HEPARIN SOD (PORCINE) 5000 UNITS/ML VIAL SC SCH (20:09)
[2019-07-08 20:36] LABS: ACETONE/KETONE 2.25 MG/DL (<2.81); CALCIUM LEVEL 8.1 MG/DL (8.5-10.1); CREATININE FOR GFR 2.46 MG/DL (0.70-1.30); GLOMERULAR FILTRATION RATE 34.3 (>60); PHOSPHORUS LEVEL 2.6 MG/DL (2.5-4.9); POTASSIUM SERUM 3.7 MEQ/L (3.5-5.1)
[2019-07-08] MEDS ORDERED: LevoFLOXacin IV 250 MG in IV 1 EA IV SCH (21:00)
[2019-07-08] MEDS ORDERED: diphenhydrAMINE INJ 50MG/ML VIAL (J1200) IV ONE (21:00)
[2019-07-08] MEDS: ULTRACET TAB PO PRN (23:11)
[2019-07-09] VITALS (12 sets, daily range): BP systolic 92–126; BP diastolic 58–77
[2019-07-09 00:52] LABS: ACETONE/KETONE 1.07 MG/DL (<2.81); CREATININE FOR GFR 2.46 MG/DL (0.70-1.30); GLOMERULAR FILTRATION RATE 34.3 (>60); PHOSPHORUS LEVEL 2.5 MG/DL (2.5-4.9)
[2019-07-09] MEDS ORDERED: POTASSIUM CHLORIDE 10 MEQ SR TABLET PO ONE ×2 (02:00→06:00)
[2019-07-09] MEDS: ONDANSETRON 4MG/2ML VIAL (J2405) IV SCH ×4 (02:08→20:08)
[2019-07-09] MEDS: AMPICILLIN SOD/SULBACTAM SOD 3 GM in D5W MINI-BAG PLUS 100 ML IV SCH (02:08)
[2019-07-09] MEDS: KCL 20MEQ IN D5/NS 1000ML 1,000 ML IV SCH (02:09)
[2019-07-09] MEDS: INSULIN HUMAN REGULAR 100 UNITS in NS 99 ML IV SCH (04:09)
[2019-07-09 04:21] LABS: HEMATOCRIT 33.9 % (42.0-52.0); MEAN CORPUSCULAR HEMOGLOBIN 27.6 pg (27.0-33.0); MEAN CORPUSCULAR HGB CONC 33.3 g/dl (32.0-36.5); MEAN CORPUSCULAR VOLUME 82.9 fl (80.0-96.0); PLATELET COUNT, AUTOMATED 235 10^3/uL (150-450); RED BLOOD COUNT 4.09 10^6/uL (4.30-6.10); WHITE BLOOD COUNT 12.6 10^3/uL (4.0-10.0)
[2019-07-09 04:24] LABS: HEMOGLOBIN 11.3 g/dl (13.5-17.5)
[2019-07-09 04:43] LABS: ACETONE/KETONE 2.77 MG/DL (<2.81); CALCIUM LEVEL 8.1 MG/DL (8.5-10.1); CREATININE FOR GFR 2.21 MG/DL (0.70-1.30); GLOMERULAR FILTRATION RATE 38.8 (>60); MAGNESIUM LEVEL 2.5 MG/DL (1.8-2.4); PHOSPHORUS LEVEL 2.8 MG/DL (2.5-4.9); POTASSIUM SERUM 3.1 MEQ/L (3.5-5.1)
[2019-07-09] MEDS ORDERED: GLUCAGON FOR INJ 1 MG VIAL (J1610) SC PRN (07:30)
[2019-07-09] MEDS ORDERED: DEXTROSE 50% 50 ML SYRINGE IV PRN (07:30)
[2019-07-09] MEDS ORDERED: LEVEMIR (INSULIN DETEMIR) 1 UNITS/0.01ML SC ONE (07:30)
[2019-07-09] MEDS ORDERED: GLUCOSE 4 GM CHEW TABLET PO PRN (07:30)
[2019-07-09] MEDS ORDERED: CEPACOL LOZENGE PO ONE (07:30)
[2019-07-09] MEDS ORDERED: TAMSULOSIN 0.4 MG CAP PO ONE (08:00)
[2019-07-09] MEDS: HumaLOG INSULIN (NovoLOG) PER UNIT SC SCH ×3 (08:01→17:30)
[2019-07-09] MEDS: ULTRACET TAB PO PRN (08:03)
[2019-07-09 08:36] LABS: CREATININE FOR GFR 2.03 MG/DL (0.70-1.30); GLOMERULAR FILTRATION RATE 42.8 (>60); PHOSPHORUS LEVEL 2.4 MG/DL (2.5-4.9); POTASSIUM SERUM 3.6 MEQ/L (3.5-5.1)
[2019-07-09] MEDS: HEPARIN SOD (PORCINE) 5000 UNITS/ML VIAL SC SCH ×2 (08:43→20:09)
[2019-07-09] MEDS ORDERED: MOXIFLOXACIN HCL 400 MG in IV 1 EA IV ONE (09:00)
[2019-07-09 09:31] LABS: ACETONE/KETONE 5.31 MG/DL (<2.81)
[2019-07-09] MEDS ORDERED: NS 1,000 ML IV ONE (14:00)
[2019-07-09 14:45] LABS: CALCIUM LEVEL 8.5 MG/DL (8.5-10.1); CREATININE FOR GFR 1.86 MG/DL (0.70-1.30); GLOMERULAR FILTRATION RATE 47.4 (>60); POTASSIUM SERUM 3.5 MEQ/L (3.5-5.1)
[2019-07-09] MEDS ORDERED: LEVEMIR (INSULIN DETEMIR) 1 UNITS/0.01ML SC SCH (21:00)
[2019-07-09] MEDS ORDERED: HumaLOG INSULIN (NovoLOG) PER UNIT SC SCH (21:00)
[2019-07-10] MEDS: ONDANSETRON 4MG/2ML VIAL (J2405) IV SCH ×2 (03:11→09:03)
[2019-07-10] MEDS: ULTRACET TAB PO PRN (03:11)
[2019-07-10 06:00] VITALS: BP 110/55
[2019-07-10] MEDS ORDERED: MOXIFLOXACIN 400 MG TAB PO SCH (06:00)
[2019-07-10 06:28] LABS: BASO % 0.4 % (0.0-1.0); EOS # 0.3 10^3/uL (0.0-0.5); EOS % 3.2 % (0.0-3.0); HEMATOCRIT 34.5 % (42.0-52.0); HEMOGLOBIN 11.1 g/dl (13.5-17.5); LYMPH # 1.6 10^3/uL (1.5-5.0); LYMPH % 16.3 % (24.0-44.0); MEAN CORPUSCULAR HEMOGLOBIN 27.9 pg (27.0-33.0); MEAN CORPUSCULAR HGB CONC 32.2 g/dl (32.0-36.5); MEAN CORPUSCULAR VOLUME 86.7 fl (80.0-96.0); MONO # 1.3 10^3/uL (0.0-0.8); MONO % 13.4 % (0.0-5.0); NEUTROPHILS # 6.1 10^3/uL (1.5-8.5); PLATELET COUNT, AUTOMATED 236 10^3/uL (150-450); RED BLOOD COUNT 3.98 10^6/uL (4.30-6.10); WHITE BLOOD COUNT 9.6 10^3/uL (4.0-10.0)
[2019-07-10 06:47] LABS: CALCIUM LEVEL 8.3 MG/DL (8.5-10.1); CREATININE FOR GFR 1.56 MG/DL (0.70-1.30); MAGNESIUM LEVEL 1.8 MG/DL (1.8-2.4); POTASSIUM SERUM 3.6 MEQ/L (3.5-5.1)
[2019-07-10] MEDS: HumaLOG INSULIN (NovoLOG) PER UNIT SC SCH ×2 (07:30→12:00)
[2019-07-10] MEDS ORDERED: MOXI400T11 PO (07:35)
--- NOTE | 2019-07-10 07:42 | IPN ---
DATE: 07/09/2019 This morning he complains of sore throat, which he has had since yesterday. He still coughs which is productive of white sputum. No fever or chills. Creatinine is still elevated but good urine output, 2.2 liters overnight. Current weight is 70.5 kg. No abdominal pain. Patient complains of rib pain from known history of rib fractures. Allergic to penicillin. Did receive Unasyn without any shortness of breath, wheezing or angioedema. Was given Benadryl yesterday. Vitals: Temperature 98.4, pulse 86, respiratory rate 16, blood pressure 122/77, 96% on 2 liters nasal cannula. Generally, awake, alert, oriented times three. Anicteric sclerae. No jaundice. Dry mucous membranes. Neck is supple. Full range of motion. No lymphadenopathy or thyromegaly. Lungs are diminished with bibasilar crackles. No wheezing or rales. Abdomen is soft, nontender, nondistended. Positive bowel sounds. Extremities: No cyanosis, clubbing or pitting edema. Bilateral multiple tattoos in the upper and lower extremities. Right below the knee amputation. LABORATORY DATA: White count 12.2, hemoglobin 11, hematocrit 33, platelet count 235. Sodium 133, potassium 3.1, chloride 89, bicarbonate 84, BUN 88. Creatinine 2.21. Previous creatinine of 2.46, glucose 204. Calcium 8.1, phosphorus 0.8, magnesium 2.5. Microbiology: Throat culture, two sets of blood cultures are still pending. ASSESSMENT/PLAN: 24-year-old male with known history of urine retention, self catheterizes at home, diabetes, history of diabetic ketoacidosis, (DKA), right below the knee amputation, anxiety, depression, tobacco abuse, low back pain, vitamin D deficiency, irritable bowel syndrome (IBS) with chronic diarrhea, presented with 1-week history of abdominal pain, nausea, and uncontrolled glucose at home. Active issues are as follows: 1. Hyperosmolar hyperglycemic state status post IV fluids currently resume back on his home dose of Levemir but will change to twice a day for better coverage and glycemic control. No abdominal pain. Therefore, advanced to consistent carbohydrate diet, fingersticks every morning and evenings with coverage. 2. Acute on chronic renal failure stage III secondary to obstructive uropathy, dehydration from hyperosmolar hyperglycemic nonketotic syndrome (HHNK), self catheterizes currently with Kinney catheter. Continue with fluids for now and start on Flomax. Urology consult if no significant improvement. Repeat renal ultrasound if no improvement over the next 48 hours. 3. Tonsillitis: Will give a Z-Mayo. Currently on Avelox for bilateral lower lobe pneumonia. 4. Urine retention: Continue with Kinney catheter for now. 5. Chronic back pain: On Ultracet. 6. Bilateral lower lobe pneumonia: Continue on Avelox for now. Discontinue Unasyn. MTDD
[2019-07-10] MEDS ORDERED: INSUDET SC (08:44)
[2019-07-10] MEDS ORDERED: LIDOCAINE VISCOUS 2% SOLN 15ML UDC SS PRN (08:45)
[2019-07-10] MEDS ORDERED: LIDO2SO PO (08:46)
[2019-07-10] MEDS ORDERED: LEVEMIR (INSULIN DETEMIR) 1 UNITS/0.01ML SC SCH (09:00)
[2019-07-10] MEDS ORDERED: TAMSULOSIN 0.4 MG CAP PO SCH (09:00)
[2019-07-10] MEDS ORDERED: INFLUENZA QUADRIVALENT PF VACCINE 0.5ML SYRINGE (90686) IM SCH (09:00)
[2019-07-10] MEDS: HEPARIN SOD (PORCINE) 5000 UNITS/ML VIAL SC SCH (09:03)
[2019-07-10] MEDS ORDERED: LIDOCAINE VISCOUS 2% SOLN 15ML UDC PO ONE (10:00)
[2019-07-10] MEDS ORDERED: NS 1,000 ML IV ONE ×2 (10:15)
[2019-07-10] MEDS ORDERED: BASA100I SC (12:48)
[2019-07-10 13:05] LABS: BLOOD UREA NITROGEN 26 MG/DL (7-18); CALCIUM LEVEL 8.2 MG/DL (8.5-10.1); CARBON DIOXIDE LEVEL 28 MEQ/L (21-32); CHLORIDE LEVEL 102 MEQ/L (98-107); GLOMERULAR FILTRATION RATE > 60.0 (>60); GLUCOSE, FASTING 186 MG/DL (70-100); POTASSIUM SERUM 3.4 MEQ/L (3.5-5.1); SODIUM LEVEL 136 MEQ/L (136-145)
--- NOTE | 2019-07-10 14:00 | DSES ---
DATE OF ADMISSION: 07/08/2019 DATE OF DISCHARGE: PRIMARY DISCHARGE DIAGNOSES: Hyperosmolar hyperglycemic state. Acute kidney injury. Chronic urinary retention. Anion gap metabolic acidosis with metabolic alkalosis. Exudative tonsillitis with group B strep. Bilateral lower lobe pneumonia. Chronic back and leg pain. HOSPITAL COURSE: 24-year-old male with type 1 diabetes, irritable bowel syndrome (IBS) with chronic diarrhea, complained of sore throat, nausea, vomiting and abdominal pain for one week with uncontrolled glucose. The patient was having intermittent fevers at home and was admitted for hyperosmolar hyperglycemia, dehydration with acute kidney injury and tonsillitis with bilateral pneumonia. CT abdomen shows enlarged bladder, bilateral hydroureter and hydronephrosis, consistent with bladder neck obstruction. The patient had bilateral lower lobe infiltrates and was started on intravenous Unasyn. A Kinney catheter was placed with output of 2.2 liters, 3.9 liters on day two. The patient did well with improvement in creatinine from and of 2.57 to 1.6 on hospital discharge. Throat culture grew out group B strep. White count has improved to 9.6, normal, without fever or chills. Currently downgraded to Avelox from Unasyn. The patient has an allergy to penicillin causing severe rash. Glucose was has improved. A1c was 10. Levemir insulin was changed to twice a day dosing. Glucose level improving to 111 and 100. The patient is tolerating his diet. He was give viscous lidocaine due to sore throat and discharged in stable condition. Temperature 98.2, pulse 92, respiratory rate 18, blood pressure 110/55, 98% on room air. Generally, awake, alert and oriented to person, place and time. No thyromegaly. Pharyngeal erythema. Lungs are diminished with bibasilar crackles. Heart S1, S2 sinus rhythm. Abdomen is soft, nontender, nondistended. Positive bowel sounds. Extremities multiple tattoos bilateral upper extremities. No cyanosis or clubbing. Right below knee amputation. LABORATORY DATA: White count 9.6, hemoglobin 11, hematocrit 34, platelet count 236, sodium 133, potassium 3.6, chloride 98, bicarb 30, BUN 31, creatinine 1.56. Glucose of 232. Magnesium 1.8. DISCHARGE MEDICATIONS: : - Avelox 400 mg daily for five days - viscous lidocaine 5 mL every 4 hours as needed - Levemir insulin 20 units subcu twice a day - insulin sliding scale - Prilosec 40 mg daily TIME SPENT ON DISCHARGE: 30 minutes. MTDD
== END 2019-07-10 14:00 | disposition home or self-care (01) | DRG 420 ==
LOC: EDBD 11:46 → M ED 11:46 → M ED INP 14:51 → M ICU 16:50 → M MSPAV 07-09 20:57
PROVIDERS: ADMIT Internal Medicine Nephrology; ATTEND General Practice
DX: E10.65 Type 1 diabetes mellitus with hyperglycemia (principal); J18.9 Pneumonia, unspecified organism; N17.9 Acute kidney failure, unspecified; E87.3 Alkalosis; E87.2 Acidosis; E10.22 Type 1 diabetes mellitus with diabetic chronic kidney disease; N18.3 Chronic kidney disease, stage 3 (moderate); E10.621 Type 1 diabetes mellitus with foot ulcer; L97.529 Non-pressure chronic ulcer of other part of left foot with unspecified severity; E10.40 Type 1 diabetes mellitus with diabetic neuropathy, unspecified; E86.0 Dehydration; E87.1 Hypo-osmolality and hyponatremia; Z89.511 Acquired absence of right leg below knee; F41.9 Anxiety disorder, unspecified; F32.9 Major depressive disorder, single episode, unspecified; N52.9 Male erectile dysfunction, unspecified; R33.9 Retention of urine, unspecified; E55.9 Vitamin D deficiency, unspecified; F17.200 Nicotine dependence, unspecified, uncomplicated; K58.0 Irritable bowel syndrome with diarrhea; M54.5 Low back pain; N13.9 Obstructive and reflux uropathy, unspecified; J03.00 Acute streptococcal tonsillitis, unspecified; Z88.0 Allergy status to penicillin; Z79.4 Long term (current) use of insulin; Z79.899 Other long term (current) drug therapy; Z88.5 Allergy status to narcotic agent

== ENCOUNTER 2019-09-27 18:08 | Inpatient (IN) | payer OTHER ==
[~2019-09-27] VITALS: Ht 180.3 cm; Wt 72.7 kg
[~2019-09-27 18:08] MED LIST changes: +ADME100I2 SC; +BASA100I SC; +LIDO2SO PO; +MOXI400T11 PO; -PANTOPRAZOLE 40MG INJ (PROTONIX) (C9113) IV SCH
[2019-09-27] MEDS ORDERED: BASA100I SC (18:15)
[2019-09-27 19:42] LABS: VENOUS HCO3 28.7 MEQ/L (23.0-27.0); VENOUS O2 SATURATION 78.1 % (60.0-80.0); VENOUS PARTIAL PRESSURE CO2 43.6 mmHg (38.0-50.0); VENOUS PH 7.437 UNITS (7.330-7.430); VENOUS STANDARD HCO3 27.5 MEQ/L; VENOUS TOTAL CO2 30.1 MEQ/L (24.0-28.0)
[2019-09-27 19:48] LABS: BASO # 0.1 10^3/uL (0.0-0.2); BASO % 0.4 % (0.0-1.0); EOS # 0.1 10^3/uL (0.0-0.5); EOS % 0.5 % (0.0-3.0); HEMOGLOBIN 14.2 g/dl (13.5-17.5); LYMPH % 13.1 % (24.0-44.0); MEAN CORPUSCULAR VOLUME 81.9 fl (80.0-96.0); MONO # 0.7 10^3/uL (0.0-0.8); MONO % 4.6 % (0.0-5.0); NEUTROPHILS # 12.1 10^3/uL (1.5-8.5); NEUTROPHILS % 81.1 % (36.0-66.0); PLATELET COUNT, AUTOMATED 325 10^3/uL (150-450); RED BLOOD COUNT 5.25 10^6/uL (4.30-6.10); WHITE BLOOD COUNT 14.9 10^3/uL (4.0-10.0)
[2019-09-27] MEDS ORDERED: NS 1,000 ML IV ONE ×2 (20:00→21:15)
[2019-09-27] MEDS ORDERED: HumuLIN R (REGULAR) INSULIN (NovoLIN R) **100U/ML** PER UNIT IV ONE (20:00)
[2019-09-27] MEDS ORDERED: ONDANSETRON 4MG/2ML VIAL (J2405) IV ONE (20:00)
[2019-09-27 20:14] LABS: ALBUMIN 4.1 GM/DL (3.2-5.2); ALT/SGPT 15 U/L (12-78); BILIRUBIN,DIRECT 0.1 MG/DL (0.0-0.2); BILIRUBIN,TOTAL 0.6 MG/DL (0.2-1.0); CK-MB VALUE MASS < 1.0 NG/ML (<3.6); CPK CREATINE PHOSPHOKINASE 125 U/L (39-308); LIPASE 67 U/L (73-393); TOTAL PROTEIN 8.2 GM/DL (6.4-8.2); TROPONIN I < 0.02 NG/ML (< 0.10)
[2019-09-27] MEDS ORDERED: SUCRALFATE 1 GM TAB PO ONE (20:45)
[2019-09-27] MEDS ORDERED: KETOROLAC 30 MG/ML VIAL (J1885) IV ONE (20:45)
[2019-09-27] MEDS ORDERED: HumaLOG INSULIN (NovoLOG) PER UNIT SC SCH (21:00)
[2019-09-27] MEDS ORDERED: LEVEMIR (INSULIN DETEMIR) 1 UNITS/0.01ML SC SCH (21:00)
[2019-09-27] MEDS: DOCUSATE SODIUM 100 MG CAP PO SCH (21:00)
[2019-09-27] MEDS ORDERED: fentaNYL 100 MCG/2 ML INJECTION (J3010) IV ONE (21:45)
[2019-09-27] MEDS ORDERED: SODIUM CHLORIDE 0.9% 1000ML IV STA (21:49)
--- NOTE | 2019-09-27 21:54 | HPEPDOC ---
[facility] Medical History & Physical Date of Admission Sep 27, 2019 Date of Service: Sep 27, 2019 Attending Physician: MERRICK AGUIAR MD History and Physical TIME OF SERVICE: 9:55 PM CHIEF COMPLAINT: Abdominal pain HISTORY OF PRESENT ILLNESS: This is a 24-year-old male presents with complaints of one week in duration, nonradiating, mid upper 10 /10, nonradiating abdominal pain associated with nonbloody vomitus that occurs after eating. He cannot quantify the number of times he vomited. He denies being tested for gastroparesis. He denies having fevers, chills or diarrhea .he came to the hospital today because his girlfriend insisted that he come in for evaluation . REVIEW OF SYSTEMS: 12 point review of systems negative except as listed in HPI PAST MEDICAL/ SURGICAL HISTORY: DM 1 complicated by multiple episodes of DKA and neuropathy Chronic urinary retention requiring intermittent self cath Chronic left ulcer Right [id number] amputation to to manage gangrene Depression / Anxiety ED Appendectomy. SOCIAL HISTORY: He smokes FAMILY HISTORY: Multiple family members have diabetes ALLERGIES: Please see below. HOME MEDICATIONS: Please see below. Vital Signs Date Time Temp Pulse Resp B/P (MAP) Pulse Ox O2 Delivery O2 Flow Rate FiO2 09/27/19 18:09 97.6 123 16 139/100 (113) 98 Room Air PHYSICAL EXAMINATION: GEN: well-nourished / well developed/ ears to be in pain INTEGUMENT: not flushed/ not jaundice / tattoos HEENT: NCAT / lips acyanotic /mucus membranes moist and pink CVS: RRR/NMRG LUNGS: clear to auscultation bilaterally on room air ABDOMEN: Contour (scaphoid) / soft & tender with palpation MKS: status post right below the knee amputation NEURO: CN 2-12 are grossly intact / speech is not dysarthric PSYCH: alert and oriented to person place and time/ able to understand and follow all commands Laboratory Tests 09/27/19 19:33 Sodium 134, potassium 3.8, chloride 91, bicarbonate 31, BUN 36, creatinine 3.3, glucose 183 IMAGING: Chest x-ray and KUB are pending MICROBIOLOGY: Please see below. ASSESSMENT: Mr. Noble is a 30-year-old with a past medical history of DM, 1 with neuropathy, history of right below the knee amputation, CAD, anxiety, depression, ED, tobacco abuse, was admitted for management of PASHA, likely secondary to nausea and vomiting. PLAN: 1. Nausea and vomiting. Possibly due to gastroenteritis versus gastroparesis Plan: Admit to medical floor/IV fluids/Zofran, he declined reglan / f/u UDS / if his symptoms don't improve the day time team may consider ordering a gastric emptying study 2. SIRS. Likely reactive due to possible gastroenteritis. SIRS criteria include leukocytosis and tachycardia ABG unremarkable Plan: telemetry / sepsis protocol/ follow up , chest x-ray, KUB lactic acid, UA, blood cultures/ lactated Ringer's/ Acetaminophen PRN for fever / target serum glucose 140-180 while acutely ill 3. Acute Renal Failure Likely prerenal Plan: Is/Os, daily weights / IVF / f/u CPK & ulytes for FENa / renal US 4. Type 1 diabetes with neuropathy His last A1c was 10.3 in July 2018 Plan: diabetic diet / f/u accuchecks / hypoglycemia protocol / sliding scale insulin + Detemir 15 units twice a day until his vomiting has resolved ( his home med is glargine 30 units twice a day ) 5. Tobacco abuse Plan: smoking cessation education / nicotine patch DVT PROPHYLAXIS: SCDs DISPOSITION: Home after more than 2 midnight's stay Home Medications Scheduled Insulin Glargine,Hum.rec.anlog (Basaglar Kwikpen U-100) 100 Unit/1 Ml Insuln.pen, 30 UNIT SC DAILY Insulin Lispro (Admelog Solostar) 100 Unit/1 Ml Insuln.pen, 1 DOSE SC AC PER SLIDING SCALE Allergies Coded Allergies: Penicillins (Verified Allergy, Intermediate, HIVES, 04/02/19) tramadol (Verified Adverse Reaction, Intermediate, VOMITING, 07/08/19) A-FIB/CHADSVASC A-FIB History Current/History of A-Fib/PAF?: No Current PO Anticoag Therapy: No MERRICK AGUIAR MD Sep 27, 2019 21:54
[2019-09-27] MEDS ORDERED: GLUCAGON FOR INJ 1 MG VIAL (J1610) SC PRN (22:00)
[2019-09-27] MEDS ORDERED: ONDANSETRON 4MG/2ML VIAL (J2405) IV PRN (22:00)
[2019-09-27] MEDS ORDERED: ACETAMINOPHEN TAB 650MG DOSE (2X325MG) PO PRN (22:00)
[2019-09-27] MEDS ORDERED: MOM 30ML SUSPENSION UDC PO PRN (22:00)
[2019-09-27] MEDS ORDERED: LR 1,000 ML IV ONE ×2 (22:00→23:00)
[2019-09-27] MEDS ORDERED: GLUCOSE 4 GM CHEW TABLET PO PRN (22:00)
[2019-09-28] MEDS ORDERED: ACETAMINOPHEN *IV* 1,000 MG in IV 1 EA IV SCH ×2
[2019-09-28 02:00] VITALS: BP 98/53
[2019-09-28 06:00] VITALS: BP 118/67
[2019-09-28 06:13] LABS: HEMATOCRIT 33.8 % (42.0-52.0); MEAN CORPUSCULAR HEMOGLOBIN 27.3 pg (27.0-33.0); MEAN CORPUSCULAR HGB CONC 33.1 g/dl (32.0-36.5); MEAN CORPUSCULAR VOLUME 82.2 fl (80.0-96.0); PLATELET COUNT, AUTOMATED 247 10^3/uL (150-450); RED BLOOD COUNT 4.11 10^6/uL (4.30-6.10); WHITE BLOOD COUNT 12.4 10^3/uL (4.0-10.0)
[2019-09-28 06:26] LABS: HEMOGLOBIN 11.2 g/dl (13.5-17.5)
[2019-09-28 06:40] LABS: CALCIUM LEVEL 8.3 MG/DL (8.5-10.1); CREATININE FOR GFR 2.28 MG/DL (0.70-1.30); GLOMERULAR FILTRATION RATE 37.4 (>60); MAGNESIUM LEVEL 2.1 MG/DL (1.8-2.4); POTASSIUM SERUM 3.1 MEQ/L (3.5-5.1)
[2019-09-28] MEDS: DEXTROSE 50% 50 ML SYRINGE IV PRN ×2 (06:44→10:32)
--- NOTE | 2019-09-28 07:22 | ECGEPIP ---
[facility] - ED Test Date: 2019-09-27 Pat Name: RYAN URIAS Department: Room: [place] [address] Gender: Male Yield Loss Inspector: MATEO : 1995 Requested By: VELASQUEZ GAGNON Order Number: [id number] Reading MD: Martine Roca Measurements Intervals [place] Rate: 92 P: 80 IA: 114 QRS: 87 QRSD: 91 T: 67 QT: 354 QTc: 439 Interpretive Statements SINUS RHYTHM WITH SHORT IA INTERVAL NONSPECIFIC T-WAVE ABNORMALITY DECREASED RATE 07/05/18 Electronically Signed on 09-28-2019 7:22:22 EST by Martine Roca
[2019-09-28] MEDS: HumaLOG INSULIN (NovoLOG) PER UNIT SC SCH ×2 (07:30→11:41)
[2019-09-28] MEDS: DOCUSATE SODIUM 100 MG CAP PO SCH (09:00)
[2019-09-28] MEDS ORDERED: KCL 40MEQ in NS 1000ML 1,000 ML IV SCH (09:45)
[2019-09-28 10:00] VITALS: BP 118/93
--- NOTE | 2019-09-28 10:58 | IPN ---
DATE: 09/28/2019 PRIMARY CARE PROVIDER: Unknown. ATTENDING PHYSICIAN: Hospitalist group. HISTORY: Ray Noble is a 24-year-old type 1 diabetic with numerous hospitalizations. He was admitted with nausea, vomiting and electrolyte disturbance and acute renal failure. He became hypoglycemic overnight as he was given his Lantus, his basal insulin, but was having nausea and vomiting, and not taking p.o. This was corrected this morning by hypoglycemic protocol. The patient has oppositional defiant disorder and he is exhibiting that during this hospitalization. He is refusing the renal ultrasound that was ordered and also refused vital signs. I reviewed his past medical history. He previously was seen by the [facility]. He transferred his care elsewhere per telephone encounter 09/03/2018. He cannot tell me who that provider is. He has type 1 diabetes, history of diabetic ketoacidosis (DKA) secondary to noncompliance, he has chronic urinary retention with hydronephrosis bilaterally. He does glean intermittent catheterization and he is followed the [facility] urology group. He had a CT of the abdomen and pelvis without contrast on 07/08/2019 that showed bladder outlet obstruction, markedly dilated bladder, moderate to marked hydronephrosis and hydroureter. He has chronic anxiety, depression, vitamin D deficiency, chronic low back pain, erectile dysfunction. In the past he has had diabetic foot ulcer over the right ankle that he purposely hid from his medical providers while in the hospital, admitting this to Dr. Méndez at their office visit. He is refusing to let us undress it to let me examine him besides superficially today. He understands the risks associated with this. PHYSICAL EXAMINATION: Blood pressure is 118/67, pulse of 100, respiratory rate 18, 97% oxygen saturation. Per telemetry he had about a minute of supraventricular tachycardia (SVT), rate of 150, just prior to my examining him. General appearance: He is lying in bed. He has a blanket over his head and it took several minutes of discussion before he was willing to remove the blanket from over his head. His was sleeping in the room and did not awaken or participate in the discussion, sleeping underneath a confederate flag blanket. HEENT: Grossly unremarkable. Poor dentition. NECK: Supple. LUNGS: Clear. HEART: Regular rate and rhythm. No murmur. ABDOMEN: Soft, nontender, no masses. EXTREMITIES: He would not let me examine his lower extremities except through his jeans. LABS: White count 12.4, hemoglobin 11.2, platelets 247, sodium 140, potassium 3.1. Blood sugar this morning was 32. Creatinine was 2.2 (baseline creatinine is around 1.5). Blood sugar was 92 after hypoglycemic protocol. IMPRESSION: 1. Nausea and vomiting. He does not currently have any IV fluids going . I have ordered normal saline with 40 mEq potassium chloride per liter with supplemental D5 in the face of his recent hypoglycemia. 2. Hypoglycemia. He is not taking p.o. well. He was put on basal insulin on admission. I have discontinued this. Sliding scale insulin with coverage ordered. Low dose of basal insulin ordered for tonight, just 5 units. He is type 1 diabetic and does require insulin to prevent developing DKA. Home insulin dose is 30 units of basal insulin and then a sliding scale. 3. Acute kidney injury. He is not cooperating with workup. He understands the risks associated with this including declining kidney function, disability, need for dialysis or . He has oppositional defiant disorder which he is exhibiting. He was given Toradol last evening which has been discontinued. 4. Dental pain. He apparently has some dental pain and analgesics have been ordered. 5. SVT. I have ordered IV with potassium. I will get a stat magnesium level as well as one tomorrow. Suspect this is secondary to his electrolyte disturbance.
[2019-09-28] MEDS ORDERED: ACETAMINOPHEN 500 MG TAB PO PRN (11:00)
[2019-09-28] MEDS ORDERED: KCL 40MEQ IN D5/NS 1000ML 1,000 ML IV SCH (11:00)
[2019-09-28 14:00] VITALS: BP 123/92
[2019-09-28] MEDS ORDERED: LEVEMIR (INSULIN DETEMIR) 1 UNITS/0.01ML SC SCH (21:00)
--- NOTE | 2019-09-29 07:46 | REP ---
CHEST: Single view. There is no evidence of acute infiltrate. No pleural effusion is seen. The heart is normal in size. The mediastinal silhouette is unremarkable. The visualized osseous structures are intact. IMPRESSION: No acute pulmonary disease. Electronically Signed by Checo Campa MD 09/29/2019 06:00 P
--- NOTE | 2019-09-29 07:56 | REP ---
KUB ABDOMEN AND PELVIS: Two KUB films of abdomen/pelvis performed. Bowel gas pattern is normal. No bowel obstruction is seen. Surgical sutures are seen in the right lower quadrant. Smoothly marginated small sclerotic density overlying the lateral right sacrum is unchanged since prior study of 11/11/2016. Sclerotic density in the left femoral neck is also unchanged. IMPRESSION: No acute findings. Electronically Signed by Checo Campa MD 09/29/2019 06:01 P
--- NOTE | 2019-09-29 11:19 | DSES ---
DATE OF ADMISSION: 09/27/2019 DATE OF DISCHARGE: 09/28/2019 PRINCIPAL DIAGNOSIS: Acute kidney injury secondary to dehydration from gastroenteritis. SECONDARY DIAGNOSES: Oppositional defiant disorder (ODD). Noncompliance secondary to refusal of medical care. Type 1 diabetes. Chronic kidney disease. Neurogenic bladder with hydronephrosis. Supraventricular tachycardia (SVT). Hypokalemia. Hypoglycemia. HISTORY: Ray Noble was admitted to the hospitalist group with acute kidney injury, having nausea, vomiting and presumed electrolyte disturbance and acute renal injury. Details in the history and physical from and. HOSPITAL COURSE: The patient was admitted to a monitored bed. He refused vital signs and ultrasound of his kidneys. He refused comprehensive medical evaluation and exam. He left against medical advice (AMA), which I anticipated, and appraised him on rounds of the risks including disability, need for dialysis, decreased quality of life, and . He understood this. He chose to leave against medical advice. I advised him to followup with his unidentified primary care provider (he would not give me the name of that person on rounds) and stay on his previous medications.
== END 2019-09-28 17:06 | disposition left against medical advice (07) | DRG 469 ==
LOC: M ED 18:08 → M ED INP 21:49 → ENRESERVTM 22:46 → ENRESERVDT 22:46 → M MSPAV 23:26
PROVIDERS: ADMIT Internal Medicine; ATTEND Family Medicine
DX: N17.9 Acute kidney failure, unspecified (principal); E10.22 Type 1 diabetes mellitus with diabetic chronic kidney disease; E10.649 Type 1 diabetes mellitus with hypoglycemia without coma; I47.1 Supraventricular tachycardia; K52.9 Noninfective gastroenteritis and colitis, unspecified; R33.9 Retention of urine, unspecified; Z89.511 Acquired absence of right leg below knee; F32.9 Major depressive disorder, single episode, unspecified; F41.9 Anxiety disorder, unspecified; N52.9 Male erectile dysfunction, unspecified; F17.200 Nicotine dependence, unspecified, uncomplicated; Z79.4 Long term (current) use of insulin; Z88.0 Allergy status to penicillin; Z88.5 Allergy status to narcotic agent; F91.3 Oppositional defiant disorder; E55.9 Vitamin D deficiency, unspecified; M54.5 Low back pain; Z91.19 Patient's noncompliance with other medical treatment and regimen; E87.6 Hypokalemia; N18.9 Chronic kidney disease, unspecified; N13.30 Unspecified hydronephrosis

== ENCOUNTER → 2019-10-22 | Outpatient (REF) | payer OTHER ==
[2019-10-22 17:28] LABS: BASO # 0.2 10^3/uL (0.0-0.2); BASO % 1.1 % (0.0-1.0); EOS # 0.2 10^3/uL (0.0-0.5); EOS % 1.7 % (0.0-3.0); HEMATOCRIT 38.8 % (42.0-52.0); HEMOGLOBIN 12.2 g/dl (13.5-17.5); LYMPH # 3.3 10^3/uL (1.5-5.0); LYMPH % 23.7 % (24.0-44.0); MEAN CORPUSCULAR HEMOGLOBIN 27.2 pg (27.0-33.0); MEAN CORPUSCULAR HGB CONC 31.4 g/dl (32.0-36.5); MEAN CORPUSCULAR VOLUME 86.6 fl (80.0-96.0); MONO # 0.8 10^3/uL (0.0-0.8); MONO % 5.4 % (0.0-5.0); NEUTROPHILS # 9.4 10^3/uL (1.5-8.5); NEUTROPHILS % 67.9 % (36.0-66.0); PLATELET COUNT, AUTOMATED 476 10^3/uL (150-450); RED BLOOD COUNT 4.48 10^6/uL (4.30-6.10); WHITE BLOOD COUNT 13.9 10^3/uL (4.0-10.0)
[2019-10-22 17:35] LABS: APPEARANCE, URINE CLEAR (CLEAR); BACTERIA, URINE AUTO NEGATIVE (NEGATIVE); BILIRUBIN, URINE AUTO NEGATIVE (NEGATIVE); BLOOD, URINE BLOOD NEGATIVE (NEGATIVE); COLOR, URINE STRAW (YELLOW); GLUCOSE, URINE (UA) AUTO 3+ mg/dL (NEGATIVE); KETONE, URINE AUTO NEGATIVE (NEGATIVE); LEUKOCYTE ESTERASE, URINE AUTO NEGATIVE (NEGATIVE); NITRITE, URINE AUTO NEGATIVE (NEGATIVE); PROTEIN, URINE AUTO NEGATIVE (NEGATIVE); RBC, URINE AUTO 2 /HPF (0-3); SPECIFIC GRAVITY URINE AUTO 1.021 (1.002-1.035); SQUAMOUS EPITHELIAL CELL UR AU 0 /HPF (0-6); UROBILINOGEN, URINE AUTO 0.2 mg/dL (0.0-2.0); WBC, URINE AUTO 1 /HPF (0-3)
[2019-10-22 17:50] LABS: HEMOGLOBIN A1c 9.4 %
[2019-10-22 18:01] LABS: ALBUMIN 3.5 GM/DL (3.2-5.2); BILIRUBIN,TOTAL 0.4 MG/DL (0.2-1.0); CALCIUM LEVEL 9.4 MG/DL (8.5-10.1); CHOLESTEROL RISK RATIO 2.13 (<5); CREATININE FOR GFR 1.56 MG/DL (0.70-1.30); FREE T4 1.19 NG/DL (0.76-1.46); POTASSIUM SERUM 4.2 MEQ/L (3.5-5.1); THYROID STIMULATING HORMONE 0.739 uIU/ML (0.358-3.740); TOTAL PROTEIN 7.3 GM/DL (6.4-8.2)
[2019-10-22 18:15] LABS: CREATININE, URINE 55.8 MG/DL; MALB URINE SIEMENS 92.5 MG/L; MAU/CREAT RATIO 165.7 MCG/MG (0.0-30.0)
== END ==
LOC: M SFHCPLAZ 14:47
PROVIDERS: ATTEND Physician Assistant
DX: E10.621 Type 1 diabetes mellitus with foot ulcer (principal); R35.0 Frequency of micturition

== ENCOUNTER → 2020-05-13 | Outpatient (REF) | payer OTHER ==
[2020-05-13 19:18] LABS: BASO # 0.1 10^3/uL (0.0-0.2); BASO % 0.9 % (0.0-1.0); EOS # 0.5 10^3/uL (0.0-0.5); EOS % 3.4 % (0.0-3.0); HEMATOCRIT 29.4 % (42.0-52.0); HEMOGLOBIN 8.9 g/dl (13.5-17.5); LYMPH % 14.6 % (24.0-44.0); MEAN CORPUSCULAR HEMOGLOBIN 26.4 pg (27.0-33.0); MEAN CORPUSCULAR HGB CONC 30.3 g/dl (32.0-36.5); MEAN CORPUSCULAR VOLUME 87.2 fl (80.0-96.0); MONO # 0.6 10^3/uL (0.0-0.8); NEUTROPHILS # 10.7 10^3/uL (1.5-8.5); NEUTROPHILS % 76.7 % (36.0-66.0); PLATELET COUNT, AUTOMATED 322 10^3/uL (150-450); RED BLOOD COUNT 3.37 10^6/uL (4.30-6.10)
[2020-05-13 19:50] LABS: BLOOD UREA NITROGEN 16 MG/DL (7-18); CALCIUM LEVEL 7.8 MG/DL (8.5-10.1); CARBON DIOXIDE LEVEL 25 MEQ/L (21-32); CHLORIDE LEVEL 105 MEQ/L (98-107); CREATININE FOR GFR 1.39 MG/DL (0.70-1.30); GLOMERULAR FILTRATION RATE > 60.0 (>60); GLUCOSE, FASTING 491 MG/DL (70-100); POTASSIUM SERUM 6.1 MEQ/L (3.5-5.1); SODIUM LEVEL 134 MEQ/L (136-145)
== END ==
LOC: M LAB REF 18:16
PROVIDERS: ATTEND Surgery Vascular Surgery
DX: L08.9 Local infection of the skin and subcutaneous tissue, unspecified (principal)

== ENCOUNTER 2021-01-16 12:57 | Inpatient (IN) | payer OTHER ==
[2021-01-16] VITALS (30 sets, daily range): BP systolic 56–205; BP diastolic 11–104
[~2021-01-16 12:57] MED LIST changes: -CLIN150C14 PO; +CLIN150C15 PO; -DOXY100C37; +DOXY1CAP62; +OMEP40CA4 PO; -OMEP40CA97 PO
[2021-01-16] MEDS ORDERED: NS 1,000 ML IV ONE (13:00)
[2021-01-16] MEDS ORDERED: NALOXONE 2MG/2ML SYRINGE (J2310 PER 1MG) IV STA (13:03)
[2021-01-16] MEDS ORDERED: LIDOCAINE 2% 5ML JELLY UROJET TOP ONE (13:05)
[2021-01-16] MEDS ORDERED: VANCOMYCIN HCL 1,250 MG in NS 250 ML IV ONE (13:10)
[2021-01-16] MEDS ORDERED: VANCOMYCIN 750MG/25ML VIAL As Ordered ONE (13:11)
[2021-01-16] MEDS ORDERED: NS 2,010 ML in IV 1 EA IV ONE (13:15)
[2021-01-16] MEDS ORDERED: LevoFLOXacin IV 750 MG in IV 1 EA IV ONE (13:15)
[2021-01-16 13:25] LABS: HEMATOCRIT 28.9 % (42.0-52.0); HEMOGLOBIN 8.4 g/dl (13.5-17.5); MEAN CORPUSCULAR HEMOGLOBIN 29.3 pg (27.0-33.0); MEAN CORPUSCULAR HGB CONC 29.1 g/dl (32.0-36.5); MEAN CORPUSCULAR VOLUME 100.7 fl (80.0-96.0); PLATELET COUNT, AUTOMATED 207 10^3/uL (150-450); RED BLOOD COUNT 2.87 10^6/uL (4.30-6.10); WHITE BLOOD COUNT 23.8 10^3/uL (4.0-10.0)
--- NOTE | 2021-01-16 13:40 | REP ---
INDICATION: arrest, intubation. COMPARISON: Multiple the latest 09/27/2019 TECHNIQUE: Supine portable, the right lower lung field has not been included on the radiograph FINDINGS: The technique utilized in obtaining the radiograph has magnified the cardiac silhouette and accentuated the interstitial markings. Cardiomediastinal silhouette is within normal limits. The heart is not enlarged. A curvilinear radiodensity seen coursing the esophagus the tip of which is within the stomach fundal region. There is gaseous distention of the stomach. An endotracheal tube is seen in place the tip of which is in satisfactory position between the clavicular heads and aortic knob. The imaged lung galloway are clear. The imaged osseous structures are within normal limits. IMPRESSION: There is no evidence of acute cardiopulmonary disease. Findings and limitations as described above. <Electronically signed by Serge Carrera > 01/16/21 [id number]
[2021-01-16] MEDS ORDERED: HumuLIN R (REGULAR) INSULIN (NovoLIN R) **100U/ML** PER UNIT IV ONE ×2 (13:45)
[2021-01-16 13:48] LABS: ANISOCYTOSIS 1+; ATYPICAL LYMPH 1 % (0-5); LYMPHOCYTES 14 % (16-44); MONOCYTES 5 % (0-5); NEUTROPHILS 46 % (28-66); PLATELET ESTIMATE NORMAL (NORMAL)
[2021-01-16 13:49] LABS: HYPOCHROMASIA 1+; MICROCYTOSIS 1+
[2021-01-16 13:56] LABS: HEMOGLOBIN A1c 10.8 %
[2021-01-16] MEDS: NOREPINEPHRINE BITARTRATE 8 MG in D5W 492 ML IV SCH ×4 (13:59→15:40)
[2021-01-16] MEDS ORDERED: INSULIN REGULAR IN 0.9 % NACL 100 UNIT in IV 1 EA IV SCH ×4 (14:00→17:00)
[2021-01-16] MEDS ORDERED: VANCOMYCIN HCL 750 MG, VIAL MATE ADAPTER 1 EACH in NS 250 ML IV ONE (14:00)
[2021-01-16] MEDS ORDERED: INSULIN IV RATE CHANGE DOCUMENTATION ML/HR XX SCH ×2 (14:00→15:10)
[2021-01-16] MEDS ORDERED: VANCOMYCIN HCL 500 MG in D5W MINI-BAG PLUS 100 ML IV ONE (14:00)
[2021-01-16 14:02] LABS: AMPHETAMINES LEVEL URINE NEGATIVE (NEGATIVE); BARBITURATES URINE NEGATIVE (NEGATIVE); BENZODIAZEPINES URINE NEGATIVE (NEGATIVE); CANNABINOIDS URINE POSITIVE (NEGATIVE); COCAINE METABOLITE URINE NEGATIVE (NEGATIVE); METHADONE URINE NEGATIVE (NEGATIVE); OPIATES URINE POSITIVE (NEGATIVE); PHENCYCLIDINE URINE NEGATIVE (NEGATIVE)
[2021-01-16] MEDS ORDERED: SUCCINYLCHOLINE INJ 200 MG/10 ML VIAL (J0330) IV STA (14:16)
[2021-01-16] MEDS ORDERED: ETOMIDATE INJ 20MG/10ML VIAL IV STA (14:16)
[2021-01-16] MEDS ORDERED: SODIUM BICARBONATE 8.4% INJ 50 ML SYRINGE IV STA ×3 (14:16→21:13)
[2021-01-16 14:19] LABS: OSMOLALITY SERUM 355 MOSM/KG (275-295)
[2021-01-16 14:39] LABS: RSV AMPLIFICATION NEGATIVE (NEGATIVE)
[2021-01-16 14:40] LABS: ACETONE/KETONE 42.73 MG/DL (<2.81); ALBUMIN 1.2 GM/DL (3.2-5.2); ALT/SGPT 48 U/L (12-78); BILIRUBIN,DIRECT 0.2 MG/DL (0.0-0.2); BILIRUBIN,TOTAL 0.6 MG/DL (0.2-1.0); BLOOD UREA NITROGEN 107 MG/DL (7-18); CARBON DIOXIDE LEVEL 16 MEQ/L (21-32); CHLORIDE LEVEL 73 MEQ/L (98-107); CK-MB VALUE MASS 91.8 NG/ML (<3.6); CPK CREATINE PHOSPHOKINASE 6490 U/L (39-308); CREATININE FOR GFR 4.74 MG/DL (0.70-1.30); ETHYL ALCOHOL (ETHANOL) < 0.003 % (0.000-0.010); LIPASE 30 U/L (73-393); MAGNESIUM LEVEL 3.2 MG/DL (1.8-2.4); MB/CK RELATIVE INDEX 1.41 (< OR =4); PHOSPHORUS LEVEL 10.7 MG/DL (2.5-4.9); POTASSIUM SERUM 5.5 MEQ/L (3.5-5.1); SODIUM LEVEL 116 MEQ/L (136-145); TOTAL PROTEIN 3.8 GM/DL (6.4-8.2); TROPONIN I < 0.02 NG/ML (< 0.10)
[2021-01-16 14:41] LABS: GLUCOSE, FASTING 1026 MG/DL (70-100)
[2021-01-16] MEDS ORDERED: MIDAZOLAM INJ 2MG/2ML VIAL (J2250 PER 1MG) IV PRN (15:10)
[2021-01-16] MEDS ORDERED: ACETAMINOPHEN 650 MG SUPP PR PRN (15:10)
[2021-01-16] MEDS ORDERED: LACRILUBE (AKWA TEARS) OPHTH OINT 3.5 GM OU PRN (15:10)
[2021-01-16] MEDS ORDERED: propofoL 1,000 MG in IV 1 EA IV SCH (15:10)
[2021-01-16] MEDS ORDERED: VASOPRESSIN INJ 20 UNITS/ML VIAL As Ordered ONE (15:25)
[2021-01-16] MEDS ORDERED: LACRILUBE (AKWA TEARS) OPHTH OINT 3.5 GM OU SCH (16:00)
[2021-01-16] MEDS ORDERED: VASOPRESSIN INJ 20 UNITS in NS 499 ML IV SCH ×2 (16:00→17:00)
[2021-01-16 16:49] LABS: INR 2.47; PROTHROMBIN TIME 27.3 SECONDS (12.5-14.3)
[2021-01-16 16:50] LABS: PARTIAL THROMBOPLASTIN TIME 49.6 SECONDS (24.2-38.5)
[2021-01-16 16:58] LABS: CALCIUM LEVEL 7.5 MG/DL (8.5-10.1); CREATININE FOR GFR 4.42 MG/DL (0.70-1.30); GLOMERULAR FILTRATION RATE 17.3 (>60); POTASSIUM SERUM 4.5 MEQ/L (3.5-5.1)
[2021-01-16] MEDS ORDERED: NOREPINEPHRINE BITARTRATE 8 MG in D5W 492 ML IV SCH (17:20)
[2021-01-16] MEDS ORDERED: VANCOMYCIN INTERMITTENT/PULSE DOSING BY CLINICAL PHARMACIST PER DOSING PROTOCOL XX SCH (17:25)
[2021-01-16 17:55] LABS: MEAN CORPUSCULAR HEMOGLOBIN 28.7 pg (27.0-33.0); MEAN CORPUSCULAR HGB CONC 30.1 g/dl (32.0-36.5); MEAN CORPUSCULAR VOLUME 95.4 fl (80.0-96.0); PLATELET COUNT, AUTOMATED 156 10^3/uL (150-450); RED BLOOD COUNT 1.95 10^6/uL (4.30-6.10); WHITE BLOOD COUNT 16.6 10^3/uL (4.0-10.0)
[2021-01-16] MEDS ORDERED: CLINDAMYCIN 600 MG in IV 1 EA IV SCH (18:00)
[2021-01-16] MEDS ORDERED: EPINEPHrine HCL INJ 1 MG in D5W 240 ML IV SCH (18:00)
[2021-01-16 18:03] LABS: HEMATOCRIT 18.6 % (42.0-52.0); HEMOGLOBIN 5.6 g/dl (13.5-17.5)
[2021-01-16 18:07] LABS: INR 3.58; PROTHROMBIN TIME 36.6 SECONDS (12.5-14.3)
[2021-01-16] MEDS ORDERED: SODIUM BICARBONATE 150 MEQ in STERILE WATER LITER BAG 1,000 ML IV SCH (18:20)
[2021-01-16 18:23] LABS: ABG BASE EXCESS -21.1 (-2.0-2.0); ABG HCO3 8.5 MEQ/L (22.0-26.0); ABG O2 SATURATION 96.9 % (95.0-99.0); ABG PARTIAL PRESSURE O2 124.7 mmHg (75.0-100.0); ABG STANDARD HCO3 8.2 MEQ/L (22.0-26.0); ABG TOTAL CO2 9.6 MEQ/L (22.0-29.0)
[2021-01-16 18:25] LABS: ABG pH (ARTERIAL) 6.992 UNITS (7.350-7.450)
[2021-01-16 18:26] LABS: PARTIAL THROMBOPLASTIN TIME 162.4 SECONDS (24.2-38.5)
[2021-01-16] MEDS ORDERED: SODIUM CHLORIDE 0.9% INJ 10 ML SYR IV PRN (18:55)
[2021-01-16] MEDS ORDERED: CALCIUM GLUCONATE 1,000 MG in D5W MINI-BAG PLUS 100 ML IV ONE (19:00)
[2021-01-16] MEDS ORDERED: PHYTONADIONE 10MG/ML INJECTION (J3430) SC ONE (19:00)
[2021-01-16 19:20] LABS: BILIRUBIN,TOTAL 0.5 MG/DL (0.2-1.0); CALCIUM LEVEL 7.2 MG/DL (8.5-10.1); CREATININE FOR GFR 3.99 MG/DL (0.70-1.30); GLOMERULAR FILTRATION RATE 19.5 (>60); POTASSIUM SERUM 4.9 MEQ/L (3.5-5.1); TOTAL PROTEIN 3.1 GM/DL (6.4-8.2)
[2021-01-16 19:40] LABS: PHOSPHORUS LEVEL 9.1 MG/DL (2.5-4.9)
[2021-01-16] MEDS ORDERED: MEROPENEM INJ 1 GM in IV 1 EA IV SCH (20:00)
[2021-01-16] MEDS ORDERED: AMIODARONE HCL 150 MG in IV 1 EA IV STA (20:06)
[2021-01-16] MEDS ORDERED: AMIODARONE HCL 150 MG/100 ML PREMIXED BAG (NEXTERONE) (J0282 PER 30MG) As Ordered ONE (20:06)
--- NOTE | 2021-01-16 20:56 | CR ---
NEPHROLOGY CONSULTATION DATE: 01/16/2021 REQUESTING PHYSICIAN: Dr. Courtney Reyes CONSULTING PHYSICIAN: Dr. Shaina Rabago REASON FOR CONSULTATION: Acute renal failure and severe metabolic acidosis in this gentleman with septic shock and multiple medical problems. HISTORY OF PRESENT ILLNESS: The patient is a 25-year-old male with a known history of type 1 diabetes complicated with multiple episodes of ketoacidosis in the past, history of right below the knee amputation in the past and history of intravenous drug abuse. He was found unresponsive and was in cardiac arrest, requiring CPR. He was brought to the Emergency Room where he had another episode of cardiac arrest and required CPR. He is now intubated and admitted to the Intensive Care Unit. The patient has already received 4 liters of normal saline and he is on maximum dose of Levophed and has received multiple doses of Epinephrine and is also getting Vasopressin. He has been given broad spectrum antibiotics including Clindamycin and Meropenem. He has compartment syndrome in his right arm which is all swollen and erythematous all the way up to his neck including shoulder and scapular area. The patient is anuric and has severe lactic acidosis with lactic acid level of 19. A nephrology consultation was requested and the patient was seen in the Intensive Care Unit. PAST MEDICAL AND SURGICAL HISTORY: The patient's past medical and surgical history is significant for: 1. History of type 1 diabetes. 2. History of multiple episodes of diabetic ketoacidosis. 3. Prior right below the knee amputation. 4. History of urinary retention requiring intermittent self catheterization. 5. History of depression and anxiety. 6. History of erectile dysfunction. 7. History of appendectomy. PERSONAL AND SOCIAL HISTORY: The patient is and has a history of intravenous drug abuse and smoking. FAMILY HISTORY: The patient's family history is significant for diabetes in multiple family members. MEDICATIONS: His home medications include: 1. Admelog insulin. 2. No other information is available at present. REVIEW OF SYSTEMS: Constitutional: The patient is unresponsive, on the ventilator at present and not able to provide any information. Apparently he was unresponsive and has been resuscitated twice today. Extremities: His right arm is swollen and red all the way up to his neck. MEDICATIONS IN THE HOSPITAL: His current medications in the hospital include: 1. Protonix 40 mg daily. 2. Heparin 5,000 units every 12 hours. 3. Meropenem one gram every 24 hours. 4. Potassium Gluconate 1,000 mg given once. 5. Multiple doses of sodium bicarbonate given intravenously. 6. Epinephrine and Levophed drips. 7. Clindamycin 600 mg every 6 hours. 8. Regular insulin drip. 9. Tylenol 650 mg every 4 hours p.r.n. 10. Versed p.r.n. ALLERGIES: 1. Penicillins. 2. Tramadol. PHYSICAL EXAMINATION: VITAL SIGNS: The patient an arterial line with blood pressure about 96/58 mm of mercury and a heart rate about 100 per minute at present. Temperature is 94.1 degrees Fahrenheit and respiratory rate is 28 per minute on the ventilator. GENERAL APPEARANCE: He is very pale looking. HEENT: His head is atraumatic. Pupils are widely dilated and poorly responsive. Oral mucosa is dry. NECK: Neck veins are difficult to be assessed. HEART: Tachycardic. LUNGS: Good bilateral air entry. ABDOMEN: Soft and bowel sounds are hypoactive. EXTREMITIES: No cyanosis. Right arm is all swollen and red from fingers all the way up to his shoulder and up to his neck. There is some oozing of fluid. He has tattoos on his arms. There is a right below the knee amputation and stump is well healed. NEUROLOGICAL: He is unresponsive. LABORATORY DATA: His initial CBC showed a white blood cell count of 23.8, hemoglobin 8.4 and hematocrit 28.9. It appears CBC now shows a WBC count of 16.6, hemoglobin 5.6 and hematocrit 18.6. Mostly some blood gas showed a pH of 6.99, pco2 of 36, pO2 124 and bicarbonate 8.5. Initial blood gas showed pH of 7.00, pco2 of 52 and p02 100. His chemistries initial chemistries showed glucose 1,026, sodium 116, potassium 5.5, CO2 16, BUN 107 and creatinine 4.74. Hemoglobin A1c 10.8 and osmolality 355. A lactic acid level is 19. CPK is 6,490. Albumin level is 1.2. Most recent chemistries this afternoon showed sodium of 126, potassium 4.9, CO2 9, BUN 100, creatinine 3.99, glucose 760, total protein 3.1 and albumin 1.0. PROBLEMS: 1. Anuric acute renal failure related to septic shock. The patient has been on high dose of multiple pressors and multiple antibiotics. At present he has no urine output and likely to benefit from CRRT. 2. Septic shock most likely related to intravenous drug abuse and right arm compartment syndrome with cellulitis. The patient is already on maximum dose of pressors and multiple antibiotics. I would recommend to continue with current antibiotics. He has not received any Vancomycin. 3. Severe lactic acidosis - The patient has compartment syndrome in his arm. He has also diabetic ketoacidosis in addition to lactic acidosis. The patient has received intravenous bicarbonate infusions. I would recommend to start with a sodium bicarbonate drip and then we would start CRRT as soon as arrangements are finalized and he is hemodynamically stable. 4. Anemia his anemia is severe and he is already going to receive 2 units of packed RBCs. 5. Severe protein calorie malnutrition most likely a chronic issue and we will consider TPN at some point when appropriate. At this point the patient should be n.p.o. Thank you for involving me in the care of Mr. Noble. I will follow him along with you.
[2021-01-16] MEDS ORDERED: HEPARIN SOD (PORCINE) 5000UNITS/ML 1ML VIAL/SYRINGE SC SCH (21:00)
[2021-01-16] MEDS ORDERED: CHLORHEXIDINE GLUCONATE 0.12 % 15ML UDC (PERIDEX ORAL RINSE) MT SCH (21:00)
[2021-01-16] MEDS ORDERED: EPINEPHrine INJ 1 MG/ML 1ML AMP As Ordered ONE (21:03)
[2021-01-16 21:04] LABS: ABG BASE EXCESS -26.6 (-2.0-2.0); ABG HCO3 5.5 MEQ/L (22.0-26.0); ABG O2 SATURATION 98.8 % (95.0-99.0); ABG PARTIAL PRESSURE O2 201.4 mmHg (75.0-100.0); ABG STANDARD HCO3 5.3 MEQ/L (22.0-26.0); ABG TOTAL CO2 6.5 MEQ/L (22.0-29.0); ABG pH (ARTERIAL) 6.857 UNITS (7.350-7.450)
--- NOTE | 2021-01-16 21:17 | REPVR ---
PROCEDURE INFORMATION: Exam: US Duplex Right Upper Extremity Veins, Limited Exam date and time: 01/16/2021 7:38 PM Age: 25 years old Clinical indication: Edema, localized; Upper extremity, right TECHNIQUE: Imaging protocol: Real-time Duplex ultrasound of the Right Upper Extremity with 2-D mejias scale, color Doppler flow and spectral waveform analysis with image documentation. Limited exam focused on the right upper extremity veins. COMPARISON: CT Chest without contrast 07/05/2018 6:37 PM FINDINGS: Right deep veins: Unremarkable. Axillary and brachial veins are patent throughout without thrombus. Normal Doppler waveforms. Normal compressibility and/or augmentation response. Visualized internal jugular and subclavian veins are patent. Right superficial veins: Unremarkable. Visualized basilic vein is patent without thrombus. The cephalic vein cannot be visualized and this may be secondary to the extreme edema. Soft tissues: Very severe edema of the arm. IMPRESSION: No evidence of deep vein thrombosis. Electronically signed by: Jose C Lopez On 01/16/2021 21:17:15 PM
--- NOTE | 2021-01-16 21:47 | HPE ---
HISTORY AND PHYSICAL DATE OF ADMISSION: 01/16/2021 CHIEF COMPLAINT: Cardiac arrest. HISTORY OF PRESENT ILLNESS: Mr. Noble is a 25-year-old male with a past medical history of type 1 diabetes with history of noncompliance, history of right BKA due to gangrene in the lower extremity, anxiety, depression, history of urinary retention who presented to the ED after a cardiac arrest. History was obtained from the chart and from other collateral information as patient is intubated and unable to provide history. As per patient's , he had been in his usual state of health until recently. The patient had what was presumed to be a spider bite on his right arm around the elbow which initially had caused some swelling and bruising around the right elbow which continued to spread up into the rest of his arm. He had not gone to the emergency room or urgent care despite being urged by his family to do so. The patient's otherwise reports that he had been mostly compliant with checking his fingerstick glucoses although they had been mildly high for the past several days. She states they were more in the 200-300 range. On the day of admission, the patient was noted as per the family to be confused and hallucinating. EMS was called and while EMS was present, the patient collapsed and was unresponsive in a cardiac arrest. He initially appeared to be in VT or V-fib arrest on the monitor and then transitioned into asystole. He had CPR performed in the field but did not receive any medications. The patient had ROSC achieved in the field with approximately a total down time of 15-20 minutes. In the ED, the patient was unresponsive and hypotensive. He was intubated. He was given Narcan prior to intubation given a prior history of IV drug use with no response. He was started on Levophed in the emergency department for vasopressor support as well as given IV fluids, total of 3 liters normal saline in the ED. The patient was also noted to be severely acidotic as well as with a glucose above 1000. He was given 10 units of insulin in the ED and started on an insulin drip as well as given one amp of sodium bicarb. The patient did also receive broad spectrum antibiotics with vancomycin and Levaquin in the ED. In the emergency department, the patient was noted to have increasing Levophed requirements. He was therefore given an additional amp of sodium bicarb in the ED with some improvement in his blood pressure. He was also started on a second pressor, vasopressin. The patient's vent settings were also adjusted as he was not overbreathing on the ventilator initially. The patient was also noted to be tachycardic with what appeared to be SVT with heart rate up into the 180s in the ED. He received synchronized cardioversion at 100 joules and had gone into sinus rhythm with his heart rate in the 120-110s. The patient was then transferred to the ICU for further evaluation. Initially in the ED the patient's pupils were dilated and minimally responsive to light. Later in the ED his pupils were noted to have sluggish response to light and he appeared to have some grimacing but otherwise was not having any purposeful movements. He was hypothermic in the ED without the need of the [place] pads but he was started on additional hypothermia protocol with his GCS of less than 8. PAST MEDICAL AND SURGICAL HISTORY: 1. Type 1 diabetes with a prior history of BKA and neuropathy. 2. History of CKD. 3. History of chronic left foot ulcer. 4. History of right BKA secondary to gangrene. 5. Anxiety. 6. Depression. 7. History of erectile dysfunction. 8. Urinary retention with prior history of self-catheterization. 9. Vitamin D deficiency. 10. History of IBS with chronic diarrhea. 11. Reported prior history of C. diff. 12. Appendectomy. 13. Fingertip removed from left hand, little finger. 14. Right knee BKA in August,. SOCIAL HISTORY: History of nicotine dependence with current ex-smoker, prior history of IV drug use. FAMILY HISTORY: History of diabetes in various family members. HOME MEDICATIONS: Insulin Lispro. ALLERGIES: PENICILLIN AND TRAMADOL. PHYSICAL EXAMINATION: VITAL SIGNS: Temperature is 96.7. Pulse was 166, Blood pressure was 85/37. O2 sat was 92% on 50% FiO2. In 3 liters, out approximately 200 mL. GENERAL: The patient is intubated, is not sedated. He is minimally responsive with only occasional grimacing to painful stimuli but no purposeful movements. He appears pale. HEENT: Normocephalic, atraumatic. Pupils are sluggishly reactive to light bilaterally. There are dry mucous membranes noted. The patient has an ET tube and OG tube in place that is draining dark brown output. NECK: Supple. Trachea is midline. He has swelling and ecchymosis in the right side of the neck extending from his right arm swelling. CARDIOVASCULAR: Tachycardic, regular rate and rhythm, normal S-1, S-2. Unable to clearly appreciate any murmurs. PULMONARY: Coarse ventilator breath sounds bilaterally with no significant wheezing, rales or rhonchi. ABDOMEN: Soft, scaphoid, nontender, nondistended. No palpable masses. EXTREMITIES: There is no significant lower extremity edema in the left leg. His right is status post BKA. In his right arm, the patient has extensive edema and swelling with some areas of blood blistering with an open wound near his right elbow draining some serosanguineous fluid. The right arm appears dusky in color with some areas of ecchymosis and questionable crepitus. The swelling extends up into his right neck. He had Doppler pulses noted in the right arm down into the forearm but not clearly appreciated on Doppler in the wrist. LABORATORY DATA: WBC 16.6, hemoglobin 5.6, platelets 156. Chemistries: Sodium is 120. Potassium is 4.5. Chloride is 79. Bicarb is 16. BUN is 104, Creatinine is 4.42. Glucose is 88. Anion gap was 25. Hemoglobin A1c is 10.8. Lactic acid initially was 16.23. AST 176, ALT 48. CPK 6490. Troponin is negative. Albumin is 1.2. Coags: Initially INR was 2.47. PTT is 49.6. Utox was positive for opioids and cannabis ABG was 7.104, pCO2 434.6, pO2 of 247. Admitting chest x-ray on admission showed ET tube in good position. There is OG tube coursing below the diaphragm into the stomach. The stomach appears distended with air. There are no focal opacities or infiltrates noted. ASSESSMENT AND PLAN: Mr. Noble is a 25-year-old male with a history of type 1 diabetes with prior history of noncompliance, history of right BKA secondary to gangrene, history of CKD who presented as an out of hospital cardiac arrest. The patient's had reported earlier in the day that patient was becoming confused and hallucinating. EMS was called and initially there was responsive and later became unresponsive and was noted to be in possible VT/V fib arrest initially. He did not receive any shock or medications but did receive CPR with ROSC achieved after approximately 15-20 minutes. Post-arrest, the patient was minimally responsive. GCS is less than 8 in the ED. He was intubated. He was also hypotensive in septic shock and started on pressors and given broad spectrum antibiotics and IV fluids as per the sepsis protocol. 1. Neuro. Patient post-cardiac arrest had a GCS of less than 8. The patient was already hypothermic upon initial presentation to the ED. However, we will start him on hypothermia protocol given his cardiac arrest. The patient will be on hypothermia protocol for 24 hours cooling with a targeted temperature of 33 degrees Celsius and then with gradual rewarming afterwards. He had not received any sedation in the ED, had only received one time dose of Versed in the ICU. We will continue with versed p.r.n. He does not appear to be shivering currently but can consider giving p.r.n. paralytics if needed. 2. Cardiac. Patient presented with cardiac arrest likely in the setting of his severe metabolic acidosis from his sepsis and DKA. He is currently in septic shock and has been requiring high doses of pressors to maintain his blood pressure. Continue with Levophed and vasopressin to maintain a MAP above 65. If needed, can add epinephrine for a third pressor. The patient has severe lactic acidosis initially, we will contain trending his lactic acid. The patient received three liters of normal saline in the ED. We will give additional normal saline boluses as patient does have DKA and likely HHS. The patient's initial troponins were negative. We will continue to trend and will get echocardiogram. In the ED patient had narrow complex tachycardia, possible atrial arrythmia versus SVT. He received synchronized cardioversion and went into sinus rhythm. will continue to monitor, if patient has further episodes consider amiodarone for conversion. His BP did not improve despite correction of his arrythmia to sinus rhythm. 3. Pulmonary. The patient is intubated status post his cardiac arrest. He is on mechanical ventilation currently. We will continue patient with PRBC with settings of 430/28/50 and 5. The patient initially was overbreathing on the ventilator at a respiratory rate of 30. His respiratory rate decreased now and so we will increase his respiratory rate to 28 on the ventilator. We will continue with ventilator care with head elevation and chlorhexidine mouthwash. We will continue with daily chest x-rays while intubated and continue with ABGs as per hypothermia protocol. 4. Sepsis. Patient with septic shock likely secondary to his right arm cellulitis. He has extensive edema as well as some dusky discoloration and ecchymosis. There is concern with the appearance for possible necrotizing fasciitis or even compartment syndrome. He does have some Dopplerable pulses in the right forearm. Appreciate general consult and recommendations. We will get venous ultrasound of his right arm to evaluate for any thrombosis which may be contributing to some of the edema. At this time, he does not appear to have significant compartment syndrome as per general surgery. I would like to get a CT of his arm. However, he is too hemodynamically unstable at this time for imaging given his maximal pressor use. If he does have necrotizing fasciitis, there is concern about the extent of the surgery that he would need given the infection may be tracking up to his right upper chest and neck and as per surgery he is too unstable for surgical procedures at this time but will be monitored closely. We will continue antibiotics with vancomycin renally dosed as well as meropenem. Given concern for possible necrotizing fasciitis, we will also order clindamycin. We will order a wound culture for the open wound in the right elbow and we will also follow blood cultures and a MRSA screen. 5. Renal. Patient with a prior history of CKD as per the . He appears to have PASHA on CKD likely in the setting of his shock and cardiac arrest. He has severe metabolic anion gap acidosis secondary to DKA as well as lactic acidosis. He also has an additional respiratory acidosis as he was not compensating appropriately on his presentation. The patient was given sodium bicarb amps. We will consider giving sodium bicarb fluids if he has persistent acidosis with 150 mEq at 150 mL an hour. Appreciate renal consult and recommendations. He has had minimal urine output and given his severe acidosis, will likely need a CRRT if his blood pressure tolerates. The patient does also have evidence of elevated CPK and rhabdomyolysis likely secondary to his cellulitis as well as possibly from his cardiac arrest. We will continue trending his CPKs with the aggressive IV fluid hydration. We will continue to monitor electrolytes and repeat as needed. He does have pseudohyponatremia currently. The patient is also in DKA. We will continue with DKA protocol with fingerstick glucose monitoring q.1 hour and insulin drip as per protocol 6. GI. Patient has mildly elevated AST, suspect he will a component of shock liver with his cardiac arrest and septic shock. We will continue to monitor his liver function. The patient is NPO with his OG tube to low wall suction. We will continue with pantoprazole for GI prophylaxis. 7. Heme. Patient with anemia likely in the setting of his chronic disease and perhaps some degree of hemodilution. We will transfuse two units of PRBC and continue monitoring H&H. The patient has coagulopathy and with his septic shock, there is concern for DIC. We will check a fibrinogen level. We will give vitamin K as well 10 mg SQ. The patient is on heparin currently for DVT prophylaxis. Code Status: FULL CODE. The patient's has been continuously updated as to his condition and his poor prognosis. At this time, she would like him to remain a FULL CODE although she does understand that his prognosis is very guarded. Total critical care time spent not including any procedures approximately two hours and 50 minutes. KRISTIND
--- NOTE | 2021-01-16 22:35 | CR ---
CONSULTATION DATE: 01/16/2021 REASON FOR CONSULTATION: I was asked to see the patient for right arm swelling and the patient was admitted for sepsis, hypotension, DKA, renal failure and cardiac arrest. 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 He was found unresponsive, in cardiac arrest and after CPR was intubated and did get a pulse back. The patient has been on Levophed and Epinephrine as well as Vasopressin in the ICU and is being treated for his significant lactic acidosis. I was asked to see him for his right arm swelling. PAST MEDICAL HISTORY: The patient's past medical history is significant for: 1. History for diabetes mellitus/poorly controlled with multiple episodes of diabetic ketoacidosis. 2. History of urinary retention. 3. History of depression. 4. Anxiety. 5. Erectile dysfunction. PAST SURGICAL HISTORY: The patient's past surgical history is significant for: 1. Appendectomy. 2. Below the knee amputation. MEDICATIONS: Insulin. PHYSICAL EXAMINATION: GENERAL APPEARANCE: An intubated 25-year-old diabetic who has significant sequelae of extremity atrophy associated with diabetic neuropathy. EXTREMITIES: In any case his left arm I am able to get some Doppler signals at the radial area, not able to palpate the pulse in this area. In the right arm I am able to get some pulses at the antecubital fossa and midway down on the mid forearm on the ulnar side I can appreciate a triphasic wave form, however he has edema throughout his right arm. He has some erythematous component to it, but it is almost looking as though it is a dark hemorrhagic in some ways. He has a dark eschar on his right lateral arm and reportedly had a spider bite in this area. He does not have any air coming out of this skin defect on the right arm, but there is some necrotic tissue present. He has this edematous swelling all the way up to his right neck area with some old hemorrhagic appearance to it, extending onto the right neck, onto the right upper chest wall. IMPRESSION AND PLAN: The patient has sepsis and is on high dose pressors. At this point my recommendation is to follow up a possible DVT in this arm which may contribute to this issue. Otherwise hemorrhage to the subcutaneous tissue during CPR may have contributed to this as well. More importantly, the major concern that we all have is that he has necrotizing fasciitis. Right now he is not stable enough to even transport to CT for further evaluation of this tissue or to the Operating Room. In general, I do feel that he needs to be aggressively resuscitated to see if we can turn the corner a little bit to get him in an adequate situation where we can consider further treatment, even it may need to be operative. But at this point he is a non-operative candidate. Unfortunately given the extension up to the neck and the chest wall, if this truly is necrotizing fasciitis, it is most likely terminal. We will see what the ultrasound report shows and reevaluate him after he has gotten some fluid resuscitation.
--- NOTE | 2021-01-16 22:56 | DS.PDOC ---
Discharge Summary General Date of Admission Jan 16, 2021 at 15:07 Date of Discharge 01/16/21 Discharge Summary PROCEDURES PERFORMED DURING STAY: Endotracheal intubation, femoral central line placement. Femoral dialysis catheter placement. Femoral arterial line placement ADMITTING DIAGNOSES: 1. Cardiac arrest 2. DKA 3. Septic shock 4. Anion gap metabolic acidosis 5. PASHA on CKD 6. Cellulitis right arm, possible necrotizing fasciitis 7. SVT 8. Rhabdomyolysis 9. Shock liver 10. Coagulopathy 11. Anemia DISCHARGE DIAGNOSES: 1. Cardiac arrest 2. DKA 3. Septic shock 4. Anion gap metabolic acidosis 5. PASHA on CKD 6. Cellulitis right arm, possible necrotizing fasciitis 7. SVT 8. Rhabdomyolysis 9. Shock liver 10. Coagulopathy 11. Anemia COMPLICATIONS/CHIEF COMPLAINT: Cardiac Arrest,Dka,Sepsis. HISTORY OF PRESENT ILLNESS: Mr. Noble is a 25-year-old male with a past medical history of type 1 diabetes with history of noncompliance, history of right BKA due to gangrene in the lower extremity, anxiety, depression, history of urinary retention who presented to the ED after a cardiac arrest. History was obtained from the chart and from other collateral information as patient is intubated and unable to provide history. As per patient's , he had been in his usual state of health until recently. The patient had what was presumed to be a spider bite on his right arm around the elbow which initially had caused some swelling and bruising around the right elbow which continued to spread up into the rest of his arm. He had not gone to the emergency room or urgent care despite being urged by his family to do so. The patient's otherwise reports that he had been mostly compliant with checking his fingerstick glucoses although they had been mildly high for the past several days. She states they were more in the 200-300 range. On the day of admission, the patient was noted as per the family to be confused and hallucinating. EMS was called and while EMS was present, the patient collapsed and was unresponsive in a cardiac arrest. He initially appeared to be in VT or V-fib arrest on the monitor and then transitioned into asystole. He had CPR performed in the field but did not receive any medications. The patient had ROSC achieved in the field with approximately a total down time of 15-20 minutes. In the ED, the patient was unresponsive and hypotensive. He was intubated. He was given Narcan prior to intubation given as prior history of IV drug use with no response. He was started on Levophed in the emergency department for vasopressor support as well as given IV fluids, total of 3 liters normal saline in the ED. The patient was also noted to be severely acidotic as well as with a glucose above 1000. He was given 10 units of insulin in the ED and started on an insulin drip as well as given one amp of sodium bicarb. The patient did also receive broad spectrum antibiotics with vancomycin and Levaquin in the ED. In the emergency department, the patient was noted to have increasing Levophed requirements. He was therefore given an additional amp of sodium bicarb in the ED with some improvement in his blood pressure. He was also started on a second pressor, vasopressin. The patient's vent settings were also adjusted as he was not overbreathing on the ventilator initially. The patient was also noted to be tachycardic with what appeared to be SVT with heart rate up into the 180s in the ED. He received synchronized cardioversion and 100 joules and had gone into sinus rhythm with his heart rate in the 120s, 110s. The patient was then transferred to the ICU for further evaluation. Initially in the ED the patient's pupils were dilated and minimally responsive to light. Later in the ED his pupils were noted to have sluggish response to light and he appeared to have some grimacing but otherwise was not having any purposeful movements. He was hypothermic in the ED without the need of the [place] pads but he was started on additional hypothermia protocol with his GCS of less than 8. HOSPITAL COURSE: In the ICU patient had arterial line placed and a trialysis ca theter for CRRT and additional access. He was placed on arctic sun and started on hypothermia protocol but was already at goal temperature upon arrival to ICU. Patient was also noted to be anemia and received 2 units PRBC transfusion with some improvement initially in his blood pressure. Patient continued however to require increasing pressors and was on three pressors which ultimately were on maximal dosing. He was also given additional amps of sodium bicarb and started on sodium bicarbonate infusion given his worsening metabolic acidosis secondary to worsening lactic acidosis. Patient was seen by nephrology and orders were placed for CRRT however patient was not hemodynamically stable enough for initiation of CRRT. He also appeared to have episode of possible atrial fibrillation in RVR and ST changes on telemetry. He was given amiodarone 150mg IV with improvement in HR. Subsequent ABG and lactic acid continued to show worsening lactic acidosis. Patient then had a second cardiac arrest in the ICU with PEA arrest. CPR was initiated and patient was given 2 rounds epinephrine, sodium bicarbonate and calcium gluconate. He was also continued on his maximal pressors of levophed, vasopressin and epinephrine as well as his sodium bicarb infusion. Patient's family including his and sister were at bedside. ROSC was unable to be achieved and time of was called at 9:37pm. DISCHARGE MEDICATIONS: None ALLERGIES: Please see below. PHYSICAL EXAMINATION ON DISCHARGE: VITAL SIGNS: Please see below. GENERAL: The patient is intubated, is not sedated. He is minimally responsive with only occasional grimacing to painful stimuli but no purposeful movements. He appears pale. HEENT: Normocephalic, atraumatic. Pupils are sluggishly reactive to light bilaterally. There are dry mucous membranes noted. The patient has an ET tube and OG tube in place that is draining dark brown output. NECK: Supple. Trachea is midline. He has swelling and ecchymosis in the right side of the neck extending from his right arm swelling. CARDIOVASCULAR: Tachycardic, regular rate and rhythm, normal S-1, S-2. Unable to clearly appreciate any murmurs. PULMONARY: Coarse ventilator breath sounds bilaterally with no significant wheezing, rales or rhonchi. ABDOMEN: Soft, scaphoid, nontender, nondistended. No palpable masses. EXTREMITIES: There is no significant lower extremity edema in the left leg. His right is status post BKA. In his right arm, the patient has extensive edema and swelling with some areas of blood blistering with an open wound near his right elbow draining some serosanguineous fluid. The right arm appears dusky in color with some areas of ecchymosis and questionable crepitus. The swelling extends up into his right neck. He had Doppler pulses noted in the right arm down into the forearm but not clearly appreciated on Doppler in the wrist. LABORATORY DATA: Please see below. IMAGING: CXR- ET tube in good position. There is OG tube coursing below the diaphragm into the stomach. The stomach appears distended with air. There are no focal opacities or infiltrates noted. PROGNOSIS: ACTIVITY: DISPOSITION: DISCHARGE INSTRUCTIONS: None DISCHARGE CONDITION: TIME SPENT ON DISCHARGE: Greater than 30 minutes. Vital Signs/I&Os Vital Signs Date Time Temp Pulse Resp B/P (MAP) Pulse Ox O2 Delivery O2 Flow Rate FiO2 01/16/21 20:05 144 28 50 01/16/21 19:43 146/103 01/16/21 19:20 94.3 Ventilator 01/16/21 15:46 62 Laboratory Data Labs 24H Laboratory Tests 2 01/16/21 13:00: Estimated Mean Plasma Glucose 263H, Hemoglobin A1c 10.8 01/16/21 13:11: Immature Granulocyte % (Auto) , Neutrophils (%) (Auto) , Nucleated Red Blood Cells % (auto) 0.6H, Neutrophils 46, Band Neutrophils 34H, Lymphocytes (Manual) 14L, Monocytes (Manual) 5, Atypical Lymphocytes 1, Hypochromasia 1+, A nisocytosis 1+, Microcytosis 1+, Macrocytosis 2+, Platelet Estimate NORMAL, Urine Color YELLOW, Urine Appearance HAZY, Urine pH 5.0, Urine Specific [place] 1.017, Urine Protein 1+H, Urine Glucose (UA) 3+H, Urine Ketones TRACEH, Urine Blood NEGATIVE, Urine Nitrite NEGATIVE, Urine Bilirubin NEGATIVE, Urine Urobilinogen 0.2, Urine Leukocyte Esterase NEGATIVE, Urine WBC (Auto) 5H, Urine RBC (Auto) 5H, Urine Hyaline Casts (Auto) 0, Urine Bacteria (Auto) 1+H, Urine Squamous Epithelial Cells 0, Urine Sperm (Auto) , POC Glucose (Misc Panel) > 700*H, POC Sodium (Misc Panel) 109*L, POC Potassium (Misc Panel) 5.9H, POC Chloride (Misc Panel) 72L, POC Total CO2 (Misc Panel) 15.0L, POC Blood Urea Nitrogen (Misc Panel 112H, POC Ionized Calcium (Misc Panel) 4.1L, POC Creatinine (Misc Panel) 5.1H, POC Hematocrit (Misc Panel) 28.0L, Urine Opiates Screen POSITIVEH, Urine Methadone Screen NEGATIVE, Urine Barbiturates Screen NEGATIVE, Urine Phencyclidine Screen NEGATIVE, Urine Amphetamines Screen NEGATIVE, Urine Benzodiazepines Screen NEGATIVE, Urine Cocaine Metabolite Screen NEGATIVE, Urine Cannabinoids Screen POSITIVEH 01/16/21 13:16: POC Lactate (Misc Panel) 16.23*H 01/16/21 13:21: POC Troponin I (Misc) 0.01 01/16/21 13:24: POC pH (Misc Panel) 7.005*L, POC Base Excess (Misc Panel) -18.0L, POC Saturated Percent O2 (Misc) 100H, POC pO2 (Misc Panel) 365.0H, POC pCO2 (Misc Panel) 52.4H, POC HCO3 (Misc Panel) 13.1L, POC Total CO2 (Misc Panel) 15.0L 01/16/21 13:42: Anion Gap 27H, Glomerular Filtration Rate 16.0L, Osmolality 355H, Calcium Level 8.0L, Phosphorus Level 10.7H, Magnesium Level 3.2H, Total Bilirubin 0.6, Direct Bilirubin 0.2, Aspartate Amino Transf (AST/SGOT) 176H, Alanine Aminotransferase (ALT/SGPT) 48, Alkaline Phosphatase 83, Total Creatine Kinase 6490H, Creatine Kinase MB 91.8H, Creatine Kinase MB Relative Index 1.41, Troponin I < 0.02, Total Protein 3.8L, Albumin 1.2L, Albumin/Globulin Ratio 0.5, Lipase 30L, Ethyl Alcohol Level < 0.003, B-Hydroxybutyrate 42.73H 01/16/21 13:51: Coronavirus (COVID-19)(PCR) NEGATIVE, Influenza Type A (RT-PCR) NEGATIVE, Influenza Type B (RT-PCR) NEGATIVE, Respiratory Syncytial Virus (PCR) NEGATIVE 01/16/21 14:37: POC pH (Misc Panel) 7.104*L, POC Base Excess (Misc Panel) -16.0L, POC Saturated Percent O2 (Misc) 100H, POC pO2 (Misc Panel) 247.0H, POC pCO2 (Misc Panel) 43.6, POC HCO3 (Misc Panel) 13.7L, POC Total CO2 (Misc Panel) 15.0L 01/16/21 15:57: Prothrombin Time 27.3H, Prothromb Time International Ratio 2.47, Activated Partial Thromboplast Time 49.6H, Anion Gap 25H, Glomerular Filtration Rate 17.3L, Calcium Level 7.5L 01/16/21 17:32: Nucleated Red Blood Cells % (auto) 1.0H, Lactic Acid Level 19.0*H, Methicillin- Resist S.aureus DNA PCR NOT DETECTED 01/16/21 17:33: Prothrombin Time 36.6H, Prothromb Time International Ratio 3.58, Activated Pa rtial Thromboplast Time 162.4*H, Anion Gap 30H, Glomerular Filtration Rate 19.5L, Calcium Level 7.2L, Phosphorus Level 9.1H, Magnesium Level 3.0H, Total Bilirubin 0.5, Aspartate Amino Transf (AST/SGOT) 271H, Alanine Aminotransferase (ALT/SGPT) 67, Alkaline Phosphatase 101, Total Protein 3.1L, Albumin 1.0L, Albumin/Globulin Ratio 0.5 01/16/21 17:59: Blood Gas Bicarbonate Standard 8.2L, Arterial Blood pH 6.992*L, Arterial Blood Partial Pressure CO2 36.0, Arterial Blood Partial Pressure O2 124.7H, Arterial Blood Total CO2 9.6L, Arterial Blood HCO3 8.5L, Arterial Blood Base Excess - 21.1L, Arterial Blood Oxygen Saturation 96.9 01/16/21 20:41: Lactic Acid Level 26.6*H 01/16/21 20:47: Bedside Glucose Confirm (Misc) 714*H 01/16/21 20:50: Blood Gas Bicarbonate Standard 5.3L, Arterial Blood pH 6.857*L, Arterial Blood Partial Pressure CO2 32.0L, Arterial Blood Partial Pressure O2 201.4H, Arterial Blood Total CO2 6.5L, Arterial Blood HCO3 5.5L, Arterial Blood Base Excess - 26.6L, Arterial Blood Oxygen Saturation 98.8 01/16/21 20:52: Fibrinogen 390 CBC/BMP Laboratory Tests 01/16/21 13:11 01/16/21 13:42 01/16/21 15:57 01/16/21 17:32 01/16/21 17:33 Microbiology Microbiology 01/16/21 Wound Culture, Received Pending 01/16/21 Blood Culture, Received Pending 01/16/21 Blood Culture, Received Pending Discharge Medications Scheduled Insulin Lispro (Admelog Solostar) 100 Unit/1 Ml Insuln.pen, 1 DOSE SC AC, (Reported) PER SLIDING SCALE Allergies Coded Allergies: Penicillins (Verified Allergy, Intermediate, HIVES, 04/02/19) tramadol (Verified Adverse Reaction, Intermediate, VOMITING, 07/08/19) SAHRA CORDON MD Jan 16, 2021 22:56
--- NOTE | 2021-01-17 08:36 | RO ---
OPERATIVE NOTE DATE OF OPERATION: 01/16/2021 PROCEDURE: Hemodialysis catheter. INDICATIONS: Hemodialysis access. PRE-PROCEDURE DIAGNOSIS: Iloxb-gv-obllcen renal failure. POST-PROCEDURE DIAGNOSIS: Chfci-pr-lwmkrif renal failure. ATTENDING PHYSICIAN: Courtney Reyes MD CONSENT: Verbal consent was obtained from the patient's prior to the procedure due to emergent nature of the procedure. Written consent was not obtained. Indications, risks, and benefits were explained with the patient's verbally. PROCEDURE SUMMARY: A central line insertion practice form was completed by independent observer. A time-out was performed prior to the procedure. Full sterile technique was maintained throughout the procedure, including surgical cap, mask, protective eyewear, sterile gown, and sterile gloves. The left inguinal region was prepped using chlorhexidine scrub and draped in sterile fashion using a full drape. A sterile probe cover was employed. The left femoral vein was identified using ultrasound. Using real-time [id number]-lzmek ultrasound guidance, the introducer needle was inserted into the femoral vein and venous blood was withdrawn. The syringe was removed and a guidewire was advanced into the introducer needle. The introducer needle was removed from the guidewire. A small incision was made at the skin surface with the scalpel and a dilator was exchanged over the guidewire. After appropriate double dilation was obtained, the dilator was exchanged over the wire for a Trialysis hemodialysis catheter. The wire was removed and the catheter was sutured in place. A sterile chlorhexidine impregnated dressing was placed over the catheter insertion site. The patient tolerated the procedure without any hemodynamic compromise. At the time of procedure completion, all ports were aspirated and Heparin was instilled in the dialysis ports. ESTIMATED BLOOD LOSS: Less than 2 mL.
--- NOTE | 2021-01-17 08:50 | RO ---
OPERATIVE NOTE DATE OF OPERATION: 01/16/2021 PROCEDURE: Femoral arterial line. INDICATIONS: Accurate hemodynamic monitoring. PRE-PROCEDURE DIAGNOSIS: Hypothermia protocol and septic shock. POST-PROCEDURE DIAGNOSIS: Hypothermia protocol and septic shock. ATTENDING PHYSICIAN: Courtney Reyes MD CONSENT: Due to the emergent nature of the procedure, consent was implied. PROCEDURE SUMMARY: A time-out was performed prior to the procedure. Full sterile technique was maintained throughout the procedure, including surgical cap, mask, protective eyewear, sterile gown, and sterile gloves. The left inguinal region was prepped using chlorhexidine scrub and draped in sterile fashion using a fenestrated drape. The left femoral artery was identified using ultrasound. Using real-time [id number]-[id number] ultrasound guidance, the introducer needle was inserted into the femoral artery. Arterial blood was withdrawn. The syringe was removed and a guidewire was advanced through the needle into the femoral artery. The needle was removed over the guidewire. An arterial catheter was exchanged over the guidewire and the wire was removed. The catheter was sutured to the skin using a suture. The patient tolerated the procedure without any hemodynamic compromise. At the time of the procedure completion, the catheter was connected to telemetry monitor and calibrated. Appropriate waveform and blood pressure tracing was observed. ESTIMATED BLOOD LOSS: Less than 2 mL.
[2021-01-17] MEDS ORDERED: PANTOPRAZOLE 40MG VIAL (C9113 PER 1) IV SCH (09:00)
--- NOTE | 2021-01-17 14:21 | ECGEPIP ---
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
== END 2021-01-16 23:18 | disposition expired | DRG 710 ==
LOC: M ED 12:57 → M ED INP 15:07 → ENRESERV 15:22 → M ICU 16:16
PROVIDERS: ADMIT Internal Medicine Pulmonary Disease; ATTEND Internal Medicine Pulmonary Disease
PROC: 06HN33Z Insertion of Infusion Device into Left Femoral Vein, Percutaneous Approach (ICD-10-PCS; 2021-01-15)
PROC: 0BH17EZ Insertion of Endotracheal Airway into Trachea, Via Natural or Artificial Opening (ICD-10-PCS; principal; 2021-01-16)
PROC: 04HY32Z Insertion of Monitoring Device into Lower Artery, Percutaneous Approach (ICD-10-PCS; 2021-01-16)
PROC: 5A1935Z Respiratory Ventilation, Less than 24 Consecutive Hours (ICD-10-PCS; 2021-01-16)
DX: A41.9 Sepsis, unspecified organism (principal); I46.9 Cardiac arrest, cause unspecified; K72.00 Acute and subacute hepatic failure without coma; R65.21 Severe sepsis with septic shock; M72.6 Necrotizing fasciitis; E10.22 Type 1 diabetes mellitus with diabetic chronic kidney disease; I47.1 Supraventricular tachycardia; E43 Unspecified severe protein-calorie malnutrition; E10.10 Type 1 diabetes mellitus with ketoacidosis without coma; N17.9 Acute kidney failure, unspecified; E10.40 Type 1 diabetes mellitus with diabetic neuropathy, unspecified; M62.82 Rhabdomyolysis; F41.9 Anxiety disorder, unspecified; F32.9 Major depressive disorder, single episode, unspecified; D63.1 Anemia in chronic kidney disease; N18.9 Chronic kidney disease, unspecified; N52.9 Male erectile dysfunction, unspecified; E55.9 Vitamin D deficiency, unspecified; K58.0 Irritable bowel syndrome with diarrhea; Z87.891 Personal history of nicotine dependence; Z89.511 Acquired absence of right leg below knee; Z79.4 Long term (current) use of insulin; Z79.899 Other long term (current) drug therapy; Z88.0 Allergy status to penicillin; Z88.5 Allergy status to narcotic agent; Z91.19 Patient's noncompliance with other medical treatment and regimen; Z20.822 Contact with and (suspected) exposure to COVID-19